=== PATIENT | male | born 1940 | race African-American/Black ===

== ENCOUNTER → 2018-01-05 | Day surgery (SDC) | payer OTHER ==
[~2018-01-05] VITALS: Ht 167.6 cm; Wt 63.5 kg
[~2018-01-05] MED LIST: ALLOPURINOL300 MG PO; ATENOLOL50 MG PO; CARDIZEM60 MG PO; CLONIDINE HCL0.1 MG PO; DHEA50 MG PO; DOXYCYCLINE HY100 MG PO; FENTANYL CITRATE/PF 100MCG/2 ML INJ IV PRN; FENTANYL CITRATE/PF 100MCG/2 ML INJ PRN; FERROUS SULFATE PO; FOLIC ACID1 MG PO; FUROSEMIDE40 MG PO; HEPARIN SOD (PORCINE) 1000 UNIT/ML 30ML PRN; HEPARIN SOD (PORCINE) 1000 UNIT/ML SDV IV ONE; HEPARIN SOD/SOD CHLORIDE 2,000 ML PRN; IOPAMIDOL 370 MG/ML 200 ML INFUS..BTL INJ PRN; LIDOCAINE HCL 2% LOCAL 20 ML VIAL PRN; LISINOPRIL2.5 MG PO; METHYLPRED PO; METOPROLOL TART25 MG PO; MIDAZOLAM HCL 2 MG/2 ML VIAL IV PRN; MIDAZOLAM HCL 2 MG/2 ML VIAL PRN; SODIUM CHLORIDE 0.9% 1000ML 1,000 ML PRN; SPIRIVA18 MCG INH; TAMSULOSIN HCL0.4 MG PO; TERAZOSIN HCL5 MG PO; TYLENOL WITH C1 EACH PO; ULTRAM50 MG PO; VITAMIN B-1 PO; VITAMIN D3 PO; calcitrol PO
--- OUTSIDE RECORDS SUMMARY | 2018-01-05 06:54 | XMS REPORT | Clinical Summary ---
Author Author [facility] Address Unknown Phone Unavailable Care Team Providers Care Datacap Developer Name Role Phone Dennis García MD PCP Allergies No Known Allergies Current Medications Prescription Sig. Disp. Refills Start End Date Status Date acetaminophen-codeine Take 1 tablet by mouth Active (TYLENOL WITH CODEINE #3) every 6 (six) hours as 300-30 mg per tablet needed for moderate pain. allopurinol (ZYLOPRIM) Take 100 mg by mouth Active 100 MG tablet daily. diltiazem (CardIZEM) 90 Take 90 mg by mouth every Active MG tablet 8 (eight) hours. cholecalciferol, vitamin Take 1,000 Units by mouth Active D3, (VITAMIN D3) 1,000 daily. unit capsule tamsulosin (FLOMAX) 0.4 Take 0.4 mg by mouth Active mg capsule,extended daily. release 24hr fluticasone-salmeterol Inhale 1 puff 2 (two) Active (ADVAIR) 250-50 mcg/dose times a day. DISKUS clonIDINE (CATAPRES) 0.1 Take 0.1 mg by mouth Active MG tablet daily as needed. For blood pressure over 170 ipratropium-albuterol Take 3 mL by nebulization Active (DUO-NEB) 0.5-2.5 mg/mL as needed for wheezing. nebulizer sevelamer (RENVELA) 800 Take 800 mg by mouth 3 Active mg tablet (three) times a day with meals. calcitriol (ROCALTROL) Take 0.25 mcg by mouth Active 0.25 MCG capsule daily. clopidogrel (PLAVIX) 75 Take 75 mg by mouth Active mg tablet daily. simvastatin (ZOCOR) 20 MG Take 20 mg by mouth Active tablet nightly. metoprolol tartrate Take 25 mg by mouth Active (LOPRESSOR) 25 mg tablet daily. furosemide (LASIX) 40 mg Take 1 tablet (40 mg 60 tablet 0 12/22/19 01/22/20 Active tablet total) by mouth 2 (two) 18 18 times a day for 30 days. lisinopril Take 5 mg by mouth daily. 12/17/19 Active (PRINIVIL,ZESTRIL) 5 mg 18 tablet aspirin (ECOTRIN) 81 MG Take 81 mg by mouth Active enteric coated tablet daily. prasterone, dhea, (DHEA) Take 1 capsule by mouth Active 50 mg capsule daily. doxycycline (VIBRAMYCIN) Take 2 capsules (100 mg 40 capsule 0 01/08/20 Active 50 MG capsule total) by mouth 2 (two) 18 18 times a day for 10 days. calcitriol (ROCALTROL) Take 0.25 mcg by mouth 10/20/20 Discontin 0.25 MCG capsule daily. 17 ued lisinopril Take 2.5 mg by mouth 11/11/20 Discontin (PRINIVIL,ZESTRIL) 20 mg daily. 17 ued tablet prasterone, dhea, (DHEA) Take 25 tablets by mouth 10/20/20 Discontin 25 mg capsule daily. 17 ued pravastatin (PRAVACHOL) Take 10 mg by mouth 08/14/20 Discontin 10 MG tablet daily. 17 ued atenolol (TENORMIN) 100 Take 100 mg by mouth 08/14/20 Discontin MG tablet daily. 17 ued folic acid (FOLVITE) 1 MG Take 1 mg by mouth daily. 08/14/20 Discontin tablet 17 ued UBIDECARENONE (COQ-10 Take 1 tablet by mouth 08/14/20 Discontin ORAL) daily. 17 ued B complex with C#20-folic Take 1 capsule by mouth 08/14/20 Discontin acid 1 mg capsule every other day. 17 ued sevelamer (RENAGEL) 800 Take 1,600 mg by mouth 3 11/04/20 Discontin MG tablet (three) times a day with 17 ued meals. 1 tablet with snacks simvastatin (ZOCOR) 10 MG Take 1 tablet (10 mg 30 tablet 0 08/15/20 09/14/20 tablet total) by mouth nightly 17 17 for 30 days. simvastatin (ZOCOR) 10 MG Take 10 mg by mouth 11/04/20 Discontin tablet nightly. 17 ued aspirin (ECOTRIN) 81 MG Take 1 tablet (81 mg 30 tablet 0 10/20/20 enteric coated tablet total) by mouth daily for 17 18 30 days. prasterone, dhea, (DHEA) Take 1 capsule by mouth 11/11/20 Discontin 25 mg capsule daily. 17 ued umeclidinium (INCRUSE Inhale daily. 11/11/20 Discontin ELLIPTA) 62.5 17 ued mcg/actuation blister with device lidocaine-prilocaine Apply topically as needed 11/11/20 Discontin (EMLA) 2.5-2.5 % cream for mild pain. Apply 17 ued topically as directed b complex vitamins Take 1 capsule by mouth 11/11/20 Discontin capsule daily. 17 ued atorvastatin (LIPITOR) 10 Take 1 tablet (10 mg 30 tablet 0 11/06/20 11/11/20 Discontin MG tablet total) by mouth daily for 17 17 ued 30 days. lisinopril Take 1 tablet (5 mg 30 tablet 0 11/15/20 12/15/19 (PRINIVIL,ZESTRIL) 5 mg total) by mouth daily for 17 18 tablet 30 days. predniSONE (DELTASONE) 20 Take 1 tablet (20 mg 7 tablet 0 11/14/20 11/21/19 mg tablet total) by mouth daily for 17 18 7 days. methylPREDNISolone follow package directions 21 tablet 0 12/12/19 (MEDROL, ROSHNI,) 4 mg 18 18 tablet methylPREDNISolone follow package directions 21 tablet 0 12/29/19 (MEDROL, ROSHNI,) 4 mg 18 18 tablet Active Problems Problem Noted Date Acute respiratory failure 12/21/2017 COPD exacerbation 12/10/2017 SOB (shortness of breath) 11/11/2017 Malfunction of arteriovenous graft 11/11/2017 Overview: Added automatically from request for surgery [id number] CHF exacerbation 11/04/2017 Acute on chronic systolic congestive heart failure 11/04/2017 NSTEMI (non-ST elevated myocardial infarction) 11/04/2017 Hypoglycemia 10/19/2017 Anemia 08/14/2017 Essential hypertension 04/23/2017 Kidney disease, chronic, end stage on dialysis 04/08/2017 Encounters Date Type Specialty Care Team Description 12/28/2017 Emergency General Internal Medicine Chris Shearer DO COPD exacerbation - Chong Arteaga (Primary Dx); 12/30/2017 MD Jaxson Acute pulmonary edema 12/21/2017 [facility] General Surgery Carlos Linares MD Acute respiratory - Encounter Chong Arteaga failure, unspecified 12/22/2017 MD Jaxson whether with hypoxia or hypercapnia (Primary Dx) 12/15/2017 Abstract Transplant Brian Vela, QUINN 12/10/2017 [facility]ation - Encounter MD Waldo (Primary Dx) 12/12/2017 Amando Turner MD 11/13/2017 Procedure Pass Procedural Cardiology 11/13/2017 Surgery Procedural Cardiology Adrian Monterroso MD Cv intro cath dialysis circuit angioplasty [72118 (CPT )] 11/11/2017 [facility] General Internal Medicine Carlos Oneal-Andrea Lombardi SOB (shortness of breath) - Encounter MD (Primary Dx); 11/16/2017 Amando Turner MD COPD exacerbation; Hypertension, unspecified type; Malfunction of arteriovenous graft, initial encounter 11/05/2017 Procedure Pass Procedural Cardiology 11/05/2017 Surgery Procedural Cardiology Savage Bosch MD Cv left heart cath [65076 (CPT )] 11/04/2017 Hospital General Internal Medicine Haleigh Laceyton Paul, Acute on chronic systolic - Encounter congestive heart failure 11/06/2017 Dipti Bains MD (Primary Dx); Amando Turner MD Hypertensive emergency; Chong Arteaga Malaise; MD Jaxson Shortness of breath; Acute pulmonary edema; NSTEMI (non-ST elevated myocardial infarction) 10/19/2017 Emergency General Internal Medicine Nata Singh, Altagracia (Primary - DO Dx); 10/20/2017 Dipti Bains MD ESRD (end stage renal Amando Turner MD disease) 08/13/2017 Emergency General Surgery Mariano Jin Anemia, unspecified type - MD Jimi (Primary Dx); 08/15/2017 Amando Turner MD Acute pulmonary edema; ESRD (end stage renal disease) on dialysis; Essential hypertension 04/30/2017 Documentation Transplant Zelda Jeffries Consent Forms (Scanned Consent For Kidney Transplant Evaluation, Pre Txp Education & ANDREZ forms in Media. 04-23-2017) 04/23/2017 Hospital Transplant Tiburcio Turner MD Encounter 04/23/2017 Hospital Transplant Cheikh Cronin MD Essential hypertension Encounter (Primary Dx); Kidney disease, chronic, end stage on dialysis 04/23/2017 Hospital Transplant Cristian Darling MD Encounter 04/23/2017 Hospital Transplant Cheikh Cronin MD Encounter 04/23/2017 Orders Only Transplant Chino Piña RN ESRD (end stage renal disease) (Primary Dx) 04/21/2017 Telephone Transplant aJnette Ledbetter MA Medical information 04/07/2017 Telephone Transplant Micki Martines MA Referral - Kidney Txp (New MD Consult) after 01/04/2017 Social History Tobacco Use Types Packs/Day Years Used Date Former Smoker 0.5 Quit: 11/16/2014 Smokeless Tobacco: Never Used Alcohol Use Drinks/Week oz/Week Comments No Sex Assigned at Date Recorded Not on file Last Filed Vital Signs Vital Sign Reading Time Taken Blood Pressure 158/72 12/30/2017 2:47 PM CHILDHOOD TEACHER Pulse 70 12/30/2017 2:47 PM CHILDHOOD TEACHER Temperature 35.7 C (96.3 F) 12/30/2017 2:47 PM CHILDHOOD TEACHER Respiratory Rate 18 12/30/2017 2:47 PM CHILDHOOD TEACHER Oxygen Saturation 100% 12/30/2017 2:47 PM CHILDHOOD TEACHER Inhaled Oxygen - - Concentration Weight 62.8 kg (138 lb 8 oz) 12/29/2017 6:53 AM CHILDHOOD TEACHER Height 167.6 cm (5' 6") 12/28/2017 9:17 PM CHILDHOOD TEACHER Body Mass Index 22.35 12/29/2017 6:53 AM CHILDHOOD TEACHER Plan of Treatment Health Maintenance Due Date Last Done Comments ZOSTER VACCINE 2002 PNEUMOCOCCAL 2007 POLYSACCHARIDE VACCINE AGE 65 AND OVER PNEUMOCOCCAL-13 2007 INFLUENZA VACCINE 06/16/2017 Procedures Procedure Name Priority Date/Time Associated Diagnosis Comments HEMODIALYSIS Routine 12/30/2017 7:51 AM CHILDHOOD TEACHER HEMODIALYSIS Routine 12/28/2017 12:11 PM [employer]ILDHOOD TEACHER [place] [facility] E/M Routine 12/28/2017 Results for this 30-74 MINUTES 8:16 AM CHILDHOOD TEACHER procedure are in the results section. [place] [facility], E/M Routine 12/21/2017 Results for this 30-74 MINUTES 7:38 AM CHILDHOOD TEACHER procedure are in the results section. [place] [facility], E/M Routine 12/12/2017 Results for this 30-74 MINUTES 2:46 PM CHILDHOOD TEACHER procedure are in the results section. HEMODIALYSIS Routine 12/11/2017 1:59 PM CHILDHOOD TEACHER HEMODIALYSIS Routine 11/16/2017 9:40 AM CHILDHOOD TEACHER [place] [facility], E/M Routine 11/11/2017 Results for this 30-74 MINUTES 3:39 AM CHILDHOOD TEACHER procedure are in the results section. HEMODIALYSIS Routine 11/06/2017 10:07 AM CHILDHOOD TEACHER ECHOCARDIOGRAM 2D Routine 11/05/2017 Results for this COMPLETE W MMODE SPECTRAL 7:53 PM CHILDHOOD TEACHER procedure are in the COLOR DOPPLER (76175) results section. CV LEFT HEART CATH Routine 11/05/2017 1:17 PM CHILDHOOD TEACHER [place] [facility], E/M Routine 11/04/2017 Results for this 30-74 MINUTES 3:41 AM CHILDHOOD TEACHER procedure are in the results section. [place] [facility], E/M Routine 10/20/2017 Results for this 30-74 MINUTES 7:51 PM CHILDHOOD TEACHER procedure are in the results section. HEMODIALYSIS Routine 10/19/2017 10:59 AM CHILDHOOD TEACHER HEMODIALYSIS Routine 08/15/2017 1:20 PM CDT after 01/04/2017 Results * Estimated GFR (12/30/2017 5:08 AM) Only the most recent of 15 results within the time period is included. Component Value Ref Range GFR Non Af Amer 9 (A) mL/min/1.73 m2 GFR Af Amer 11 (A) mL/min/1.73 m2 Comment: Chronic kidney disease: <60 mL/min/1.73m2 Kidney failure: <15 mL/min/1.73m2 The estimated GFR is calculated from the IDMS-traceable Modification of Diet in Renal Disease Equation. The accuracy of the calculation is poor when the creatinine is normal. Calculated values >90 mL/min/1.73m2 are not reported. This equation has not been validated in children (<18 years), women, the elderly (>70 years), or ethnic groups other than Caucasians and Americans. Specimen Performing Laboratory Plasma specimen [facility] DEPARTMENT OF PATHOLOGY AND GENOMIC MEDICINE [address] [place] [address] * CBC with platelet and differential (12/30/2017 5:08 AM) Only the most recent of 14 results within the time period is included. Component Value Ref Range WBC 11.9 (H) 4.2 - 11.0 k/uL RBC 4.29 4.04 - 5.86 m/uL HGB 10.3 (L)Comment: REPEAT HGB=10.4 13.0 - 17.3 g/dL HCT 33.2 (L) 34.0 - 45.0 % MCV 77.4 (L) 80.0 - 98.0 fL MCH 24.0 (L) 27.0 - 34.0 pg MCHC 31.0 (L) 31.5 - 36.5 g/dL RDW - SD 58.3 (H) 37.0 - 51.0 fL MPV 9.4 7.4 - 10.4 fL Platelet count 301 150 - 400 k/uL Nucleated RBC 0.00 /100 WBC Neutrophils 69.7 (H) 36.0 - 66.0 % Lymphocytes 18.0 (L) 24.0 - 44.0 % Monocytes 10.5 (H) 0.0 - 6.0 % Eosinophils 1.2 0.0 - 6.0 % Basophils 0.2 0.0 - 1.2 % Immature granulocytes 0.4 0.0 - 1.0 % Specimen Performing Laboratory Blood [facility] DEPARTMENT OF PATHOLOGY AND GENOMIC MEDICINE [address] [place] [address] * Basic metabolic panel (12/30/2017 5:08 AM) Only the most recent of 7 results within the time period is included. Component Value Ref Range Sodium 135 135 - 150 mEq/L Potassium 4.8 3.5 - 5.0 mEq/L Chloride 94 (L) 100 - 109 mEq/L CO2 30 24 - 32 mmol/L Anion gap 11 7 - 15 mEq/L Comment: Starting from February , anion gap calculation no longer incorporates potassium. Please note the change. BUN 58 (H) 7 - 18 mg/dL Creatinine 6.1 (H) 0.8 - 1.5 mg/dL Glucose 79 65 - 100 mg/dL Calcium 8.0 (L) 8.6 - 10.7 mg/dL Specimen Performing Laboratory Plasma specimen [facility] DEPARTMENT OF PATHOLOGY AND GENOMIC MEDICINE [address] [place] [address] * Transfuse RBC (12/29/2017 9:20 PM) Only the most recent of 4 results within the time period is included. * Prepare RBC, 2 Units (12/29/2017 1:07 PM) Only the most recent of 2 results within the time period is included. Component Value Ref Range Product name Apheresis -3 LR #1 Unit number [id number] Product code [id number] Dispense status Transfused Blood expiration date Blood type code 5100Comment: 16:39 Moovly Blood type O POSITIVE Product name Apheresis -3 LR #2 Unit number [id number] Product code [id number] Dispense status Transfused Blood expiration date [id number]: 21:13 Moovly Blood type code 5100 Blood type O POSITIVE Specimen Performing Laboratory [facility] DEPARTMENT OF PATHOLOGY AND GENOMIC MEDICINE [address] [place] [id number] * Type and screen (12/29/2017 1:07 PM) Only the most recent of 2 results within the time period is included. Component Value Ref Range ABO grouping O Rh type POS Antibody screen (gel) NEG Specimen Performing Laboratory Blood [facility] DEPARTMENT OF PATHOLOGY AND GENOMIC MEDICINE [address] [place] [id number] * Phosphorus level (12/29/2017 5:18 AM) Only the most recent of 3 results within the time period is included. Component Value Ref Range Phosphorus 3.4 2.5 - 4.5 mg/dL Specimen Performing Laboratory Plasma specimen [facility] DEPARTMENT OF PATHOLOGY AND GENOMIC MEDICINE [address] [place] [address] [place] [address] * Magnesium level (12/29/2017 5:18 AM) Only the most recent of 3 results within the time period is included. Component Value Ref Range Magnesium 2.00 1.60 - 2.40 mg/dL Specimen Performing Laboratory Plasma specimen [facility] DEPARTMENT OF PATHOLOGY AND GENOMIC MEDICINE [address] [place] [address] [place] [address] * Troponin (12/28/2017 12:08 PM) Only the most recent of 24 results within the time period is included. Component Value Ref Range Troponin 0.06 0.00 - 0.60 ng/mL Comment: 0.11 - 1.49 ng/ml May indicate increased risk of acute coronary syndrome. >=1.5 ng/ml Consistent with acute myocardial infarction. The diagnostic value of a single normal or non-diagnostic result is questionable. Serial samples at 2-6 hour intervals are required to rule out acute myocardial injury. Specimen Performing Laboratory Plasma specimen [facility] DEPARTMENT OF PATHOLOGY AND [facility] MEDICINE [address] [place] [address]. [place] [id number] * Hepatitis B surface antigen (12/28/2017 8:23 AM) Only the most recent of 7 results within the time period is included. Component Value Ref Range Hepatitis B surface Ag Non-reactive Non-reactive Specimen Performing Laboratory Blood [facility] DEPARTMENT OF PATHOLOGY AND [facility] MEDICINE [address] [place] [address]. [place] [address] * B natriuretic peptide (12/28/2017 8:23 AM) Only the most recent of 6 results within the time period is included. Component Value Ref Range BNP 1,870 (H) 0 - 100 pg/mL Specimen Performing Laboratory Blood [facility] OF PATHOLOGY AND [facility] MEDICINE [address] [place] [address] * Creatine kinase, total (CPK) (12/28/2017 8:23 AM) Only the most recent of 3 results within the time period is included. Component Value Ref Range Creatine kinase 52 (L) 61 - 224 U/L Specimen Performing Laboratory Plasma specimen [facility] OF PATHOLOGY AND [facility] MED[facility] [address] [place] [address] * Comprehensive metabolic panel (12/28/2017 8:23 AM) Only the most recent of 8 results within the time period is included. Component Value Ref Range Sodium 143 135 - 150 mEq/L Potassium 5.0 3.5 - 5.0 mEq/L Chloride 102 100 - 109 mEq/L CO2 30 24 - 32 mmol/L Anion gap 11 7 - 15 mEq/L Comment: Starting from February , anion gap calculation no longer incorporates potassium. Please note the change. BUN 66 (H) 7 - 18 mg/dL Creatinine 7.9 (H) 0.8 - 1.5 mg/dL Glucose 90 65 - 100 mg/dL Calcium 8.5 (L) 8.6 - 10.7 mg/dL Protein 7.0 6.3 - 8.2 g/dL Albumin 2.8 (L) 3.2 - 5.0 g/dL A/G ratio 0.7 0.7 - 3.8 Alkaline phosphatase 47 30 - 120 U/L AST 11 (L) 15 - 37 U/L ALT 13 (L) 30 - 65 U/L Total bilirubin 0.4 0.2 - 1.2 mg/dL Specimen Performing Laboratory Plasma specimen [facility] DEPARTMENT OF PATHOLOGY AND GENOMIC MEDICINE [address] [place] [address] * ECG ED Preliminary Interpretation - NOT AN ORDER (12/28/2017 8:16 AM) Only the most recent of 7 results within the time period is included. Narrative Chris Shearer, 12/28/20172:13 PM ECG ED Preliminary Interpretation - Not an Order Performed by: CHRIS SHEARER Authorized by: CHRIS SHEARER ECG reviewed by ED Physician in the absence of a masseur/masseuse: yes Interpretation: Interpretation: abnormal Rate: ECG rate:102 ECG rate assessment: tachycardic Rhythm: Rhythm: sinus tachycardia Ectopy: Ectopy: none QRS: QRS axis:Normal Conduction: Conduction: normal ST segments: ST segments:Normal T waves: T waves: normal Comments: Time 0749 * CRITICAL CARE (12/28/2017 8:16 AM) Narrative Chris Shearer, DO 12/28/20172:13 PM Critical Care Performed by: CHRIS SHEARER Authorized by: CHRIS SHEARER Critical care provider statement: Critical care time (minutes):60 Critical care end time:12/28/2017 2:12 PM Critical care time was exclusive of:Separately billable procedures and treating other patients Critical care was necessary to treat or prevent imminent or life-threatening deterioration of the following conditions:Respiratory failure and renal failure Critical care was time spent personally by me on the following activities:Ordering and performing treatments and interventions, ordering and review of laboratory studies, ordering and review of radiographic studies, pulse oximetry, re-evaluation of patient's condition, review of old charts, discussions with consultants, development of treatment plan with patient or surrogate, examination of patient, evaluation of patient's response to treatment and ventilator management * XR Chest 1 Vw Portable (12/28/2017 8:09 AM) Only the most recent of 7 results within the time period is included. Specimen Performing Laboratory [facility] [address] [place] [address] Narrative EXAMINATION:XR CHEST 1 VW PORTABLE CLINICAL HISTORY:SHORTNESS OF BREATH COMPARISON:12/21/2017 IMPRESSION: An AP radiograph of the chest is reviewed. The cardiomediastinal silhouette is unchanged. Bilateral interstitial infiltrates from either interstitial edema or pneumonia appear to have slightly worsened over the interval. Small bilateral pleural effusions are present. There is no pneumothorax. [facility]-[id number] Procedure Note Hm Interface, Radiology Results Incoming - 12/28/2017 8:14 AM CHILDHOOD TEACHER EXAMINATION: XR CHEST 1 VW PORTABLE CLINICAL HISTORY: SHORTNESS OF BREATH COMPARISON: 12/21/2017 IMPRESSION: An AP radiograph of the chest is reviewed. The cardiomediastinal silhouette is unchanged. Bilateral interstitial infiltrates from either interstitial edema or pneumonia appear to have slightly worsened over the interval. Small bilateral pleural effusions are present. There is no pneumothorax. [facility]-[id number] * ECG 12 lead (12/28/2017 7:49 AM) Only the most recent of 14 results within the time period is included. Component Value Ref Range Ventricular rate 102 Atrial rate 102 [place] interval 180 QRSD interval 96 QT interval 338 QTC interval 440 P axis 1 63 QRS axis 1 47 T wave axis 64 EKG impression Sinus tachycardia-Minimal voltage criteria for LVH, may be normal variant-Borderline ECG-No previous ECGs available- Specimen Performing Laboratory [facility] [address] [place] [address] * Respiratory pathogen panel (12/21/2017 8:28 AM) Only the most recent of 2 results within the time period is included. Component Value Ref Range Respiratory pathogen Negative for all pathogens tested: panel Negative for Adenovirus Negative for Coronavirus HKU1 Negative for Coronavirus NL63 Negative for Coronavirus 229E Negative for Coronavirus OC43 Negative for Human Metapneumovirus Negative for Rhinovirus/Enterovirus Negative for Influenza A Negative for Influenza A/H1 Negative for Influenza A/H3 Negative for Influenza A/H1-2009 Negative for Influenza B Negative for Parainfluenza Virus 1 Negative for Parainfluenza Virus 2 Negative for Parainfluenza Virus 3 Negative for Parainfluenza Virus 4 Negative for Respiratory Syncytial Virus Negative for Bordetella pertussis Negative for Chlamydophila pneumoniae Negative for Mycoplasma pneumoniae This real-time PCR assay detects the presence of nucleic acids (RNA or DNA) for the respiratory pathogens listed. A result of "Not-detected" does not exclude the possibility of the presence of one or more pathogens at concentrations less than the detectable limits of the assay. Comment: Specimen Information Specimen Source: Nasopharyngeal Specimen Site: Not otherwise specified Specimen Performing Laboratory Nasopharyngeal - Not [facility] DEPARTMENT OF PATHOLOGY AND GENOMIC MEDICINE otherwise specified [address] [place] [address] * Influenza antigen (12/21/2017 8:28 AM) Only the most recent of 2 results within the time period is included. Component Value Ref Range Influenza antigen Negative for Influenza A/B antigen. Comment: Specimen Information Specimen Source: Nares Specimen Site: Not otherwise specified Specimen Performing Laboratory Nares - Not otherwise [facility] DEPARTMENT OF PATHOLOGY AND GENOMIC MEDICINE specified [address] [place] [address] * Prothrombin time with INR (12/21/2017 8:02 AM) Only the most recent of 4 results within the time period is included. Component Value Ref Range Prothrombin time 13.2 12.0 - 15.0 sec INR 0.99 0.92 - 1.12 Comment: For patients on anticoagulant therapy, reference ranges below: Indication: INR Value Treatment of Venous Thrombosis, 2.0-3.0 pulmonary emboli, or prophylaxis of a venous thrombosis, or systemic emboli. High dose, high risk patients 3.0-4.5 with mechanical valves. NOTE: INR values over 3.0 are sometimes associated with gastrointestinal hemorrhage, especially values over 4.0. Specimen Performing Laboratory Blood [facility] DEPARTMENT OF PATHOLOGY AND GENOMIC MEDICINE [address] [place] [address] * CRITICAL CARE (12/21/2017 7:38 AM) Narrative Carlos Linares MD 12/21/20177:38 AM Critical Care Performed by: CARLOS LINARES Authorized by: CARLOS LINARES Critical care provider statement: Critical care time (minutes):32 Critical care was necessary to treat or prevent imminent or life-threatening deterioration of the following conditions:Cardiac failure and circulatory failure Critical care was time spent personally by me on the following activities:Blood draw for specimens and discussions with primary provider Comments: Pt w severe sob and placed onto bipap * POC glucose (12/21/2017 7:36 AM) Only the most recent of 15 results within the time period is included. Component Value Ref Range POC glucose 101 (H) 65 - 100 mg/dL Comment: Meter ID: [id number] Personal Financial Advisor: Johnnasandy Brooks Specimen Performing Laboratory [facility] DEPARTMENT OF PATHOLOGY AND GENOMIC MEDICINE [address] [place] [address] * Arterial blood gas (12/21/2017 7:31 AM) Only the most recent of 3 results within the time period is included. Component Value Ref Library Helper [employer] Collection site RRA O2 therapy BIPAP pH, arterial 7.246 (LL)Comment: CALLED TO RT NIDHI HERNÁNDEZ @ 07:42 7.350 - 7.450 units 12/21/2017 RB [place] -NKS pCO2, arterial 68.2 (HH) 35.0 - 45.0 mmHg pO2, arterial 484.0 (H) 80.0 - 90.0 mmHg O2 saturation, arterial >100.0 95.0 - 100.0 % Base excess, arterial 2.3 mEq/L Bicarbonate 29.6 (H) 21.0 - 28.0 mEq/L O2 content 13.4 VOL% FiO2, inspired O2% 21.0 % Carboxyhemoglobin 0.8 0.0 - 1.4 % Comment: Reference Ranges: Carboxyhemoglobin Non smoker: 0.0 - 2.0% Smoker: 2.1 - 5.0% Heavy smoker: 5.1 - 9% Methemoglobin 0.6 0.0 - 1.0 % Hemoglobin, blood gas 8.7 (L) 14.0 - 18.0 g/dL Specimen Performing Laboratory Blood [facility] DEPARTMENT OF PATHOLOGY AND GENOMIC MEDICINE [address] [place] [address] * CRITICAL CARE (12/12/2017 2:46 PM) Tyler Sparks MD 12/12/20172:46 PM Critical Care Performed by: NINFA SPARKS Authorized by: NINFA SPARKS Critical care provider statement: Critical care time (minutes):40 Critical care time was exclusive of:Separately billable procedures and treating other patients Critical care was necessary to treat or prevent imminent or life-threatening deterioration of the following conditions:Respiratory failure Critical care was time spent personally by me on the following activities:Development of treatment plan with patient or surrogate, discussions with primary provider, evaluation of patient's response to treatment, ordering and performing treatments and interventions, ordering and review of laboratory studies, ordering and review of radiographic studies, pulse oximetry, obtaining history from patient or surrogate and examination of patient Comments: Patient severe respiratory distress, needing Bipap to prevent respiratory failure. * Hepatitis B surface Ab, quantitative (12/11/2017 10:19 AM) Only the most recent of 2 results within the time period is included. Component Value Ref Range Hepatitis B surface Ab >1000.00 IU/L Comment: The anti-HBs is greater than or equal to 10 IU/L. This patient has either had an antibody response to HBV vaccination, received a transfusion, or has recovered from HBV infection. This patient should be considered immune to hepatitis B. An anti-HBs result greater than or equal to 10 IU/L implies immunity. For post-vaccination antibody testing guidelines for the general public refer to MMWR November 07, 2005/Vol. 54(No. 16);12-08, and for healthcare workers refer to MMWR November 04, 2013/Vol. 62(No. 10);12-04. Reference Interval: anti-HBs 9.99 IU/L or less ....... Negative 10.00 IU/L or greater .... Positive Results greater than 1,000.00 IU/L are reported as greater than 1,000.00 IU/L. This assay should not be used for blood donor screening, associated re-entry protocols, or for screening Human Cell, Tissues and Cellular and Tissue-Based Products (HCT/P). Performed by [facility], [address] [place] [id number] [email or web address], Jonah Whatley MD - Lab. Director Specimen Performing Laboratory [facility] [address] [place] [address] * Cv invasive peripheral vascular procedure (11/13/2017 1:56 PM) Specimen Performing Laboratory [facility] [address] [place] [address] Narrative See op note * Partial thromboplastin time, activated (11/12/2017 1:02 PM) Only the most recent of 2 results within the time period is included. Component Value Ref Range PTT 32.7 23.0 - 36.0 sec Comment: PTT therapeutic range for unfractionated heparin is 61.0-112.0 seconds which corresponds to Anti-Xa 0.3-0.7 U/ml. Note: Change in Panic Value The PTT Panic Value is changing from 110 sec. to 100 sec. due to new instrumentation and reagents. Correlation studies have been performed to validate this result. Specimen Performing Laboratory Blood [facility] DEPARTMENT OF PATHOLOGY AND GENOMIC MEDICINE [address] [place] [address] * CRITICAL CARE (11/11/2017 3:39 AM) Tyler Oneal MD 11/11/20173:39 AM Critical Care Performed by: CARLOS ONEAL Authorized by: CARLOS ONEAL Critical care provider statement: Critical care time (minutes):35 Critical care start time:11/11/2017 1:05 AM Critical care end time:11/11/2017 1:40 AM Critical care was necessary to treat or prevent imminent or life-threatening deterioration of the following conditions:Respiratory failure Critical care was time spent personally by me on the following activities:Development of treatment plan with patient or surrogate, evaluation of patient's response to treatment, ordering and performing treatments and interventions, ordering and review of laboratory studies, ordering and review of radiographic studies, pulse oximetry, re-evaluation of patient's condition and review of old charts * Echocardiogram complete w contrast and 3D if needed (11/05/2017 7:53 PM) Component Value Ref Range Velocity Ratio (V1/V2) 0.66 m/s IVS,d 1.28 (A) 0.6 - 1.2 cm EF 47.49 % LVPWD,d 1.39 cm AoV Mean PG 5.96 mmHg AV LVOT peak gradient 4.65 mmHg MV mean gradient 2.23 mmHg MV valve area p 1/2 3.85 cm2 method E/A ratio 1.55 E wave decelartion time 176.03 msec LVOT Diam,S 2.08 cm LVOT area 3.40 cm2 LVOT Vmax 1.08 m/s LVOT VTI 0.20 m RVOT Vmax 0.67 m/s AoV Peak PG 10.60 mmHg MV Peak E Anmol 1.16 m/s MV stenosis pressure 1/2 57.13 ms time MV Peak A Anmol 0.75 m/s AoV Area, Vmax 2.25 cm2 AoV Area, VTI 2.10 cm2 AoV Vmax 1.63 m/s Left Atrium Dimension 3.87 cm Anterior LV,d 4.66 cm LV,s 3.55 cm RVSP (TR) 52.85 mmHg TR Vpeak 3.27 mm/s MV E A ratio 1.55 mmHg TR pk grad 42.85 mmHg MR peak grad 4.53 mmHg RVSP 52.85 mmHg Ao Root Diameter 3.68 cm AR Press Half Time 419.62 ms LV SYS VOL 52.80 ml LV NORTH VOL 100.56 ml LV SV Teich 2D 47.76 ml LVOT CO 4.65 l/min LVOT HR for LVOT CO 68.47 bpm MV Vmax 1.06 m MV VTI Tips 0.31 m RVOT pk grad 1.80 mmHg AoV Vmn 1.17 AR slope 2.41 Ar Vmax 3.48 IVS s 2D 1.37 Ao Root Diameter 3.68 cm AoV VTI 0.32 m MR Vmax 5.11 m/s LVOT Vmn 0.74 LVOT mean grad 2.48 mmHg AR DT 1,446.98 msec AR pk grad 48.48 mmHg LVPW s PLAX 1.34 cm MV Decel slope 6.61 m/s2 Specimen Performing Laboratory [facility] [address] [place] [address] Narrative The left ventricle chamber size is mildly enlarged. Left ventricular systolic function mildly impaired. Left Ventricular ejection fraction is 40 - 45%. Left atrium size is mildly dilated. The aortic valve appears moderately calcified. Mild aortic regurgitation. Mild aortic valve stenosis. 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 Component Value Ref Range Manual differential PERFORMED Neutrophils 67.0 (H) 36.0 - 66.0 % Lymphocytes 28.0 24.0 - 44.0 % Monocytes 1.0 0.0 - 6.0 % Eosinophils 3.0 0.0 - 6.0 % Basophils 1.0 0.0 - 1.2 % Metamyelocytes 0 0 - 1 % Promyelocytes 0 0 - 1 % Platelet slide review Darlin adequate Anisocytosis Moderate Polychromasia slight Tear drop cells Occasional Schistocytes Occasional Target cells few Acanthocytes Occasional Specimen Performing Laboratory [facility] DEPARTMENT OF PATHOLOGY AND GENOMIC MEDICINE [address] [facility] [address] [place] [address] * CRITICAL CARE (11/04/2017 3:41 AM) Narrative Celestine Lacey MD 11/04/20173:41 AM Critical Care Performed by: CELESTINE LACEY Authorized by: CELESTINE LACEY Critical care provider statement: Critical care time (minutes):60 Critical care start time:11/04/2017 1:40 AM Critical care end time:11/04/2017 3:40 AM Critical care was necessary to treat or prevent imminent or life-threatening deterioration of the following conditions:Cardiac failure, endocrine crisis and metabolic crisis Critical care was time spent personally by me on the following activities:Ordering and performing treatments and interventions, development of treatment plan with patient or surrogate, ordering and review of laboratory studies, ordering and review of radiographic studies, discussions with primary provider, discussions with consultants, pulse oximetry, evaluation of patient's response to treatment, examination of patient and re-evaluation of patient's condition * CRITICAL CARE (10/20/2017 7:51 PM) Narrative Nata Singh DO 10/20/20177:51 PM Critical Care Performed by: NATA SINGH Authorized by: NATA SINGH Critical care provider statement: Critical care time (minutes):55 Critical care was necessary to treat or prevent imminent or life-threatening deterioration of the following conditions:Endocrine crisis and MANAGER MOBILITY failure or compromise Critical care was time spent personally by me on the following activities:Development of treatment plan with patient or surrogate, discussions with primary provider, evaluation of patient's response to treatment, examination of patient, interpretation of cardiac output measurements, obtaining history from patient or surrogate, ordering and performing treatments and interventions, ordering and review of laboratory studies, ordering and review of radiographic studies, pulse oximetry, re-evaluation of patient's condition and review of old charts * Lipid panel (10/20/2017 6:48 AM) Component Value Ref Range Cholesterol 214 (H) 120 - 200 mg/dL Triglycerides 43 (L) 50 - 150 mg/dL HDL cholesterol 174 (H) 40 - 60 mg/dL LDL cholesterol 54Comment: Result obtained by direct LDL mg/dL measurement Lipid panel See below interpretation Comment: Total Cholesterol (mg/dL) LDL Cholesterol (mg/dL) <200 Desirable <100 Optimal 200-239 Borderline-high 100-129 Near or above optimal >=240 High 130-159 Borderline-high 160-189 High >=190 Very high HDL Cholesterol (mg/dL) Triglycerides (mg/dL) <40 Low <150 Normal >=60 High 150-199 Borderline-high 200-499 High >=500 Very high Risk Catergories that modify LDL goals. Risk Catergories LDL goal (mg/dL) CHD and CHD risk equivalent <100 (10-year risk >20%) Multiple (2+) risk factors <130 (10-year risk=<20%) 0-1 risk factors <160 (<10-year risk) Defining levels of lipids in metabolic syndrome Triglycerides >=150 mg/dL HDL Cholesterol Men <40 mg/dL Women <50 mg/dL Non-HDL cholesterol is a second target for therapy in persons with high triglycerides (>=200 mg/dL) Specimen Performing Laboratory Plasma specimen [facility] DEPARTMENT OF PATHOLOGY AND GENOMIC MEDICINE [facility] [place] [address] * Hemoglobin & hematocrit (10/19/2017 10:50 AM) Only the most recent of 3 results within the time period is included. Component Value Ref Range HGB 11.0 (L) 13.0 - 17.3 g/dL HCT 34.2 34.0 - 45.0 % Specimen Performing Laboratory Blood [facility] DEPARTMENT OF PATHOLOGY AND GENOMIC MEDICINE [facility] [address] * CT Stroke Brain Wo Contrast (10/19/2017 1:01 AM) Specimen Performing Laboratory [facility] [address] [place] [address] Narrative EXAMINATION: CT STROKE BRAIN WO CONTRAST CLINICAL HISTORY: cvaright side weakness COMPARISON:None. TECHNIQUE: Noncontrast enhanced images of the brain were obtained from the skull base to the vertex. Both soft tissue and bone reconstruction algorithms were performed. CT scans are performed using radiation dose reduction techniques (iterative reconstruction and/or automated exposure control). Technical factors are evaluated and adjusted to ensure appropriate moderation of exposure. Automated dose management technology is applied to adjust radiation exposure while achieving a diagnostic quality image. FINDINGS: Generalized age-related brain parenchymal volume loss. Patchy hypoattenuation of the supratentorial white matter, likely chronic microangiopathic changes. Mild cerebrovascular calcifications. The brain parenchyma is otherwise unremarkable. The loya-white matter differentiation is preserved. No evidence of acute intra or extra-axial hemorrhage, mass, mass effect or acute territorial infarction. There is no acute hydrocephalus. Basal cisterns are patent. No acute soft tissue hematoma or laceration. No skull fractures or aggressive bony lesions. Paranasal sinuses and mastoid air cells are clear. Orbits are normal. IMPRESSION: Involutional changes as detailed above with no acute intracranial abnormality. Findings discussed with NATA SINGH at 10/19/2017 1:04 AM, with acknowledgement of understanding. 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 TECHNIQUE: Noncontrast enhanced images of the brain were obtained from the skull base to the vertex. Both soft tissue and bone reconstruction algorithms were performed. CT scans are performed using radiation dose reduction techniques (iterative reconstruction and/or automated exposure control). Technical factors are evaluated and adjusted to ensure appropriate moderation of exposure. Automated dose management technology is applied to adjust radiation exposure while achieving a diagnostic quality image. FINDINGS: Generalized age-related brain parenchymal volume loss. Patchy hypoattenuation of the supratentorial white matter, likely chronic microangiopathic changes. Mild cerebrovascular calcifications. The brain parenchyma is otherwise unremarkable. The loya-white matter differentiation is preserved. No evidence of acute intra or extra-axial hemorrhage, mass, mass effect or acute territorial infarction. There is no acute hydrocephalus. Basal cisterns are patent. No acute soft tissue hematoma or laceration. No skull fractures or aggressive bony lesions. Paranasal sinuses and mastoid air cells are clear. Orbits are normal. IMPRESSION: Involutional changes as detailed above with no acute intracranial abnormality. Findings discussed with NATA SINGH at 10/19/2017 1:04 AM, with acknowledgement of understanding. [facility]-[id number] * Smear review (08/15/2017 6:29 AM) Only the most recent of 5 results within the time period is included. Component Value Ref Range Platelet slide review Darlin adequate Specimen Performing Laboratory [facility] DEPARTMENT OF PATHOLOGY AND GENOMIC MEDICINE [address] [place] [address] * Legionella urinary antigen (08/14/2017 1:39 PM) Component Value Ref Range Legionella urinary Negative for Legionella serogroup 1 antigen. antigen Comment: Specimen Information Specimen Source: Urine Specimen Site: Random void Specimen Performing Laboratory Urine - Random void [facility] DEPARTMENT OF PATHOLOGY AND GENOMIC MEDICINE [address] [place] [address] * Mycoplasma pneumoniae Ab, IgM (08/14/2017 12:31 PM) Component Value Ref Range Mycoplasma pneumo IgM 0.47 <=0.76 U/L Comment: INTERPRETIVE INFORMATION: Mycoplasma pneumoniae Ab, IgM 0.76 U/L or less .......... Negative: No clinically significant amount of M. pneumoniae IgM antibody detected. 0.77 - 0.95 U/L ........... Low Positive: M. pneumoniae- specific IgM presumptively detected. Collection of a follow-up sample in 1-2 weeks is recommended to assure reactivity. 0.96 U/L or greater ....... Positive: Highly significant amount of M. pneumoniae- specific IgM antibody detected. However, low levels of IgM antibodies may occasionally persist for more than 12 months post-infection. Performed by [facility], [address] [place], [place] [id number] [email or web address], Jonah Whatley MD - Lab. Director Specimen Performing Laboratory [facility] [address] [place] [address] * Total iron binding capacity (08/14/2017 8:00 AM) Component Value Ref Range Iron level 45 (L) 76 - 198 ug/dL Iron binding capacity 218 (L) 271 - 474 ug/dL % Saturation 20.6 20.0 - 40.0 % Specimen Performing Laboratory Plasma specimen [facility] DEPARTMENT OF PATHOLOGY AND GENOMIC MEDICINE [address] [place] [address] * Reticulocyte count (08/14/2017 8:00 AM) Component Value Ref Range Retic %, auto 0.9 % Retic absolute, auto 0.0263 0.0220 - 0.1260 m/uL Specimen Performing Laboratory Blood [facility] DEPARTMENT OF PATHOLOGY AND GENOMIC MEDICINE [address] [place] [address] [place] [address] * LDH (08/14/2017 8:00 AM) Component Value Ref Range LDH 192 81 - 234 U/L Specimen Performing Laboratory Plasma specimen [facility] DEPARTMENT OF PATHOLOGY AND GENOMIC MEDICINE [address] [place] [address] [place] [address] * Haptoglobin (08/14/2017 8:00 AM) Component Value Ref Range Haptoglobin 85 30 - 200 mg/dL Specimen Performing Laboratory Plasma specimen [facility] DEPARTMENT OF PATHOLOGY AND GENOMIC MEDICINE [address] [place] [address] * Folate level (08/14/2017 8:00 AM) Component Value Ref Range Folate 8.0 3.4 - 20.0 ng/mL Specimen Performing Laboratory [facility] OF PATHOLOGY AND GENOMIC MEDICINE [address] [place] [address] [place] [address] * Ferritin level (08/14/2017 8:00 AM) Component Value Ref Range Ferritin level 1,006 (H) 18 - 158 ng/mL Specimen Performing Laboratory [facility] OF PATHOLOGY AND GENOMIC MEDICINE [address] [place] [address] [place] [address] * Vitamin B12 level (08/14/2017 8:00 AM) Component Value Ref Range Vitamin B12 531 231 - 931 pg/mL Comment: Significant overlap exists between normal and deficiency states. However, most patients with deficiencies will have Serum B12 <200 pg/mL. Specimen Performing Laboratory [facility] OF PATHOLOGY AND GENOMIC MEDICINE [address] [place] [address] [place] [address] * CT Angiogram Pe Chest (08/14/2017 3:34 AM) Specimen Performing Laboratory [address] ANGIOGRAM PE CHEST CLINICAL INDICATION: SOBtachycp. COMPARISON:Chest radiograph 08/13/2017. TECHNIQUE:CT angiographic images of the chest were obtained during intravenous administration of iodinated contrast.Computerized, reformatted images and 3-D MIP images were obtained and archived (per CT pulmonary embolism protocol). CT scans are performed using radiation dose reduction techniques (iterative reconstruction and/or automated exposure control). Technical factors are evaluated and adjusted to ensure appropriate moderation of exposure. Automated dose management technology is applied to adjust radiation exposure while achieving a diagnostic quality image. FINDINGS: Pulmonary arteries: Diagnostic quality of study is adequate for the evaluation of pulmonary embolism. There is no evidence of acute or chronic pulmonary embolism. No evidence of right heart strain. The main pulmonary artery measures 41 mm in luminal diameter. Aorta:No dissection. Ectasia of the thoracic aorta. Descending aorta measures up to 4.0 cm. Proximal descending thoracic aorta measures 3.1 cm. Distal descending thoracic aorta measures 3.0 cm. Extensive calcific atherosclerosis of the thoracic aorta. Lungs and large airways: Dependent and basilar subsegmental atelectasis/ scarring. Mild traction bronchiolectasis in the bilateral lower lobes. No focal or confluent airspace consolidation. Pleura: Trace bilateral pleural effusions. Heart and pericardium:Heart size is enlarged. Coronary atherosclerosis. No pericardial effusion. Mediastinum and estela:No mass or hematoma. Lymph nodes: Right lower paratracheal lymph nodes measuring 1.2 cm short axis, nonspecific. Other subcentimeter mediastinal lymph nodes are noted. Chest wall: Diffuse subcutaneous soft tissue edema. Bones:Diffuse osteopenia. Mild degenerative changes. Anterior wedging of the L1 vertebral body. Upper abdomen:No focal abnormality detected with limited evaluation. IMPRESSION: 1. Negative CTA examination for pulmonary embolism. 2. Bibasilar scarring with ild traction bronchiolectasis in the bilateral lower lobes. Otherwise no focal or confluent airspace consolidation. 3. Trace bilateral pleural effusions. 4. Cardiomegaly. Prominent pulmonary arteries, suggesting pulmonary arterial hypertension. 5. Thoracic aorta ectasia. [facility]-[id number] Procedure Note [facility], Radiology Results Incoming - 08/14/2017 3:[address] ANGIOGRAM PE CHEST CLINICAL INDICATION: SOB tachy cp. COMPARISON: Chest radiograph 08/13/2017. TECHNIQUE: CT angiographic images of the chest were obtained during intravenous administration of iodinated contrast. Computerized, reformatted images and 3-D MIP images were obtained and archived (per CT pulmonary embolism protocol). CT scans are performed using radiation dose reduction techniques (iterative reconstruction and/or automated exposure control). Technical factors are evaluated and adjusted to ensure appropriate moderation of exposure. Automated dose management technology is applied to adjust radiation exposure while achieving a diagnostic quality image. FINDINGS: Pulmonary arteries: Diagnostic quality of study is adequate for the evaluation of pulmonary embolism. There is no evidence of acute or chronic pulmonary embolism. No evidence of right heart strain. The main pulmonary artery measures 41 mm in luminal diameter. Aorta: No dissection. Ectasia of the thoracic aorta. Descending aorta measures up to 4.0 cm. Proximal descending thoracic aorta measures 3.1 cm. Distal descending thoracic aorta measures 3.0 cm. Extensive calcific atherosclerosis of the thoracic aorta. Lungs and large airways: Dependent and basilar subsegmental atelectasis/ scarring. Mild traction bronchiolectasis in the bilateral lower lobes. No focal or confluent airspace consolidation. Pleura: Trace bilateral pleural effusions. Heart and pericardium: Heart size is enlarged. Coronary atherosclerosis. No pericardial effusion. Mediastinum and estela: No mass or hematoma. Lymph nodes: Right lower paratracheal lymph nodes measuring 1.2 cm short axis, nonspecific. Other subcentimeter mediastinal lymph nodes are noted. Chest wall: Diffuse subcutaneous soft tissue edema. Bones: Diffuse osteopenia. Mild degenerative changes. Anterior wedging of the L1 vertebral body. Upper abdomen: No focal abnormality detected with limited evaluation. IMPRESSION: 1. Negative CTA examination for pulmonary embolism. 2. Bibasilar scarring with ild traction bronchiolectasis in the bilateral lower lobes. Otherwise no focal or confluent airspace consolidation. 3. Trace bilateral pleural effusions. 4. Cardiomegaly. Prominent pulmonary arteries, suggesting pulmonary arterial hypertension. 5. Thoracic aorta ectasia. [facility]-[id number] after 01/04/2017 Insurance Payer Benefit Subscriber ID Type Phone Address Plan / Group [employer] xxxxxxxxx [facility]
[2018-01-05 07:50] LABS: BASOPHILS % 0.5 % (0.0-1.0); EOSINOPHILS # (AUTO) 0.2 (0.0-0.4); EOSINOPHILS % 3.3 % (0.0-6.0); LYMPHOCYTES # (AUTO) 0.9 (1.0-3.2); LYMPHOCYTES % 14.4 % (18.0-39.1); MEAN CORPUSCULAR HEMOGLOBIN 24.2 pg (28-32); MEAN CORPUSCULAR HGB CONC 31.3 g/dL (31-35); MEAN CORPUSCULAR VOLUME 77.3 fL (81-99); MONOCYTES # (AUTO) 0.6 (0.2-0.8); MONOCYTES % 10.1 % (4.4-11.3); NEUTROPHILS # (AUTO) 4.5 (2.1-6.9); NEUTROPHILS % 71.2 % (38.7-80.0); PLATELET COUNT 225 x10e3/uL (140-360); RED BLOOD COUNT 4.14 x10e6/uL (4.3-5.7); RED CELL DISTRIBUTION WIDTH 22.4 % (11.7-14.4)
[2018-01-05 08:02] VITALS: BP 147/69
[2018-01-05 08:08] LABS: INR 1.04; PROTHROMBIN TIME 12.8 seconds (11.9-14.5)
[2018-01-05 08:13] LABS: ALBUMIN 3.1 g/dL (3.5-5.0); ALBUMIN/GLOBULIN RATIO 0.8 (0.8-2.0); ANION GAP 15.4 mmol/L (8-16); CALCIUM 8.4 mg/dL (8.4-10.2); CHOL/HDL RATIO 2.3 (3.9-4.7); CREATININE, SERUM 4.36 mg/dL (0.72-1.25); POTASSIUM 4.4 mmol/L (3.5-5.1)
--- NOTE | 2018-01-05 09:33 | Operative Report ---
DATE OF PROCEDURE: January 05, 2018 INDICATIONS 1. Coronary artery disease, unstable angina. 2. Carotid artery disease with transient ischemic attack. PROCEDURES PERFORMED 1. Left heart catheterization. 2. Selective coronary angiography. 3. Left ventriculography. 4. Bilateral extracranial selective carotid angiograms. COMPLICATIONS: None. RECOMMENDATIONS: Aggressive medical therapy. Access obtained in the right femoral artery with using fluoroscopic guidance. Extensive calcification and tortuosity of the iliac artery was noted. The sheath was exchanged to a 23-cm sheath. The patient received 2000 units of intravenous heparin. Coronary angiography demonstrated heavily calcified coronary systems. Left main 20%. Left anterior descending artery diffuse 30% to 50%. Midleft anterior descending artery 50%. Ostial diagonal artery also heavily calcified with 90% stenosis. Circumflex and ramus intermedius was small. Right coronary artery was dominant. Diffuse 30% to 50%. No critical stenosis or occlusions noted. LV end-diastolic pressure of 24. LV ejection fraction 65%. No gradient across the aortic valve on pullback. 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 However, selective cannulation of common carotid arteries bilaterally revealed less than 50% stenosis in both internal carotid arteries and carotid bulbs. No intervention was deemed necessary. Right groin sheath removed under manual pressure. Patient discharged home same day. Job#: [id number] STEPHANIE
[2018-01-05 10:39] LABS: ANISOCYTOSIS SLIG; HYPOCHROMASIA SLIGHT; PLATELET ESTIMATE ADEQUATE; POIKILOCYTOSIS SLIGHT; TARGET CELLS FEW
[2018-01-05 10:40] LABS: PLATELET MORPHOLOGY COMMENT NORMAL; RBC MORPHOLOGY COMMENT ABNORMAL
== END | disposition home or self-care (01) ==
LOC: CATH LAB 06:51
PROVIDERS: ATTEND Internal Medicine Interventional Cardiology
DX: I25.110 Atherosclerotic heart disease of native coronary artery with unstable angina pectoris (principal); G45.9 Transient cerebral ischemic attack, unspecified; I65.23 Occlusion and stenosis of bilateral carotid arteries; I70.208 Unspecified atherosclerosis of native arteries of extremities, other extremity; I77.1 Stricture of artery; J44.9 Chronic obstructive pulmonary disease, unspecified; Z79.82 Long term (current) use of aspirin; Z79.02 Long term (current) use of antithrombotics/antiplatelets; Z82.49 Family history of ischemic heart disease and other diseases of the circulatory system
CPT/HCPCS: 36222; 36415; 77002; 80053; 80061; 85025; 85610; 93458; C1766; C1769; J1644; J2001; J2250; J7030; Q9967; 36140; 93452

== ENCOUNTER 2018-11-11 16:33 | Inpatient (IN) | payer OTHER ==
[~2018-11-11] VITALS: Ht 167.6 cm; Wt 64.5 kg
[~2018-11-11 16:33] MED LIST changes: -FENTANYL CITRATE/PF 100MCG/2 ML INJ IV PRN; -FENTANYL CITRATE/PF 100MCG/2 ML INJ PRN; -HEPARIN SOD (PORCINE) 1000 UNIT/ML 30ML PRN; -HEPARIN SOD (PORCINE) 1000 UNIT/ML SDV IV ONE; -HEPARIN SOD/SOD CHLORIDE 2,000 ML PRN; -IOPAMIDOL 370 MG/ML 200 ML INFUS..BTL INJ PRN; -LIDOCAINE HCL 2% LOCAL 20 ML VIAL PRN; -MIDAZOLAM HCL 2 MG/2 ML VIAL IV PRN; -MIDAZOLAM HCL 2 MG/2 ML VIAL PRN; -SODIUM CHLORIDE 0.9% 1000ML 1,000 ML PRN
--- OUTSIDE RECORDS SUMMARY | 2018-11-11 16:36 | XMS REPORT | Clinical Summary ---
Author Author [employer] [facility] [employer] Address Unknown Phone Unavailable Care Team Providers Care Moving Picture Producer Name Role Phone Parveen García MD PCP Allergies No Known Allergies Medications End Date Status Medication Sig Dispensed Refills Start Date Active acetaminophen-codeine Take 1 tablet 0 (TYLENOL WITH CODEINE #3) by mouth 3 300-30 mg per tablet (three) times a day as needed for moderate pain. Active allopurinol (ZYLOPRIM) Take 100 mg 0 100 MG tablet by mouth daily. Active tamsulosin (FLOMAX) 0.4 Take 0.4 mg 0 mg capsule,extended by mouth release 24hr daily. Active fluticasone-salmeterol Inhale 1 puff 0 (ADVAIR) 250-50 mcg/dose 2 (two) times DISKUS a day. Active clonIDINE (CATAPRES) 0.1 Take 0.1 mg 0 MG tablet by mouth daily as needed. For blood pressure over 170 Active calcitriol (ROCALTROL) Take 0.25 mcg 0 0.25 MCG capsule by mouth daily. Active clopidogrel (PLAVIX) 75 Take 75 mg by 0 mg tablet mouth daily. Active metoprolol tartrate Take 12.5 mg 0 (LOPRESSOR) 25 mg tablet by mouth 2 (two) times a day. Active aspirin (ECOTRIN) 81 MG Take 81 mg by 0 enteric coated tablet mouth daily. Active furosemide (LASIX) 40 mg Take 40 mg by 0 03/22/201 tablet mouth 2 (two) 8 times a day. Active rosuvastatin (CRESTOR) 20 Take 20 mg by 0 0322/201 MG tablet mouth daily. 8 Active albuterol (ACCUNEB) 2.5 Take 2.5 mg 0 mg /3 mL (0.083 %) by nebulizer solution nebulization every 6 (six) hours as needed for wheezing. Active calcium acetate (PHOSLO) Take 1,334 mg 0 667 mg capsule by mouth 3 (three) times a day with meals. Active vit B complex-vitamin Take 1 tablet 0 C-folic acid (NEPHRO-HILTON by mouth OTC) 0.8 mg tablet daily. Active sacubitril-valsartan Entresto 24 0 (ENTRESTO) 24-26 mg mg-26 mg tablet per tablet tablet Take 1 tablet twice a day by oral route for 90 days. Active diltiazem (CardIZEM) 90 diltiazem 90 0 MG tablet mg tablet take 1 tablet 3 times a day Active clonAZEPAM (KlonoPIN) 0.5 clonazepam 0 MG tablet 0.5 mg tablet Take 1 tablet every day by oral route at bedtime for 30 days. Active prasterone, dhea, 25 mg DHEA 25 mg 0 capsule capsule Take 1 capsule every day by oral route as directed. Active ipratropium-albuterol INHALE 1 VIAL 0 (SogouO-NEB) 0.5-2.5 mg/mL VIA NEBULIZER 8 nebulizer EVERY 4 HOURS NEEDED 09/24/2018 Discontinued diltiazem (CardIZEM) 90 Take 90 mg by 0 MG tablet mouth every 8 (eight) hours. 11/11/2017 Discontinued lisinopril Take 2.5 mg 0 (PRINIVIL,ZESTRIL) 20 mg by mouth tablet daily. 03/31/2018 Discontinued cholecalciferol, vitamin Take 1,000 0 D3, (VITAMIN D3) 1,000 Units by unit capsule mouth daily. 03/31/2018 Discontinued ipratropium-albuterol Take 3 mL by 0 (DUO-NEB) 0.5-2.5 mg/mL nebulization nebulizer as needed for wheezing. 03/31/2018 Discontinued sevelamer (RENVELA) 800 Take 800 mg 0 mg tablet by mouth 3 (three) times a day with meals. 11/19/2017 aspirin (ECOTRIN) 81 MG Take 1 tablet 30 tablet 0 enteric coated tablet (81 mg total) 7 by mouth daily for 30 days. 11/11/2017 Discontinued prasterone, dhea, (DHEA) Take 1 0 25 mg capsule capsule by mouth daily. 11/11/2017 Discontinued umeclidinium (INCRUSE Inhale daily. 0 ELLIPTA) 62.5 mcg/actuation blister with device 11/11/2017 Discontinued lidocaine-prilocaine Apply 0 (EMLA) 2.5-2.5 % cream topically as needed for mild pain. Apply topically as directed 11/11/2017 Discontinued b complex vitamins Take 1 0 capsule capsule by mouth daily. 11/11/2017 Discontinued atorvastatin (LIPITOR) 10 Take 1 tablet 30 tablet 0 MG tablet (10 mg total) 7 by mouth daily for 30 days. 03/31/2018 Discontinued simvastatin (ZOCOR) 20 MG Take 20 mg by 0 tablet mouth nightly. 12/15/2017 lisinopril Take 1 tablet 30 tablet 0 (PRINIVIL,ZESTRIL) 5 mg (5 mg total) 7 tablet by mouth daily for 30 days. 11/21/2017 predniSONE (DELTASONE) 20 Take 1 tablet 7 tablet 0 mg tablet (20 mg total) 7 by mouth daily for 7 days. 12/17/2017 methylPREDNISolone follow 21 tablet 0 (MEDROL, ROSHNI,) 4 mg package 8 tablet directions 01/21/2018 furosemide (LASIX) 40 mg Take 1 tablet 60 tablet 0 tablet (40 mg total) 8 by mouth 2 (two) times a day for 30 days. 09/23/2018 Discontinued lisinopril Take 20 mg by 0 (PRINIVIL,ZESTRIL) 5 mg mouth daily. 8 tablet 09/23/2018 Discontinued prasterone, dhea, (DHEA) Take 1 0 50 mg capsule capsule by mouth daily. 01/08/2018 doxycycline (VIBRAMYCIN) Take 2 40 capsule 0 50 MG capsule capsules (100 8 mg total) by mouth 2 (two) times a day for 10 days. 01/03/2018 methylPREDNISolone follow 21 tablet 0 (MEDROL, ROSHNI,) 4 mg package 8 tablet directions 03/31/2018 Discontinued atorvastatin (LIPITOR) 40 0 MG tablet 8 03/31/2018 Discontinued lidocaine-prilocaine 0 (EMLA) 2.5-2.5 % cream 8 04/06/2018 methylPREDNISolone follow 21 tablet 0 (MEDROL, ROSHNI,) 4 mg package 8 tablet directions 04/11/2018 cefuroxime (CEFTIN) 500 Take 1 tablet 20 tablet 0 04/01/201 MG tablet (500 mg 8 total) by mouth 2 (two) times a day for 10 days. 06/06/2018 tiotropium (SPIRIVA) 18 Place 1 puff 30 capsule 0 mcg per inhalation (1 capsule 8 capsule total) into inhaler and inhale once daily for 30 days. 05/13/2018 cefuroxime (CEFTIN) 500 Take 1 tablet 14 tablet 0 MG tablet (500 mg 8 total) by mouth 2 (two) times a day for 7 days. 09/23/2018 Discontinued tiotropium (SPIRIVA) 18 Place 1 0 mcg per inhalation capsule into capsule inhaler and inhale once daily. 09/23/2018 Discontinued losartan (COZAAR) 50 MG Take 50 mg by 0 tablet mouth daily. Active Problems Patient Care Coordination Note Patient with serious illnesses & recurrent hospitalizations. Please consider Supportive/PC consult for future readmissions. Problem Noted Date Hypervolemia 10/18/2018 Dietary noncompliance regarding sodium restriction 09/24/2018 Encounter for education about heart failure 09/24/2018 Dietary counseling 09/24/2018 Frequent hospital admissions 09/24/2018 Volume overload 06/28/2018 Hypertensive emergency 06/28/2018 Flash pulmonary edema 06/03/2018 COPD with acute exacerbation 06/02/2018 Hyperkalemia 05/04/2018 Multifocal pneumonia 04/30/2018 Acute respiratory failure with hypoxia and hypercapnia 12/21/2017 COPD exacerbation 12/10/2017 SOB (shortness of breath) 11/11/2017 Malfunction of arteriovenous graft 11/11/2017 Overview: Added automatically from request for surgery [id number] CHF exacerbation 11/04/2017 NSTEMI (non-ST elevated myocardial infarction) 11/04/2017 Hypoglycemia 10/19/2017 Anemia 08/14/2017 Essential hypertension 04/23/2017 ESRD (end stage renal disease) on dialysis 04/08/2017 Acute on chronic diastolic heart failure secondary to hypertrophic cardiomyopathy Resolved Problems Problem Noted Date Resolved Date Acute on chronic congestive heart failure 08/30/2018 09/24/2018 Encounters Care Team Description Date Type Specialty Rachelle Bentley MD Berberian, Esteban N., MD Other hypervolemia (Primary Dx); Hypervolemia, unspecified hypervolemia type; ESRD (end stage renal disease) on dialysis (HCC) 10/18/2018 Hospital General Internal Medicine - Encounter 10/19/2018 10/18/2018 Travel Aixa Oneal MD Allencherril, Paul Joseph, MD Hypoglycemia (Primary Dx); Hypothermia, initial encounter; Other fatigue; ESRD (end stage renal disease) on dialysis (HCC); Essential hypertension 09/23/2018 Emergency General Internal Medicine - 09/24/2018 Rachelle Bentley MD Berberian, Esteban N., MD Acute on chronic congestive heart failure, unspecified heart failure type (HCC) (Primary Dx); ESRD (end stage renal disease) on dialysis ([facility]) 08/30/2018 [facility] General Internal Medicine - Encounter 08/31/2018 Carlos Linares MD Allencherril, Paul Joseph, MD Respiratory arrest (Primary Dx); ESRD (end stage renal disease) on dialysis; Acute on chronic systolic congestive heart failure; Acute respiratory failure with hypoxia and hypercapnia; Flash pulmonary edema 06/28/2018 [facility] General Internal Medicine - Encounter 07/03/2018 Shelbie Law MD Allencherril, Paul Joseph, MD COPD with acute exacerbation (Primary Dx); Dyspnea, unspecified type; Flash pulmonary edema 06/02/2018 Emergency General Internal Medicine - 06/04/2018 Narendra Draper MD 05/05/2018 Anesthesia General Surgery Adrian Reeves MD Left arm fistulogram w/ balloon angioplasty of the left subclavian artery & brachial vein 05/05/2018 Surgery General Surgery Aixa Oneal MD Allencherril, Paul Joseph, MD SOB (shortness of breath) (Primary Dx); Hyperkalemia; ESRD on dialysis; Acute on chronic respiratory failure with hypercapnia; Malfunction of arteriovenous graft, initial encounter 05/02/2018 [facility] General Internal Medicine - Encounter 05/06/2018 Minesh Ponce Jr., Kai Cazares DO Allencherril, Paul Joseph, MD Multifocal pneumonia (Primary Dx); Kidney disease, chronic, end stage on dialysis; Acute on chronic systolic congestive heart failure 04/30/2018 [facility] General Internal Medicine - Encounter 05/01/2018 Juni Kenny DO Allencherril, Paul Joseph, MD COPD exacerbation (Primary Dx); Hypervolemia, unspecified hypervolemia type; Anemia, unspecified type; ESRD needing dialysis; Kidney disease, chronic, end stage on dialysis; Essential hypertension 03/31/2018 Emergency General Internal Medicine - 04/01/2018 Chris Shearer DO Allencherril, Paul Joseph, MD COPD exacerbation (Primary Dx); Acute pulmonary edema 12/28/2017 Emergency General Internal Medicine - 12/30/2017 Carlos Linares MD Allencherril, Paul Joseph, MD Acute respiratory failure, unspecified whether with hypoxia or hypercapnia (Primary Dx) 12/21/2017 [facility] General Surgery - Encounter 12/22/2017 Brian Vela RN 12/15/2017 Abstract Transplant Ninfa Sparks MD Berberian, Esteban N., MD COPD exacerbation (Primary Dx) 12/10/2017 Hospital Critical Care Medicine - Encounter 12/12/2017 Adrian Monterroso MD Cv intro cath dialysis circuit angioplasty [93656 (CPT)] 11/13/2017 Surgery Procedural Cardiology Aixa Oneal MD Berberian, Esteban N., MD SOB (shortness of breath) (Primary Dx); COPD exacerbation; Hypertension, unspecified type; Malfunction of arteriovenous graft, initial encounter 11/11/2017 [facility] General Internal Medicine - Encounter 11/16/2017 after 11/10/2017 Social History Date Tobacco Use Types Packs/Day Years Used Quit: 11/16/2014 Former Smoker Cigarettes 0.5 Smokeless Tobacco: Never Used Alcohol Use Drinks/Week oz/Week Comments No Sex Assigned at Date Recorded Not on file Industry Job Start Date Occupation Not on file Not on file Not on file Travel End Travel History Travel Start No recent travel history available. Last Filed Vital Signs Time Taken Vital Sign Reading 10/19/2018 7:24 AM [employer] Blood Pressure 126/58 10/19/2018 8:13 AM [employer] Pulse 75 10/19/2018 7:24 AM [employer] Temperature 36.5 C (97.7 F) 10/19/2018 8:13 AM [employer] Respiratory Rate 18 10/19/2018 8:01 AM [employer] Oxygen Saturation 99% - Inhaled Oxygen - Concentration 10/18/2018 3:41 AM [employer] Weight 74.8 kg (165 lb) 10/18/2018 3:41 AM [employer] Height 165.1 cm (5' 5") 10/18/2018 3:41 AM [employer] Body Mass Index 27.46 Plan of Treatment Health Maintenance Due Date Last Done Comments SHINGLES VACCINES (1 of 1992 2) INFLUENZA VACCINE 06/16/2018 07/17/2017, 07/16/2017, 07/23/2016 PNEUMOCOCCAL Completed 10/23/2016 POLYSACCHARIDE VACCINE AGE 65 AND OVER PNEUMOCOCCAL-13 Completed 10/23/2017 Implants Device Identifier Shelf Expiration Date Model / Serial / Lot Explanted Type Area Manufactur er 06/15/2020 [id number] / / [id number] Catheter Shingle Shearing Machine Operator 4x75cm 10mm Conquest - Surgical Left: Arm, BARD [id number] Implants; Upper PERIPHERAL Implanted: Expanders; VASCULAR Explanted: 05/05/2018 (Quantity not Extenders; on file) Surgical Wires [id number] / / Catheter Shingle Shearing Machine Operator 4x75cm 7mm [employer]quest - Surgical Left: Arm BARD [id number] Implants; PERIPHERAL Implanted: Expanders; VASCULAR Explanted: 05/05/2018 (Quantity not Extenders; on file) Surgical Wires Procedures Comments Procedure Name Priority Date/Time Associated Diagnosis LACTIC ACID LEVEL, SEPSIS Timed 10/18/2018 - NOW AND REPEAT 2X EVERY 6:40 PM STEREO COMPILER 3 HOURS HEMODIALYSIS Routine 10/18/2018 2:12 PM [employer]EREO COMPILER LACTIC ACID LEVEL, SEPSIS Timed 10/18/2018 - NOW AND REPEAT 2X EVERY 12:39 PM [employer]EREO COMPILER 3 HOURS TROPONIN Timed 10/18/2018 12:39 PM [employer]EREO COMPILER URINALYSIS SCREEN AND Routine 10/18/2018 MICROSCOPY, WITH REFLEX 10:21 AM STEREO COMPILER TO CULTURE URINE CULTURE Routine 10/18/2018 10:21 AM [employer]EREO COMPILER BLOOD CULTURE, AEROBIC & Routine 10/18/2018 ANAEROBIC 9:47 AM STEREO COMPILER HC COMPLETE BLD COUNT STAT 10/18/2018 W/AUTO DIFF 9:40 AM STEREO COMPILER LACTIC ACID LEVEL, SEPSIS STAT 10/18/2018 - NOW AND REPEAT 2X EVERY 9:40 AM STEREO COMPILER 3 HOURS TROPONIN Timed 10/18/2018 9:40 AM [employer]EREO COMPILER BLOOD CULTURE, AEROBIC & Routine 10/18/2018 ANAEROBIC 9:40 AM STEREO COMPILER XR CHEST 1 VW PORTABLE STAT 10/18/2018 4:11 AM [employer]EREO COMPILER HEPATITIS B SURFACE STAT 10/18/2018 ANTIGEN 3:59 AM STEREO COMPILER ESTIMATED GFR STAT 10/18/2018 3:59 AM STEREO COMPILER B NATRIURETIC PEPTIDE STAT 10/18/2018 3:59 AM STEREO COMPILER TROPONIN STAT 10/18/2018 3:59 AM [employer]ERE[employer] COMPILER COMPREHENSIVE METABOLIC STAT 10/18/2018 PANEL 3:59 AM STEREO COMPILER HC COMPLETE BLD COUNT STAT 10/18/2018 W/AUTO DIFF 3:59 AM STEREO COMPILER ECG ED PRELIMINARY Routine 10/18/2018 INTERPRETATION 3:56 AM STEREO COMPILER IN CRITICAL CARE, E/M Routine 10/18/2018 30-74 MINUTES 3:56 AM STEREO COMPILER ECG 12-LEAD STAT 10/18/2018 3:50 AM STEREO COMPILER BLOOD CULTURE, AEROBIC & Routine 09/24/2018 ANAEROBIC 11:35 AM [employer]ERE[employer] COMPILER HEPATITIS B SURFACE STAT 09/24/2018 ANTIGEN 9:05 AM STEREO COMPILER TROPONIN Timed 09/24/2018 1:31 AM [employer]ERE[employer] COMPILER MANUAL DIFFERENTIAL STAT 09/23/2018 10:30 PM [employer]ERE[employer] COMPILER CBC WITH PLATELET AND STAT 09/23/2018 DIFFERENTIAL 10:30 PM STEREO COMPILER ESTIMATED GFR STAT 09/23/2018 9:25 PM [employer]EREO COMPILER TROPONIN STAT 09/23/2018 9:25 PM STEREO COMPILER CREATINE KINASE, TOTAL STAT 09/23/2018 (CPK) 9:25 PM STEREO COMPILER COMPREHENSIVE METABOLIC STAT 09/23/2018 PANEL 9:25 PM STEREO COMPILER XR CHEST 1 VW PORTABLE STAT 09/23/2018 9:14 PM STEREO COMPILER ECG ED PRELIMINARY Routine 09/23/2018 INTERPRETATION 8:46 PM [employer]EREO COMPILER POC GLUCOSE Routine 09/23/2018 8:05 PM STEREO COMPILER ECG 12-LEAD STAT 09/23/2018 7:58 PM STEREO COMPILER XR CHEST 1 VW PORTABLE Routine 08/31/2018 9:31 AM CDT HC COMPLETE BLD COUNT Routine 08/31/2018 W/AUTO DIFF 6:02 AM CDT HEPATITIS B SURFACE STAT 08/30/2018 ANTIGEN 9:10 AM CDT TROPONIN Timed 08/30/2018 9:10 AM CDT HEMODIALYSIS Routine 08/30/2018 8:40 AM CDT XR CHEST 1 VW PORTABLE STAT 08/30/2018 1:27 AM CDT ESTIMATED GFR STAT 08/30/2018 1:27 AM CDT B NATRIURETIC PEPTIDE STAT 08/30/2018 1:27 AM CDT TROPONIN STAT 08/30/2018 1:27 AM CDT COMPREHENSIVE METABOLIC STAT 08/30/2018 PANEL 1:27 AM CDT HC COMPLETE BLD COUNT STAT 08/30/2018 W/AUTO DIFF 1:27 AM CDT ECG 12-LEAD STAT 08/30/2018 1:09 AM CDT ECG ED PRELIMINARY Routine 08/30/2018 INTERPRETATION 1:04 AM CDT TRANSFUSE RED BLOOD CELLS Routine 07/21/2018 5:49 PM CDT XR CHEST 1 VW PORTABLE Routine 07/01/2018 9:54 AM CDT ZZESTIMATED GFR Routine 07/01/2018 5:07 AM CDT BASIC METABOLIC PANEL Routine 07/01/2018 5:07 AM CDT HC COMPLETE BLD COUNT Routine 07/01/2018 W/AUTO DIFF 5:07 AM CDT MAGNESIUM LEVEL STAT 06/30/2018 10:23 PM CDT ZZESTIMATED GFR STAT 06/30/2018 10:23 PM CDT BASIC METABOLIC PANEL STAT 06/30/2018 10:23 PM CDT HEMODIALYSIS Routine 06/30/2018 8:18 AM CDT XR CHEST 1 VW PORTABLE Routine 06/30/2018 5:48 AM CDT ZZESTIMATED GFR Routine 06/30/2018 4:30 AM CDT BASIC METABOLIC PANEL Routine 06/30/2018 4:30 AM CDT HC COMPLETE BLD COUNT Routine 06/30/2018 W/AUTO DIFF 4:30 AM CDT ZZESTIMATED GFR STAT 06/29/2018 5:43 PM CDT MAGNESIUM LEVEL STAT 06/29/2018 5:43 PM CDT BASIC METABOLIC PANEL STAT 06/29/2018 5:43 PM CDT ECHOCARDIOGRAM 2D Routine 06/29/2018 COMPLETE W MMODE SPECTRAL 8:34 AM CDT COLOR DOPPLER (56631) TROPONIN Routine 06/29/2018 6:54 AM CDT ZZESTIMATED GFR Routine 06/29/2018 6:54 AM CDT PHOSPHORUS LEVEL Routine 06/29/2018 6:54 AM CDT B NATRIURETIC PEPTIDE Routine 06/29/2018 6:54 AM CDT MAGNESIUM LEVEL Routine 06/29/2018 6:54 AM CDT BASIC METABOLIC PANEL Routine 06/29/2018 6:54 AM CDT CBC WITH PLATELET AND Routine 06/29/2018 DIFFERENTIAL 6:54 AM CDT XR CHEST 1 VW PORTABLE Routine 06/29/2018 6:17 AM CDT ARTERIAL BLOOD GAS Routine 06/29/2018 4:35 AM CDT TROPONIN Timed 06/28/2018 9:00 PM CDT TOTAL IRON BINDING Routine 06/28/2018 CAPACITY 4:04 PM CDT HEPATITIS B SURFACE STAT 06/28/2018 ANTIGEN 4:04 PM CDT T4, FREE Routine 06/28/2018 12:04 PM CDT THYROID STIMULATING Routine 06/28/2018 HORMONE 12:04 PM CDT TROPONIN Timed 06/28/2018 12:04 PM CDT ARTERIAL BLOOD GAS Routine 06/28/2018 11:[address] HEAD WO CONTRAST STAT 06/28/2018 11:00 AM CDT ARTERIAL BLOOD GAS STAT 06/28/2018 9:46 AM CDT IN CRITICAL CARE, E/M Routine 06/28/2018 30-74 MINUTES 9:31 AM CDT URINALYSIS SCREEN AND Routine 06/28/2018 MICROSCOPY, WITH REFLEX 9:30 AM CDT TO CULTURE GRAM STAIN Routine 06/28/2018 9:20 AM CDT URINE CULTURE Routine 06/28/2018 9:20 AM CDT XR CHEST 1 VW PORTABLE STAT 06/28/2018 9:03 AM CDT INTUBATION Routine 06/28/2018 8:33 AM CDT SMEAR REVIEW Routine 06/28/2018 8:30 AM CDT ZZESTIMATED GFR Routine 06/28/2018 8:30 AM CDT B NATRIURETIC PEPTIDE Routine 06/28/2018 8:30 AM CDT TROPONIN Routine 06/28/2018 8:30 AM CDT COMPREHENSIVE METABOLIC Routine 06/28/2018 PANEL 8:30 AM CDT PROTHROMBIN TIME WITH INR Routine 06/28/2018 8:30 AM CDT HC COMPLETE BLD COUNT Routine 06/28/2018 W/AUTO DIFF 8:30 AM CDT ECG ED PRELIMINARY Routine 06/28/2018 INTERPRETATION 8:22 AM CDT ECG 12-LEAD STAT 06/28/2018 8:19 AM CDT POC GLUCOSE Routine 06/03/2018 6:27 AM CDT PHOSPHORUS LEVEL Timed 06/03/2018 4:16 AM CDT TROPONIN Timed 06/03/2018 4:16 AM CDT TROPONIN Timed 06/03/2018 12:08 AM CDT TROPONIN Timed 06/02/2018 8:30 PM CDT HEMODIALYSIS Routine 06/02/2018 1:14 PM CDT HEPATITIS B SURFACE STAT 06/02/2018 ANTIGEN 11:30 AM CDT TROPONIN Timed 06/02/2018 11:29 AM CDT URINE DRUGS OF ABUSE STAT 06/02/2018 SCREEN 8:58 AM CDT URINALYSIS SCREEN AND STAT 06/02/2018 MICROSCOPY, WITH REFLEX 8:58 AM CDT TO CULTURE URINE CULTURE STAT 06/02/2018 8:58 AM CDT XR CHEST 1 VW PORTABLE STAT 06/02/2018 8:28 AM CDT BLOOD CULTURE, AEROBIC & Routine 06/02/2018 ANAEROBIC 7:45 AM CDT SMEAR REVIEW STAT 06/02/2018 7:30 AM CDT ZZESTIMATED GFR STAT 06/02/2018 7:30 AM CDT PARTIAL THROMBOPLASTIN STAT 06/02/2018 TIME (PTT) 7:30 AM CDT PROTHROMBIN TIME WITH INR STAT 06/02/2018 7:30 AM CDT CREATINE KINASE, TOTAL STAT 06/02/2018 (CPK) 7:30 AM CDT B NATRIURETIC PEPTIDE STAT 06/02/2018 7:30 AM CDT TROPONIN STAT 06/02/2018 7:30 AM CDT COMPREHENSIVE METABOLIC STAT 06/02/2018 PANEL 7:30 AM CDT HC COMPLETE BLD COUNT STAT 06/02/2018 W/AUTO DIFF 7:30 AM CDT BLOOD CULTURE, AEROBIC & Routine 06/02/2018 ANAEROBIC 7:30 AM CDT ECG 12-LEAD STAT 06/02/2018 7:24 AM CDT ECG ED PRELIMINARY Routine 06/02/2018 INTERPRETATION 7:15 AM CDT IN CRITICAL CARE, E/M Routine 06/02/2018 30-74 MINUTES 7:15 AM CDT ZZESTIMATED GFR Routine 05/06/2018 5:02 AM CDT HC COMPLETE BLD COUNT Routine 05/06/2018 W/AUTO DIFF 5:02 AM CDT BASIC METABOLIC PANEL Routine 05/06/2018 5:02 AM CDT XR SHOULDERS BILATERAL Routine 05/05/2018 4:26 PM CDT CV HYBRID OR FLUOROSCOPY Routine 05/05/2018 1:07 PM CDT POTASSIUM LEVEL Routine 05/05/2018 12:47 PM CDT HEMODIALYSIS Routine 05/05/2018 9:54 AM CDT ZZESTIMATED GFR Routine 05/05/2018 5:20 AM CDT MAGNESIUM LEVEL Routine 05/05/2018 5:20 AM CDT PHOSPHORUS LEVEL Routine 05/05/2018 5:20 AM CDT HC COMPLETE BLD COUNT Routine 05/05/2018 W/AUTO DIFF 5:20 AM CDT BASIC METABOLIC PANEL Routine 05/05/2018 5:20 AM CDT HEMODIALYSIS Routine 05/04/2018 10:48 AM CDT POTASSIUM LEVEL STAT 05/04/2018 9:17 AM CDT B NATRIURETIC PEPTIDE Routine 05/04/2018 6:07 AM CDT ZZESTIMATED GFR Routine 05/04/2018 6:07 AM CDT PARTIAL THROMBOPLASTIN Routine 05/04/2018 TIME (PTT) 6:07 AM CDT PROTHROMBIN TIME WITH INR Routine 05/04/2018 6:07 AM CDT HC COMPLETE BLD COUNT Routine 05/04/2018 W/AUTO DIFF 6:07 AM CDT BASIC METABOLIC PANEL Routine 05/04/2018 6:07 AM CDT HEMODIALYSIS Routine 05/03/2018 10:37 AM CDT HEPATITIS B SURFACE STAT 05/03/2018 ANTIGEN 6:34 AM CDT TROPONIN Timed 05/03/2018 6:34 AM CDT POC GLUCOSE Routine 05/03/2018 2:27 AM CDT ARTERIAL BLOOD GAS STAT 05/03/2018 12:25 AM CDT XR CHEST 1 VW PORTABLE STAT 05/03/2018 12:18 AM CDT ZZESTIMATED GFR STAT 05/03/2018 12:12 AM CDT B NATRIURETIC PEPTIDE STAT 05/03/2018 12:12 AM CDT TROPONIN STAT 05/03/2018 12:12 AM CDT CREATINE KINASE, TOTAL STAT 05/03/2018 (CPK) 12:12 AM CDT COMPREHENSIVE METABOLIC STAT 05/03/2018 PANEL 12:12 AM CDT HC COMPLETE BLD COUNT STAT 05/03/2018 W/AUTO DIFF 12:12 AM CDT ECG 12-LEAD STAT 05/03/2018 12:08 AM CDT ECG ED PRELIMINARY Routine 05/02/2018 INTERPRETATION 11:50 PM CDT IN CRITICAL CARE, E/M Routine 05/02/2018 30-74 MINUTES 11:50 PM CDT MAGNESIUM LEVEL Routine 05/01/2018 4:47 AM CDT PHOSPHORUS LEVEL Routine 05/01/2018 4:47 AM CDT ZZESTIMATED GFR Routine 05/01/2018 4:47 AM CDT BASIC METABOLIC PANEL Routine 05/01/2018 4:47 AM CDT HC COMPLETE BLD COUNT Routine 05/01/2018 W/AUTO DIFF 4:47 AM CDT HEMODIALYSIS Routine 04/30/2018 3:21 PM CDT POC GLUCOSE Routine 04/30/2018 11:27 AM CDT TROPONIN Timed 04/30/2018 8:55 AM CDT BLOOD CULTURE, AEROBIC & Routine 04/30/2018 ANAEROBIC 4:57 AM CDT ECG ED PRELIMINARY Routine 04/30/2018 INTERPRETATION 4:41 AM CDT XR CHEST 1 VW PORTABLE STAT 04/30/2018 4:08 AM CDT ECG 12-LEAD STAT 04/30/2018 3:59 AM CDT VENOUS BLOOD GAS STAT 04/30/2018 3:57 AM CDT HEPATITIS B SURFACE STAT 04/30/2018 ANTIGEN 3:42 AM CDT MANUAL DIFFERENTIAL STAT 04/30/2018 3:42 AM CDT ZZESTIMATED GFR STAT 04/30/2018 3:42 AM CDT B NATRIURETIC PEPTIDE STAT 04/30/2018 3:42 AM CDT TROPONIN STAT 04/30/2018 3:42 AM CDT COMPREHENSIVE METABOLIC STAT 04/30/2018 PANEL 3:42 AM CDT CBC WITH PLATELET AND STAT 04/30/2018 DIFFERENTIAL 3:42 AM CDT BLOOD CULTURE, AEROBIC & Routine 04/30/2018 ANAEROBIC 3:42 AM CDT XR CHEST 1 VW PORTABLE STAT 04/01/2018 12:21 PM CDT ZZESTIMATED GFR Routine 04/01/2018 4:33 AM CDT PHOSPHORUS LEVEL Routine 04/01/2018 4:33 AM CDT MAGNESIUM LEVEL Routine 04/01/2018 4:33 AM CDT HC COMPLETE BLD COUNT Routine 04/01/2018 W/AUTO DIFF 4:33 AM CDT BASIC METABOLIC PANEL Routine 04/01/2018 4:33 AM CDT LACTIC ACID LEVEL, SEPSIS Timed 03/31/2018 - NOW AND REPEAT 2X EVERY 4:15 PM CDT 3 HOURS TRANSFUSE RED BLOOD CELLS STAT 03/31/2018 3:40 PM CDT TRANSFUSE RED BLOOD CELLS STAT 03/31/2018 2:56 PM CDT HEMODIALYSIS Routine 03/31/2018 2:01 PM CDT TROPONIN Timed 03/31/2018 11:56 AM CDT PREPARE RBC Timed 03/31/2018 10:14 AM CDT TYPE AND SCREEN Timed 03/31/2018 10:14 AM CDT XR CHEST 1 VW PORTABLE STAT 03/31/2018 9:19 AM CDT HEPATITIS B SURFACE Routine 03/31/2018 ANTIGEN 8:59 AM CDT LACTIC ACID LEVEL, SEPSIS STAT 03/31/2018 - NOW AND REPEAT 2X EVERY 8:59 AM CDT 3 HOURS ZZESTIMATED GFR STAT 03/31/2018 8:59 AM CDT B NATRIURETIC PEPTIDE STAT 03/31/2018 8:59 AM CDT CREATINE KINASE, TOTAL STAT 03/31/2018 (CPK) 8:59 AM CDT TROPONIN STAT 03/31/2018 8:59 AM CDT COMPREHENSIVE METABOLIC STAT 03/31/2018 PANEL 8:59 AM CDT HC COMPLETE BLD COUNT STAT 03/31/2018 W/AUTO DIFF 8:59 AM CDT ECG 12-LEAD STAT 03/31/2018 8:25 AM CDT ECG ED PRELIMINARY Routine 03/31/2018 INTERPRETATION 7:42 AM CDT IN CRITICAL CARE, E/M Routine 03/31/2018 30-74 MINUTES 7:42 AM CDT HEMODIALYSIS Routine 12/30/2017 7:51 AM 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 Routine 12/30/2017 5:08 AM [employer] HC COMPLETE BLD COUNT Routine 12/30/2017 W/AUTO DIFF 5:08 AM [employer] BASIC METABOLIC PANEL Routine 12/30/2017 5:08 AM [employer] TRANSFUSE RED BLOOD CELLS Routine 12/29/2017 9:20 PM [employer] PREPARE RBC Timed 12/29/2017 1:07 PM [employer] TYPE AND SCREEN Routine 12/29/2017 1:07 PM 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 Routine 12/29/2017 5:18 AM [employer] PHOSPHORUS LEVEL Routine 12/29/2017 5:18 AM [employer] MAGNESIUM LEVEL Routine 12/29/2017 5:18 AM [employer] HC COMPLETE BLD COUNT Routine 12/29/2017 W/AUTO DIFF 5:18 AM [employer]ERE[employer] BASIC METABOLIC PANEL Routine 12/29/2017 5:18 AM [employer]ERE[employer] COMP[employer]ER HEMODIALYSIS Routine 12/28/2017 12:11 PM STEREO COMPILER TROPONIN Timed 12/28/2017 12:08 PM STEREO COMPILER HEPATITIS B SURFACE Routine 12/28/2017 ANTIGEN 8:23 AM 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 STAT 12/28/2017 8:23 AM STEREO COMPILER B NATRIURETIC PEPTIDE STAT 12/28/2017 8:23 AM STEREO COMPILER TROPONIN STAT 12/28/2017 8:23 AM STEREO COMPILER CREATINE KINASE, TOTAL STAT 12/28/2017 (CPK) 8:23 AM STEREO COMPILER COMPREHENSIVE METABOLIC STAT 12/28/2017 PANEL 8:23 AM STEREO COMPILER HC COMPLETE BLD COUNT STAT 12/28/2017 W/AUTO DIFF 8:23 AM STEREO COMPILER ECG ED PRELIMINARY Routine 12/28/2017 INTERPRETATION 8:16 AM STEREO COMPILER IN CRITICAL CARE, E/M Routine 12/28/2017 30-74 MINUTES 8:16 AM STEREO COMPILER XR CHEST 1 VW PORTABLE STAT 12/28/2017 8:09 AM STEREO COMPILER ECG 12-LEAD STAT 12/28/2017 7:49 AM STEREO COMPILER TROPONIN Timed 12/21/2017 7:56 PM STEREO COMPILER TROPONIN Timed 12/21/2017 3:34 PM STEREO COMPILER TROPONIN Timed 12/21/2017 12:19 PM STEREO COMPILER ECG 12-LEAD Routine 12/21/2017 9:09 AM STEREO COMPILER RESPIRATORY PATHOGEN Routine 12/21/2017 PANEL 8:28 AM STEREO COMPILER INFLUENZA ANTIGEN Routine 12/21/2017 8:28 AM STEREO COMPILER XR CHEST 1 VW PORTABLE STAT 12/21/2017 8:02 AM STEREO COMPILER HEPATITIS B SURFACE Routine 12/21/2017 ANTIGEN 8:02 AM 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 Routine 12/21/2017 8:02 AM STEREO COMPILER B NATRIURETIC PEPTIDE Routine 12/21/2017 8:02 AM STEREO COMPILER TROPONIN Routine 12/21/2017 8:02 AM STEREO COMPILER COMPREHENSIVE METABOLIC Routine 12/21/2017 PANEL 8:02 AM STEREO COMPILER PROTHROMBIN TIME WITH INR Routine 12/21/2017 8:02 AM STEREO COMPILER HC COMPLETE BLD COUNT Routine 12/21/2017 W/AUTO DIFF 8:02 AM STEREO COMPILER IN CRITICAL CARE, E/M Routine 12/21/2017 30-74 MINUTES 7:38 AM STEREO COMPILER POC GLUCOSE Routine 12/21/2017 7:36 AM STEREO COMPILER ECG ED PRELIMINARY Routine 12/21/2017 INTERPRETATION 7:35 AM STEREO COMPILER ECG 12-LEAD STAT 12/21/2017 7:32 AM STEREO COMPILER ARTERIAL BLOOD GAS STAT 12/21/2017 7:31 AM STEREO COMPILER ECG ED PRELIMINARY Routine 12/12/2017 INTERPRETATION 2:46 PM STEREO COMPILER IN CRITICAL CARE, E/M Routine 12/12/2017 30-74 MINUTES 2:46 PM STEREO COMPILER HEMODIALYSIS Routine 12/11/2017 1:59 PM STEREO COMPILER HEPATITIS B SURFACE Routine 12/11/2017 ANTIGEN 10:19 AM STEREO COMPILER HEPATITIS B SURFACE AB, Routine 12/11/2017 QUANTITATIVE 10:19 AM STEREO COMPILER TROPONIN Timed 12/10/2017 8:51 PM STEREO COMPILER TROPONIN Timed 12/10/2017 3:59 PM STEREO COMPILER TROPONIN Timed 12/10/2017 1:22 PM STEREO COMPILER TROPONIN Timed 12/10/2017 10:55 AM STEREO COMPILER XR CHEST 1 VW PORTABLE STAT 12/10/2017 7:23 AM 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 STAT 12/10/2017 6:52 AM STEREO COMPILER COMPREHENSIVE METABOLIC STAT 12/10/2017 PANEL 6:52 AM STEREO COMPILER HC COMPLETE BLD COUNT STAT 12/10/2017 W/AUTO DIFF 6:52 AM STEREO COMPILER TROPONIN STAT 12/10/2017 6:52 AM STEREO COMPILER ECG 12-LEAD STAT 12/10/2017 6:31 AM STEREO COMPILER HEMODIALYSIS Routine 11/16/2017 9:40 AM STEREO COMPILER CV INTRO CATH DIALYSIS Routine 11/13/2017 Malfunction of CIRCUIT ANGIOPLASTY 1:56 PM STEREO COMPILER arteriovenous graft, initial encounter PROTHROMBIN TIME WITH INR STAT 11/12/2017 1:02 PM STEREO COMPILER PARTIAL THROMBOPLASTIN STAT 11/12/2017 TIME (PTT) 1:02 PM 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 STAT 11/12/2017 9:35 AM STEREO COMPILER BASIC METABOLIC PANEL STAT 11/12/2017 9:35 AM STEREO COMPILER TROPONIN Timed 11/11/2017 11:50 AM STEREO COMPILER HEPATITIS B SURFACE Routine 11/11/2017 ANTIGEN 8:21 AM STEREO COMPILER TROPONIN Timed 11/11/2017 8:21 AM STEREO COMPILER TROPONIN Timed 11/11/2017 4:12 AM STEREO COMPILER ECG ED PRELIMINARY Routine 11/11/2017 INTERPRETATION 3:39 AM STEREO COMPILER IN CRITICAL CARE, E/M Routine 11/11/2017 30-74 MINUTES 3:39 AM STEREO COMPILER ECG 12-LEAD Routine 11/11/2017 3:14 AM STEREO COMPILER XR CHEST 1 VW PORTABLE STAT 11/11/2017 1:50 AM STEREO COMPILER ARTERIAL BLOOD GAS STAT 11/11/2017 1:41 AM 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 STAT 11/11/2017 1:25 AM STEREO COMPILER B NATRIURETIC PEPTIDE STAT 11/11/2017 1:25 AM STEREO COMPILER TROPONIN STAT 11/11/2017 1:25 AM STEREO COMPILER CREATINE KINASE, TOTAL STAT 11/11/2017 (CPK) 1:25 AM STEREO COMPILER COMPREHENSIVE METABOLIC STAT 11/11/2017 PANEL 1:25 AM STEREO COMPILER HC COMPLETE BLD COUNT STAT 11/11/2017 W/AUTO DIFF 1:25 AM STEREO COMPILER ECG 12-LEAD STAT 11/11/2017 1:06 AM STEREO COMPILER after 11/10/2017 Results * Lactic acid level, SEPSIS - Now and repeat 2x every 3 hours (10/18/2018 6:40 PM STEREO COMPILER) Only the most recent of 5 results within the time period is included. Lactic acid 1.3 0.5 - 2.2 mmol/L [facility] Specimen Blood Performing Organization Address City/[facility] [place] [address] PATHOLOGY AND GENOMIC MEDICINE [address] * Troponin (10/18/2018 12:39 PM STEREO COMPILER) Only the most recent of 37 results within the time period is included. Troponin <0.30 0.00 - 0.30 ng/mL [facility] Comment: [facility] 0.11 - 1.49 ng/mlMay indicate increased risk of acute coronary syndrome. >=1.5 ng/ml Consistent with acute myocardial infarction. The diagnostic value of a single normal or non-diagnostic result is questionable.Serial samples at 2-6 hour intervals are required to rule out acute myocardial injury. Specimen Plasma specimen Performing Organization Address [facility] [place] [address] PATHOLOGY AND [facility] [address] MEDICINE [address] * Urinalysis screen and microscopy, with reflex to culture (10/18/2018 10:21 AM STEREO COMPILER) Only the most recent of 3 results within the time period is included. Specimen site Clean catch [facility] Color, UA Yellow [facility] Appearance, UA Clear [facility] Specific gravity, UA 1.011 1.001 - 1.035 [facility] pH, UA 7.0 5.0 - 8.5 [facility] Protein, UA 2+ (A) Negative [facility] Glucose, UA Negative Negative [facility] Ketones, UA Negative Negative [facility] Bilirubin, UA Negative Negative [facility] Blood, UA Negative Negative [facility] Nitrite, UA Negative Negative [facility] Urobilinogen, UA Negative <2.0 [facility] Leukocyte esterase, UA Negative Negative [facility] Epithelial cells, UA Few /HPF [facility] WBC, UA 1 0 - 1 /HPF [facility] RBC, UA 3 0 - 5 /HPF [facility] Bacteria, UA None seen None seen [facility] Yeast, UA None seen [facility] Yeast with pseudohyphae, None seen [facility] Specimen Urine Performing Organization Address City/[facility]/Zipcode Phone Number [facility] [address] [place] [address] PATHOLOGY AND GENOMIC MEDICINE [address] * Urine culture (10/18/2018 10:21 AM STEREO COMPILER) Only the most recent of 3 results within the time period is included. Urine culture SEE COMMENTComment: [facility] Bacteriuria screen negative. [facility] Specimen Urine Performing Organization Address City/[facility] [place] [address] PATHOLOGY AND GENOMIC MEDICINE [address] * Blood culture, aerobic & anaerobic (10/18/2018 9:47 AM STEREO COMPILER) Only the most recent of 7 results within the time period is included. Blood culture isolate No growth after 5 days of [facility] incubation. HOSPITAL Comment: Specimen Information Specimen Source: Blood Specimen Site: right wrist Specimen Blood Performing Organization Address City/State/Zipcode Phone Number [facility] DEPARTMENT [address] [place] [address] PATHOLOGY AND GENOMIC MEDICINE [address] * CBC with platelet and differential (10/18/2018 9:40 AM STEREO COMPILER) Only the most recent of 24 results within the time period is included. WBC 9.0 4.2 - 11.0 k/uL [facility] RBC 4.21 4.04 - 5.86 m/uL [facility] HGB 9.3 (L) 13.0 - 17.3 g/dL [facility] HCT 31.3 (L) 34.0 - 45.0 % [facility] MCV 74.3 (L) 80.0 - 98.0 fL [facility] MCH 22.1 (L) 27.0 - 34.0 pg [facility] MCHC 29.7 (L) 31.5 - 36.5 g/dL [facility] RDW - SD 62.4 (H) 37.0 - 51.0 fL [facility] MPV SEE COMMENTComment: No report 7.4 - 10.4 fL [facility] Platelet count 340 150 - 400 k/uL [facility] Nucleated RBC 0.00 /100 WBC [facility] Neutrophils 74.0 (H) 36.0 - 66.0 % [facility] Lymphocytes 15.2 (L) 24.0 - 44.0 % [facility] Monocytes 7.9 (H) 0.0 - 6.0 % [facility] Eosinophils 2.3 0.0 - 6.0 % [facility] Basophils 0.4 0.0 - 1.2 % [facility] Immature granulocytes 0.2 0.0 - 1.0 % [facility] Specimen Blood Performing Organization Address City/State/Zipcode Phone Number [facility] DEPARTMENT OF [address] [place] [address] PATHOLOGY AND GENOMIC MEDICINE [place] [id number] [place], [place] [phone] [place] [address] * XR Chest 1 Vw Portable (10/18/2018 4:11 AM STEREO COMPILER) Only the most recent of 17 results within the time period is included. Narrative Performed At XR CHEST 1 VW PORTABLE [facility] CLINICAL INDICATION:SOB COMPARISON:09/23/2018. IMPRESSION: There are increased interstitial markings throughout the lungs, suggestive of pulmonary vascular congestion and interstitial edema. Mild perihilar airspace opacities are present and likely represent mild pulmonary edema. The cardiac silhouette is mildly large, similar compared to prior exams. There is no pleural effusion or gross pneumothorax. There are no acute osseous abnormalities. [facility]-[id number] Procedure Note Hm Interface, Radiology Results Incoming - 10/18/2018 4:26 AM STEREO COMPILER XR CHEST 1 VW PORTABLE CLINICAL INDICATION: SOB COMPARISON: 09/23/2018. IMPRESSION: There are increased interstitial markings throughout the lungs, suggestive of pulmonary vascular congestion and interstitial edema. Mild perihilar airspace opacities are present and likely represent mild pulmonary edema. The cardiac silhouette is mildly large, similar compared to prior exams. There is no pleural effusion or gross pneumothorax. There are no acute osseous abnormalities. [facility]-[id number] Performing Organization Address City/[facility] Centercode Phone Number [facility] [address] [place] [address] * Estimated GFR (10/18/2018 3:59 AM STEREO COMPILER) Only the most recent of 3 results within the time period is included. Estimated GFR 6 (A) mL/min/1.73 m2 [facility] Comment: [facility] CatergoryUnitsInte rpretation G1 >=90 Normal or high G2 60-89Mildly decreased [id number] Mildly to moderately decreased [id number] Moderately to severely decreased G4 15-29Severely decreased G5 <15Kidney failure The eGFR was calculated using the Chronic Kidney Disease Epidemiology Collaboration (CKD-EPI) equation. Interpretation is based on recommendations of the National Kidney Foundation-Kidney Disease Outcomes Quality Initiative (NKF-KDOQI) published in 2014. Specimen Plasma specimen Performing Organization Address City/[facility] Centercode Phone Number [facility] DEPARTMENT OF [address] [place] [address] PATHOLOGY AND GENOMIC MEDICINE [place] [address] [address] [place] [place], [place] [phone] [place] [address] * Hepatitis B surface antigen (10/18/2018 3:59 AM STEREO COMPILER) Only the most recent of 12 results within the time period is included. Hepatitis B surface Ag Non-reactive Non-reactive [facility] Specimen Blood Performing Organization Address City/[facility]/Zipcode Phone Number [facility] DEPARTMENT OF [address] [facility] [place] [address] PATHOLOGY AND GENOMIC MEDICINE [address] * B natriuretic peptide (10/18/2018 3:59 AM STEREO COMPILER) Only the most recent of 12 results within the time period is included. BNP >5000 (H) 0 - 100 pg/mL [facility] Specimen Blood Performing Organization Address City/State/Zipcode Phone Number [address] [place] [phone] PATHOLOGY AND GENOMIC MEDICINE [address] * Comprehensive metabolic panel (10/18/2018 3:59 AM STEREO COMPILER) Only the most recent of 12 results within the time period is included. Sodium 145 135 - 150 mEq/L [facility] Potassium 4.6 3.5 - 5.0 mEq/L [facility] Chloride 102 98 - 112 mEq/L [facility] CO2 24 24 - 31 mmol/L [facility] Anion gap 19@ANIO (H) 7 - 15 mEq/L [facility] BUN 52 (H) 7 - 18 mg/dL [facility] Creatinine 9.00 (H) 0.70 - 1.20 mg/dL [facility] Glucose 96 65 - 100 mg/dL [facility] Calcium 9.7 8.8 - 10.2 mg/dL [facility] Protein 7.7 6.3 - 8.3 g/dL [facility] Albumin 3.3 (L) 3.5 - 5.0 g/dL [facility] A/G ratio 0.8 0.7 - 3.8 [facility] Alkaline phosphatase 50 0 - 129 U/L [facility] AST 19 10 - 50 U/L [facility] ALT 9 5 - 50 U/L [facility] Total bilirubin 0.3 0.2 - 1.2 mg/dL [facility] Specimen Plasma specimen Performing Organization Address City/State/Zipcode Phone Number [facility] DE[facility] OF [address] [place] [address] PATHOLOGY AND GENOMIC MEDICINE [facility] [address] [place], [place] [phone] [place] [address] * ECG ED Preliminary Interpretation - Not an Order (10/18/2018 3:56 AM STEREO COMPILER) Only the most recent of 12 results within the time period is included. Narrative Performed At Rachelle Bentley MD 10/20/20184:39 AM ECG ED Preliminary Interpretation - Not an Order Performed by: Rachelle Bentley MD Authorized by: Rachelle Bentley MD ECG reviewed by ED Physician in the absence of a securities attorney: yes Interpretation: Interpretation: normal Rate: ECG rate:110 ECG rate assessment: tachycardic Rhythm: Rhythm: sinus tachycardia Ectopy: Ectopy: none QRS: QRS axis:Normal QRS intervals:Normal Conduction: Conduction: normal ST segments: ST segments:Normal T waves: T waves: normal Other findings: Other findings: LVH * CRITICAL CARE (10/18/2018 3:56 AM STEREO COMPILER) Narrative Performed At Rachelle Bentley MD 10/20/20184:39 AM Critical Care Performed by: Rachelle Bentley MD Authorized by: Rachelle Bentley MD Critical care provider statement: Critical care time (minutes):60 Critical care was necessary to treat or prevent imminent or life-threatening deterioration of the following conditions:Respiratory failure Critical care was time spent personally by me on the following activities:Blood draw for specimens, development of treatment plan with patient or surrogate, discussions with consultants, discussions with primary provider, ordering and performing treatments and interventions, ordering and review of laboratory studies, ordering and review of radiographic studies, pulse oximetry, re-evaluation of patient's condition, evaluation of patient's response to treatment, interpretation of cardiac output measurements and review of old charts Greg 'yes' if you are taking over critical care for this patient from another provider.: no * ECG 12 lead (10/18/2018 3:50 AM STEREO COMPILER) Only the most recent of 14 results within the time period is included. Ventricular rate 110 [facility] Atrial rate 110 [facility] QRSD interval 90 [facility] QT interval 310 [facility] QTC interval 419 [facility] QRS axis 1 52 [facility] T wave axis 72 [facility] EKG impression Sinus tachycardia with 1st [facility] degree AV block-Minimal voltage criteria for LVH, may be normal variant-Borderline ECG-No previous ECGs available- Narrative Performed At Performing Organization Address City/[facility] Centercode Phone Number [facility] [address] [place] [address] * Manual differential (09/23/2018 10:30 PM STEREO COMPILER) Only the most recent of 2 results within the time period is included. Manual differential PERFORMED [facility] DEPARTMENT OF PATHOLOGY AND GENOMIC MEDICINE Neutrophils 69.0 (H) 36.0 - 66.0 % [facility] DEPARTMENT OF PATHOLOGY AND GENOMIC MEDICINE Lymphocytes 24.0 24.0 - 44.0 % [facility] DEPARTMENT OF PATHOLOGY AND GENOMIC MEDICINE Monocytes 7.0 (H) 0.0 - 6.0 % [facility] DEPARTMENT OF PATHOLOGY AND GENOMIC MEDICINE Eosinophils 0.0 0.0 - 6.0 % [facility] DEPARTMENT OF PATHOLOGY AND GENOMIC MEDICINE Basophils 0.0 0.0 - 1.2 % [facility] DEPARTMENT OF PATHOLOGY AND GENOMIC MEDICINE Metamyelocytes 0 0 - 1 % [facility] DEPARTMENT OF PATHOLOGY AND GENOMIC MEDICINE Promyelocytes 0 0 - 1 % [facility] DEPARTMENT OF PATHOLOGY AND GENOMIC MEDICINE Platelet slide review Darlin adequate [facility] DEPARTMENT OF PATHOLOGY AND GENOMIC MEDICINE Anisocytosis Few [facility] DEPARTMENT OF PATHOLOGY AND GENOMIC MEDICINE Polychromasia Slight [facility] DEPARTMENT OF PATHOLOGY AND GENOMIC MEDICINE Schistocytes Few [facility] DEPARTMENT OF PATHOLOGY AND GENOMIC MEDICINE Performing Organization Address City/[facility] Centercode Phone Number [facility] [address] [place] [id number] PATHOLOGY AND GENOMIC MEDICINE * Creatine kinase, total (CPK) (09/23/2018 9:25 PM STEREO COMPILER) Only the most recent of 6 results within the time period is included. Creatine kinase 64 39 - 308 U/L [facility] DEPARTMENT OF PATHOLOGY AND GENOMIC MEDICINE Specimen Plasma specimen Performing Organization Address City/[facility]/Zipcode Phone Number [address] [address] PATHOLOGY AND GENOMIC MEDICINE * POC glucose (09/23/2018 8:05 PM STEREO COMPILER) Only the most recent of 5 results within the time period is included. POC glucose 83 65 - 100 mg/dL [facility] DEPARTMENT OF Comment: PATHOLOGY AND Meter ID: [id number] GENOMIC MEDICINE Change Control Coordinator: Shelbie Clark Performing Organization Address City/[facility] Centercode Phone Number [facility] [address] [place] [address] PATHOLOGY AND GENOMIC MEDICINE * Transfuse RBC (07/21/2018 5:49 PM CDT) Only the most recent of 5 results within the time period is included. * Estimated GFR (07/01/2018 5:07 AM CDT) Only the most recent of 22 results within the time period is included. GFR Non Af Amer 13 (A) mL/min/1.73 m2 [facility] DEPARTMENT OF PATHOLOGY AND GENOMIC MEDICINE GFR Af Amer 16 (A) mL/min/1.73 m2 [facility] DEPARTMENT OF Comment: PATHOLOGY AND Chronic kidney disease: <60 [facility] MEDICINE mL/min/1.73m2 Kidney failure: <15 mL/min/1.73m2 The estimated GFR is calculated from the IDMS-traceable Modification of Diet in Renal Disease Equation. The accuracy of the calculation is poor when the creatinine is normal. Calculated values >90 mL/min/1.73m2 are not reported. This equation has not been validated in children (<18 years), women, the elderly (>70 years), or ethnic groups other than Caucasians and Americans. Specimen Plasma specimen Performing Organization Address City/[facility] Centercode Phone Number [address] [place] [address] PATHOLOGY AND [facility] MEDICINE * Basic metabolic panel (07/01/2018 5:07 AM CDT) Only the most recent of 13 results within the time period is included. Sodium 141 135 - 150 mEq/L [facility] DEPARTMENT OF PATHOLOGY AND GENOMIC MEDICINE Potassium 4.0 3.5 - 5.0 mEq/L [facility] DEPARTMENT OF PATHOLOGY AND GENOMIC MEDICINE Chloride 97 (L) 98 - 112 mEq/L [facility] DEPARTMENT OF PATHOLOGY AND GENOMIC MEDICINE CO2 28 24 - 31 mmol/L [facility] DEPARTMENT OF PATHOLOGY AND GENOMIC MEDICINE Anion gap 16@ANIO (H) 7 - 15 mEq/L [facility] DEPARTMENT OF PATHOLOGY AND GENOMIC MEDICINE BUN 32 (H) 7 - 18 mg/dL [facility] DEPARTMENT OF PATHOLOGY AND GENOMIC MEDICINE Creatinine 4.40 (H) 0.70 - 1.20 mg/dL [facility] DEPARTMENT OF PATHOLOGY AND GENOMIC MEDICINE Glucose 75 65 - 100 mg/dL [facility] DEPARTMENT OF PATHOLOGY AND GENOMIC MEDICINE Calcium 9.1 8.8 - 10.2 mg/dL [facility] DEPARTMENT OF PATHOLOGY AND GENOMIC MEDICINE Specimen Plasma specimen Performing Organization Address City/[facility] Centercode Phone Number [place] [address] [place] [address] PATHOLOGY AND GENOMIC MEDICINE * Magnesium level (06/30/2018 10:23 PM CDT) Only the most recent of 7 results within the time period is included. Magnesium 2.10 1.60 - 2.40 mg/dL [facility] DEPARTMENT OF PATHOLOGY AND GENOMIC MEDICINE Specimen Plasma specimen Performing Organization Address City/[facility] Centercode Phone Number [place] [address] [place] [address] PATHOLOGY AND GENOMIC MEDICINE * Echocardiogram complete w contrast and 3D if needed (06/29/2018 8:34 AM CDT) Ao Root Diameter 4.57 cm [facility] AoV Area, Vmax 2.64 cm2 [facility] AoV Area, VTI 2.80 cm2 [facility] AoV Mean PG 5.42 mmHg [facility] AoV Peak PG 10.19 mmHg [facility] AoV Vmax 1.60 m/s [facility] AoV VTI 0.31 m [facility] IVS,d 1.21 cm [facility] Left Atrium Dimension 4.38 cm [facility] Anterior LV,d 4.97 cm [facility] LV,s 3.56 cm [facility] LVOT Diam,S 2.24 cm [facility] LVOT Vmax 1.06 m/s [facility] LVOT VTI 0.22 m [facility] LVPWD,d 1.26 cm [facility] PV Pk Grad 5.06 mmHg [facility] PV VMAX 1.12 m/s [facility] AR Press Half Time 359.22 ms [facility] MV E A ratio 237.84 mmHg [facility] E wave decelartion time 61.94 msec [facility] IVRT 114.18 msec [facility] MV Peak A Anmol 0.01 m/s [facility] MV Peak E Anmol 1.44 m/s [facility] AV LVOT peak gradient 4.53 mmHg [facility] Ao Root Diameter 4.57 cm [facility] MV mean gradient 3.49 mmHg [facility] LV SYS VOL 53.12 ml [facility] LV NORTH VOL 116.51 ml [facility] LA area s A4C 27.59 cm2 [facility] LV SV Teich 2D 63.39 ml [facility] LVOT CO 7.82 l/min [facility] LVOT HR for LVOT CO 90.60 bpm [facility] MR peak grad 8.99 mmHg [facility] MV Vmax 1.50 m [facility] MV VTI Tips 0.15 m [facility] AoV Vmn 1.10 [facility] IVS s 2D 1.50 [facility] AR slope 3.44 [facility] Ar Vmax 4.34 [facility] LVOT Vmn 0.80 [facility] LVOT mean grad 2.80 mmHg [facility] AR DT 1,199.11 msec [facility] AR pk grad 75.26 mmHg [facility] LVPW s PLAX 1.70 cm [facility] MV Decel slope 23.24 m/s2 [facility] LA Vol MOD A4C 80.54 ml [facility] Velocity Ratio (V1/V2) 0.66 m/s [facility] EF 54.41 % [facility] E/A ratio 144.00 [facility] LVOT area 3.94 cm2 [facility] Narrative Performed At [facility] The left ventricle chamber size is normal. There is mild left ventricular concentric hypertrophy. Left Ventricular ejection fraction is 55 - 60%. Left atrium size is mildly dilated. Mild mitral annular calcification. The aortic valve appears mildly calcified Performing Organization Address City/[facility] Centercode Phone Number CUPID [address] [place] [address] * Phosphorus level (06/29/2018 6:54 AM CDT) Only the most recent of 6 results within the time period is included. Phosphorus 5.2 (H) 2.4 - 4.5 mg/dL [facility] DEPARTMENT OF PATHOLOGY AND GENOMIC MEDICINE Specimen Plasma specimen Performing Organization Address City/[facility]/Zipcode Phone Number [facility] DEPARTMENT OF [address] [place] [address]. [place] [address] PATHOLOGY AND GENOMIC MEDICINE * Arterial blood gas (06/29/2018 4:35 AM CDT) Only the most recent of 6 results within the time period is included. Change Control Coordinator TC [facility] DEPARTMENT OF PATHOLOGY AND GENOMIC MEDICINE Collection site RBA [facility] DEPARTMENT OF PATHOLOGY AND GENOMIC MEDICINE O2 therapy VENT [facility] DEPARTMENT OF PATHOLOGY AND GENOMIC MEDICINE Respiratory rate 24 bpm [facility] DEPARTMENT OF PATHOLOGY AND GENOMIC MEDICINE Tidal volume 450.0 mL [facility] DEPARTMENT OF PATHOLOGY AND GENOMIC MEDICINE .PEEP 5 cmH2O [facility] DEPARTMENT OF PATHOLOGY AND GENOMIC MEDICINE pH, arterial 7.560 (HH) 7.350 - 7.450 units [facility] DEPARTMENT OF Comment: PATHOLOGY AND Results called to and read [facility] back by NORM BELLO,RT at04:50 06/29/2018by __VR. pCO2, arterial 32.6 (L) 35.0 - 45.0 mmHg [facility] DEPARTMENT OF PATHOLOGY AND GENOMIC MEDICINE pO2, arterial 132.0 (H) 80.0 - 90.0 mmHg [facility] DEPARTMENT OF PATHOLOGY AND GENOMIC MEDICINE O2 saturation, arterial 99.8 95.0 - 100.0 % [facility] DEPARTMENT OF PATHOLOGY AND GENOMIC MEDICINE Base excess, arterial 6.9 mEq/L [facility] DEPARTMENT OF PATHOLOGY AND GENOMIC MEDICINE Bicarbonate 29.2 (H) 21.0 - 28.0 mEq/L [facility] DEPARTMENT OF PATHOLOGY AND GENOMIC MEDICINE O2 content 12.4 VOL% [facility] DEPARTMENT OF PATHOLOGY AND GENOMIC MEDICINE FiO2, inspired O2% 40.0 % [facility] DEPARTMENT OF PATHOLOGY AND GENOMIC MEDICINE Carboxyhemoglobin 1.2 0.0 - 1.4 % [facility] DEPARTMENT OF Comment: PATHOLOGY AND Reference Ranges: GENOMIC MEDICINE Carboxyhemoglobin Non smoker: 0.0 - 2.0% Smoker: 2.1 - 5.0% Heavy smoker: 5.1 - 9% Methemoglobin 0.6 0.0 - 1.0 % [facility] DEPARTMENT OF PATHOLOGY AND GENOMIC MEDICINE Hemoglobin, blood gas 8.8 (L) 14.0 - 18.0 g/dL [facility] DEPARTMENT OF PATHOLOGY AND GENOMIC MEDICINE pO2, A-a 117.2 mmHg [facility] DEPARTMENT OF PATHOLOGY AND GENOMIC MEDICINE Specimen Blood Performing Organization Address City/State/Zipcode Phone Number [facility] [address] [place] [address] PATHOLOGY AND GENOMIC MEDICINE * Total iron binding capacity (06/28/2018 4:04 PM CDT) Iron level 11 (L) 59 - 158 ug/dL [facility] DEPARTMENT OF PATHOLOGY AND GENOMIC MEDICINE Iron binding capacity 207 (L) 271 - 474 ug/dL [facility] DEPARTMENT OF PATHOLOGY AND GENOMIC MEDICINE % Saturation 5.3 (L) 20.0 - 40.0 % [facility] OF PATHOLOGY AND GENOMIC MEDICINE Specimen Plasma specimen Performing Organization Address City/[facility] Centercode Phone Number [facility] OF [address] [place] [address] PATHOLOGY AND GENOMIC MEDICINE * Thyroid stimulating hormone (06/28/2018 12:04 PM CDT) TSH 1.65 0.27 - 4.20 uIU/mL [facility] DEPARTMENT PATHOLOGY AND [facility] MEDICINE Specimen Plasma specimen Performing Organization Address [facility] Centercode Phone Number [facility] [address] [place] [address] PATHOLOGY AND [facility] * T4, free (06/28/2018 12:04 PM CDT) T4, free 1.28 0.90 - 1.70 ng/dL [facility] PATHOLOGY AND [facility] Specimen Plasma specimen Performing Organization Address City/[facility] Centercotx Phone Number [facility] OF [address] [place] [address] PATHOLOGY AND [facility] * CT Head Wo Contrast (06/28/2018 11:00 AM CDT) Narrative Performed At EXAMINATION:CT HEAD WO CONTRAST RADIANT CT IMAGING WAS PERFORMED WITH ITERATIVE RECONSTRUCTION TECHNIQUE AND/OR AUTOMATED EXPOSURE CONTROL TO REDUCE RADIATION DOSE. CLINICAL HISTORY:HEADACHEACUTESEVERETHUNDERCLAPWORST HANSEN OF LIFE COMPARISON:CT brain October 19, 2017. FINDINGS: 1. There is no acute intracranial abnormality. Specifically there is no intracranial hemorrhage, mass effect or acute infarction. 2.There is tiny chronic lacunar infarction in the anterior caudate nucleus on the left and several tiny chronic lacunar infarcts in the basal ganglia bilaterally and right flores radiata. There are mild nonspecific cerebral white matter microvascular changes. 3.There is moderate cerebral cortical volume loss and cerebellar volume loss. 4.Atherosclerotic calcifications noted in the distal internal carotid, vertebral and basilar arteries. There is also atherosclerotic calcification in the orbital apices bilaterally. 5.There is very minimal mucosal thickening in the ethmoid and maxillary sinuses which is most likely subclinical. IMPRESSION: No acute abnormality and no significant change from the prior study. [facility]-[id number] Procedure Note Interface, Radiology Results Incoming - 06/28/2018 11:12 AM CDT EXAMINATION: CT HEAD WO CONTRAST CT IMAGING WAS PERFORMED WITH ITERATIVE RECONSTRUCTION TECHNIQUE AND/OR AUTOMATED EXPOSURE CONTROL TO REDUCE RADIATION DOSE. CLINICAL HISTORY: HEADACHE ACUTE SEVERE THUNDERCLAP WORST HANSEN OF LIFE COMPARISON: CT brain October 19, 2017. FINDINGS: 1. There is no acute intracranial abnormality. Specifically there is no intracranial hemorrhage, mass effect or acute infarction. 2. There is tiny chronic lacunar infarction in the anterior caudate nucleus on the left and several tiny chronic lacunar infarcts in the basal ganglia bilaterally and right flores radiata. There are mild nonspecific cerebral white matter microvascular changes. 3. There is moderate cerebral cortical volume loss and cerebellar volume loss. 4. Atherosclerotic calcifications noted in the distal internal carotid, vertebral and basilar arteries. There is also atherosclerotic calcification in the orbital apices bilaterally. 5. There is very minimal mucosal thickening in the ethmoid and maxillary sinuses which is most likely subclinical. IMPRESSION: No acute abnormality and no significant change from the prior study. [facility]-[id number] Performing Organization Address City/[facility] [place] [address] * CRITICAL CARE (06/28/2018 9:31 AM CDT) Narrative Performed At Carlos Linares MD 06/28/20189:32 AM Critical Care Performed by: CARLOS LINARES Authorized by: CARLOS LINARES Critical care provider statement: Critical care time (minutes):35 Critical care was necessary to treat or prevent imminent or life-threatening deterioration of the following conditions:Cardiac failure, circulatory failure and STOPER failure or compromise Critical care was time spent personally by me on the following activities:Blood draw for specimens, development of treatment plan with patient or surrogate and discussions with consultants * Gram stain (06/28/2018 9:20 AM CDT) Gram stain result No WBC's or organisms seen. [facility] DEPARTMENT OF Comment: PATHOLOGY AND Specimen Information GENOMIC MEDICINE Specimen Source: Urine Specimen Site: Catheterized Specimen Urine - Catheterized Performing Organization Address City/State/[facility] Centercode Phone Number [address] [address] PATHOLOGY AND GENOMIC MEDICINE * INTUBATION (06/28/2018 8:33 AM CDT) Narrative Performed At Carlos Linares MD 06/28/20184:38 PM Intubation Performed by: CARLOS LINARES Authorized by: CRALOS LINARES Consent: Consent obtained:Emergent situation [place] protocol: Patient identity confirmed:Arm band Pre-procedure details: Patient status:Unresponsive Induction:Propofol and etomidate Paralytics:Succinylcholine Procedure details: Preoxygenation:Nonrebreather mask CPR in progress: no Intubation method:Oral Technique:Video laryngoscopy Tube size (mm):7.5 Tube type:Cuffed Number of attempts:1 Cricoid pressure: yes Tube visualized through cords: yes Placement assessment: ETT to lip:21 ETT to teeth:21 Tube secured with:Adhesive tape Breath sounds:Equal Placement verification: chest rise Post-procedure details: Patient tolerance of procedure:Tolerated well, no immediate complications * Smear review (06/28/2018 8:30 AM CDT) Only the most recent of 2 results within the time period is included. Platelet slide review Darlin adequate [facility] DEPARTMENT OF PATHOLOGY AND GENOMIC MEDICINE Tear drop cells Occasional [facility] DEPARTMENT OF PATHOLOGY AND GENOMIC MEDICINE Ovalocytes Few [facility] DEPARTMENT OF PATHOLOGY AND GENOMIC MEDICINE Round Pond cells Few [facility] DEPARTMENT OF PATHOLOGY AND GENOMIC MEDICINE Enlarged platelets Few [facility] DEPARTMENT OF PATHOLOGY AND GENOMIC MEDICINE Performing Organization Address City/[facility] Centercode Phone Number [address] [address] PATHOLOGY AND [facility] MEDICINE * Prothrombin time with INR (06/28/2018 8:30 AM CDT) Only the most recent of 5 results within the time period is included. Prothrombin time 13.3 12.0 - 15.0 sec [facility] DEPARTMENT OF PATHOLOGY AND GENOMIC MEDICINE INR 1.00 0.92 - 1.12 [facility] DEPARTMENT OF Comment: PATHOLOGY AND For patients on anticoagulant GENOMIC MEDICINE therapy, reference ranges below: Indication: INR Value Treatment of Venous Thrombosis, 2.0-3.0 pulmonary emboli, or prophylaxis of a venous thrombosis, or systemic emboli. High dose, high risk patients 3.0-4.5 with mechanical valves. NOTE:INR values over 3.0 are sometimes associated with gastrointestinal hemorrhage, especially values over 4.0. Specimen Blood Performing Organization Address City/[facility] Centercode Phone Number [address] [place] [address] PATHOLOGY AND GENOMIC MEDICINE * Urine drugs of abuse screen (06/02/2018 8:58 AM CDT) Amphetamine screen, urine Negative [facility] DEPARTMENT OF PATHOLOGY AND GENOMIC MEDICINE Barbiturate screen, urine Negative [facility] DEPARTMENT OF PATHOLOGY AND GENOMIC MEDICINE Benzodiazepine screen, Negative [facility] DEPARTMENT OF urine PATHOLOGY AND GENOMIC MEDICINE Cocaine screen, urine Negative [facility] DEPARTMENT OF PATHOLOGY AND GENOMIC MEDICINE Methadone screen, urine Negative [facility] DEPARTMENT OF PATHOLOGY AND GENOMIC MEDICINE Opiates screen, urine Negative [facility] DEPARTMENT OF PATHOLOGY AND GENOMIC MEDICINE Phencyclidine screen, Negative [facility] DEPARTMENT OF urine PATHOLOGY AND GENOMIC MEDICINE Cannabinoid screen, urine Negative [facility] DEPARTMENT OF Comment: PATHOLOGY AND Drug screen minimum [facility] concentration of detectability Amphetamines 1000 ng/mL Methamphetamines 1000 ng/mL Barbiturates 300 ng/mL Benzodiazepines 300 ng/mL Cocaine 300 ng/mL Methadone 300 ng/mL Opiates 300 ng/mL Phencyclidine 25 ng/mL Cannabinoids 50 ng/mL Tricyclics 1000 ng/mL Negative test results indicates presumptive evidence of lack of clinically significant drug concentration in this urine specimen. Positive test results are presumptive evidence of clinically significant drug concentration in this urine specimen. Testing performed for medical purposes only. Specimen Urine Performing Organization Address City/[facility]/[place] [address] PATHOLOGY AND [facility] MEDICINE * Partial thromboplastin time, activated (06/02/2018 7:30 AM CDT) Only the most recent of 3 results within the time period is included. PTT 28.3 23.0 - 36.0 sec [facility] DEPARTMENT OF Comment: PATHOLOGY AND PTT therapeutic range for [facility] unfractionated heparin is 61.0-112.0 seconds which corresponds to Anti-Xa 0.3-0.7 U/ml. Note:Change in Panic Value The PTT Panic Value is changing from 110 sec. to 100 sec. due to new instrumentation and reagents. Correlation studies have been performed to validate this result. Specimen Blood Performing Organization Address City/[facility]/Zipcode Phone Number [facility] [address] [place] [address]. [place] [address] PATHOLOGY AND [facility] MEDICINE * CRITICAL CARE (06/02/2018 7:15 AM CDT) Narrative Performed At Shelbie Law MD 06/03/20188:36 AM Critical Care Performed by: SHELBIE LAW by: SHELBIE LAW Critical care provider statement: Critical care time (minutes):42 Critical care was necessary to treat or prevent imminent or life-threatening deterioration of the following conditions:Respiratory failure Critical care was time spent personally by me on the following activities:Ordering and performing treatments and interventions, ordering and review of laboratory studies, re-evaluation of patient's condition, evaluation of patient's response to treatment, development of treatment plan with patient or surrogate, review of old charts and examination of patient Comments: On arrival, patient in moderate respiratory distress. Patient was placed immediately on BiPAP and given breathing treatments bronchodilators with improvement symptoms. On reexam, patient sitting up in bed speaking in full sentences states he feels subjectively better, still on BiPAP however improving clinically. Will admit for further evaluation. Shortness of breath likely multifactorial including volume mild volume overload and COPD exacerbation bronchospasm * XR Shoulders Bilateral (05/05/2018 4:26 PM CDT) Narrative Performed At EXAMINATION:XR SHOULDERS BILATERAL HM [facility]IANT CLINICAL HISTORY:pain COMPARISON:none. IMPRESSION: 1.Left shoulder: Diffuse osteopenia. Distal clavicular deformity along the coracoclavicular region with prominent bony protuberance pseudoarticulating with the upper part of the scapula. This is a chronic finding dating back to chest x-ray from 08/13/2017.No displaced fractures or dislocations. 2.Right shoulder: proximal humerus deformity compatible with chronic fracture along the surgical neck. Osteophytes are noted. No acute fractures or dislocations. Humeral head is high riding. [facility]-[id number] Procedure Note Hm Interface, Radiology Results Incoming - 05/05/2018 5:25 PM CDT EXAMINATION: XR SHOULDERS BILATERAL CLINICAL HISTORY: pain COMPARISON: none. IMPRESSION: 1. Left shoulder: Diffuse osteopenia. Distal clavicular deformity along the coracoclavicular region with prominent bony protuberance pseudoarticulating with the upper part of the scapula. This is a chronic finding dating back to chest x-ray from 08/13/2017. No displaced fractures or dislocations. 2. Right shoulder: proximal humerus deformity compatible with chronic fracture along the surgical neck. Osteophytes are noted. No acute fractures or dislocations. Humeral head is high riding. [facility]-[id number] Performing Organization Address City/State/Zipcode Phone Number [facility] [address] [place] [address] * Hybrid or fluoroscopy (05/05/2018 1:07 PM CDT) Narrative Performed At See operative report for the same day * Potassium level (05/05/2018 12:47 PM CDT) Only the most recent of 2 results within the time period is included. Potassium 3.9 3.5 - 5.0 mEq/L [facility] DEPARTMENT OF PATHOLOGY AND GENOMIC MEDICINE Specimen Plasma specimen Performing Organization Address City/[facility]/Zipcode Phone Number [facility] [address] [place] [address] PATHOLOGY AND GENOMIC MEDICINE * CRITICAL CARE (05/02/2018 11:50 PM CDT) Narrative Performed At Aixa Oneal MD 05/03/20183:37 AM Critical Care Performed by: AIXA ONEAL Authorized by: AIXA ONEAL Critical care provider statement: Critical care time (minutes):35 Critical care start time:05/03/2018 11:50 PM Critical care was necessary to treat or prevent imminent or life-threatening deterioration of the following conditions:Respiratory failure and renal failure (hyperkalemia) Critical care was time spent personally by me on the following activities:Development of treatment plan with patient or surrogate, discussions with consultants, discussions with primary provider, evaluation of patient's response to treatment, examination of patient, interpretation of cardiac output measurements, obtaining history from patient or surrogate, review of old charts, ordering and review of radiographic studies, ordering and review of laboratory studies and ordering and performing treatments and interventions Greg 'yes' if you are taking over critical care for this patient from another provider.: no * Venous blood gas (04/30/2018 3:57 AM CDT) Change Control Coordinator ELMER [facility] DEPARTMENT OF PATHOLOGY AND GENOMIC MEDICINE Collection site R ARM [facility] DEPARTMENT OF PATHOLOGY AND GENOMIC MEDICINE O2 therapy ROOM AIR [facility] DEPARTMENT OF PATHOLOGY AND GENOMIC MEDICINE pH, venous 7.306 (L) 7.320 - 7.420 units [facility] DEPARTMENT OF PATHOLOGY AND GENOMIC MEDICINE pCO2, venous 62.8 (H) 45.0 - 51.0 mmHg [facility] DEPARTMENT OF PATHOLOGY AND GENOMIC MEDICINE pO2, venous 31.9 25.0 - 40.0 mmHg [facility] DEPARTMENT OF PATHOLOGY AND GENOMIC MEDICINE O2 saturation, venous 48.7 40.0 - 70.0 % [facility] DEPARTMENT OF PATHOLOGY AND GENOMIC MEDICINE Base excess, venous 5.0 (H) -2.0 - 2.0 mEq/L [facility] DEPARTMENT OF PATHOLOGY AND GENOMIC MEDICINE Bicarbonate 31.3 (H) 21.0 - 28.0 mEq/L [facility] DEPARTMENT OF PATHOLOGY AND GENOMIC MEDICINE O2 content 6.9 VOL% [facility] DEPARTMENT OF PATHOLOGY AND GENOMIC MEDICINE FiO2, inspired O2% 21.0 % [facility] DEPARTMENT OF PATHOLOGY AND GENOMIC MEDICINE Carboxyhemoglobin 1.6 (H) 0.0 - 1.4 % [facility] DEPARTMENT OF Comment: PATHOLOGY AND Reference Ranges: GENOMIC MEDICINE Carboxyhemoglobin Non smoker: 0.0 - 2.0% Smoker: 2.1 - 5.0% Heavy smoker: 5.1 - 9% Methemoglobin 0.3 0.0 - 1.0 % [facility] DEPARTMENT OF PATHOLOGY AND GENOMIC MEDICINE Hemoglobin, blood gas 10.3 (L) 14.0 - 18.0 g/dL [facility] DEPARTMENT OF PATHOLOGY AND GENOMIC MEDICINE Specimen Blood Performing Organization Address City/State/Zipcode Phone Number [address] [address] PATHOLOGY AND GENOMIC MEDICINE * Prepare RBC, 2 Units (03/31/2018 10:14 AM CDT) Only the most recent of 2 results within the time period is included. Product name Apheresis RC ACDA>-3 LR [facility] DEPARTMENT OF PATHOLOGY AND GENOMIC MEDICINE Unit number [id number] [facility] DEPARTMENT OF PATHOLOGY AND GENOMIC MEDICINE Product code [id number] [facility] DEPARTMENT OF PATHOLOGY AND GENOMIC MEDICINE Dispense status Transfused [facility] DEPARTMENT OF PATHOLOGY AND GENOMIC MEDICINE Blood expiration date [facility] DEPARTMENT OF PATHOLOGY AND GENOMIC MEDICINE Blood type code 5100 [facility] DEPARTMENT OF PATHOLOGY AND GENOMIC MEDICINE Blood type O POSITIVE [facility] DEPARTMENT OF PATHOLOGY AND GENOMIC MEDICINE Product name Apheresis RC ACDA>-3 LR [facility] DEPARTMENT OF PATHOLOGY AND GENOMIC MEDICINE Unit number [id number] [facility] DEPARTMENT OF PATHOLOGY AND GENOMIC MEDICINE Product code [id number] [facility] DEPARTMENT OF PATHOLOGY AND GENOMIC MEDICINE Dispense status Transfused [facility] DEPARTMENT OF PATHOLOGY AND GENOMIC MEDICINE Blood expiration date [facility] DEPARTMENT OF PATHOLOGY AND GENOMIC MEDICINE Blood type code 5100 [facility] DEPARTMENT OF PATHOLOGY AND GENOMIC MEDICINE Blood type O POSITIVE [facility] OF PATHOLOGY AND GENOMIC MEDICINE Performing Organization Address City/[facility]/Zipcode Phone Number [facility] [address] [place] [address] PATHOLOGY AND GENOMIC MEDICINE * Type and screen (03/31/2018 10:14 AM CDT) Only the most recent of 2 results within the time period is included. ABO grouping O [facility] DEPARTMENT OF PATHOLOGY AND GENOMIC MEDICINE Rh type POS [facility] OF PATHOLOGY AND GENOMIC MEDICINE Antibody screen (gel) NEG [facility] PATHOLOGY AND [facility] Specimen Blood Performing Organization Address [facility] Centercode Phone Number [facility] [address] [place] [address] PATHOLOGY AND [facility] MEDICINE * CRITICAL CARE (03/31/2018 7:42 AM CDT) Narrative Performed At Juni Kenny DO 03/31/20181:56 PM Critical Care Performed by: JUNI KENNY Authorized by: JUNI KENNY Critical care provider statement: Critical care time (minutes):45 Critical care time was exclusive of:Separately billable procedures and treating other patients Critical care was necessary to treat or prevent imminent or life-threatening deterioration of the following conditions:Renal failure, respiratory failure and circulatory failure Critical care was time spent personally by me on the following activities:Blood draw for specimens, development of treatment plan with patient or surrogate, discussions with consultants, discussions with primary provider, evaluation of patient's response to treatment, examination of patient, interpretation of cardiac output measurements, obtaining history from patient or surrogate, vascular access procedures, review of old charts, re-evaluation of patient's condition, pulse oximetry, ordering and review of radiographic studies, ordering and review of laboratory studies and ordering and performing treatments and interventions Greg 'yes' if you are taking over critical care for this patient from another provider.: no * CRITICAL CARE (12/28/2017 8:16 AM STEREO COMPILER) Narrative Performed At Chris Shearer DO 12/28/20172:13 PM Critical Care Performed by: [...] response to treatment and ventilator management * Respiratory pathogen panel (12/21/2017 8:28 AM STEREO COMPILER) Respiratory pathogen Negative for all pathogens [facility] DEPARTMENT OF panel tested: PATHOLOGY AND Negative for Adenovirus GENOMIC MEDICINE Negative for Coronavirus HKU1 Negative for Coronavirus [...] Nasopharyngeal Specimen Site: Not otherwise specified Specimen Nasopharyngeal - Not otherwise specified Performing Organization Address City/State/Zipcode Phone Number [facility] DEPARTMENT OF [address] [place] [address] PATHOLOGY AND GENOMIC MEDICINE * Influenza antigen (12/21/2017 8:28 AM STEREO COMPILER) Influenza antigen Negative for Influenza A/B [facility] DEPARTMENT OF antigen. PATHOLOGY AND Comment: GENOMIC MEDICINE Specimen Information Specimen Source: Nares Specimen Site: Not otherwise specified Specimen Nares - Not otherwise specified Performing Organization Address City/State/Zipcode Phone Number [facility] DEPARTMENT OF [address] [place] [address] PATHOLOGY AND GENOMIC MEDICINE * CRITICAL CARE (12/21/2017 7:38 AM STEREO COMPILER) Narrative Performed At Carlos Linares MD 12/21/20177:38 AM Critical Care [...] severe sob and placed onto bipap * CRITICAL CARE (12/12/2017 2:46 PM STEREO COMPILER) Narrative Performed At Ninfa Sparks MD 12/12/20172:46 PM Critical Care Performed [...] Hepatitis B surface Ab, quantitative (12/11/2017 10:19 AM STEREO COMPILER) Hepatitis B surface Ab >1000.00 IU/L [facility] Comment: The anti-HBs is greater than or [...] refer to MMWR November 07, 2005/Vol. 54(No. 16);23, and for healthcare workers refer to MMWR November 04, 2013/Vol. 62(No. 10);-. Reference Interval: anti-HBs 9.99 IU/L or less ....... Negative 10.00 IU/L or greater .... Positive Results greater than 1,000.00 IU/L are reported as greater than 1,000.00 IU/L. This assay should not be used for blood donor screening, associated re-entry protocols, or for screening Human Cell, Tissues and Cellular and Tissue-Based Products (HCT/P). Performed by [facility], [address], [place] [id number] [email or web address], Jonah Whatley MD - Lab. Director Specimen Serum Performing Organization Address [facility]/Zipcode Phone Number [facility] [address] [place] [address] * Cv invasive peripheral vascular procedure (11/13/2017 1:56 PM STEREO COMPILER) Narrative Performed At [facility] See op note Performing Organization Address [facility] Phone Number [facility] [address] [place] [address] * CRITICAL CARE (11/11/2017 3:39 AM STEREO COMPILER) Narrative Performed At Carlos Oneal MD 11/11/20173:39 AM Critical Care Performed [...] patient's condition and review of old charts after 11/10/2017 Insurance Payer Benefit Subscriber ID Type Phone Address Plan / Group [employer] xxxxxxxxx [facility] Advance Directives Patient has advance care planning documents, and code status on file. For more i nformation, please contact: Edson Villanueva [address] [place] [address] Date Inactivated Comments Code Status Date Activated 11/06/2017 11:19 PM Full Code 11/04/2017 3:28 AM Code Status decision reached by: Patient 08/16/2017 12:55 AM Full Code 08/14/2017 7:03 AM Code Status decision reached by: Patient Code Status decision reached by: Patient
--- OUTSIDE RECORDS SUMMARY | 2018-11-11 16:37 | XMS REPORT ---
Author Organization Unknown Address [address] [place] [id number] Phone [phone] Care Team Providers Care Unemployment Benefits Claims Taker Name Role Phone JAYA LIN 63 Unavailable SHAYLA "VAMSHI" GABY GRANT 3 [phone] NORM SMILEY MD 111 [phone] TABATHA REID MD 118 [phone] NIDHI RENO 118 [phone] NIEVES BENAVIDEZ MD 82 [phone] Allergies Code Code System Name Reaction Severity Status Onset NKDA Medications Name Status Start Date Stop Date acetaminophen 300 mg-codeine 30 mg tablet take 1 tablet three times a day Active Not available Advair Diskus 250 mcg-50 mcg/dose powder for inhalation INHALE 1 PUFF BY MOUTH TWO TIMES DAILY Active Not available albuterol sulfate 2.5 mg/3 mL (0.083 %) solution for nebulization Completed 06/22/2017 allopurinol 100 mg tablet TAKE 1 BY MOUTH DAILY Active Not available amoxicillin 500 mg capsule Completed 10/23/2016 Aspirin Low Dose 81 mg tablet,delayed release Take 1 tablet every day by oral route as directed for 90 days. Active Not available atenolol 100 mg tablet Completed 10/23/2016 atorvastatin 40 mg tablet Take 1 tablet every day by oral route at bedtime for 30 days. Completed 02/04/2018 azithromycin 250 mg tablet Completed 10/23/2016 calcitriol 0.25 mcg capsule take 1 tablet once a day Active Not available calcitriol 0.5 mcg capsule Completed 10/23/2016 calcium acetate 667 mg capsule Completed 01/01/2018 chlorhexidine gluconate 0.12 % mouthwash Completed 10/23/2016 cholecalciferol (vitamin D3) 2,000 unit capsule Take 1 capsule every day by oral route for 90 days. Completed 11/03/2017 clonidine HCl 0.1 mg tablet Active Not available clopidogrel 75 mg tablet Active Not available DHEA 25 mg capsule Take 1 capsule every day by oral route as directed. Active Not available diltiazem 90 mg tablet take 1 tablet 3 times a day Active Not available doxycycline hyclate 50 mg capsule Completed 02/04/2018 folic acid 1 mg tablet Take 1 tablet every day by oral route as directed. Completed 06/22/2017 furosemide 40 mg tablet take 1 tablet early every morning and at noon Active Not available hydrocodone 5 mg-acetaminophen 325 mg tablet Completed 10/23/2016 Incruse Ellipta 62.5 mcg/actuation powder for inhalation Completed 11/23/2017 ipratropium-albuterol 0.5 mg-3 mg(2.5 mg base)/3 mL nebulization soln Inhale 3 mL as needed by inhalation route for 90 days. Active Not available lidocaine-prilocaine 2.5 %-2.5 % topical cream apply to fistula 30 min prior to hemodialysis Active Not available lisinopril 2.5 mg tablet Completed 11/23/2017 lisinopril 20 mg tablet TAKE 1 BY MOUTH DAILY Completed 12/17/2017 lisinopril 5 mg tablet Active Not available megestrol 400 mg/10 mL (40 mg/mL) oral suspension Take 10 mL every day by oral route. Completed 01/01/2018 methylprednisolone 4 mg tablets in a dose pack Completed 02/04/2018 metoprolol tartrate 25 mg tablet take 1/2 tablet twice a day Active Not available metronidazole 500 mg tablet Completed 01/06/2017 pravastatin 10 mg tablet Completed 10/23/2016 prednisone 20 mg tablet Completed 11/23/2017 Renvela 800 mg tablet Take 2 tablets 3 times a day by oral route for 90 days. Active Not available rosuvastatin 20 mg tablet Take 1 tablet every day by oral route for 90 days. Active Not available simvastatin 10 mg tablet Take 1 tablet every day by oral route for 90 days. Completed 01/14/2018 simvastatin 20 mg tablet Take 1 tablet every day by oral route. Completed 02/04/2018 Symbicort 160 mcg-4.5 mcg/actuation HFA aerosol inhaler Completed 10/23/2016 tamsulosin 0.4 mg capsule po daily Active Not available tramadol 50 mg tablet Completed 10/23/2016 Ventolin HFA 90 mcg/actuation aerosol inhaler Completed 12/25/2016 vitamin B complex capsule Take 1 capsule every day by oral route for 90 days. Completed 01/01/2018 Vitamin B1 100 mg tablet Take 1 tablet every day by oral route. Completed 10/23/2016 Vitamin D3 1,000 unit capsule Take 1 capsule every day by oral route. Completed 01/14/2018 Vitamin D3 1,000 unit tablet Take 1 tablet every day by oral route. Completed 06/22/2017 Problems Name Status Onset Date Source Vitamin D Deficiency Unknown 09/04/2015 History Mixed Hyperlipidemia Active 09/04/2015 History Anemia of Chronic Renal Failure Active 09/04/2015 History Alcohol Dependence Unknown 09/04/2015 History Nicotine Dependence Unknown 09/04/2015 History Hypertensive Renal Disease with Renal Failure Unknown 09/04/2015 History Hypertensive Heart and Renal Disease with (Congestive) Heart Failure Active 09/04/2015 History Chronic Combined Systolic and Diastolic Heart Failure Active 09/04/2015 History Chronic Obstructive Lung Disease Active 09/04/2015 History End Stage Renal Disease Active 09/04/2015 History Hyperparathyroidism Due to Renal Insufficiency Active 09/04/2015 History Hyperuricemia without Signs of Inflammatory Arthritis and Tophaceous Disease Active 09/04/2015 History Dependence on Renal Dialysis Active 09/04/2015 History Tobacco Dependence in Remission Active 06/30/2017 Episodic Chronic Alcoholism Active 11/03/2017 Tobacco Dependence Syndrome Active 11/03/2017 Atherosclerosis of Aorta Active 11/03/2017 Generalized Aches and Pains Active 11/03/2017 Lower Urinary Tract Symptoms Due to Benign Prostatic Hypertrophy Active 11/03/2017 Coronary Arteriosclerosis in [place] Artery Active 01/14/2018 Carotid Artery Stenosis Active 01/14/2018 Large Prostate Active 02/04/2018 Procedures Date Name Performed by 06/22/2017 XR, Chest, 2 View [facility]) [address] [place] [address] (Work Place) Notes: 04/24/2016: A-V Fistula L arm.; Surgery Date: 2014 Cataract Phacotomy Bilateral with IOL; Surgery Date: 2009 Lab Results Date Name Specimen Result Interpretation Description Value Range Status Address 01/02/2017 Fecal Occult Blood, Stool Fecal Globin by [employer] (Medicare) Final [facility] Lab: [address] 12/25/2016 Lipid Panel, Serum High Cholesterol, Total 204 mg/dL 125- 200 mg/dL Final [facility] Lab: [address], [place] Normal HDL Cholesterol 101 mg/dL > or=40 mg/dL Final [facility] Lab: [address] [place] [address], [place] Normal Triglycerides 66 mg/dL <150 mg/dL Final [facility] Lab: [address] [place] [address], [place] Normal LDL-cholesterol 90 mg/dL (calc) <130 mg/dL (calc) Final [facility] Lab: [address] [place] [address], [place] Normal Chol/hdlc Ratio 2.0 (calc) < or=5.0 (calc) Final [facility] Lab: [address] [place] [address], [place] Normal Non HDL Cholesterol 103 mg/dL (calc) Final [facility] Lab: [address] [place] [address], [place] 12/25/2016 Magnesium, Serum or Plasma Normal Magnesium 1.9 mg/dL 1.5- 2.5 mg/dL Final [facility] Lab: [address] [place] [address], [place] 12/25/2016 Phosphorus, Serum or Plasma High Phosphate (as Phosphorus) 5.7 mg/dL 2.1-4.3 mg/dL Final [facility] Lab: [address] [place] [address], [place] 12/25/2016 Sodium, Urine Normal Sodium, Random Urine 117 mmol/L 28- 272 mmol/L Final [facility] Lab: [address] [place] [address], [place] 12/25/2016 CMP, Serum or Plasma Normal Glucose 85 mg/dL 65-99 mg/dL Final [facility] Lab: [address] [place] [address], [place] High Urea Nitrogen (BUN) 32 mg/dL 7-25 mg/dL Final [facility] Lab: [address] [place] [address], [place] High Creatinine 4.88 mg/dL 0.70-1.18 mg/dL Final [facility] Lab: [address] [place] [address], [place] Low eGFR Non-afr. Slovak 11 mL/min/1.73m2 > or=60 mL/min/1.73m2 Final [facility] Lab: [address] [place] [address], [place] Low eGFR 13 mL/min/1.73m2 > or=60 mL/min/1.73m2 Final [facility] Lab: [address] [facility], [place] Normal BUN/creatinine Ratio 7 (calc) 6-22 (calc) Final [facility] Lab: [address] [place] [address], [place] Normal Sodium 142 mmol/L 135-146 mmol/L Final [facility] Lab: [address] [facility], [place] Normal Potassium 4.6 mmol/L 3.5-5.3 mmol/L Final [facility] Lab: [address] [facility], [place] Normal Chloride 99 mmol/L 98-110 mmol/L Final [facility] Lab: [address] [facility], [place] Normal Carbon Dioxide 31 mmol/L 20-31 mmol/L Final [facility] Lab: [address] [facility], [place] Normal Calcium 9.5 mg/dL 8.6-10.3 mg/dL Final [facility] Lab: [address] [place] [address], [place] Normal Protein, Total 7.1 g/dL 6.1-8.1 g/dL Final [facility] Lab: [address] [facility], [place] Normal Albumin 3.8 g/dL 3.6-5.1 g/dL [facility] Lab: [address] [place] [address], [place] Normal Globulin 3.3 g/dL (calc) 1.9-3.7 g/dL (calc) Final [facility] Lab: [address] [place] [address], [place] Normal Albumin/globulin Ratio 1.2 (calc) 1.0-2.5 (calc) [facility] Lab: [address] [facility], [place] Normal Bilirubin, Total 0.4 mg/dL 0.2-1.2 mg/dL [facility] Lab: [address] [place] [address], [place] Normal Alkaline Phosphatase 51 U/L 40-115 U/L [facility] Lab: [address] [place] [address], [place] Normal Ast 12 U/L 10-35 U/L [facility] Lab: [address] [place] [address], [place] Low Alt 5 U/L 9-46 U/L [facility] Lab: [address] [facility], [place] 12/25/2016 CBC W/ Auto Diff Normal White Blood Cell Count 7.4 thousand/uL 3.8-10.8 thousand/uL [facility] Lab: [address] [facility], [place] Normal Red Blood Cell Count 4.36 million/uL 4.20-5.80 million/uL Final [facility] Lab: [address], [place] Low Hemoglobin 10.3 g/dL 13.2-17.1 g/dL Final [facility] Lab: [address], [place] Low Hematocrit 32.9 % 38.5-50.0 % Final [facility] Lab: [address], [place] Low Mcv 75.5 fL 80.0-100.0 fL Final [facility] Lab: [address], [place] Low Mch 23.6 pg 27.0-33.0 pg Final [facility] Lab: [address], [place] Low Mchc 31.3 g/dL 32.0-36.0 g/dL Final [facility] Lab: [address], [place] High Rdw 20.6 % 11.0-15.0 % Final [facility] Lab: [address], [place] Normal Platelet Count 287 thousand/uL 140-400 thousand/uL Final [facility] Lab: [address], [place] Normal Mpv 9.5 fL 7.5-12.5 fL Final [facility] Lab: [address], [place] Normal Absolute Neutrophils 2916 cells/uL 5747-6008 cells/uL Final [facility] Lab: [address], [place] Normal Absolute Lymphocytes 2516 cells/uL 850-3900 cells/uL Final [facility] Lab: [address], [place] Normal Absolute Monocytes 792 cells/uL 200-950 cells/uL Final [facility] Lab: [address], [place] High Absolute Eosinophils 1110 cells/uL 15-500 cells/uL Final [facility] Lab: [address], [place] Normal Absolute Basophils 67 cells/uL 0-200 cells/uL Final [facility] Lab: [address], [place] Normal Neutrophils 39.4 % Final [facility] Lab: [address], [place] Normal Lymphocytes 34.0 % Final [facility] Lab: [address], [place] Normal Monocytes 10.7 % Final [facility] Lab: [address], [place] Normal Eosinophils 15.0 % Final [facility] Lab: [address], [place] Normal Basophils 0.9 % Final [facility] Lab: [facility], [place] 12/25/2016 PTH (Parathyroid Hormone), Intact, Serum or Plasma High Parathyroid Hormone, Intact 260 pg/mL 14-64 pg/mL Final [facility] Lab: [address] [facility], [place] 12/25/2016 PSA, Serum or Plasma High PSA, Total 6.0 NG/mL < or=4.0 NG/mL Final [facility] Lab: [address] [facility], [place] 12/25/2016 Protein:creatinine Ratio, Urine Normal Creatinine, Random Urine 97 mg/dL 20-370 mg/dL Final [facility] Lab: [address] [facility], [place] High Protein/creatinine Ratio 2474 mg/g creat 22-128 mg/g creat Final [facility] Lab: [address] [facility], [place] High Protein, Total, Random Ur 240 mg/dL 5-25 mg/dL Final [facility] Lab: [address] [place] [address], [place] 12/01/2016 CBC W/ Auto Diff White Blood Cell 6.1 K/mm3 4.5-12.5 K/mm3 Final [facility] (Lab): [address], [place] Low Red Blood Cell 3.99 mill/mm3 4.0-5.8 mill/mm3 Final [facility] (Lab): [address], [place] Low Hemoglobin 9.5 gram/dL 13.0-17.5 gram/dL Final [facility] (Lab): [address], [place] Low Hematocrit 30.0 % 42.0-52.0 % Final [facility] (Lab): [address], [place] Low Mean Cell Volume 75.1 fL 80.4-98 fL Final [facility] (Lab): [address], [place] Low Mean Cell HGB 23.8 pg 27.0-33.0 pg Final [facility] (Lab): [address], [place] Low Mean Cell HGB Concetration 31.7 g/dL 33.0-36.0 g/dL Final [facility] (Lab): [address], [place] High Red Cell Distribution Width 18.5 % 11.6-16.2 % Final [facility] (Lab): [address], [place] Platelet Count 171 K/mm3 150-450 K/mm3 Final [facility] (Lab): [address], [place] Mean Platelet Volume 8.8 fL 6.7-10.0 fL Final [facility] (Lab): [address], [place] Neutrophil % 58.3 % 39.0-69.0 % Final [facility] (Lab): [address], [place] Low Lymphocyte % 21.3 % 23.0-38.0 % Final [facility] (Lab): [address], [place] High Monocyte % 14.4 % 3.0-8.0 % Final [facility] (Lab): [address], [place] High Eosinophil % 5.1 % 0.0-5.0 % Final [facility] (Lab): [address], [place] Basophil % 0.9 % 0.0-1.0 % Final [facility] (Lab): [address], [place] Neutrophil # 3.60 K/mm3 1.8-7.7 K/mm3 Final [facility] (Lab): [address], [place] Lymphocyte # 1.3 K/mm3 1.0-5.0 K/mm3 Final [facility] (Lab): [address], [place] High Monocyte # 0.90 K/mm3 0-0.8 K/mm3 Final [facility] (Lab): [address], [place] Eosinophil # 0.3 K/mm3 0.0-0.5 K/mm3 Final [facility] (Lab): [address], [place] Basophil # 0.1 K/mm3 0.0-0.2 K/mm3 Final [facility] (Lab): [address], [place] Performing Lab: Final [facility] (Lab): [address], [place] 12/01/2016 CMP, Serum or Plasma Sodium 135 mmol/L 135-148 mmol/L Final [facility] (Lab): [address], [place] High Potassium 5.5 mmol/L 3.5-5.1 mmol/L Final [facility] (Lab): [address], [place] Low Chloride 99 mmol/L 101-109 mmol/L Final [facility] (Lab): [address], [place] Carbon Dioxide 23.9 mmol/L 21-32 mmol/L Final [facility] (Lab): [address], [place] Anion Gap 12 mmol/L 10-20 mmol/L Final [facility] (Lab): [address], [place] Glucose 92 mg/dL 74-106 mg/dL Final [facility] (Lab): [address], [place] High Blood Urea Nitrogen 78 mg/dL 3-21 mg/dL Final [facility] (Lab): [address], [place] Glomerular Filtration Rate 7 mL/min >=60 mL/min Final [facility] (Lab): [address], [place] High Creatinine 8.58 mg/dL 0.55-1.3 mg/dL Final [facility] (Lab): [address], [place] Total Protein 6.5 g/dL 6.5-8.4 g/dL Final [facility] (Lab): [address], [place] Low Albumin 2.4 g/dL 3.4-4.8 g/dL Final [facility] (Lab): [address], [place] Globulin 4.1 g/dL 1-10 g/dL Final [facility] (Lab): [address], [place] Low Albumin/globulin Ratio 0.6 0.75-1.50 Final [facility] (Lab): [address], [place] Low Calcium 8.2 mg/dL 8.4-10.2 mg/dL Final [facility] (Lab): [address], [place] Bilirubin Total 0.30 mg/dL 0.0-1.0 mg/dL Final [facility] (Lab): [address], [place] SGOT/AST 16 U/L 6-32 U/L Final [facility] (Lab): [address], [place] SGPT/ALT 14 U/L 12-78 U/L Final [facility] (Lab): [address], [place] Alkaline Phosphatase Total 50 U/L 38-126 U/L Final [facility] (Lab): [address], [place] Performing Lab: Final [facility] (Lab): [address], [place] 12/01/2016 Phosphate, QN, Blood High Phosphorus 7.1 mg/dL 2.6-4.7 mg/dL Final [facility] (Lab): [address], [place] Performing Lab: Final [facility] (Lab): [address], [place] 12/01/2016 Magnesium, QN, Serum or Plasma Normal Magnesium 2.0 mg/dL 1.6-2.3 mg/dL Final [facility] (Lab): [address], [place] Performing Lab: Final [facility] (Lab): [address] [place] 11/28/2016 CBC W/ Auto Diff White Blood Cell 5.9 K/mm3 4.5-12.5 K/mm3 Final [facility] (Lab): [address], [place] Red Blood Cell 4.50 mill/mm3 4.0-5.8 mill/mm3 Final [facility] (Lab): [address], [place] Low Hemoglobin 10.8 gram/dL 13.0-17.5 gram/dL Final [facility] (Lab): [address], [place] Low Hematocrit 33.5 % 42.0-52.0 % Final [facility] (Lab): [address], [place] Low Mean Cell Volume 74.5 fL 80.4-98 fL Final [facility] (Lab): [address], [place] Low Mean Cell HGB 23.9 pg 27.0-33.0 pg Final [facility] (Lab): [address], [place] Low Mean Cell HGB Concetration 32.1 g/dL 33.0-36.0 g/dL Final [facility] (Lab): [address], [place] High Red Cell Distribution Width 18.6 % 11.6-16.2 % Final [facility] (Lab): [address], [place] Low Platelet Count 147 K/mm3 150-450 K/mm3 Final [facility] (Lab): [address], [place] Mean Platelet Volume 8.6 fL 6.7-10.0 fL Final [facility] (Lab): [address], [place] Neutrophil % 52.1 % 39.0-69.0 % Final [facility] (Lab): [address], [place] Lymphocyte % 30.4 % 23.0-38.0 % Final [facility] (Lab): [address], [place] High Monocyte % 14.2 % 3.0-8.0 % Final [facility] (Lab): [address], [place] Eosinophil % 2.6 % 0.0-5.0 % Final [facility] (Lab): [address], [place] Basophil % 0.7 % 0.0-1.0 % Final [facility] (Lab): [address], [place] Neutrophil # 3.10 K/mm3 1.8-7.7 K/mm3 Final [facility] (Lab): [address], [place] Lymphocyte # 1.8 K/mm3 1.0-5.0 K/mm3 Final [facility] (Lab): [address], [place] Monocyte # 0.80 K/mm3 0-0.8 K/mm3 Final [facility] (Lab): [address], [place] Eosinophil # 0.2 K/mm3 0.0-0.5 K/mm3 Final [facility] (Lab): [address], [place] Basophil # 0.0 K/mm3 0.0-0.2 K/mm3 Final [facility] (Lab): [address], [place] Manual Diff Required no, only scan needed Final [facility] (Lab): [address] [place] Performing Lab: Final [facility] (Lab): [address] 11/28/2016 BMP, Blood Sodium 141 mmol/L 135-148 mmol/L Final [facility] (Lab): [address], [place] Potassium 4.3 mmol/L 3.5-5.1 mmol/L Final [facility] (Lab): [address], [place] Chloride 102 mmol/L 101-109 mmol/L Final [facility] (Lab): [address], [place] Carbon Dioxide 26.3 mmol/L 21-32 mmol/L Final [facility] (Lab): [address], [place] Anion Gap 13 mmol/L 10-20 mmol/L Final [facility] (Lab): [address], [place] Glucose 92 mg/dL 74-106 mg/dL Final [facility] (Lab): [address], [place] High Blood Urea Nitrogen 59 mg/dL 3-21 mg/dL Final [facility] (Lab): [address], [place] Glomerular Filtration Rate 11 mL/min >=60 mL/min Final [facility] (Lab): [address], [place] High Creatinine 5.96 mg/dL 0.55-1.3 mg/dL Final [facility] (Lab): [address], [place] Low Calcium 7.8 mg/dL 8.4-10.2 mg/dL Final [facility] (Lab): [address] [place] Performing Lab: Final [facility] (Lab): [address] 11/28/2016 Phosphate, QN, Blood High Phosphorus 5.8 mg/dL 2.6-4.7 mg/dL Final [facility] (Lab): [address] [place] Performing Lab: Final [facility] (Lab): [address] [place] 11/28/2016 Magnesium, QN, Serum or Plasma Low Magnesium 1.5 mg/dL 1.6- 2.3 mg/dL Final [facility] (Lab): [address] [place] Performing Lab: Final [facility] (Lab): [address], [place] 11/28/2016 Peripheral Blood Smear Normal Stain Acceptability stain acceptable Final [facility] (Lab): [address], [place] Normal Hypochromia 1+ Final [facility] (Lab): [address], [place] Normal Microcytosis 1+ Final [facility] (Lab): [address] [place] Normal Target Cells few Final [facility] (Lab): [address], [place] Normal Platelet Estimate adequate Final [facility] (Lab): [address] [place] Normal Platelet Morphology normal Final [facility] (Lab): [address] [place] Performing Lab: Final [facility] (Lab): [address] [place] 11/27/2016 Prothrombin Time Prothrombin Time Patient 10.4 seconds 9.0-13.0 seconds Final [facility] (Lab): [address] [place] International Normal Ratio 1.0 0.8-1.2 Final [facility] (Lab): [address] [place] Performing Lab: Final [facility] (Lab): [address] [place] 11/27/2016 Partial Thromboplastin Time Normal Thromboplastin Time Partial 26.9 seconds 25.0-36.5 seconds Final [facility] (Lab): [address] [place] Performing Lab: Final [facility] (Lab): [address] [place] 11/26/2016 Methicillin Resistant Staphylococcus Aureus, Culture, Unspecified Specimen NASAL MRSA Surveillance Screen see below Final [facility] (Lab): [address] [place] NASAL Performing Lab: Final [facility] (Lab): [address], [place] Pulse Oximetry Pulse Ox 86% [facility]: [id number] [address], [place] Past Encounters 02/04/2018 Adult Health Examination; Body Mass Index 25-29 - Overweight; Hypertensive Heart and Renal Disease with (Congestive) Heart Failure; Chronic Combined Systolic and Diastolic Heart Failure; Atherosclerosis of Aorta; Coronary Arteriosclerosis in [place] Artery; Carotid Artery Stenosis; Episodic Chronic Alcoholism; Mixed Hyperlipidemia; Large Prostate; Hyperuricemia without Signs of Inflammatory Arthritis and Tophaceous Disease; End Stage Renal Disease; Dependence on Renal Dialysis; Hyperparathyroidism Due to Renal Insufficiency; Anemia of Chronic Renal Failure; Arteriovenous Fistula; Tobacco Dependence in Remission; Chronic Obstructive Lung Disease; Lower Urinary Tract Symptoms Due to Benign Prostatic Hypertrophy; Generalized Aches and Pains; Depression Screening; Advance Directive Discussed with Patient; Screening for Malignant Neoplasm of Colon; Screening for Malignant Neoplasm of Prostate; Viral Immunization Shayla García MD: [id number] [address], Ph. 02/01/2018 Park Gordon: [address] [address], Ph. 01/29/2018 Sariah Rand: 9055 [facility], [address] [address], Ph. 01/15/2018 Jililan Reina: 9055 [facility], [address] [address], Ph. 01/14/2018 Hyperparathyroidism Due to Renal Insufficiency; Coronary Arteriosclerosis in [place] Artery; Carotid Artery Stenosis; Hypertensive Heart and Renal Disease with (Congestive) Heart Failure; Chronic Combined Systolic and Diastolic Heart Failure; Chronic Obstructive Lung Disease; Atherosclerosis of Aorta; Lower Urinary Tract Symptoms Due to Benign Prostatic Hypertrophy; Dependence on Renal Dialysis; Anemia of Chronic Renal Failure; End Stage Renal Disease; Mixed Hyperlipidemia; Large Prostate; Hyperuricemia without Signs of Inflammatory Arthritis and Tophaceous Disease; Episodic Chronic Alcoholism Shayla García MD: [id number] [facility], [address] [address], Ph. 01/01/2018 Sariah Rand: [address] [address], Ph. 01/01/2018 Chronic Obstructive Lung Disease; Chronic Combined Systolic and Diastolic Heart Failure; Renewal of Prescription Tom Richard MD: [id number] [facility], [facility] [address], [place] [address], Ph. 12/23/2017 Sariah Rand: 9055 [facility], [facility] [address], [place] [address], Ph. 12/21/2017 [facility] Lin: [facility] [address], [place] [address], Ph. 12/17/2017 Follow-up Visit; Body Mass Index 20-24 - Normal; Chronic Obstructive Lung Disease; Tobacco Dependence Syndrome; Hypertensive Heart and Renal Disease with (Congestive) Heart Failure; Chronic Combined Systolic and Diastolic Heart Failure; Atherosclerosis of Aorta; End Stage Renal Disease; Dependence on Renal Dialysis; Anemia of Chronic Renal Failure; Hyperparathyroidism Due to Renal Insufficiency; Hyperuricemia without Signs of Inflammatory Arthritis and Tophaceous Disease; Mixed Hyperlipidemia; Episodic Chronic Alcoholism; Large Prostate Shayla García MD: [id number] [facility], [address] [address], Ph. 12/14/2017 Sariah Rand: 9055 [facility], [address] [address], Ph. 11/23/2017 Follow-up Visit; Body Mass Index 20-24 - Normal; Episodic Chronic Alcoholism; Hypertensive Heart and Renal Disease with (Congestive) Heart Failure; Chronic Combined Systolic and Diastolic Heart Failure; Chronic Obstructive Lung Disease; Tobacco Dependence in Remission; Atherosclerosis of Aorta; End Stage Renal Disease; Dependence on Renal Dialysis; Anemia of Chronic Renal Failure; Hyperparathyroidism Due to Renal Insufficiency; Hyperuricemia without Signs of Inflammatory Arthritis and Tophaceous Disease; Large Prostate; Mixed Hyperlipidemia Shayla García MD: [id number] [facility], [facility] [address], [place] [address], Ph. 11/23/2017 Jaya Lin: 9055 [facility], [facility] [address], [place] [address], Ph. 11/19/2017 Sariah Rand: 9055 [facility], [facility] [address], [place] [address], Ph. 11/11/2017 Lucio Marcos: 9055 [facility], [facility] [address], [place] [address], Ph. 11/03/2017 Follow-up Visit; Anorexia Symptom; Hypertensive Heart and Renal Disease with (Congestive) Heart Failure; Generalized Aches and Pains; Chronic Obstructive Lung Disease; Hyperuricemia without Signs of Inflammatory Arthritis and Tophaceous Disease; Hyperparathyroidism Due to Renal Insufficiency; Atherosclerosis of Aorta; End Stage Renal Disease; Chronic Combined Systolic and Diastolic Heart Failure; Dependence on Renal Dialysis; Anemia of Chronic Renal Failure; Mixed Hyperlipidemia; Tobacco Dependence Syndrome; Lower Urinary Tract Symptoms Due to Benign Prostatic Hypertrophy; Episodic Chronic Alcoholism Shayla García MD: [id number] [facility], [address] [address], Ph. 10/30/2017 Jaya Lin: [facility]055 [facility] [address] [address], [place] [address], Ph. 10/22/2017 Jillian Reina: 9055 [facility], [address] [address], [place] [address], Ph. 09/15/2017 Sariah Rand: [facility]055 [facility] [address] [address], [place] [address], Ph. 08/25/2017 Jaya Lin: 9055 [facility], [address] [address], [place] [address], Ph. 08/18/2017 Sariah Rand: 9055 [facility], [address] [address], [place] [address], Ph. 08/05/2017 Chronic Obstructive Lung Disease; Hypertensive Heart and Renal Disease with (Congestive) Heart Failure; Chronic Combined Systolic and Diastolic Heart Failure; End Stage Renal Disease; Dependence on Renal Dialysis Shayla García MD: [id number] [facility], [facility] [address] [address], Ph. 07/28/2017 Chronic Obstructive Lung Disease; Hypertensive Heart and Renal Disease with (Congestive) Heart Failure Jaya Lin: 9055 [facility], [address] [address], Ph. 06/30/2017 Follow-up Visit; Chronic Obstructive Lung Disease; Hypertensive Heart and Renal Disease with (Congestive) Heart Failure; Chronic Combined Systolic and Diastolic Heart Failure; End Stage Renal Disease; Dependence on Renal Dialysis; Anemia of Chronic Renal Failure; Hyperparathyroidism Due to Renal Insufficiency; Hyperuricemia without Signs of Inflammatory Arthritis and Tophaceous Disease; Mixed Hyperlipidemia; Chronic Alcoholism in Remission; Tobacco Dependence in Remission Shayla García MD: [id number] [facility], [address] [address], Ph. 06/29/2017 Shayla García MD: [id number] [facility], [address] [address], Ph. 06/26/2017 Sariah Rand: 9055 [facility], [address] [address], Ph. 06/23/2017 Jaya Lin: 9055 [facility], [address] [address], Ph. 06/22/2017 Chronic Obstructive Lung Disease; End Stage Renal Disease; Generalized Aches and Pains; Chronic Combined Systolic and Diastolic Heart Failure; Hypertensive Heart and Renal Disease with (Congestive) Heart Failure; Large Prostate; Hyperparathyroidism Due to Renal Insufficiency; Hyperuricemia without Signs of Inflammatory Arthritis and Tophaceous Disease; Dyspnea MIKE Howard: [id number] [facility], [address] [address], Ph. 04/28/2017 Generalized Aches and Pains MIKE Howard: [id number] [facility], [address] [address], Ph. 04/21/2017 Chronic Obstructive Lung Disease; Hypertensive Heart and Renal Disease with (Congestive) Heart Failure Jaya Lin: 9055 [facility], [address] [place] [address], Ph. 03/17/2017 Chronic Obstructive Lung Disease; Hypertensive Heart and Renal Disease with (Congestive) Heart Failure Jaya Lin: 9055 [facility], [facility] [address], [place] [address], Ph. 02/17/2017 Chronic Obstructive Lung Disease; Chronic Combined Systolic and Diastolic Heart Failure Jaya Martinezt: 9055 [facility], [facility] [address], [place] [address], Ph. 02/04/2017 Senile Hyperkeratosis; Hypertensive Heart and Renal Disease with (Congestive) Heart Failure; End Stage Renal Disease; Chronic Combined Systolic and Diastolic Heart Failure; Dependence on Renal Dialysis; Chronic Obstructive Lung Disease Shayla García MD: [id number] [facility], [address] [address], Ph. 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 01/06/2017 Chronic Obstructive Lung Disease; Hypertensive Heart and Renal Disease with (Congestive) Heart Failure Jaya Lin: 9055 [facility], [address] [address], Ph. 12/30/2016 Carielbret Lamar: 9055 [facility], [address] [address], Ph. 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; Chronic Combined Systolic and Diastolic Heart Failure; End Stage Renal Disease; Dependence on Renal Dialysis; Hyperparathyroidism Due to Renal Insufficiency; Anemia of Chronic Renal Failure; Hyperuricemia without Signs of Inflammatory Arthritis and Tophaceous Disease; Chronic Alcoholism in Remission; Large Prostate; Chronic Obstructive Lung Disease; Mixed Hyperlipidemia; Tobacco Dependence in Remission; Advance Directive Discussed with Patient; Body Mass Index 20-24 - Normal; Screening for Malignant Neoplasm of Colon; Screening for Malignant Neoplasm of Prostate; Nicotine Dependence Shayla García MD: [id number] [facility], [facility] [address], [place] [address], Ph. 12/16/2016 Cari Lamar: 9055 [facility], [address], [place] [address], Ph. 12/02/2016 Cari Lamar: 9055 [facility], [address], [place] [address], Ph. 11/20/2016 Chronic Obstructive Lung Disease; Chronic Combined Systolic and Diastolic Heart Failure Jaya Lin: 9055 [facility], [address], [place] [address], Ph. 11/11/2016 Andrew Swain: 9055 [facility], [facility] [address], [place] [address], Ph. 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 10/17/2016 Haydee García: 9055 [facility], [facility] [address], [place] [address], Ph. 10/15/2016 Hyperparathyroidism Due to Renal Insufficiency; Mixed Hyperlipidemia Andrew Swain: 9055 [facility], [facility] [address], [place] [address], Ph. 08/28/2016 Chronic Obstructive Lung Disease; Dependence on Renal Dialysis; End Stage Renal Disease; Hypertensive Heart and Renal Disease with (Congestive) Heart Failure; Hypertensive Renal Disease with Renal Failure; Nicotine Dependence Jacqueline Lee MD: [id number] [facility], [facility] [address], [place] [address], Ph. Social History Smoking Status Former Smoker Notes: Quit early 2016 Vaccine List Vaccine Type influenza, high dose seasonal 07/23/2016 influenza, unspecified formulation 07/17/2017 pneumococcal conjugate PCV 13 10/23/2017 pneumococcal polysaccharide PPV23 10/23/20160.5 mL Plan of Care Patient Instructions Please follow up with your doctor in two weeks. Follow up with any specialists that we discussed during your visit today. If you need help getting your medications filled, our [facility] can sync medication refills, deliver within a 10 mile radius, or [employer] overnight at no additional cost. Please watch for warning symptoms that may occur: *fever *redness/oozing at surgical site *shortness of breath *uncontrolled pain *unexpected weight gain/loss *high or low blood pressure *chest pain *confusion *any other health concerns Call us at if you experience these symptoms. Evening and Thursday clinic hours are available if you have problems. If you have problems after hours, you can reach the [facility] physician health and safety consultant at . Problem:The patient has a dx of COPD Goal:The patients condition will be managed in the outpatient setting and will experience decreased exacerbation of disease process. Interventions: - Educate patient to avoid lung irritants such as sprays, chemicals, pesticides, dust and second hand smoke that can lead to coughing, increased wheezing and exacerbation of COPD - Educate patient on importance of annual flu and pneumonia vaccinations. - Notify the provider of increasing cough or wheezing, shortness of breath, change in daily activity tolerance or other symptoms that are concerning to patient. -Educate the patient the importance of using his/her nebulizer 2-3 times a day or as prescribed, CPAP and 2L of oxygen at night as or as prescribed. -Educate patient on the importance of avoiding smoking or second hand smoke. Smoking and second hand smoke can lead to coughing, increased wheezing and exacerbation of COPD. Educate patient smoking cessation resources are available if willing to participate. -Educate to use the quick-acting inhaler first. Wait a few minutes and then use the preventive/anti-inflammatory inhaler so the medication can get into the lungs better. -Educate patient to shake the inhaler, on inhalation hold their breath for 10 seconds. -Educate patient for steroid inhalers; rinse your mouth out after use to reduce the risk of a yeast infection or sore throat. Problem:The patient has a diagnosis of Hypertension Goal:The patients condition will be managed in the outpatient setting and blood pressure will be within normal limits. Interventions: -Encourage patient to take medication as prescribed. -Encourage patient to decrease sodium intake and limit processed foods and caffeinated drinks. -Encourage patient to monitor blood pressure and keep a log with readings. Bring readings to next scheduled appointment. -Encourage pt to exercise regularly 3-5 times a week for 30 min, unless the patients activity is restricted by the provider. Educate to stay at a healthy weight. Losing weight can lower your blood pressure -Educate patient that hypertension usually has no symptoms but some people may experience the following symptoms: blurred vision, fatigue, nose bleeds, chest pain, and swooshing sound in ears. -Educate patient to take BP prior to medications, and to ensure medications is working can take blood pressure 30min to 1 hour after taking BP medication. Problem:The patient has a diagnosis of Heart Failure. Goal: The patients condition will be managed in the outpatient setting and will experience decreased exacerbation of disease process. Interventions: - Educate the patient that they will need to maintain BP of <140/90. - Limit sodium intake to 2000mg/day. - Encourage physical activity as recommended by direct support staff or provider - Inform patient to weight himself every morning before breakfast and after urinating. Informed pt he/she should have on the same amount of clothing, weigh self approximately at the same time and use the same scale. - Notify the provider of weight increase of 2 pounds or more in one day, increasing cough or wheezing, SOB, change in daily activity tolerance, swelling of extremities, heart palpitation or other symptoms that are concerning to patient. - Educate the patient of the importance of annual flu vaccinations Problem:The patient has a dx of COPD Goal:The patients condition will be managed in the outpatient setting and will experience decreased exacerbation of disease process. Interventions: - Educate patient to avoid lung irritants such as sprays, chemicals, pesticides, dust and second hand smoke that can lead to coughing, increased wheezing and exacerbation of COPD - Educate patient on importance of annual flu and pneumonia vaccinations. - Notify the provider of increasing cough or wheezing, shortness of breath, change in daily activity tolerance or other symptoms that are concerning to patient. -Educate the patient the importance of using his/her nebulizer 2-3 times a day or as prescribed, CPAP and 2L of oxygen at night as or as prescribed. -Educate patient on the importance of avoiding smoking or second hand smoke. Smoking and second hand smoke can lead to coughing, increased wheezing and exacerbation of COPD. Educate patient smoking cessation resources are available if willing to participate. -Educate to use the quick-acting inhaler first. Wait a few minutes and then use the preventive/anti-inflammatory inhaler so the medication can get into the lungs better. -Educate patient to shake the inhaler, on inhalation hold their breath for 10 seconds. -Educate patient for steroid inhalers; rinse your mouth out after use to reduce the risk of a yeast infection or sore throat. Problem:The patient has a diagnosis of Hypertension Goal:The patients condition will be managed in the outpatient setting and blood pressure will be within normal limits. Interventions: -Encourage patient to take medication as prescribed. -Encourage patient to decrease sodium intake and limit processed foods and caffeinated drinks. -Encourage patient to monitor blood pressure and keep a log with readings. Bring readings to next scheduled appointment. -Encourage pt to exercise regularly 3-5 times a week for 30 min, unless the patients activity is restricted by the provider. Educate to stay at a healthy weight. Losing weight can lower your blood pressure -Educate patient that hypertension usually has no symptoms but some people may experience the following symptoms: blurred vision, fatigue, nose bleeds, chest pain, and swooshing sound in ears. -Educate patient to take BP prior to medications, and to ensure medications is working can take blood pressure 30min to 1 hour after taking BP medication. Problem:The patient has a diagnosis of Heart Failure. Goal: The patients condition will be managed in the outpatient setting and will experience decreased exacerbation of disease process. Interventions: - Educate the patient that they will need to maintain BP of <140/90. - Limit sodium intake to 2000mg/day. - Encourage physical activity as recommended by direct support staff or provider - Inform patient to weight himself every morning before breakfast and after urinating. Informed pt he/she should have on the same amount of clothing, weigh self approximately at the same time and use the same scale. - Notify the provider of weight increase of 2 pounds or more in one day, increasing cough or wheezing, SOB, change in daily activity tolerance, swelling of extremities, heart palpitation or other symptoms that are concerning to patient. - Educate the patient of the importance of annual flu vaccinations Problem:The patient has a dx of COPD Goal:The patients condition will be managed in the outpatient setting and will experience decreased exacerbation of disease process. Interventions: - Educate patient to avoid lung irritants such as sprays, chemicals, pesticides, dust and second hand smoke that can lead to coughing, increased wheezing and exacerbation of COPD - Educate patient on importance of annual flu and pneumonia vaccinations. - Notify the provider of increasing cough or wheezing, shortness of breath, change in daily activity tolerance or other symptoms that are concerning to patient. -Educate the patient the importance of using his/her nebulizer 2-3 times a day or as prescribed, CPAP and 2L of oxygen at night as or as prescribed. -Educate patient on the importance of avoiding smoking or second hand smoke. Smoking and second hand smoke can lead to coughing, increased wheezing and exacerbation of COPD. Educate patient smoking cessation resources are available if willing to participate. -Educate to use the quick-acting inhaler first. Wait a few minutes and then use the preventive/anti-inflammatory inhaler so the medication can get into the lungs better. -Educate patient to shake the inhaler, on inhalation hold their breath for 10 seconds. -Educate patient for steroid inhalers; rinse your mouth out after use to reduce the risk of a yeast infection or sore throat. Problem:The patient has a diagnosis of Hypertension Goal:The patients condition will be managed in the outpatient setting and blood pressure will be within normal limits. Interventions: -Encourage patient to take medication as prescribed. -Encourage patient to decrease sodium intake and limit processed foods and caffeinated drinks. -Encourage patient to monitor blood pressure and keep a log with readings. Bring readings to next scheduled appointment. -Encourage pt to exercise regularly 3-5 times a week for 30 min, unless the patients activity is restricted by the provider. Educate to stay at a healthy weight. Losing weight can lower your blood pressure -Educate patient that hypertension usually has no symptoms but some people may experience the following symptoms: blurred vision, fatigue, nose bleeds, chest pain, and swooshing sound in ears. -Educate patient to take BP prior to medications, and to ensure medications is working can take blood pressure 30min to 1 hour after taking BP medication. Problem:The patient has a diagnosis of Heart Failure. Goal: The patients condition will be managed in the outpatient setting and will experience decreased exacerbation of disease process. Interventions: - Educate the patient that they will need to maintain BP of <140/90. - Limit sodium intake to 2000mg/day. - Encourage physical activity as recommended by direct support staff or provider - Inform patient to weight himself every morning before breakfast and after urinating. Informed pt he/she should have on the same amount of clothing, weigh self approximately at the same time and use the same scale. - Notify the provider of weight increase of 2 pounds or more in one day, increasing cough or wheezing, SOB, change in daily activity tolerance, swelling of extremities, heart palpitation or other symptoms that are concerning to patient. - Educate the patient of the importance of annual flu vaccinations Problem:The patient has a diagnosis of Heart Failure. Goal: The patients condition will be managed in the outpatient setting and will experience decreased exacerbation of disease process. Interventions: - Educate the patient that they will need to maintain BP of <140/90. - Limit sodium intake to 2000mg/day. - Encourage physical activity as recommended by direct support staff or provider - Inform patient to weight himself every morning before breakfast and after urinating. Informed pt he/she should have on the same amount of clothing, weigh self approximately at the same time and use the same scale. - Notify the provider of weight increase of 2 pounds or more in one day, increasing cough or wheezing, SOB, change in daily activity tolerance, swelling of extremities, heart palpitation or other symptoms that are concerning to patient. - Educate the patient of the importance of annual flu vaccinations Problem:The patient has a dx of COPD Goal:The patients condition will be managed in the outpatient setting and will experience decreased exacerbation of disease process. Interventions: - Educate patient to avoid lung irritants such as sprays, chemicals, pesticides, dust and second hand smoke that can lead to coughing, increased wheezing and exacerbation of COPD - Educate patient on importance of annual flu and pneumonia vaccinations. - Notify the provider of increasing cough or wheezing, shortness of breath, change in daily activity tolerance or other symptoms that are concerning to patient. -Educate the patient the importance of using his/her nebulizer 2-3 times a day or as prescribed, CPAP and 2L of oxygen at night as or as prescribed. -Educate patient on the importance of avoiding smoking or second hand smoke. Smoking and second hand smoke can lead to coughing, increased wheezing and exacerbation of COPD. Educate patient smoking cessation resources are available if willing to participate. -Educate to use the quick-acting inhaler first. Wait a few minutes and then use the preventive/anti-inflammatory inhaler so the medication can get into the lungs better. -Educate patient to shake the inhaler, on inhalation hold their breath for 10 seconds. -Educate patient for steroid inhalers; rinse your mouth out after use to reduce the risk of a yeast infection or sore throat. Problem:The patient has a diagnosis of Hypertension Goal:The patients condition will be managed in the outpatient setting and blood pressure will be within normal limits. Interventions: -Encourage patient to take medication as prescribed. -Encourage patient to decrease sodium intake and limit processed foods and caffeinated drinks. -Encourage patient to monitor blood pressure and keep a log with readings. Bring readings to next scheduled appointment. -Encourage pt to exercise regularly 3-5 times a week for 30 min, unless the patients activity is restricted by the provider. Educate to stay at a healthy weight. Losing weight can lower your blood pressure -Educate patient that hypertension usually has no symptoms but some people may experience the following symptoms: blurred vision, fatigue, nose bleeds, chest pain, and swooshing sound in ears. -Educate patient to take BP prior to medications, and to ensure medications is working can take blood pressure 30min to 1 hour after taking BP medication. Problem:The patient has a dx of COPD Goal:The patients condition will be managed in the outpatient setting and will experience decreased exacerbation of disease process. Interventions: - Educate patient to avoid lung irritants such as sprays, chemicals, pesticides, dust and second hand smoke that can lead to coughing, increased wheezing and exacerbation of COPD - Educate patient on importance of annual flu and pneumonia vaccinations. - Notify the provider of increasing cough or wheezing, shortness of breath, change in daily activity tolerance or other symptoms that are concerning to patient. -Educate the patient the importance of using his/her nebulizer 2-3 times a day or as prescribed, CPAP and 2L of oxygen at night as or as prescribed. -Educate patient on the importance of avoiding smoking or second hand smoke. Smoking and second hand smoke can lead to coughing, increased wheezing and exacerbation of COPD. Educate patient smoking cessation resources are available if willing to participate. -Educate to use the quick-acting inhaler first. Wait a few minutes and then use the preventive/anti-inflammatory inhaler so the medication can get into the lungs better. -Educate patient to shake the inhaler, on inhalation hold their breath for 10 seconds. -Educate patient for steroid inhalers; rinse your mouth out after use to reduce the risk of a yeast infection or sore throat. Problem:The patient has a diagnosis of Hypertension Goal:The patients condition will be managed in the outpatient setting and blood pressure will be within normal limits. Interventions: -Encourage patient to take medication as prescribed. -Encourage patient to decrease sodium intake and limit processed foods and caffeinated drinks. -Encourage patient to monitor blood pressure and keep a log with readings. Bring readings to next scheduled appointment. -Encourage pt to exercise regularly 3-5 times a week for 30 min, unless the patients activity is restricted by the provider. Educate to stay at a healthy weight. Losing weight can lower your blood pressure -Educate patient that hypertension usually has no symptoms but some people may experience the following symptoms: blurred vision, fatigue, nose bleeds, chest pain, and swooshing sound in ears. -Educate patient to take BP prior to medications, and to ensure medications is working can take blood pressure 30min to 1 hour after taking BP medication. called and spoke with patient he is doing well at time of call, stated he went to dialysis and is not currently having any concerns, advised for him to contact the office if he needs any assistance. It was good to see you in the office today for your Medicare Annual Wellness Visit. You have been provided some information on healthy nutrition, including a diet rich in fruits and vegetables, minimizing simple carbohydrates, salt, and saturated fats. I want to encourage regular cardiovascular exercise such as walking at least 30 minutes daily, 5 times per week. Please remember to schedule any preventive health measures that we talked about today. You have also been provided education on fall prevention and community- based lifestyle interventions to help reduce health risks and promote healthy living in your [employer] folder. spoke with patient he is doing well at time of call, we discussed the importance of pt making to dialysis and to notify office if he has questions or concerns or needs assistance, pt is to cont to dane s/s of CHF which includes weight gain, sob, diff breathing, increased swelling around abdomen, pt has f/u appt for 12/25/2016 advised for him to contact office if he needs assistance prior to appt., pt in agreement with plan of care. spoke with patient he is doing well at time of call, denies fever, sob, diff breathing, wheezing, advised for pt to cont to dane symptoms of weight gain which could indicate exacerbation of chf, pt stated he had diarrhea and wasn't able to get to dialysis, at hosp pt received dialysis on , thu, thu and again x 1 day ago he is back on schedule for tomorrow to go to his regular [facility] location, ex plained the importance to pt of making sure he goes to dialysis to avoid fluid overload, pt verbalized understanding and in agreement with plan of care, I offered pt appt with [facility]cp and [facility], pt declined both and stated he already has nurse that comes to his home, advised for pt to contact the office if he has any questions or concerns or needs assistance. Problem:The patient has a dx of COPD Goal:The patients condition will be managed in the outpatient setting and will experience decreased exacerbation of disease process. Interventions: - Educate patient to avoid lung irritants such as sprays, chemicals, pesticides, dust and second hand smoke that can lead to coughing, increased wheezing and exacerbation of COPD - Educate patient on importance of annual flu and pneumonia vaccinations. - Notify the provider of increasing cough or wheezing, shortness of breath, change in daily activity tolerance or other symptoms that are concerning to patient. -Educate the patient the importance of using his/her nebulizer 2-3 times a day or as prescribed, CPAP and 2L of oxygen at night as or as prescribed. -Educate patient on the importance of avoiding smoking or second hand smoke. Smoking and second hand smoke can lead to coughing, increased wheezing and exacerbation of COPD. Educate patient smoking cessation resources are available if willing to participate. -Educate to use the quick-acting inhaler first. Wait a few minutes and then use the preventive/anti-inflammatory inhaler so the medication can get into the lungs better. -Educate patient to shake the inhaler, on inhalation hold their breath for 10 seconds. -Educate patient for steroid inhalers; rinse your mouth out after use to reduce the risk of a yeast infection or sore throat. 10/17/2016-Called patient on and LVM to have patient return call to office. 10/20/2016- Called patient on and LVM to have patient return call to office. 10/21/2016- Called patient on [facility] to have patient return call to office. Pt instructed to follow-up with Dr. García after he sees his surgeon later this month. Reminders Provider Appointments None recorded. Lab None recorded. Referral None recorded. Procedures None recorded. Surgeries None recorded. Imaging None recorded. Vitals 02/04/2018 11:00AM AWV Height Weight BMI Blood Pressure 5 ft 4 in 148 lbs 25.4 kg/m2 133/84 mm[Hg] 01/14/2018 11:00AM Est Patient Height Weight BMI Blood Pressure 5 ft 5 in 148.6 lbs 24.7 kg/m2 (1) 161/85 mm[Hg] (2) 159/83 mm[Hg] 01/01/2018 11:45AM TCM Height Weight BMI Blood Pressure 5 ft 5 in 149.4 lbs 24.9 kg/m2 (1) 174/88 mm[Hg] (2) 156/74 mm[Hg] 12/17/2017 08:00AM TCM Height Weight BMI Blood Pressure 5 ft 5 in 147.6 lbs 24.6 kg/m2 165/76 mm[Hg] 11/23/2017 02:30PM TCM - High Risk Height Weight BMI Blood Pressure 5 ft 5 in 149.6 lbs 24.9 kg/m2 157/78 mm[Hg] 11/03/2017 11:45AM TCM - High Risk Height Weight BMI Blood Pressure 5 ft 5 in 145 lbs 24.1 kg/m2 165/81 mm[Hg] 08/05/2017 11:30AM Work In Same Day Height Weight BMI Blood Pressure 5 ft 5 in 149 lbs 24.8 kg/m2 148/78 mm[Hg] 06/30/2017 11:30AM TCM - High Risk Height Weight BMI Blood Pressure 5 ft 8 in 149 lbs 22.7 kg/m2 169/97 mm[Hg] 06/22/2017 03:30PM Est Patient Height Weight BMI Blood Pressure 5 ft 8 in 151 lbs 23 kg/m2 176/90 mm[Hg] 04/28/2017 11:45AM Est Patient Height Weight BMI Blood Pressure 5 ft 8 in 151 lbs 23 kg/m2 140/77 mm[Hg] 02/04/2017 03:00PM Est Patient Height Weight BMI Blood Pressure 5 ft 8 in 151.6 lbs 23.1 kg/m2 164/82 mm[Hg] 12/25/2016 02:00PM 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 Height Weight BMI Blood Pressure 5 ft 8 in 146.4 lbs 22.3 kg/m2 135/74 mm[Hg] 10/23/2016 01:30PM TCM - Moderate Risk Height Weight BMI Blood Pressure 5 ft 8 in 141.4 lbs 21.5 kg/m2 114/61 mm[Hg] 08/28/2016 03:00PM Est Patient Height Weight BMI Blood Pressure 5 ft 8 in 142.6 lbs 21.7 kg/m2 142/74 mm[Hg] 04/24/2016 Height Weight BMI Blood Pressure 5 ft 8 in 132.4 lbs 20.13 kg/m2 140/68 mm[Hg] 09/25/2015 Height Weight BMI Blood Pressure 5 ft 8 in 132.2 lbs 20.10 kg/m2 118/86 mm[Hg] 09/19/2015 Height Weight BMI Blood Pressure 5 ft 8 in 134 lbs 20.37 kg/m2 140/70 mm[Hg] 09/13/2015 Height Weight BMI Blood Pressure 5 ft 8 in 134.2 lbs 20.40 kg/m2 142/70 mm[Hg] 09/04/2015 Height Weight BMI Blood Pressure 5 ft 8 in 132.4 lbs 20.13 kg/m2 132/71 mm[Hg] 07/03/2015 Height Weight BMI Blood Pressure 5 ft 8 in 133.1 lbs 20.24 kg/m2 135/70 mm[Hg] 05/28/2015 Height Weight BMI Blood Pressure 5 ft 8 in 133 lbs 20.22 kg/m2 138/72 mm[Hg] 05/09/2015 Height Weight BMI 5 ft 8 in 140.6 lbs 21.38 kg/m2 05/09/2015 Blood Pressure 130/70 mm[Hg] 04/25/2015 Height Weight BMI Blood Pressure 5 ft 8 in 140.6 lbs 21.38 kg/m2 130/70 mm[Hg] 04/20/2015 Height Weight BMI Blood Pressure 5 ft 8 in 146 lbs 22.20 kg/m2 170/80 mm[Hg] 04/17/2015 Height Weight BMI Blood Pressure 5 ft 8 in 150.2 lbs 22.84 kg/m2 118/70 mm[Hg] 10/18/2014 BMI 21.25 kg/m2 10/18/2014 Height Weight Blood Pressure 5 ft 8 in 139.8 lbs 114/60 mm[Hg] 09/28/2014 Height Weight BMI Blood Pressure 5 ft 8 in 140.2 lbs 21.32 kg/m2 104/60 mm[Hg] 02/20/2014 Height Weight 5 ft 8 in 132.2 lbs 11/04/2013 Height Weight 5 ft 8 in 137.8 lbs 09/19/2013 Height Weight 5 ft 8 in 134 lbs 04/19/2013 Height Weight 5 ft 8 in 150 lbs
--- OUTSIDE RECORDS SUMMARY | 2018-11-11 17:10 | XMS REPORT | Clinical Summary ---
Author Author [facility] Organization [employer] Address Unknown Phone Unavailable Care Team Providers Care Punch Card Operator Name Role Phone Parveen García MD PCP [...] directed. Active ipratropium-albuterol INHALE 1 VIAL 0 ([employer]NE[employer]) 0.5-2.5 mg/mL VIA NEBULIZER 8 nebulizer EVERY [...] Overview: Added automatically from request for surgery [id number] CHF exacerbation 11/04/2017 NSTEMI (non-ST elevated myocardial [...] ESRD (end stage renal disease) on dialysis ([facility]) 08/30/2018 [facility] General Internal Medicine - Encounter 08/31/2018 Carlos Linares MD Allencherril, Paul Joseph, MD Respiratory arrest (Primary Dx); ESRD (end stage renal disease) on dialysis; Acute on chronic systolic congestive heart failure; Acute respiratory failure with hypoxia and hypercapnia; Flash pulmonary edema 06/28/2018 [facility] General Internal Medicine - Encounter 07/03/2018 Shelbie [...] Malfunction of arteriovenous graft, initial encounter 05/02/2018 [facility] General Internal Medicine - Encounter 05/06/2018 Minesh Ponce Jr., Kai Cazares DO Allencherril, Paul Joseph, MD Multifocal pneumonia (Primary Dx); Kidney disease, chronic, end stage on dialysis; Acute on chronic systolic congestive heart failure 04/30/2018 [facility] General Internal Medicine - Encounter 05/01/2018 Juni [...] with hypoxia or hypercapnia (Primary Dx) 12/21/2017 [facility] General Surgery - Encounter 12/22/2017 Brian Vela RN 12/15/2017 Abstract Transplant Ninfa Sparks MD Berberian, Esteban N., MD COPD exacerbation (Primary Dx) 12/10/2017 Hospital Critical Care Medicine - Encounter 12/12/2017 Adrian Monterroso MD Cv intro cath dialysis circuit angioplasty [79269 (CPT)] 11/13/2017 Surgery Procedural Cardiology Aixa Oneal MD Berberian, Esteban N., MD SOB (shortness of breath) (Primary Dx); COPD exacerbation; Hypertension, unspecified type; Malfunction of arteriovenous graft, initial encounter 11/11/2017 [facility] General Internal Medicine - Encounter 11/16/2017 after [...] Taken Vital Sign Reading 10/19/2018 7:24 AM GRINDING MACHINE OPERATOR Blood Pressure 126/58 10/19/2018 8:13 AM GRINDING MACHINE OPERATOR Pulse 75 10/19/2018 7:24 AM GRINDING MACHINE OPERATOR Temperature 36.5 C (97.7 F) 10/19/2018 8:13 AM GRINDING MACHINE OPERATOR Respiratory Rate 18 10/19/2018 8:01 AM GRINDING MACHINE OPERATOR Oxygen Saturation 99% - Inhaled Oxygen - Concentration 10/18/2018 3:41 AM GRINDING MACHINE OPERATOR Weight 74.8 kg (165 lb) 10/18/2018 3:41 AM GRINDING MACHINE OPERATOR Height 165.1 cm (5' 5") 10/18/2018 3:41 AM GRINDING MACHINE OPERATOR Body Mass Index 27.46 Plan of Treatment Health Maintenance Due Date Last Done Comments SHINGLES VACCINES (1 of 1992 2) INFLUENZA VACCINE 06/16/2018 07/17/2017, 07/16/2017, 07/23/2016 PNEUMOCOCCAL Completed 10/23/2016 POLYSACCHARIDE VACCINE AGE 65 AND OVER PNEUMOCOCCAL-13 Completed 10/23/2017 Implants Device Identifier Shelf Expiration Date Model / Serial / Lot Explanted Type Area Manufactur er 06/15/2020 [id number] / / [id number] Catheter Hooking Machine Operator 4x75cm 10mm [employer] - Surgical Left: Arm, BARD [id number] Implants; Upper PERIPHERAL Implanted: Expanders; VASCULAR Explanted: 05/05/2018 (Quantity not Extenders; on file) Surgical Wires [id number] / / Catheter Hooking Machine Operator 4x75cm 7mm [employer] - Surgical Left: Arm BARD [id number] Implants; PERIPHERAL Implanted: Expanders; VASCULAR Explanted: 05/05/2018 (Quantity not Extenders; on file) Surgical Wires Procedures Comments Procedure Name Priority Date/Time Associated Diagnosis LACTIC ACID LEVEL, SEPSIS Timed 10/18/2018 - NOW AND REPEAT 2X EVERY 6:40 PM GRINDING MACHINE OPERATOR 3 HOURS HEMODIALYSIS Routine 10/18/2018 2:12 PM GRINDING MACHINE OPERATOR LACTIC ACID LEVEL, SEPSIS Timed 10/18/2018 - NOW AND REPEAT 2X EVERY 12:39 PM GRINDING MACHINE OPERATOR 3 HOURS TROPONIN Timed 10/18/2018 12:39 PM GRINDING MACHINE OPERATOR URINALYSIS SCREEN AND Routine 10/18/2018 MICROSCOPY, WITH REFLEX 10:21 AM GRINDING MACHINE OPERATOR TO CULTURE URINE CULTURE Routine 10/18/2018 10:21 AM GRINDING MACHINE OPERATOR BLOOD CULTURE, AEROBIC & Routine 10/18/2018 ANAEROBIC 9:47 AM GRINDING MACHINE OPERATOR HC COMPLETE BLD COUNT STAT 10/18/2018 W/AUTO DIFF 9:40 AM GRINDING MACHINE OPERATOR LACTIC ACID LEVEL, SEPSIS STAT 10/18/2018 - NOW AND REPEAT 2X EVERY 9:40 AM GRINDING MACHINE OPERATOR 3 HOURS TROPONIN Timed 10/18/2018 9:40 AM GRINDING MACHINE OPERATOR BLOOD CULTURE, AEROBIC & Routine 10/18/2018 ANAEROBIC 9:40 AM GRINDING MACHINE OPERATOR XR CHEST 1 VW PORTABLE STAT 10/18/2018 4:11 AM GRINDING MACHINE OPERATOR HEPATITIS B SURFACE STAT 10/18/2018 ANTIGEN 3:59 AM GRINDING MACHINE OPERATOR ESTIMATED GFR STAT 10/18/2018 3:59 AM GRINDING MACHINE OPERATOR B NATRIURETIC PEPTIDE STAT 10/18/2018 3:59 AM GRINDING MACHINE OPERATOR TROPONIN STAT 10/18/2018 3:59 AM GRINDING MACHINE OPERATOR COMPREHENSIVE METABOLIC STAT 10/18/2018 PANEL 3:59 AM GRINDING MACHINE OPERATOR HC COMPLETE BLD COUNT STAT 10/18/2018 W/AUTO DIFF 3:59 AM GRINDING MACHINE OPERATOR ECG ED PRELIMINARY Routine 10/18/2018 INTERPRETATION 3:56 AM GRINDING MACHINE OPERATOR CO CRITICAL CARE, E/M Routine 10/18/2018 30-74 MINUTES 3:56 AM GRINDING MACHINE OPERATOR ECG 12-LEAD STAT 10/18/2018 3:50 AM GRINDING MACHINE OPERATOR BLOOD CULTURE, AEROBIC & Routine 09/24/2018 ANAEROBIC 11:35 AM GRINDING MACHINE OPERATOR HEPATITIS B SURFACE STAT 09/24/2018 ANTIGEN 9:05 AM GRINDING MACHINE OPERATOR TROPONIN Timed 09/24/2018 1:31 AM GRINDING MACHINE OPERATOR MANUAL DIFFERENTIAL STAT 09/23/2018 10:30 PM GRINDING MACHINE OPERATOR CBC WITH PLATELET AND STAT 09/23/2018 DIFFERENTIAL 10:30 PM GRINDING MACHINE OPERATOR ESTIMATED GFR STAT 09/23/2018 9:25 PM GRINDING MACHINE OPERATOR TROPONIN STAT 09/23/2018 9:25 PM GRINDING MACHINE OPERATOR CREATINE KINASE, TOTAL STAT 09/23/2018 (CPK) 9:25 PM GRINDING MACHINE OPERATOR COMPREHENSIVE METABOLIC STAT 09/23/2018 PANEL 9:25 PM GRINDING MACHINE OPERATOR XR CHEST 1 VW PORTABLE STAT 09/23/2018 9:14 PM GRINDING MACHINE OPERATOR ECG ED PRELIMINARY Routine 09/23/2018 INTERPRETATION 8:46 PM GRINDING MACHINE OPERATOR POC GLUCOSE Routine 09/23/2018 8:05 PM GRINDING MACHINE OPERATOR ECG 12-LEAD STAT 09/23/2018 7:58 PM GRINDING MACHINE OPERATOR XR CHEST 1 VW PORTABLE Routine 08/31/2018 [...] MMODE SPECTRAL 8:34 AM CDT COLOR DOPPLER (24041) TROPONIN Routine 06/29/2018 6:54 AM CDT ZZESTIMATED [...] BLOOD GAS STAT 06/28/2018 9:46 AM CDT CO CRITICAL CARE, E/M Routine 06/28/2018 30-74 MINUTES [...] PRELIMINARY Routine 06/02/2018 INTERPRETATION 7:15 AM CDT CO CRITICAL CARE, E/M Routine 06/02/2018 30-74 MINUTES [...] PRELIMINARY Routine 05/02/2018 INTERPRETATION 11:50 PM CDT CO CRITICAL CARE, E/M Routine 05/02/2018 30-74 MINUTES [...] PRELIMINARY Routine 03/31/2018 INTERPRETATION 7:42 AM CDT CO CRITICAL CARE, E/M Routine 03/31/2018 30-74 MINUTES 7:42 AM CDT HEMODIALYSIS Routine 12/30/2017 7:51 AM GRINDING MACHINE OPERATOR ZZESTIMATED GFR Routine 12/30/2017 5:08 AM GRINDING MACHINE OPERATOR HC COMPLETE BLD COUNT Routine 12/30/2017 W/AUTO DIFF 5:08 AM GRINDING MACHINE OPERATOR BASIC METABOLIC PANEL Routine 12/30/2017 5:08 AM GRINDING MACHINE OPERATOR TRANSFUSE RED BLOOD CELLS Routine 12/29/2017 9:20 PM GRINDING MACHINE OPERATOR PREPARE RBC Timed 12/29/2017 1:07 PM GRINDING MACHINE OPERATOR TYPE AND SCREEN Routine 12/29/2017 1:07 PM GRINDING MACHINE OPERATOR ZZESTIMATED GFR Routine 12/29/2017 5:18 AM GRINDING MACHINE OPERATOR PHOSPHORUS LEVEL Routine 12/29/2017 5:18 AM GRINDING MACHINE OPERATOR MAGNESIUM LEVEL Routine 12/29/2017 5:18 AM GRINDING MACHINE OPERATOR HC COMPLETE BLD COUNT Routine 12/29/2017 W/AUTO DIFF 5:18 AM GRINDING MACHINE OPERATOR BASIC METABOLIC PANEL Routine 12/29/2017 5:18 AM GRINDING MACHINE OPERATOR HEMODIALYSIS Routine 12/28/2017 12:11 PM GRINDING MACHINE OPERATOR TROPONIN Timed 12/28/2017 12:08 PM GRINDING MACHINE OPERATOR HEPATITIS B SURFACE Routine 12/28/2017 ANTIGEN 8:23 AM GRINDING MACHINE OPERATOR ZZESTIMATED GFR STAT 12/28/2017 8:23 AM GRINDING MACHINE OPERATOR B NATRIURETIC PEPTIDE STAT 12/28/2017 8:23 AM GRINDING MACHINE OPERATOR TROPONIN STAT 12/28/2017 8:23 AM GRINDING MACHINE OPERATOR CREATINE KINASE, TOTAL STAT 12/28/2017 (CPK) 8:23 AM GRINDING MACHINE OPERATOR COMPREHENSIVE METABOLIC STAT 12/28/2017 PANEL 8:23 AM GRINDING MACHINE OPERATOR HC COMPLETE BLD COUNT STAT 12/28/2017 W/AUTO DIFF 8:23 AM GRINDING MACHINE OPERATOR ECG ED PRELIMINARY Routine 12/28/2017 INTERPRETATION 8:16 AM GRINDING MACHINE OPERATOR CO CRITICAL CARE, E/M Routine 12/28/2017 30-74 MINUTES 8:16 AM GRINDING MACHINE OPERATOR XR CHEST 1 VW PORTABLE STAT 12/28/2017 8:09 AM GRINDING MACHINE OPERATOR ECG 12-LEAD STAT 12/28/2017 7:49 AM GRINDING MACHINE OPERATOR TROPONIN Timed 12/21/2017 7:56 PM GRINDING MACHINE OPERATOR TROPONIN Timed 12/21/2017 3:34 PM GRINDING MACHINE OPERATOR TROPONIN Timed 12/21/2017 12:19 PM GRINDING MACHINE OPERATOR ECG 12-LEAD Routine 12/21/2017 9:09 AM GRINDING MACHINE OPERATOR RESPIRATORY PATHOGEN Routine 12/21/2017 PANEL 8:28 AM GRINDING MACHINE OPERATOR INFLUENZA ANTIGEN Routine 12/21/2017 8:28 AM GRINDING MACHINE OPERATOR XR CHEST 1 VW PORTABLE STAT 12/21/2017 8:02 AM GRINDING MACHINE OPERATOR HEPATITIS B SURFACE Routine 12/21/2017 ANTIGEN 8:02 AM GRINDING MACHINE OPERATOR ZZESTIMATED GFR Routine 12/21/2017 8:02 AM GRINDING MACHINE OPERATOR B NATRIURETIC PEPTIDE Routine 12/21/2017 8:02 AM GRINDING MACHINE OPERATOR TROPONIN Routine 12/21/2017 8:02 AM GRINDING MACHINE OPERATOR COMPREHENSIVE METABOLIC Routine 12/21/2017 PANEL 8:02 AM GRINDING MACHINE OPERATOR PROTHROMBIN TIME WITH INR Routine 12/21/2017 8:02 AM GRINDING MACHINE OPERATOR HC COMPLETE BLD COUNT Routine 12/21/2017 W/AUTO DIFF 8:02 AM GRINDING MACHINE OPERATOR CO CRITICAL CARE, E/M Routine 12/21/2017 30-74 MINUTES 7:38 AM GRINDING MACHINE OPERATOR POC GLUCOSE Routine 12/21/2017 7:36 AM GRINDING MACHINE OPERATOR ECG ED PRELIMINARY Routine 12/21/2017 INTERPRETATION 7:35 AM GRINDING MACHINE OPERATOR ECG 12-LEAD STAT 12/21/2017 7:32 AM GRINDING MACHINE OPERATOR ARTERIAL BLOOD GAS STAT 12/21/2017 7:31 AM GRINDING MACHINE OPERATOR ECG ED PRELIMINARY Routine 12/12/2017 INTERPRETATION 2:46 PM GRINDING MACHINE OPERATOR CO CRITICAL CARE, E/M Routine 12/12/2017 30-74 MINUTES 2:46 PM GRINDING MACHINE OPERATOR HEMODIALYSIS Routine 12/11/2017 1:59 PM GRINDING MACHINE OPERATOR HEPATITIS B SURFACE Routine 12/11/2017 ANTIGEN 10:19 AM GRINDING MACHINE OPERATOR HEPATITIS B SURFACE AB, Routine 12/11/2017 QUANTITATIVE 10:19 AM GRINDING MACHINE OPERATOR TROPONIN Timed 12/10/2017 8:51 PM GRINDING MACHINE OPERATOR TROPONIN Timed 12/10/2017 3:59 PM GRINDING MACHINE OPERATOR TROPONIN Timed 12/10/2017 1:22 PM GRINDING MACHINE OPERATOR TROPONIN Timed 12/10/2017 10:55 AM GRINDING MACHINE OPERATOR XR CHEST 1 VW PORTABLE STAT 12/10/2017 7:23 AM GRINDING MACHINE OPERATOR ZZESTIMATED GFR STAT 12/10/2017 6:52 AM GRINDING MACHINE OPERATOR COMPREHENSIVE METABOLIC STAT 12/10/2017 PANEL 6:52 AM GRINDING MACHINE OPERATOR HC COMPLETE BLD COUNT STAT 12/10/2017 W/AUTO DIFF 6:52 AM GRINDING MACHINE OPERATOR TROPONIN STAT 12/10/2017 6:52 AM GRINDING MACHINE OPERATOR ECG 12-LEAD STAT 12/10/2017 6:31 AM GRINDING MACHINE OPERATOR HEMODIALYSIS Routine 11/16/2017 9:40 AM GRINDING MACHINE OPERATOR CV INTRO CATH DIALYSIS Routine 11/13/2017 Malfunction of CIRCUIT ANGIOPLASTY 1:56 PM GRINDING MACHINE OPERATOR arteriovenous graft, initial encounter PROTHROMBIN TIME WITH INR STAT 11/12/2017 1:02 PM GRINDING MACHINE OPERATOR PARTIAL THROMBOPLASTIN STAT 11/12/2017 TIME (PTT) 1:02 PM GRINDING MACHINE OPERATOR ZZESTIMATED GFR STAT 11/12/2017 9:35 AM GRINDING MACHINE OPERATOR BASIC METABOLIC PANEL STAT 11/12/2017 9:35 AM GRINDING MACHINE OPERATOR TROPONIN Timed 11/11/2017 11:50 AM GRINDING MACHINE OPERATOR HEPATITIS B SURFACE Routine 11/11/2017 ANTIGEN 8:21 AM GRINDING MACHINE OPERATOR TROPONIN Timed 11/11/2017 8:21 AM GRINDING MACHINE OPERATOR TROPONIN Timed 11/11/2017 4:12 AM GRINDING MACHINE OPERATOR ECG ED PRELIMINARY Routine 11/11/2017 INTERPRETATION 3:39 AM GRINDING MACHINE OPERATOR CO CRITICAL CARE, E/M Routine 11/11/2017 30-74 MINUTES 3:39 AM GRINDING MACHINE OPERATOR ECG 12-LEAD Routine 11/11/2017 3:14 AM GRINDING MACHINE OPERATOR XR CHEST 1 VW PORTABLE STAT 11/11/2017 1:50 AM GRINDING MACHINE OPERATOR ARTERIAL BLOOD GAS STAT 11/11/2017 1:41 AM GRINDING MACHINE OPERATOR ZZESTIMATED GFR STAT 11/11/2017 1:25 AM GRINDING MACHINE OPERATOR B NATRIURETIC PEPTIDE STAT 11/11/2017 1:25 AM GRINDING MACHINE OPERATOR TROPONIN STAT 11/11/2017 1:25 AM GRINDING MACHINE OPERATOR CREATINE KINASE, TOTAL STAT 11/11/2017 (CPK) 1:25 AM GRINDING MACHINE OPERATOR COMPREHENSIVE METABOLIC STAT 11/11/2017 PANEL 1:25 AM GRINDING MACHINE OPERATOR HC COMPLETE BLD COUNT STAT 11/11/2017 W/AUTO DIFF 1:25 AM GRINDING MACHINE OPERATOR ECG 12-LEAD STAT 11/11/2017 1:06 AM GRINDING MACHINE OPERATOR after 11/10/2017 Results * Lactic acid level, SEPSIS - Now and repeat 2x every 3 hours (10/18/2018 6:40 PM GRINDING MACHINE OPERATOR) Only the most recent of 5 results within the time period is included. Lactic acid 1.3 0.5 - 2.2 mmol/L [facility] Specimen Blood Performing Organization Address City/[facility] [place] [address] PATHOLOGY AND GENOMIC MEDICINE [address] * Troponin (10/18/2018 12:39 PM GRINDING MACHINE OPERATOR) Only the most recent of 37 results within the time period is included. Troponin <0.30 0.00 - 0.30 ng/mL [facility] Comment: [facility] 0.11 - 1.49 ng/mlMay indicate increased risk of acute coronary syndrome. >=1.5 ng/ml Consistent with acute myocardial infarction. The diagnostic value of a single normal or non-diagnostic result is questionable.Serial samples at 2-6 hour intervals are required to rule out acute myocardial injury. Specimen Plasma specimen Performing Organization Address [facility] [place] [address] PATHOLOGY AND [facility] MEDICINE [address] * Urinalysis screen and microscopy, with reflex to culture (10/18/2018 10:21 AM GRINDING MACHINE OPERATOR) Only the most recent of 3 results within the time period is included. Specimen site Clean catch [facility] Color, UA Yellow [facility] Appearance, UA Clear [facility] Specific gravity, UA 1.011 1.001 - 1.035 [facility] pH, UA 7.0 5.0 - 8.5 [facility] Protein, UA 2+ (A) Negative [facility] Glucose, UA Negative Negative [facility] Ketones, UA Negative Negative [facility] Bilirubin, UA Negative Negative [facility] Blood, UA Negative Negative [facility] Nitrite, UA Negative Negative [facility] Urobilinogen, UA Negative <2.0 [facility] Leukocyte esterase, UA Negative Negative [facility] Epithelial cells, UA Few /HPF [facility] WBC, UA 1 0 - 1 /HPF [facility] RBC, UA 3 0 - 5 /HPF [facility] Bacteria, UA None seen None seen [facility] Yeast, UA None seen [facility] Yeast with pseudohyphae, None seen [facility] Specimen Urine Performing Organization Address City/[facility]/Zipcode Phone Number [facility] [address] [place] [address] PATHOLOGY AND GENOMIC MEDICINE [address] * Urine culture (10/18/2018 10:21 AM GRINDING MACHINE OPERATOR) Only the most recent of 3 results within the time period is included. Urine culture SEE COMMENTComment: [facility] Bacteriuria screen negative. [facility] Specimen Urine Performing Organization Address City/[facility] [place] [address] PATHOLOGY AND GENOMIC MEDICINE [address] * Blood culture, aerobic & anaerobic (10/18/2018 9:47 AM GRINDING MACHINE OPERATOR) Only the most recent of 7 results within the time period is included. Blood culture isolate No growth after 5 days of [facility] incubation. HOSPITAL Comment: Specimen Information Specimen Source: Blood Specimen Site: right wrist Specimen Blood Performing Organization Address City/State/Zipcode Phone Number [facility] [address] [place] [address] PATHOLOGY AND GENOMIC MEDICINE [address] * CBC with platelet and differential (10/18/2018 9:40 AM GRINDING MACHINE OPERATOR) Only the most recent of 24 results within the time period is included. WBC 9.0 4.2 - 11.0 k/uL [facility] RBC 4.21 4.04 - 5.86 m/uL [facility] HGB 9.3 (L) 13.0 - 17.3 g/dL [facility] HCT 31.3 (L) 34.0 - 45.0 % [facility] MCV 74.3 (L) 80.0 - 98.0 fL [facility] MCH 22.1 (L) 27.0 - 34.0 pg [facility] MCHC 29.7 (L) 31.5 - 36.5 g/dL [facility] RDW - SD 62.4 (H) 37.0 - 51.0 fL [facility] MPV SEE COMMENTComment: No report 7.4 - 10.4 fL [facility] Platelet count 340 150 - 400 k/uL [facility] Nucleated RBC 0.00 /100 WBC [facility] Neutrophils 74.0 (H) 36.0 - 66.0 % [facility] Lymphocytes 15.2 (L) 24.0 - 44.0 % [facility] Monocytes 7.9 (H) 0.0 - 6.0 % [facility] Eosinophils 2.3 0.0 - 6.0 % [facility] Basophils 0.4 0.0 - 1.2 % [facility] Immature granulocytes 0.2 0.0 - 1.0 % [facility] Specimen Blood Performing Organization Address City/State/Zipcode Phone Number [facility] DEPARTMENT OF [address] [place] [address] PATHOLOGY AND GENOMIC MEDICINE [place] [id number] [place], [place] [id number] [place] [address] * XR Chest 1 Vw Portable (10/18/2018 4:11 AM GRINDING MACHINE OPERATOR) Only the most recent of 17 results [...] pneumothorax. There are no acute osseous abnormalities. [facility]-[id number] Procedure Note Hm Interface, Radiology Results Incoming - 10/18/2018 4:26 AM GRINDING MACHINE OPERATOR XR CHEST 1 VW PORTABLE CLINICAL INDICATION: [...] pneumothorax. There are no acute osseous abnormalities. [facility]-[id number] Performing Organization Address City/[facility] Centercode Phone Number [facility] [address] [place] [address] * Estimated GFR (10/18/2018 3:59 AM GRINDING MACHINE OPERATOR) Only the most recent of 3 results within the time period is included. Estimated GFR 6 (A) mL/min/1.73 m2 [facility] Comment: [facility] CatergoryUnitsInte rpretation G1 >=90 Normal or high G2 60-89Mildly decreased [id number] Mildly to moderately decreased [id number] Moderately to severely decreased G4 15-29Severely decreased G5 <15Kidney failure The eGFR was calculated using the Chronic Kidney Disease Epidemiology Collaboration (CKD-EPI) equation. Interpretation is based on recommendations of the National Kidney Foundation-Kidney Disease Outcomes Quality Initiative (NKF-KDOQI) published in 2014. Specimen Plasma specimen Performing Organization Address City/[facility] Cent[facility]ode Phone Number [facility] DEPARTMENT OF [address] [place] [address] PATHOLOGY AND GENOMIC MEDICINE [place] [address] [place], [place] [id number] [place] [address] * Hepatitis B surface antigen (10/18/2018 3:59 AM GRINDING MACHINE OPERATOR) Only the most recent of 12 results within the time period is included. Hepatitis B surface Ag Non-reactive Non-reactive [facility] Specimen Blood Performing Organization Address City/[facility]/Zipcode Phone Number [facility] DEPARTMENT OF [address] [facility] [place] [address] PATHOLOGY AND GENOMIC MEDICINE [address] * B natriuretic peptide (10/18/2018 3:59 AM GRINDING MACHINE OPERATOR) Only the most recent of 12 results within the time period is included. BNP >5000 (H) 0 - 100 pg/mL [facility] Specimen Blood Performing Organization Address City/State/Zipcode Phone Number [address] [place] [phone] PATHOLOGY AND GENOMIC MEDICINE [address] * Comprehensive metabolic panel (10/18/2018 3:59 AM GRINDING MACHINE OPERATOR) Only the most recent of 12 results within the time period is included. Sodium 145 135 - 150 mEq/L [facility] Potassium 4.6 3.5 - 5.0 mEq/L [facility] Chloride 102 98 - 112 mEq/L [facility] CO2 24 24 - 31 mmol/L [facility] Anion gap 19@ANIO (H) 7 - 15 mEq/L [facility] BUN 52 (H) 7 - 18 mg/dL [facility] Creatinine 9.00 (H) 0.70 - 1.20 mg/dL [facility] Glucose 96 65 - 100 mg/dL [facility] Calcium 9.7 8.8 - 10.2 mg/dL [facility] Protein 7.7 6.3 - 8.3 g/dL [facility] Albumin 3.3 (L) 3.5 - 5.0 g/dL [facility] A/G ratio 0.8 0.7 - 3.8 [facility] Alkaline phosphatase 50 0 - 129 U/L [facility] AST 19 10 - 50 U/L [facility] ALT 9 5 - 50 U/L [facility] Total bilirubin 0.3 0.2 - 1.2 mg/dL [facility] Specimen Plasma specimen Performing Organization Address City/State/Zipcode Phone Number [facility] [place] [address] [place] [address] PATHOLOGY AND GENOMIC MEDICINE [facility] [address] [place], [place] [id number] [place] [address] * ECG ED Preliminary Interpretation - Not an Order (10/18/2018 3:56 AM GRINDING MACHINE OPERATOR) Only the most recent of 12 results within the time period is included. Narrative Performed At Rachelle Bentley MD 10/20/20184:39 AM ECG ED Preliminary Interpretation - Not an Order Performed by: Rachelle Bentley MD Authorized by: Rachelle Bentley MD ECG reviewed by ED Physician in the absence of a poultry feed supervisor: yes Interpretation: Interpretation: normal Rate: ECG rate:110 ECG rate assessment: tachycardic Rhythm: Rhythm: sinus tachycardia Ectopy: Ectopy: none QRS: QRS axis:Normal QRS intervals:Normal Conduction: Conduction: normal ST segments: ST segments:Normal T waves: T waves: normal Other findings: Other findings: LVH * CRITICAL CARE (10/18/2018 3:56 AM GRINDING MACHINE OPERATOR) Narrative Performed At Rachelle Bentley MD 10/20/20184:39 [...] * ECG 12 lead (10/18/2018 3:50 AM GRINDING MACHINE OPERATOR) Only the most recent of 14 results [...] available- Narrative Performed At Performing Organization Address City/[facility] Centercode Phone Number [facility] [address] [place] [address] * Manual differential (09/23/2018 10:30 PM GRINDING MACHINE OPERATOR) Only the most recent of 2 results within the time period is included. Manual differential PERFORMED [facility] DEPARTMENT OF PATHOLOGY AND GENOMIC MEDICINE Neutrophils 69.0 (H) 36.0 - 66.0 % [facility] DEPARTMENT OF PATHOLOGY AND GENOMIC MEDICINE Lymphocytes 24.0 24.0 - 44.0 % [facility] DEPARTMENT OF PATHOLOGY AND GENOMIC MEDICINE Monocytes 7.0 (H) 0.0 - 6.0 % [facility] DEPARTMENT OF PATHOLOGY AND GENOMIC MEDICINE Eosinophils 0.0 0.0 - 6.0 % [facility] DEPARTMENT OF PATHOLOGY AND GENOMIC MEDICINE Basophils 0.0 0.0 - 1.2 % [facility] DEPARTMENT OF PATHOLOGY AND GENOMIC MEDICINE Metamyelocytes 0 0 - 1 % [facility] DEPARTMENT OF PATHOLOGY AND GENOMIC MEDICINE Promyelocytes 0 0 - 1 % [facility] DEPARTMENT OF PATHOLOGY AND GENOMIC MEDICINE Platelet slide review Darlin adequate [facility] DEPARTMENT OF PATHOLOGY AND GENOMIC MEDICINE Anisocytosis Few [facility] DEPARTMENT OF PATHOLOGY AND GENOMIC MEDICINE Polychromasia Slight [facility] DEPARTMENT OF PATHOLOGY AND GENOMIC MEDICINE Schistocytes Few [facility] DEPARTMENT OF PATHOLOGY AND GENOMIC MEDICINE Performing Organization Address City/[facility] Centercode Phone Number [facility] [address] [place] [address] PATHOLOGY AND GENOMIC MEDICINE * Creatine kinase, total (CPK) (09/23/2018 9:25 PM GRINDING MACHINE OPERATOR) Only the most recent of 6 results within the time period is included. Creatine kinase 64 39 - 308 U/L [facility] DEPARTMENT OF PATHOLOGY AND GENOMIC MEDICINE Specimen Plasma specimen Performing Organization Address City/[facility]/Zipcode Phone Number [address] [address] PATHOLOGY AND GENOMIC MEDICINE * POC glucose (09/23/2018 8:05 PM GRINDING MACHINE OPERATOR) Only the most recent of 5 results within the time period is included. POC glucose 83 65 - 100 mg/dL [facility] DEPARTMENT OF Comment: PATHOLOGY AND Meter ID: [id number] GENOMIC MEDICINE Edi Coordinator: Shelbie Clark Performing Organization Address City/[facility] Centercode Phone Number [facility] [address] [place] [address] PATHOLOGY AND GENOMIC MEDICINE * Transfuse RBC (07/21/2018 5:49 PM CDT) Only the most recent of 5 results within the time period is included. * Estimated GFR (07/01/2018 5:07 AM CDT) Only the most recent of 22 results within the time period is included. GFR Non Af Amer 13 (A) mL/min/1.[address] [facility] DEPARTMENT OF PATHOLOGY AND GENOMIC MEDICINE GFR Af Amer 16 (A) mL/min/1.[address] [facility] DEPARTMENT OF Comment: PATHOLOGY AND Chronic kidney disease: <60 [facility] mL/min/1.73m2 Kidney failure: <15 mL/min/1.73m2 The [...] Americans. Specimen Plasma specimen Performing Organization Address City/[facility] Centercode Phone Number [address] [place] [address] PATHOLOGY AND [facility] MEDICINE * Basic metabolic panel (07/01/2018 5:07 AM CDT) Only the most recent of 13 results within the time period is included. Sodium 141 135 - 150 mEq/L [facility] DEPARTMENT OF PATHOLOGY AND GENOMIC MEDICINE Potassium 4.0 3.5 - 5.0 mEq/L [facility] DEPARTMENT OF PATHOLOGY AND GENOMIC MEDICINE Chloride 97 (L) 98 - 112 mEq/L [facility] DEPARTMENT OF PATHOLOGY AND GENOMIC MEDICINE CO2 28 24 - 31 mmol/L [facility] DEPARTMENT OF PATHOLOGY AND GENOMIC MEDICINE Anion gap 16@ANIO (H) 7 - 15 mEq/L [facility] DEPARTMENT OF PATHOLOGY AND GENOMIC MEDICINE BUN 32 (H) 7 - 18 mg/dL [facility] DEPARTMENT OF PATHOLOGY AND GENOMIC MEDICINE Creatinine 4.40 (H) 0.70 - 1.20 mg/dL [facility] DEPARTMENT OF PATHOLOGY AND GENOMIC MEDICINE Glucose 75 65 - 100 mg/dL [facility] DEPARTMENT OF PATHOLOGY AND GENOMIC MEDICINE Calcium 9.1 8.8 - 10.2 mg/dL [facility] DEPARTMENT OF PATHOLOGY AND GENOMIC MEDICINE Specimen Plasma specimen Performing Organization Address City/[facility] Centercode Phone Number [place] [address] [place] [address] PATHOLOGY AND GENOMIC MEDICINE * Magnesium level (06/30/2018 10:23 PM CDT) Only the most recent of 7 results within the time period is included. Magnesium 2.10 1.60 - 2.40 mg/dL [facility] DEPARTMENT OF PATHOLOGY AND GENOMIC MEDICINE Specimen Plasma specimen Performing Organization Address City/[facility] Centercode Phone Number [place] [address] [place] [address] PATHOLOGY AND GENOMIC MEDICINE * Echocardiogram complete [...] valve appears mildly calcified Performing Organization Address City/[facility] Centercode Phone Number [facility] [address] [place] [address] * Phosphorus level (06/29/2018 6:54 AM CDT) Only the most recent of 6 results within the time period is included. Phosphorus 5.2 (H) 2.4 - 4.5 mg/dL [facility] DEPARTMENT OF PATHOLOGY AND GENOMIC MEDICINE Specimen Plasma specimen Performing Organization Address City/[facility]/Zipcode Phone Number [facility] DEPARTMENT OF [address] [place] [address]. [place] [address] PATHOLOGY AND GENOMIC MEDICINE * Arterial blood gas (06/29/2018 4:35 AM CDT) Only the most recent of 6 results within the time period is included. Edi Coordinator TC [facility] DEPARTMENT OF PATHOLOGY AND GENOMIC MEDICINE Collection site RBA [facility] DEPARTMENT OF PATHOLOGY AND GENOMIC MEDICINE O[address] [facility] DEPARTMENT OF PATHOLOGY AND GENOMIC MEDICINE Respiratory rate [address] [facility] DEPARTMENT OF PATHOLOGY AND GENOMIC MEDICINE Tidal volume 450.[address] [facility] DEPARTMENT OF PATHOLOGY AND GENOMIC MEDICINE .PEEP [address] [facility] DEPARTMENT OF PATHOLOGY AND GENOMIC MEDICINE pH, arterial 7.560 (HH) 7.350 - 7.[address] [facility] DEPARTMENT OF Comment: PATHOLOGY AND Results called to and read [facility] back by NORM BELLO,RT at04:50 06/29/2018by __VR. pCO2, arterial 32.6 (L) 35.0 - 45.[address] [facility] DEPARTMENT OF PATHOLOGY AND GENOMIC MEDICINE pO2, arterial 132.0 (H) 80.0 - 90.[address] [facility] DEPARTMENT OF PATHOLOGY AND GENOMIC MEDICINE O2 saturation, arterial 99.8 95.0 - 100.0 % [facility] DEPARTMENT OF PATHOLOGY AND GENOMIC MEDICINE Base excess, arterial 6.9 mEq/L [facility] DEPARTMENT OF PATHOLOGY AND GENOMIC MEDICINE Bicarbonate 29.2 (H) 21.0 - 28.0 mEq/L [facility] DEPARTMENT OF PATHOLOGY AND GENOMIC MEDICINE O2 content 12.4 VOL% [facility] DEPARTMENT OF PATHOLOGY AND GENOMIC MEDICINE FiO2, inspired O2% 40.0 % [facility] DEPARTMENT OF PATHOLOGY AND GENOMIC MEDICINE Carboxyhemoglobin 1.2 0.0 - 1.4 % [facility] DEPARTMENT OF Comment: PATHOLOGY AND Reference Ranges: GENOMIC MEDICINE Carboxyhemoglobin Non smoker: 0.0 - 2.0% Smoker: 2.1 - 5.0% Heavy smoker: 5.1 - 9% Methemoglobin 0.6 0.0 - 1.0 % [facility] DEPARTMENT OF PATHOLOGY AND GENOMIC MEDICINE Hemoglobin, blood gas 8.8 (L) 14.0 - 18.0 g/dL [facility] DEPARTMENT OF PATHOLOGY AND GENOMIC MEDICINE pO2, A-a 117.[address] [facility] DEPARTMENT OF PATHOLOGY AND GENOMIC MEDICINE Specimen Blood Performing Organization Address City/State/Zipcode Phone Number [facility] [address] [place] [address] PATHOLOGY AND GENOMIC MEDICINE * Total iron binding capacity (06/28/2018 4:04 PM CDT) Iron level 11 (L) 59 - 158 ug/dL [facility] DEPARTMENT OF PATHOLOGY AND GENOMIC MEDICINE Iron binding capacity 207 (L) 271 - 474 ug/dL [facility] DEPARTMENT OF PATHOLOGY AND GENOMIC MEDICINE % Saturation 5.3 (L) 20.0 - 40.0 % [facility] OF PATHOLOGY AND GENOMIC MEDICINE Specimen Plasma specimen Performing Organization Address City/[facility] Centercode Phone Number [facility] OF [address] [place] [address] PATHOLOGY AND GENOMIC MEDICINE * Thyroid stimulating hormone (06/28/2018 12:04 PM CDT) TSH 1.65 0.27 - 4.20 uIU/mL [facility] DEPARTMENT PATHOLOGY AND [facility] MEDICINE Specimen Plasma specimen Performing Organization Address [facility] Centercode Phone Number [facility] [address] [place] [address] PATHOLOGY AND [facility] * T4, free (06/28/2018 12:04 PM CDT) T4, free 1.28 0.90 - 1.70 ng/dL [facility] PATHOLOGY AND [facility] Specimen Plasma specimen Performing Organization Address City/[facility] Centercofl Phone Number [facility] OF [address] [place] [address] PATHOLOGY AND [facility] * CT Head Wo Contrast (06/28/2018 11:00 [...] no significant change from the prior study. [facility]-[id number] Procedure Note Interface, Radiology Results Incoming - [...] no significant change from the prior study. [facility]-[id number] Performing Organization Address City/[facility] [place] [address] * CRITICAL CARE (06/28/2018 9:31 AM CDT) Narrative Performed At Carlos Linares MD 06/28/20189:32 AM Critical Care Performed by: CARLOS LINARES Authorized by: CARLOS LINARES Critical care provider statement: Critical care time (minutes):35 Critical care was necessary to treat or prevent imminent or life-threatening deterioration of the following conditions:Cardiac failure, circulatory failure and GRINDER CHIPPER failure or compromise Critical care was time spent personally by me on the following activities:Blood draw for specimens, development of treatment plan with patient or surrogate and discussions with consultants * Gram stain (06/28/2018 9:20 AM CDT) Gram stain result No WBC's or organisms seen. [facility] DEPARTMENT OF Comment: PATHOLOGY AND Specimen Information GENOMIC MEDICINE Specimen Source: Urine Specimen Site: Catheterized Specimen Urine - Catheterized Performing Organization Address City/State/[facility] Centercode Phone Number [address] [address] PATHOLOGY AND GENOMIC MEDICINE * INTUBATION (06/28/2018 8:33 AM CDT) Narrative Performed At Carlos Linares MD 06/28/20184:38 PM Intubation Performed by: CARLOS LINARES Authorized by: CARLOS ILNARES Consent: Consent obtained:Emergent situation [place] protocol: Patient identity confirmed:Arm band Pre-procedure details: [...] is included. Platelet slide review Darlin adequate [facility] DEPARTMENT OF PATHOLOGY AND GENOMIC MEDICINE Tear drop cells Occasional [facility] DEPARTMENT OF PATHOLOGY AND GENOMIC MEDICINE Ovalocytes Few [facility] DEPARTMENT OF PATHOLOGY AND GENOMIC MEDICINE [place] cells Few [facility] DEPARTMENT OF PATHOLOGY AND GENOMIC MEDICINE Enlarged platelets Few [facility] DEPARTMENT OF PATHOLOGY AND GENOMIC MEDICINE Performing Organization Address City/[facility] Centercode Phone Number [address] [address] PATHOLOGY AND [facility] MEDICINE * Prothrombin time with INR (06/28/2018 8:30 AM CDT) Only the most recent of 5 results within the time period is included. Prothrombin time 13.3 12.0 - 15.[address] [facility] DEPARTMENT OF PATHOLOGY AND GENOMIC MEDICINE INR 1.00 0.92 - 1.12 [facility] DEPARTMENT OF Comment: PATHOLOGY AND For patients on anticoagulant GENOMIC MEDICINE therapy, reference ranges below: Indication: INR Value Treatment of Venous Thrombosis, 2.0-3.0 pulmonary emboli, or prophylaxis of a venous thrombosis, or systemic emboli. High dose, high risk patients 3.0-4.5 with mechanical valves. NOTE:INR values over 3.0 are sometimes associated with gastrointestinal hemorrhage, especially values over 4.0. Specimen Blood Performing Organization Address City/[facility] Centercode Phone Number [address] [place] [address] PATHOLOGY AND GENOMIC MEDICINE * Urine drugs of abuse screen (06/02/2018 8:58 AM CDT) Amphetamine screen, urine Negative [facility] DEPARTMENT OF PATHOLOGY AND GENOMIC MEDICINE Barbiturate screen, urine Negative [facility] DEPARTMENT OF PATHOLOGY AND GENOMIC MEDICINE Benzodiazepine screen, Negative [facility] DEPARTMENT OF urine PATHOLOGY AND GENOMIC MEDICINE Cocaine screen, urine Negative [facility] DEPARTMENT OF PATHOLOGY AND GENOMIC MEDICINE Methadone screen, urine Negative [facility] DEPARTMENT OF PATHOLOGY AND GENOMIC MEDICINE Opiates screen, urine Negative [facility] DEPARTMENT OF PATHOLOGY AND GENOMIC MEDICINE Phencyclidine screen, Negative [facility] DEPARTMENT OF urine PATHOLOGY AND GENOMIC MEDICINE Cannabinoid screen, urine Negative [facility] DEPARTMENT OF Comment: PATHOLOGY AND Drug screen minimum [facility] concentration of detectability Amphetamines 1000 ng/mL Methamphetamines [...] purposes only. Specimen Urine Performing Organization Address City/[facility]/[place] [address] PATHOLOGY AND [facility] MEDICINE * Partial thromboplastin time, activated (06/02/2018 7:30 AM CDT) Only the most recent of 3 results within the time period is included. PTT 28.3 23.0 - 36.[address] [facility] DEPARTMENT OF Comment: PATHOLOGY AND PTT therapeutic range for [facility] unfractionated heparin is 61.0-112.0 seconds which corresponds to Anti-Xa 0.3-0.7 U/ml. Note:Change in Panic Value The PTT Panic Value is changing from 110 sec. to 100 sec. due to new instrumentation and reagents. Correlation studies have been performed to validate this result. Specimen Blood Performing Organization Address City/[facility]/Zipcode Phone Number [facility] [address] [place] [address]. [place] [address] PATHOLOGY AND [facility] MEDICINE * CRITICAL CARE (06/02/2018 7:15 AM [...] or dislocations. Humeral head is high riding. [facility]-[id number] Procedure Note Hm Interface, Radiology Results Incoming [...] or dislocations. Humeral head is high riding. [facility]-[id number] Performing Organization Address City/State/Zipcode Phone Number [facility] [address] [place] [address] * Hybrid or fluoroscopy (05/05/2018 1:07 PM CDT) Narrative Performed At See operative report for the same day * Potassium level (05/05/2018 12:47 PM CDT) Only the most recent of 2 results within the time period is included. Potassium 3.9 3.5 - 5.0 mEq/L [facility] DEPARTMENT OF PATHOLOGY AND GENOMIC MEDICINE Specimen Plasma specimen Performing Organization Address City/[facility]/Zipcode Phone Number [facility] [address] [place] [address] PATHOLOGY AND GENOMIC MEDICINE * CRITICAL CARE [...] Venous blood gas (04/30/2018 3:57 AM CDT) Edi Coordinator [facility] DEPARTMENT OF PATHOLOGY AND GENOMIC MEDICINE Collection site R ARM [facility] DEPARTMENT OF PATHOLOGY AND GENOMIC MEDICINE O2 therapy ROOM AIR [facility] DEPARTMENT OF PATHOLOGY AND GENOMIC MEDICINE pH, venous 7.306 (L) 7.320 - 7.[address] [facility] DEPARTMENT OF PATHOLOGY AND GENOMIC MEDICINE pCO2, venous 62.8 (H) 45.0 - 51.[address] [facility] DEPARTMENT OF PATHOLOGY AND GENOMIC MEDICINE pO2, venous 31.9 25.0 - 40.[address] [facility] DEPARTMENT OF PATHOLOGY AND GENOMIC MEDICINE O2 saturation, venous 48.7 40.0 - 70.0 % [facility] DEPARTMENT OF PATHOLOGY AND GENOMIC MEDICINE Base excess, venous 5.0 (H) -2.0 - 2.0 mEq/L [facility] DEPARTMENT OF PATHOLOGY AND GENOMIC MEDICINE Bicarbonate 31.3 (H) 21.0 - 28.0 mEq/L [facility] DEPARTMENT OF PATHOLOGY AND GENOMIC MEDICINE O2 content 6.9 VOL% [facility] DEPARTMENT OF PATHOLOGY AND GENOMIC MEDICINE FiO2, inspired O2% 21.0 % [facility] DEPARTMENT OF PATHOLOGY AND GENOMIC MEDICINE Carboxyhemoglobin 1.6 (H) 0.0 - 1.4 % [facility] DEPARTMENT OF Comment: PATHOLOGY AND Reference Ranges: GENOMIC MEDICINE Carboxyhemoglobin Non smoker: 0.0 - 2.0% Smoker: 2.1 - 5.0% Heavy smoker: 5.1 - 9% Methemoglobin 0.3 0.0 - 1.0 % [facility] DEPARTMENT OF PATHOLOGY AND GENOMIC MEDICINE Hemoglobin, blood gas 10.3 (L) 14.0 - 18.0 g/dL [facility] DEPARTMENT OF PATHOLOGY AND GENOMIC MEDICINE Specimen Blood Performing Organization Address City/State/Zipcode Phone Number [address] [address] PATHOLOGY AND GENOMIC MEDICINE * Prepare RBC, 2 Units (03/31/2018 10:14 AM CDT) Only the most recent of 2 results within the time period is included. Product name Apheresis RC ACDA>-[address] [facility] DEPARTMENT OF PATHOLOGY AND GENOMIC MEDICINE Unit number [id number] [facility] DEPARTMENT OF PATHOLOGY AND GENOMIC MEDICINE Product code [id number] [facility] DEPARTMENT OF PATHOLOGY AND GENOMIC MEDICINE Dispense status Transfused [facility] DEPARTMENT OF PATHOLOGY AND GENOMIC MEDICINE Blood expiration date [facility] DEPARTMENT OF PATHOLOGY AND GENOMIC MEDICINE Blood type code [address] [facility] DEPARTMENT OF PATHOLOGY AND GENOMIC MEDICINE Blood type O POSITIVE [facility] DEPARTMENT OF PATHOLOGY AND GENOMIC MEDICINE Product name Apheresis RC ACDA>-[address] [facility] DEPARTMENT OF PATHOLOGY AND GENOMIC MEDICINE Unit number [id number] [facility] DEPARTMENT OF PATHOLOGY AND GENOMIC MEDICINE Product code [id number] [facility] DEPARTMENT OF PATHOLOGY AND GENOMIC MEDICINE Dispense status Transfused [facility] DEPARTMENT OF PATHOLOGY AND GENOMIC MEDICINE Blood expiration date [facility] DEPARTMENT OF PATHOLOGY AND GENOMIC MEDICINE Blood type code 5100 [facility] DEPARTMENT OF PATHOLOGY AND GENOMIC MEDICINE Blood type O POSITIVE [facility] OF PATHOLOGY AND GENOMIC MEDICINE Performing Organization Address City/[facility]/Zipcode Phone Number [facility] [address] [place] [address] PATHOLOGY AND GENOMIC MEDICINE * Type and screen (03/31/2018 10:14 AM CDT) Only the most recent of 2 results within the time period is included. ABO grouping O [facility] [facility] DEPARTMENT OF PATHOLOGY AND GENOMIC MEDICINE Rh type POS [facility] OF PATHOLOGY AND GENOMIC MEDICINE Antibody screen (gel) NEG [facility] Specimen Blood Performing Organization Address [facility]ode Phone Number [facility] [address] [place] [address] PATHOLOGY AND [facility] MEDICINE * CRITICAL CARE (03/31/2018 7:42 AM [...] no * CRITICAL CARE (12/28/2017 8:16 AM GRINDING MACHINE OPERATOR) Narrative Performed At Chris Shearer DO 12/28/20172:13 [...] * Respiratory pathogen panel (12/21/2017 8:28 AM GRINDING MACHINE OPERATOR) Respiratory pathogen Negative for all pathogens [facility] DEPARTMENT OF panel tested: PATHOLOGY AND Negative [...] specified Performing Organization Address City/State/Zipcode Phone Number [facility] DEPARTMENT OF [address] [place] [address] PATHOLOGY AND GENOMIC MEDICINE * Influenza antigen (12/21/2017 8:28 AM GRINDING MACHINE OPERATOR) Influenza antigen Negative for Influenza A/B [facility] DEPARTMENT OF antigen. PATHOLOGY AND Comment: GENOMIC MEDICINE Specimen Information Specimen Source: Nares Specimen Site: Not otherwise specified Specimen Nares - Not otherwise specified Performing Organization Address City/State/Zipcode Phone Number [facility] DEPARTMENT OF [address] [place] [address] PATHOLOGY AND GENOMIC MEDICINE * CRITICAL CARE (12/21/2017 7:38 AM GRINDING MACHINE OPERATOR) Narrative Performed At Carlos Linares MD 12/21/20177:38 [...] bipap * CRITICAL CARE (12/12/2017 2:46 PM GRINDING MACHINE OPERATOR) Narrative Performed At Ninfa Sparks MD 12/12/20172:46 [...] B surface Ab, quantitative (12/11/2017 10:19 AM GRINDING MACHINE OPERATOR) Hepatitis B surface Ab >1000.00 IU/L [facility] [...] Cellular and Tissue-Based Products (HCT/P). Performed by [facility], [address] [place], [place] [id number] [email or web address], Jonah Whatley MD - Lab. Director Specimen Serum Performing Organization Address [facility]/Zipcode Phone Number [facility] [address] [place] [address] * Cv invasive peripheral vascular procedure (11/13/2017 1:56 PM GRINDING MACHINE OPERATOR) Narrative Performed At [facility] See op note Performing Organization Address [facility]ode Phone Number [facility] [address] [place] [address] * CRITICAL CARE (11/11/2017 3:39 AM GRINDING MACHINE OPERATOR) Narrative Performed At Carlos Oneal MD 11/11/20173:39 [...] Address Plan / Group [employer] [facility] xxxxxxxxx [facility] Advance Directives Patient has advance care planning documents, and code status on file. For more i nformation, please contact: Edson Villanueva [address] [place] [address] Date Inactivated Comments Code Status Date Activated 11/06/2017 11:19 PM Full Code 11/04/2017 3:28 AM Code Status decision reached by: Patient 08/16/2017 12:55 AM Full Code 08/14/2017 7:03 AM Code Status decision reached by: Patient Code Status decision reached by: Patient
--- NOTE | 2018-11-11 18:32 | NUR ---
Received patient as a direct admit, a/ox3, ambulates with a cane, left foot pain, PAD and to have leg angiogram in the morning and NPO from midnight. consults in to Dr. Hyman and to Dr. Clement and are being called by community coordinator for high school at this time, orders for labs in place, patient settled in room, call light within reach, and will monitor. Patient is on dialysis on and has a ISAAK fistula
[2018-11-11 18:36] VITALS: BP 160/87
--- NOTE | 2018-11-11 19:05 | NUR ---
Call to Dr. Davis and notified of patient and new admission and orders for consultation to Dr. Gann as patient on dialysis on . church secretary calling at this time
[2018-11-11 19:17] LABS: BASOPHILS # (AUTO) 0.1 (0.0-0.1); BASOPHILS % 0.7 % (0.0-1.0); EOSINOPHILS # (AUTO) 0.3 (0.0-0.4); EOSINOPHILS % 4.2 % (0.0-6.0); HEMATOCRIT 33.5 % (38.2-49.6); HEMOGLOBIN 10.3 g/dL (14.0-18.0); LYMPHOCYTES # (AUTO) 1.7 (1.0-3.2); LYMPHOCYTES % 22.2 % (18.0-39.1); MEAN CORPUSCULAR HEMOGLOBIN 21.7 pg (28-32); MEAN CORPUSCULAR HGB CONC 30.7 g/dL (31-35); MEAN CORPUSCULAR VOLUME 70.5 fL (81-99); MONOCYTES # (AUTO) 0.8 (0.2-0.8); MONOCYTES % 10.7 % (4.4-11.3); NEUTROPHILS # (AUTO) 4.7 (2.1-6.9); NEUTROPHILS % 61.4 % (38.7-80.0); PLATELET COUNT 440 x10e3/uL (140-360); RED BLOOD COUNT 4.75 x10e6/uL (4.3-5.7); RED CELL DISTRIBUTION WIDTH 23.9 % (11.7-14.4)
--- NOTE | 2018-11-11 19:20 | NUR ---
REPORT RECEIVED FROM OFF GOING NURSE, PT RESTING IN BED ALERT AND ORIENTED, NO DISTRESS NOTED, DENIES NEEDS, CALL LIGHT IN REACH, INSTRUCTED TO CALL WITH NEEDS, CALL LIGHT IN REACH
[2018-11-11 19:21] LABS: INR 0.87; PROTHROMBIN TIME 12.7 seconds (11.9-14.5)
[2018-11-11 19:22] LABS: PARTIAL THROMBOPLASTIN TIME 36.9 seconds (23.8-35.5)
--- NOTE | 2018-11-11 19:22 | NUR ---
Report given to on coming nurse and med list will be put in by her and spoke with Dr. Davis and to resume all home meds besides blood thinners and anticoagulants.
[2018-11-11 19:28] LABS: ALBUMIN 3.2 g/dL (3.5-5.0); ALBUMIN/GLOBULIN RATIO 0.6 (0.8-2.0); ANION GAP 19.9 mmol/L (8-16); CALCIUM 10.4 mg/dL (8.4-10.2); CREATININE, SERUM 7.18 mg/dL (0.72-1.25); POTASSIUM 3.9 mmol/L (3.5-5.1)
[2018-11-11 20:00] VITALS: BP 184/85
[2018-11-11] MEDS ORDERED: DILTIAZEM HCL 60 MG TAB PO SCH (21:00)
[2018-11-11] MEDS ORDERED: ALBUTEROL SULF 0.083% NEB SOLN 3 ML NEB NEB PRN (21:00)
[2018-11-11] MEDS ORDERED: ACETAMINOPHEN/CODEINE 300MG - 30MG TAB PO PRN (21:00)
[2018-11-11] MEDS ORDERED: CLONIDINE HCL 0.1 MG TAB PO PRN (21:00)
[2018-11-11] MEDS: CRESTOR 10MG PO SCH (21:45)
[2018-11-11] MEDS: DILTIAZEM HCL 60 MG TAB PO SCH ×2 (21:45→21:58)
[2018-11-11] MEDS: CALCIUM ACETATE 667 MG GELCAP PO SCH (21:45)
[2018-11-11] MEDS: CLONAZEPAM 1 MG TAB PO SCH (21:45)
[2018-11-12] VITALS (7 sets, daily range): BP systolic 118–165; BP diastolic 59–77
[2018-11-12] MEDS: ASPIRIN 325 MG TAB PO SCH (03:45)
[2018-11-12] MEDS: DILTIAZEM HCL 60 MG TAB PO SCH ×4 (05:12→20:35)
--- NOTE | 2018-11-12 05:13 | NUR ---
PT RESTING IN BED ALERT AND ORIENTED, NO DISTRESS NOTED, DENIES NEEDS, PT HAS BEEN NPO SINCE MIDNIGHT, CALL LIGHT IN REACH, INSTRUCTED TO CALL WITH NEEDS
--- NOTE | 2018-11-12 06:29 | NUR ---
SOFT BOARDER INFORMED THAT PT HAS BEEN UNSUCCESSFUL IN RECEIVING AN IV, NURSES TO BE INFORMED
[2018-11-12] MEDS ORDERED: MIDAZOLAM HCL 2 MG/2 ML VIAL ONE (06:51)
[2018-11-12] MEDS ORDERED: FENTANYL CITRATE/PF 100MCG/2 ML INJ ONE (06:51)
[2018-11-12] MEDS ORDERED: IOPAMIDOL 300MG/ML 100 ML INFUS..BTL IV ONE ×2 (06:52→08:44)
[2018-11-12] MEDS ORDERED: SODIUM CHLORIDE 0.9% 1000ML 0 ML ONE (06:52)
[2018-11-12] MEDS ORDERED: HEPARIN SOD/SOD CHLORIDE 2,000 ML ONE (06:52)
[2018-11-12] MEDS ORDERED: LIDOCAINE HCL 2% LOCAL 20 ML VIAL ONE (06:59)
[2018-11-12] MEDS: SALMETEROL/FLUTICASONE 250/50 INH SCH (07:00)
--- NOTE | 2018-11-12 07:00 | NUR ---
SHIFT REPORT RECEIVED FROM NIGHT RN. PT DENIES NEEDS AT THIS TIME.
--- NOTE | 2018-11-12 07:56 | NUR ---
PT OFF THE UNIT TO OR AT THIS TIME.
[2018-11-12] MEDS ORDERED: SODIUM CHLORIDE 0.9% 1000ML 1,000 ML ONE (08:16)
[2018-11-12] MEDS: CALCIUM ACETATE 667 MG GELCAP PO SCH ×2 (08:22→14:23)
[2018-11-12] MEDS: TAMSULOSIN HCL 0.4 MG CAP PO SCH (08:22)
[2018-11-12] MEDS: DHEA 50 MG PO SCH (08:22)
[2018-11-12] MEDS: FUROSEMIDE 40 MG TAB PO SCH ×2 (08:22→17:53)
[2018-11-12] MEDS: METOPROLOL TARTRATE 25 MG TAB PO SCH ×2 (08:22→17:54)
[2018-11-12] MEDS: CLOPIDOGREL BISULFATE 75 MG TAB PO SCH (08:23)
[2018-11-12] MEDS: ALLOPURINOL 300 MG TAB PO SCH (08:23)
[2018-11-12] MEDS ORDERED: CALCITRIOL 0.25 MCG CAP PO SCH ×2 (09:00)
[2018-11-12] MEDS ORDERED: HYDRALAZINE HCL 20 MG/ML VIAL ONE (09:54)
[2018-11-12] MEDS ORDERED: HEPARIN SOD (PORCINE) 1000 UNIT/ML 30ML ONE (09:59)
[2018-11-12] MEDS ORDERED: NITROGLYCERIN 0.4 MG SUBL ONE (10:09)
--- NOTE | 2018-11-12 10:30 | NUR ---
PT BACK TO THE FLOOR FROM LATHE SET UP OPERATOR. PT'S VITALS WNL. PT DENIES PAIN OR DISCOMFORT.
[2018-11-12] MEDS: PIPERACILLIN/TAZO 2.25 GM 50 ML IV SCH ×2 (10:53→17:53)
--- NOTE | 2018-11-12 11:45 | NUR ---
DIALYSIS NURSE HERE TO DIALIZE PT.
[2018-11-12] MEDS ORDERED: SODIUM CHLORIDE 0.9% 1000ML 2,000 ML ONE (11:49)
--- NOTE | 2018-11-12 13:00 | NUR ---
PT'S RT GROIN PLUG LEAKING. DRESSING REMOVED AND PRESSURE APPLIED FOR 25 MIN. BLEEDING STOPPED AND NEW DRESSING APPLIED. PT WILL REMAIN FLAT UNTIL 1800.
--- NOTE | 2018-11-12 15:45 | NUR ---
Visit made by the Spiritual Care Department Pastoral Visitor, Radha Daiz. Pt out of room and no family at bedside. A card was left at the bedside to indicate a missed visit from a member of the Spiritual Care team and to inform the pt and family of the availability of a Machine Set Up Technician 24 hours a day/7 days a week. A supervisory lifeguard will follow up as able. AURELIA NEWTON Machine Set Up Technician Spiritual Care Department O: [phone] Pager: [phone] ([phone] number calling from)
--- NOTE | 2018-11-12 18:01 | Consultation ---
DATE OF CONSULTATION: CARDIOLOGY CONSULTATION REASON FOR CONSULTATION: Leg pain. HISTORY OF PRESENT ILLNESS: This is a 78-year-old male with a history of hypertension, hyperlipidemia, end-stage renal disease, and chronic obstructive pulmonary disease who presented as an outpatient with leg pain. His ultrasound showed severe peripheral arterial disease. 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 He has [id number] pain at the left great toe, worsened by movement and exertion, relieved with medications and rest. REVIEW OF SYSTEMS: A 12-point review of systems was conducted, is negative otherwise as above in the HPI. PAST MEDICAL HISTORY: As stated above. PAST SURGICAL HISTORY: Cardiac catheterizations. PAST FAMILY HISTORY: No premature coronary artery disease or sudden cardiac . SOCIAL HISTORY: No current illicit drug use, alcohol use, or tobacco use. ALLERGIES: NO KNOWN DRUG ALLERGIES. MEDICATIONS: See medication reconciliation form. PHYSICAL EXAMINATION VITAL SIGNS: Temperature is 96.5, heart rate is 75, respirations are 18, blood pressure is 135/65, oxygen saturation 99% on room air. GENERAL: A well-appearing, elderly man, lying in bed comfortably, in no apparent distress. HEENT: Head is normocephalic and atraumatic. Eyes, the extraocular muscles are intact. Conjunctivae are clear. NECK: No jugular venous distention. CARDIOVASCULAR: Regular rate and rhythm. LUNGS: Clear to auscultation. ABDOMEN: Soft, nontender. VASCULAR: Diminished pulses. SKIN: Warm and dry. LABORATORY DATA: Reviewed. CARDIOVASCULAR MEDICATIONS: Reviewed. IMPRESSION 1. Severe peripheral arterial disease. 2. Hypertension. 3. Hyperlipidemia. 4. Chronic obstructive pulmonary disease. 5. End-stage renal disease. RECOMMENDATIONS: Patient has excellent collateral network with confucianist of the peroneal vessel which feeds the plantar arch. Continue all current cardiovascular medications. Patient likely will require digital amputation, we will defer to podiatry. Thank you for the consultation. Job#: [id number]
--- NOTE | 2018-11-12 18:43 | NUR ---
PT REMAINED FLAT UNTIL 1800. ELEVATED AND WALKED TO BATHROOM AT THIS TIME. PT TOLERATED. NO BLEEDING.
--- NOTE | 2018-11-12 19:10 | NUR ---
REPORT RECEIVED FROM OFF GOING NURSE, PT RESTING BED ALERT AND ORIENTED, O2 NC WORN,HOB ELEVATED, PT EATING SUPPER, NO DISTRESS NOTED, DENIES NEEDS, DRESSING TO GROIN/S C/D/I, NO HEMATOMA NOTED, CALL LIGHT IN REACH, INSTRUCTED TO CALL WITH NEEDS
[2018-11-12] MEDS: CRESTOR 10MG PO SCH (20:35)
[2018-11-12] MEDS: CLONAZEPAM 1 MG TAB PO SCH (20:35)
--- NOTE | 2018-11-12 21:41 | Consultation ---
DATE OF CONSULTATION: November 12, 2018 HISTORY OF PRESENT ILLNESS: This is a 78-year-old gentleman with underlying history of end-stage renal disease, follows up with Dr. Leeann Bull, came in for angiogram, had an attempted angioplasty. Please see cardiology notes for detail. Renal consult for management of kidney failure. He is awake, alert, resting, comfortable. No apparent distress. He denies any fever, chills, chest pain or shortness of breath. PAST MEDICAL HISTORY: History of hypertension, secondary hyperparathyroidism, history of benign prostatic hypertrophy, history of atherosclerotic cardiovascular disease. LABS: Show white count of 7.6, hemoglobin 10.3, potassium 3.9, creatinine 7.1, calcium 10.4. ALLERGIES: No apparent drug allergies. CURRENT MEDICATIONS: Crestor 20 mg at bedtime. He is on Advair, fluticasone inhaler, Flomax 0.4 mg daily, metoclopramide 12.5 mg p.o. daily, furosemide 40 b.i.d., diltiazem 90 mg q. 8, Plavix 75 mg daily. He is on calcium acetate 667 mg p.o. t.i.d. with meals. He is on piperacillin and tazobactam empirically, calcitriol 0.25 mcg daily. SOCIAL HISTORY: He does not smoke or drink. FAMILY HISTORY: History of hypertension. PHYSICAL EXAMINATION GENERAL: Awake, alert, lying supine. No apparent distress. VITAL SIGNS: Blood pressure 131/61, pulse rate 77, afebrile. HEAD AND NECK: Cornea clear. Mucosa moist. Neck veins flat. LUNGS: Bibasilar rales. HEART: S2 audible. Soft 2 to 3/6 ejection murmur heard over the left sternal border. IMPRESSION AND PLAN: Hypercalcemia. We will discontinue vitamin D3 as well as calcium acetate. Arrange for dialysis. Blood pressure appears controlled. BPH, on Flomax. Patient does not make a whole lot of urine. No significant acid-base disturbance. Mild fluid overload. We will address that on dialysis. Please see orders. Job#: [id number]
[2018-11-13] VITALS (7 sets, daily range): BP systolic 123–138; BP diastolic 59–64
[2018-11-13] MEDS: PIPERACILLIN/TAZO 2.25 GM 50 ML IV SCH ×2 (00:37→08:17)
[2018-11-13] MEDS: DILTIAZEM HCL 60 MG TAB PO SCH ×3 (05:33→21:12)
--- NOTE | 2018-11-13 05:34 | NUR ---
PT RESTING IN BED WITH EYES CLOSED, OPENS EYES UPON APPROACH, DENIES NEEDS, NO COMPLICATIONS NOTED, CALL LIGHT IN REACH, INSTRUCTED TO CALL WITH NEEDS, O2 NC WORN
[2018-11-13 06:40] LABS: BASOPHILS % 0.3 % (0.0-1.0); EOSINOPHILS # (AUTO) 0.4 (0.0-0.4); EOSINOPHILS % 5.1 % (0.0-6.0); HEMATOCRIT 27.7 % (38.2-49.6); HEMOGLOBIN 8.5 g/dL (14.0-18.0); LYMPHOCYTES # (AUTO) 1.3 (1.0-3.2); LYMPHOCYTES % 18.8 % (18.0-39.1); MEAN CORPUSCULAR HEMOGLOBIN 21.6 pg (28-32); MEAN CORPUSCULAR HGB CONC 30.7 g/dL (31-35); MEAN CORPUSCULAR VOLUME 70.5 fL (81-99); MONOCYTES # (AUTO) 0.9 (0.2-0.8); MONOCYTES % 12.8 % (4.4-11.3); NEUTROPHILS # (AUTO) 4.3 (2.1-6.9); NEUTROPHILS % 62.9 % (38.7-80.0); PLATELET COUNT 324 x10e3/uL (140-360); RED BLOOD COUNT 3.93 x10e6/uL (4.3-5.7); RED CELL DISTRIBUTION WIDTH 23.4 % (11.7-14.4)
--- NOTE | 2018-11-13 07:00 | NUR ---
SHIFT REPORT RECEIVED FROM NIGHT RN. PT DENIES NEEDS AT THIS TIME.
[2018-11-13 07:04] LABS: CALCIUM 9.2 mg/dL (8.4-10.2); CREATININE, SERUM 5.49 mg/dL (0.72-1.25)
[2018-11-13 07:51] LABS: FOLATE 19.6 ng/mL (7.0-15.4)
[2018-11-13] MEDS: TAMSULOSIN HCL 0.4 MG CAP PO SCH (08:16)
[2018-11-13] MEDS: ASPIRIN 325 MG TAB PO SCH (08:16)
[2018-11-13] MEDS: SALMETEROL/FLUTICASONE 250/50 INH SCH ×2 (08:16→08:19)
[2018-11-13] MEDS: DHEA 50 MG PO SCH (08:16)
[2018-11-13] MEDS: ALLOPURINOL 300 MG TAB PO SCH (08:17)
[2018-11-13] MEDS: CLOPIDOGREL BISULFATE 75 MG TAB PO SCH (08:17)
[2018-11-13] MEDS: SENNOSIDES 8.6 MG TAB PO SCH ×3 (08:17→17:06)
[2018-11-13] MEDS: METOPROLOL TARTRATE 25 MG TAB PO SCH ×2 (08:17→17:06)
[2018-11-13] MEDS: FUROSEMIDE 40 MG TAB PO SCH ×2 (08:17→17:06)
[2018-11-13] MEDS ORDERED: CEFAZOLIN SOD 1 GM VIAL IV SCH (09:15)
[2018-11-13] MEDS: METHADONE HCL 5 MG TAB PO SCH (10:28)
[2018-11-13] MEDS: CEFAZOLIN SOD 1 GM/D5W 50ML 50 ML IV SCH ×2 (10:28→21:12)
--- NOTE | 2018-11-13 19:05 | NUR ---
REPORT RECEIVED FROM OFF GOING NURSE, PT RESTING IN BED WITH EYES CLOSED, NO DISTRESS NOTED, CALL LIGHT IN REACH, O2 NC WORN
[2018-11-13] MEDS: CLONAZEPAM 1 MG TAB PO SCH (21:00)
[2018-11-13] MEDS: CRESTOR 10MG PO SCH (21:00)
[2018-11-14] VITALS (8 sets, daily range): BP systolic 145–164; BP diastolic 66–95
[2018-11-14] MEDS: DILTIAZEM HCL 60 MG TAB PO SCH ×3 (05:38→21:59)
--- NOTE | 2018-11-14 05:39 | NUR ---
PT RESTING IN BED ALERT AND ORIENTED, NO DISTRESS NOTED, DENIES NEEDS, O2 NC WORN, CALL LIGHT IN REACH, INSTRUCTED TO CALL WITH NEEDS
[2018-11-14 06:48] LABS: BASOPHILS % 0.4 % (0.0-1.0); EOSINOPHILS # (AUTO) 0.6 (0.0-0.4); HEMATOCRIT 27.1 % (38.2-49.6); HEMOGLOBIN 8.4 g/dL (14.0-18.0); LYMPHOCYTES # (AUTO) 1.4 (1.0-3.2); LYMPHOCYTES % 20.2 % (18.0-39.1); MEAN CORPUSCULAR HEMOGLOBIN 21.9 pg (28-32); MEAN CORPUSCULAR VOLUME 70.6 fL (81-99); MONOCYTES # (AUTO) 0.9 (0.2-0.8); MONOCYTES % 13.4 % (4.4-11.3); NEUTROPHILS % 57.7 % (38.7-80.0); PLATELET COUNT 339 x10e3/uL (140-360); RED BLOOD COUNT 3.84 x10e6/uL (4.3-5.7); RED CELL DISTRIBUTION WIDTH 23.9 % (11.7-14.4)
--- NOTE | 2018-11-14 07:00 | NUR ---
SHIFT REPORT RECEIVED FROM NIGHT RN. PT DENIES NEEDS AT THIS TIME.
[2018-11-14 07:13] LABS: CHOL/HDL RATIO 1.7 (3.9-4.7)
[2018-11-14] MEDS: SALMETEROL/FLUTICASONE 250/50 INH SCH ×2 (07:19→18:03)
[2018-11-14] MEDS: ASPIRIN 325 MG TAB PO SCH (08:38)
[2018-11-14] MEDS: DHEA 50 MG PO SCH (08:38)
[2018-11-14] MEDS: FUROSEMIDE 40 MG TAB PO SCH ×2 (08:38→17:31)
[2018-11-14] MEDS: TAMSULOSIN HCL 0.4 MG CAP PO SCH (08:38)
[2018-11-14] MEDS: SENNOSIDES 8.6 MG TAB PO SCH ×2 (08:38→17:31)
[2018-11-14] MEDS: CLOPIDOGREL BISULFATE 75 MG TAB PO SCH (08:38)
[2018-11-14] MEDS: CEFAZOLIN SOD 1 GM/D5W 50ML 50 ML IV SCH ×2 (08:38→20:40)
[2018-11-14] MEDS: METHADONE HCL 5 MG TAB PO SCH (08:38)
[2018-11-14] MEDS: PENTOXIFYLLINE 400 MG TAB CR PO SCH (08:38)
[2018-11-14] MEDS: ALLOPURINOL 300 MG TAB PO SCH (08:38)
[2018-11-14] MEDS: METOPROLOL TARTRATE 25 MG TAB PO SCH ×2 (08:39→17:31)
[2018-11-14 08:42] LABS: RBC MORPHOLOGY COMMENT ABNORMAL
[2018-11-14 08:43] LABS: HYPOCHROMASIA MODERATE
[2018-11-14 08:44] LABS: ANISOCYTOSIS SLIG; BURR CELLS SLIGHT; POIKILOCYTOSIS MODERATE; TARGET CELLS FEW
[2018-11-14 08:45] LABS: MICROCYTOSIS SLIGHT
--- NOTE | 2018-11-14 14:36 | Progress Note ---
DATE: November 12, 2018 ADMITTED BY: Randy Davis MD The patient was taken to the laborer orchard earlier on this date. When visiting with him back in his room, he relates no change in the pain in his left foot. In discussions with Dr. Hyman, he indicated they were not successful with angioplasty [id number] on this patient. I discussed with the patient the chances of salvaging the foot are very slim; however, the patient wants to try to continue the present wound care and see if we can get some changes that way. If the foot worsens, we will address it at that time. Patient is to be discharged either this evening or in the morning of November 13, 2018. Job#: [id number] CYNTHIA
--- NOTE | 2018-11-14 17:54 | Consultation ---
DATE OF CONSULTATION: November 11, 2018 PODIATRIC CONSULTATION ADMITTING PHYSICIAN: Dr. Randy Davis. HPI: This is a 78-year-old male with a history of peripheral vascular disease, end-stage renal disease, and hypertension. He is admitted through the ER on this date with severe PVD of the left lower extremity with early gangrene in the toes. PHYSICAL EXAMINATION: On clinical exam, the patient's left foot is cool. It is extremely painful. There are no palpable pulses and the toes showed the thin waxy feeling of early gangrene. DIAGNOSIS: Peripheral vascular disease of the left lower extremity with early gangrene. RECOMMENDATION: Recommend a vascular consult Job#: [id number] KEVIN
--- NOTE | 2018-11-14 19:10 | NUR ---
REPORT RECEIVED FROM OFF GOING NURSE, PT RESTING IN BED ALERT AND ORIENTED, NO DISTRESS NOTED, DENIES NEEDS, CALL LIGHT IN REACH, INSTRUCTED TO CALL WITH NEEDS
[2018-11-14] MEDS: CLONAZEPAM 1 MG TAB PO SCH (20:39)
[2018-11-14] MEDS: CRESTOR 10MG PO SCH (20:39)
[2018-11-15] VITALS (7 sets, daily range): BP systolic 146–172; BP diastolic 66–76
[2018-11-15] MEDS: DILTIAZEM HCL 60 MG TAB PO SCH ×3 (05:55→21:51)
--- NOTE | 2018-11-15 06:00 | NUR ---
PT ASSISTED TO RESTROOM FOR BM ATTEMPT, NO BM, PT ASSISTED BACK TO BED, NO DISTRESS NOTED, INSTRUCTED TO CALL WITH NEEDS, CALL LIGHT IN REACH
--- NOTE | 2018-11-15 07:00 | NUR ---
REPORT GIVEN TO THE ONCOMING RN.WALKING ROUNDS DONE.STABLE CONDITION.
--- NOTE | 2018-11-15 07:00 | NUR ---
SHIFT REPORT RECEIVED FROM NIGHT RN. PT DENIES NEEDS AT THIS TIME.
[2018-11-15] MEDS: ASPIRIN 81 MG ENTERIC COATED PO SCH (07:59)
[2018-11-15] MEDS: DHEA 50 MG PO SCH (07:59)
[2018-11-15] MEDS: CLOPIDOGREL BISULFATE 75 MG TAB PO SCH (07:59)
[2018-11-15] MEDS: SALMETEROL/FLUTICASONE 250/50 INH SCH ×2 (07:59→18:21)
[2018-11-15] MEDS: SENNOSIDES 8.6 MG TAB PO SCH ×2 (07:59→17:03)
[2018-11-15] MEDS: FUROSEMIDE 40 MG TAB PO SCH ×2 (07:59→17:02)
[2018-11-15] MEDS: TAMSULOSIN HCL 0.4 MG CAP PO SCH (07:59)
[2018-11-15] MEDS: PENTOXIFYLLINE 400 MG TAB CR PO SCH (07:59)
[2018-11-15] MEDS: METHADONE HCL 5 MG TAB PO SCH ×2 (07:59→17:02)
[2018-11-15] MEDS: ALLOPURINOL 300 MG TAB PO SCH (08:00)
[2018-11-15] MEDS: METOPROLOL TARTRATE 25 MG TAB PO SCH ×2 (08:00→17:02)
[2018-11-15] MEDS: CEFAZOLIN SOD 1 GM/D5W 50ML 50 ML IV SCH ×2 (08:48→21:51)
[2018-11-15 09:22] LABS: BASOPHILS % 0.4 % (0.0-1.0); EOSINOPHILS # (AUTO) 0.6 (0.0-0.4); EOSINOPHILS % 7.8 % (0.0-6.0); HEMATOCRIT 26.3 % (38.2-49.6); HEMOGLOBIN 8.2 g/dL (14.0-18.0); LYMPHOCYTES # (AUTO) 1.1 (1.0-3.2); MEAN CORPUSCULAR HEMOGLOBIN 21.8 pg (28-32); MEAN CORPUSCULAR HGB CONC 31.2 g/dL (31-35); MEAN CORPUSCULAR VOLUME 69.9 fL (81-99); MONOCYTES # (AUTO) 0.8 (0.2-0.8); NEUTROPHILS # (AUTO) 4.9 (2.1-6.9); NEUTROPHILS % 65.5 % (38.7-80.0); PLATELET COUNT 282 x10e3/uL (140-360); RED BLOOD COUNT 3.76 x10e6/uL (4.3-5.7); RED CELL DISTRIBUTION WIDTH 23.5 % (11.7-14.4)
[2018-11-15 09:39] LABS: ANION GAP 19.6 mmol/L (8-16); CALCIUM 9.3 mg/dL (8.4-10.2); CREATININE, SERUM 9.25 mg/dL (0.72-1.25); POTASSIUM 4.6 mmol/L (3.5-5.1)
[2018-11-15] MEDS ORDERED: SODIUM CHLORIDE 0.9% 1000ML 2,000 ML ONE (12:11)
[2018-11-15] MEDS ORDERED: LACTULOSE SYRUP 20 GM/30 ML UDC PO ONE (12:30)
[2018-11-15] MEDS ORDERED: BISACODYL 10 MG SUPP PR PRN (12:30)
[2018-11-15] MEDS ORDERED: LACTULOSE SYRUP 20 GM/30 ML UDC PO PRN (12:30)
[2018-11-15] MEDS ORDERED: BISACODYL 10 MG SUPP PR ONE (12:30)
--- NOTE | 2018-11-15 14:08 | Progress Note ---
DATE: November 15, 2018 CARDIOLOGY PROGRESS NOTE SUBJECTIVE: No major events overnight. Getting dialysis today. OBJECTIVE VITAL SIGNS: Temperature 97.7, pulse 86, respiratory rate 18, blood pressure 158/71, satting 97% on nasal cannula. GENERAL: man in no acute distress. CARDIOVASCULAR: Regular rate and rhythm. No murmurs, rubs or gallops. LUNGS: Clear to auscultation bilaterally. ABDOMEN: Soft, nontender. NEURO AND PSYCH: Alert and oriented to person and place. Normal affect. CARDIOVASCULAR MEDICATIONS: Reviewed. LABORATORY DATA: Reviewed. ASSESSMENT 1. Critical limb ischemia. 2. Severe bilateral peripheral arterial disease. 3. Hypertension. 4. Hyperlipidemia. 5. Chronic obstructive pulmonary disease. 6. End-stage renal disease. RECOMMENDATIONS: Patient underwent peripheral angiography and intervention on admission. Has severe disease below the knee of his left leg with collateralization and quaker of the plantar arch through the peroneal artery distally despite severely diseased ostium of the anterior tibial and TP trunk. Unable to recanalize [id number]-qkb-[id number] vessels due to severe calcification and diffuse disease. Given that the blood supply is well collateralized, no plans for further vascular intervention at this time. Surgical management per podiatry. Continue cardiovascular medications and risk reduction. Thank you for this consult. We will continue to follow. Job#: [id number]
--- NOTE | 2018-11-15 16:30 | NUR ---
IMM SIGNED AND ON CHART COPY LEFT WITH PATIENT GAVE CARD FOR QUESTIONS AND OR CONCERNS.
--- NOTE | 2018-11-15 19:09 | NUR ---
WALKING ROUNDS PERFORMED, RECEIVED PT LAYING SEMI FOWLERS IN BED, AAOX3, RR EVEN AND NON-LABORED, O2 BY NC AT 2L. NO S/SX OF DISTRESS NOTED. LEFT PT LAYING SEMI FOWLERS IN BED, BED IN LOW LOCKED POSITION, SIDE RAILS UPX2, CALL LIGHT AND PHONE WITHIN REACH. Addendum: 11/16/18 at 0146 by Cathryn Aviles RN DISREGARD NOTE, DUPLICATE
--- NOTE | 2018-11-15 21:30 | NUR ---
IV TO (R) WRIST, LEAKING WHEN FLUSHED. IV DISCONTINUED, CATHETER TIP INTACT, PRESSURE AND DRESSING APPLIED. NEW IV STARTED TO (R) HAND 22G. FLUSHES WITHOUT DIFFICULTY, BLOOD RETURN NOTED.
[2018-11-15] MEDS: CRESTOR 10MG PO SCH (21:51)
[2018-11-15] MEDS: CLONAZEPAM 1 MG TAB PO SCH (21:51)
[2018-11-16] VITALS: BP 151/69
[2018-11-16 04:00] VITALS: BP 158/70
[2018-11-16] MEDS: DILTIAZEM HCL 60 MG TAB PO SCH ×2 (06:32→14:00)
[2018-11-16] MEDS: PENTOXIFYLLINE 400 MG TAB CR PO SCH (07:30)
--- NOTE | 2018-11-16 07:41 | NUR ---
Received patient this morning and a/ox3, in bed, call light within reach, left foot with pains and elevated on pillow, no pulse noted and has had angiogram work up, will continue to monitor and follow plan
[2018-11-16] MEDS: SALMETEROL/FLUTICASONE 250/50 INH SCH (08:06)
[2018-11-16] MEDS: DHEA 50 MG PO SCH (09:00)
[2018-11-16 09:02] VITALS: BP 171/79
[2018-11-16] MEDS: CLOPIDOGREL BISULFATE 75 MG TAB PO SCH (09:02)
[2018-11-16] MEDS: ASPIRIN 81 MG ENTERIC COATED PO SCH (09:02)
[2018-11-16] MEDS: TAMSULOSIN HCL 0.4 MG CAP PO SCH (09:02)
[2018-11-16] MEDS: METHADONE HCL 5 MG TAB PO SCH ×2 (09:02→16:58)
[2018-11-16] MEDS: CEFAZOLIN SOD 1 GM/D5W 50ML 50 ML IV SCH (09:02)
[2018-11-16] MEDS: FUROSEMIDE 40 MG TAB PO SCH ×2 (09:02→16:57)
[2018-11-16] MEDS: ALLOPURINOL 300 MG TAB PO SCH (09:02)
[2018-11-16] MEDS: SENNOSIDES 8.6 MG TAB PO SCH ×2 (09:02→16:58)
[2018-11-16] MEDS: METOPROLOL TARTRATE 25 MG TAB PO SCH ×2 (09:03→16:58)
[2018-11-16 12:00] VITALS: BP 119/59
--- NOTE | 2018-11-16 12:17 | Discharge Summary ---
PRIMARY CARE PHYSICIAN: Dr. Parveen García. CONSULTANTS 1. Dr. Ismael Hyman. 2. Dr. Kelsi Gann. 3. Dr. Clement. FINAL DIAGNOSES 1. Left ischemic foot. 2. Status post angiogram. Patient had severe disease below the knee of the left leg with collateralization and respiration of the plantar arch through the peroneal artery distally with severe disease ostium of the anterior tibial and the TP trunk. Unable to recanalize below the knee vessel due to severe calcification and diffuse disease. Pain management and surgical intervention at the later date if the pain control is not adequate. 3. Baseline end-stage renal disease on dialysis. 4. Peripheral vascular disease. 5. Hypertension. 6. Dyslipidemia. SUMMARY: Patient is a 78-year-old male with left foot peripheral vascular disease. The patient has left foot claudication with peripheral vascular disease admitted to the hospital after he was seen by Dr. Clement, podiatry. Patient underwent vascular workup finding as the above. Recommendations for the patient to continue with medical management and pain control. The patient may need below the knee amputation pending on his pain control. This decision for that will be based on his referral to vascular surgeon at a later date and a possible Dr. Clement will recommend as well on followup visit as an outpatient. Otherwise, the patient is stable at this time. Prescription for his pain and stool softener is given. He is also getting medication for his foot on Dr. Clement prescription calling for him at the pharmacy. Otherwise, the patient will continue with his home medication. He will follow up with Dr. Clement and family physician for further management of his peripheral vascular disease and possible surgical consultation for amputation if his pain is not improved. I spend a lot of time with this patient explained all the options for him and he expressed understanding. The patient was discharged home today. Job#: [id number] JULIA
--- NOTE | 2018-11-16 13:39 | NUR ---
SPOKE WITH PATIENT ABOUT DISCHARGE, LET KNOW MD WANTS HIM TO FOLLOW UP WITH PCP GABY, GAVE INFORMATION FOR DR HINKLE IN [place] ADDRESS AND PHONE NUMBER TO CALL AND MAKE APPOINTMENT. HE STATES HE UNDERSTANDS AND WILL FOLLOW UP WITH BOTH MDS.
[2018-11-16] MEDS ORDERED: SENNA8.6 MG PO (14:52)
[2018-11-16] MEDS ORDERED: MIRALAX17 GM PO (14:54)
[2018-11-16] MEDS ORDERED: LACTULOSE20 GM/30 M PO (14:55)
[2018-11-16] MEDS ORDERED: ASPIR 8181 MG PO (14:56)
[2018-11-16] MEDS ORDERED: PLAVIX75 MG PO (14:56)
[2018-11-16] MEDS ORDERED: METHADONE HCL5 MG PO (14:58)
[2018-11-16 15:37] VITALS: BP 119/59
--- NOTE | 2018-11-16 16:00 | NUR ---
Spoke with Dr. Leigh and cleared patient for discharge and to f/u at the office in 1-2 weeks. Provided patient with discharge summary, information, contacts for f/u appointment and to schedule appt at the pain management clinic and contacts provided. Patient given prescriptions, education on new medications, patient waiting for his ride.
[2018-11-16 16:51] VITALS: BP 147/67
[2018-11-17] MEDS ORDERED: ALLOPURINOL 100 MG TAB PO SCH (09:00)
== END 2018-11-16 18:06 | disposition home or self-care (01) | DRG 299 ==
LOC: ER 16:33 → MED/SURG 17:07
PROVIDERS: ADMIT Internal Medicine; ATTEND Internal Medicine
PROC: B41G1ZZ Fluoroscopy of Left Lower Extremity Arteries using Low Osmolar Contrast (ICD-10-PCS; principal; 2018-11-11)
PROC: B41F1ZZ Fluoroscopy of Right Lower Extremity Arteries using Low Osmolar Contrast (ICD-10-PCS; 2018-11-11)
PROC: 5A1D70Z Performance of Urinary Filtration, Intermittent, Less than 6 Hours Per Day (ICD-10-PCS; 2018-11-12)
DX: I70.212 Atherosclerosis of native arteries of extremities with intermittent claudication, left leg (principal); N18.6 End stage renal disease; I70.92 Chronic total occlusion of artery of the extremities; I13.2 Hypertensive heart and chronic kidney disease with heart failure and with stage 5 chronic kidney disease, or end stage renal disease; I25.10 Atherosclerotic heart disease of native coronary artery without angina pectoris; I50.9 Heart failure, unspecified; Z99.2 Dependence on renal dialysis; E78.5 Hyperlipidemia, unspecified; J44.9 Chronic obstructive pulmonary disease, unspecified; Z99.81 Dependence on supplemental oxygen; N40.0 Benign prostatic hyperplasia without lower urinary tract symptoms; E83.52 Hypercalcemia; F11.90 Opioid use, unspecified, uncomplicated; Z79.02 Long term (current) use of antithrombotics/antiplatelets; Z79.82 Long term (current) use of aspirin
CPT/HCPCS: 36415; 37228; 75716; 80048; 80053; 80061; 82607; 82746; 84443; 85025; 85610; 85730; 86704; 86706; 87340; 90962; 94640; C1769; J0360; J0690; J1644; J2001; J2250; J2543; J7030; Q9967

== ENCOUNTER 2018-11-29 21:05 | Inpatient (IN) | payer MEDICARE, OTHER ==
[~2018-11-29] VITALS: Ht 167.6 cm; Wt 59.9 kg
[~2018-11-29 21:05] MED LIST changes: +ASPIR 8181 MG PO; +LACTULOSE20 GM/30 M PO; +METHADONE HCL5 MG PO; +MIRALAX17 GM PO; +PLAVIX75 MG PO; +SENNA8.6 MG PO
--- OUTSIDE RECORDS SUMMARY | 2018-11-29 21:09 | XMS REPORT | Clinical Summary ---
Author Author [facility] Organization [facility] Address Unknown Phone Unavailable Care Team Providers Care [place] Name Role Phone Parveen García MD PCP [...] directed. Active ipratropium-albuterol INHALE 1 VIAL 0 (DUO-NEB) 0.5-2.5 mg/mL VIA NEBULIZER 8 nebulizer EVERY 4 HOURS NEEDED 09/24/2018 Discontinued diltiazem (CardIZEM) 90 Take 90 mg by 0 MG tablet mouth every 8 (eight) hours. 03/31/2018 Discontinued cholecalciferol, vitamin Take 1,000 0 D3, (VITAMIN D3) 1,000 Units by unit capsule mouth daily. 03/31/2018 Discontinued ipratropium-albuterol Take 3 mL by 0 (DUO-NEB) 0.5-2.5 mg/mL nebulization nebulizer as needed for wheezing. 03/31/2018 Discontinued sevelamer (RENVELA) 800 Take 800 mg 0 mg tablet by mouth 3 (three) times a day with meals. 03/31/2018 Discontinued simvastatin (ZOCOR) 20 MG Take 20 mg by 0 tablet mouth nightly. 12/15/2017 lisinopril Take 1 tablet 30 tablet 0 (PRINIVIL,ZESTRIL) 5 mg (5 mg total) 7 tablet by mouth daily for 30 days. 12/17/2017 methylPREDNISolone follow 21 tablet 0 [...] 500 Take 1 tablet 20 tablet 0 MG tablet (500 mg 8 [...] Overview: Added automatically from request for surgery [id number] CHF exacerbation 11/04/2017 NSTEMI (non-ST elevated myocardial [...] ESRD (end stage renal disease) on dialysis ([facility]) 10/18/2018 [facility] General Internal Medicine - Encounter 10/19/2018 10/18/2018 Aixa Rowland MD Allencherril, Chong Puri MD Hypoglycemia (Primary Dx); Hypothermia, initial encounter; Other fatigue; ESRD (end stage renal disease) on dialysis (HCC); Essential hypertension 09/23/2018 Emergency General Internal Medicine - 09/24/2018 Rachelle Bentley MD Berberian, Esteban N., MD Acute on chronic congestive heart failure, unspecified heart failure type (HCC) (Primary Dx); ESRD (end stage renal disease) on dialysis ([facility]) 08/30/2018 [facility] General Internal Medicine - Encounter 08/31/2018 Carlos Linares MD Allencherril, Paul Joseph, MD Respiratory arrest (Primary Dx); ESRD (end stage renal disease) on dialysis; Acute on chronic systolic congestive heart failure; Acute respiratory failure with hypoxia and hypercapnia; Flash pulmonary edema 06/28/2018 Hospital General Internal Medicine - Encounter 07/03/2018 [...] Malfunction of arteriovenous graft, initial encounter 05/02/2018 [facility] General Internal Medicine - Encounter 05/06/2018 Minesh Ponce Jr., MD Roberts, Matthew Thomas, Chong Galo MD Multifocal pneumonia (Primary Dx); Kidney disease, chronic, end stage on dialysis; Acute on chronic systolic congestive heart failure 04/30/2018 [facility] General Internal Medicine - Encounter 05/01/2018 [...] with hypoxia or hypercapnia (Primary Dx) 12/21/2017 Hospital General Surgery - Encounter 12/22/2017 Brian Vlea, RN 12/15/2017 Abstract Transplant Ninfa Sparks MD Berberian, Esteban N., MD COPD exacerbation (Primary Dx) 12/10/2017 Hospital Critical Care Medicine - Encounter 12/12/2017 after 11/28/2017 Social History Date Tobacco Use Types Packs/Day [...] Taken Vital Sign Reading 10/19/2018 7:24 AM [facility]NA[facility] Blood Pressure 126/58 10/19/2018 8:13 AM [facility]NA[facility] Pulse 75 10/19/2018 7:24 AM [facility] Temperature 36.5 C (97.7 F) 10/19/2018 8:13 AM [facility] Respiratory Rate 18 10/19/2018 8:01 AM [facility]NA[facility] Oxygen Saturation 99% - Inhaled Oxygen - Concentration 10/18/2018 3:41 AM [facility]NA[facility] Weight 74.8 kg (165 lb) 10/18/2018 3:41 AM [facility] Height 165.1 cm (5' 5") 10/18/2018 3:41 AM [facility]NA[facility] Body Mass Index 27.46 Plan of Treatment Health Maintenance Due Date Last Done Comments SHINGLES VACCINES (1 of 1992 2) INFLUENZA VACCINE 06/16/2018 07/17/2017, 07/16/2017, 07/23/2016 PNEUMOCOCCAL Completed 10/23/2016 POLYSACCHARIDE VACCINE AGE 65 AND OVER PNEUMOCOCCAL-13 Completed 10/23/2017 Implants Device Identifier Shelf Expiration Date Model / Serial / Lot Explanted Type Area Manufactur er 06/15/2020 [id number] / / [id number] 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 Roller Cleaner 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 10mm [employer] - Surgical Left: Arm, BARD [id number] Implants; Upper PERIPHERAL Implanted: Expanders; VASCULAR Explanted: 05/05/2018 (Quantity not Extenders; on file) Surgical Wires [id number] / / Catheter Roller Cleaner 4x75cm 7mm [employer] - Surgical Left: Arm BARD [id number] Implants; PERIPHERAL Implanted: Expanders; VASCULAR Explanted: 05/05/2018 (Quantity not Extenders; on file) Surgical Wires Procedures Comments Procedure Name Priority Date/Time Associated Diagnosis LACTIC ACID LEVEL, SEPSIS Timed 10/18/2018 - NOW AND REPEAT 2X EVERY 6:40 PM [facility] 3 HOURS HEMODIALYSIS Routine 10/18/2018 2:12 PM [facility] LACTIC ACID LEVEL, SEPSIS Timed 10/18/2018 - NOW AND REPEAT 2X EVERY 12:39 PM [facility] 3 HOURS TROPONIN Timed 10/18/2018 12:39 PM [facility] URINALYSIS SCREEN AND Routine 10/18/2018 MICROSCOPY, WITH REFLEX 10:21 AM [facility]NA[facility] TO CULTURE URINE CULTURE Routine 10/18/2018 10:21 AM [facility] BLOOD CULTURE, AEROBIC & Routine 10/18/2018 ANAEROBIC 9:47 AM [facility] HC COMPLETE BLD COUNT STAT 10/18/2018 W/AUTO DIFF 9:40 AM [facility] LACTIC ACID LEVEL, SEPSIS STAT 10/18/2018 - NOW AND REPEAT 2X EVERY 9:40 AM [facility] 3 HOURS TROPONIN Timed 10/18/2018 9:40 AM [facility] BLOOD CULTURE, AEROBIC & Routine 10/18/2018 ANAEROBIC 9:40 AM [facility] XR CHEST 1 VW PORTABLE STAT 10/18/2018 4:11 AM [facility] HEPATITIS B SURFACE STAT 10/18/2018 ANTIGEN 3:59 AM [facility] ESTIMATED GFR STAT 10/18/2018 3:59 AM [facility] B NATRIURETIC PEPTIDE STAT 10/18/2018 3:59 AM [facility] TROPONIN STAT 10/18/2018 3:59 AM [facility] COMPREHENSIVE METABOLIC STAT 10/18/2018 PANEL 3:59 AM [facility] HC COMPLETE BLD COUNT STAT 10/18/2018 W/AUTO DIFF 3:59 AM [facility] ECG ED PRELIMINARY Routine 10/18/2018 INTERPRETATION 3:56 AM [facility] [place] [facility], E/M Routine 10/18/2018 30-74 MINUTES 3:56 AM [facility] ECG 12-LEAD STAT 10/18/2018 3:50 AM [facility] BLOOD CULTURE, AEROBIC & Routine 09/24/2018 ANAEROBIC 11:35 AM [facility] HEPATITIS B SURFACE STAT 09/24/2018 ANTIGEN 9:05 AM [facility] TROPONIN Timed 09/24/2018 1:31 AM [facility] MANUAL DIFFERENTIAL STAT 09/23/2018 10:30 PM [facility] CBC WITH PLATELET AND STAT 09/23/2018 DIFFERENTIAL 10:30 PM [facility] ESTIMATED GFR STAT 09/23/2018 9:25 PM [facility] TROPONIN STAT 09/23/2018 9:25 PM [facility] CREATINE KINASE, TOTAL STAT 09/23/2018 (CPK) 9:25 PM [facility] COMPREHENSIVE METABOLIC STAT 09/23/2018 PANEL 9:25 PM [facility] XR CHEST 1 VW PORTABLE STAT 09/23/2018 9:14 PM [facility] ECG ED PRELIMINARY Routine 09/23/2018 INTERPRETATION 8:46 PM [facility] POC GLUCOSE Routine 09/23/2018 8:05 PM [facility] ECG 12-LEAD STAT 09/23/2018 7:58 PM [facility] XR CHEST 1 VW PORTABLE Routine 08/31/2018 [...] MMODE SPECTRAL 8:34 AM CDT COLOR DOPPLER ([id number]) TROPONIN Routine 06/29/2018 6:54 AM CDT ZZESTIMATED [...] BLOOD GAS STAT 06/28/2018 9:46 AM CDT [place] CR[facility], E/M Routine 06/28/2018 30-74 MINUTES [...] PRELIMINARY Routine 06/02/2018 INTERPRETATION 7:15 AM CDT [place] [facility], E/M Routine 06/02/2018 30-74 MINUTES [...] PRELIMINARY Routine 05/02/2018 INTERPRETATION 11:50 PM CDT [place] [facility], E/M Routine 05/02/2018 30-74 MINUTES [...] PRELIMINARY Routine 03/31/2018 INTERPRETATION 7:42 AM CDT [place] [facility], E/M Routine 03/31/2018 30-74 MINUTES 7:42 AM CDT HEMODIALYSIS Routine 12/30/2017 7:51 AM [facility]NA[facility] ZZESTIMATED GFR Routine 12/30/2017 5:08 AM [facility] HC COMPLETE BLD COUNT Routine 12/30/2017 W/AUTO DIFF 5:08 AM [facility] BASIC METABOLIC PANEL Routine 12/30/2017 5:08 AM [facility] TRANSFUSE RED BLOOD CELLS Routine 12/29/2017 9:20 PM [facility] PREPARE RBC Timed 12/29/2017 1:07 PM [facility] TYPE AND SCREEN Routine 12/29/2017 1:07 PM [facility] ZZESTIMATED GFR Routine 12/29/2017 5:18 AM [facility] PHOSPHORUS LEVEL Routine 12/29/2017 5:18 AM [facility] MAGNESIUM LEVEL Routine 12/29/2017 5:18 AM [facility] HC COMPLETE BLD COUNT Routine 12/29/2017 W/AUTO DIFF 5:18 AM [facility] BASIC METABOLIC PANEL Routine 12/29/2017 5:18 AM [facility] HEMODIALYSIS Routine 12/28/2017 12:11 PM [facility] TROPONIN Timed 12/28/2017 12:08 PM [facility] HEPATITIS B SURFACE Routine 12/28/2017 ANTIGEN 8:23 AM [facility] ZZESTIMATED GFR STAT 12/28/2017 8:23 AM [facility] B NATRIURETIC PEPTIDE STAT 12/28/2017 8:23 AM [facility] TROPONIN STAT 12/28/2017 8:23 AM [facility] CREATINE KINASE, TOTAL STAT 12/28/2017 (CPK) 8:23 AM [facility] COMPREHENSIVE METABOLIC STAT 12/28/2017 PANEL 8:23 AM [facility] HC COMPLETE BLD COUNT STAT 12/28/2017 W/AUTO DIFF 8:23 AM MANA[facility] ECG ED PRELIMINARY Routine 12/28/2017 INTERPRETATION 8:16 AM [facility] [place] CRITICAL CARE, E/M Routine 12/28/2017 30-74 MINUTES 8:16 AM [facility] XR CHEST 1 VW PORTABLE STAT 12/28/2017 8:09 AM [facility] ECG 12-LEAD STAT 12/28/2017 7:49 AM [facility] TROPONIN Timed 12/21/2017 7:56 PM [facility] TROPONIN Timed 12/21/2017 3:34 PM [facility] TROPONIN Timed 12/21/2017 12:19 PM [facility] ECG 12-LEAD Routine 12/21/2017 9:09 AM [facility] RESPIRATORY PATHOGEN Routine 12/21/2017 PANEL 8:28 AM [facility] INFLUENZA ANTIGEN Routine 12/21/2017 8:28 AM [facility] XR CHEST 1 VW PORTABLE STAT 12/21/2017 8:02 AM [facility] HEPATITIS B SURFACE Routine 12/21/2017 ANTIGEN 8:02 AM [facility]NA[facility] ZZESTIMATED GFR Routine 12/21/2017 8:02 AM [facility] B NATRIURETIC PEPTIDE Routine 12/21/2017 8:02 AM [facility] TROPONIN Routine 12/21/2017 8:02 AM [facility] COMPREHENSIVE METABOLIC Routine 12/21/2017 PANEL 8:02 AM [facility] PROTHROMBIN TIME WITH INR Routine 12/21/2017 8:02 AM [facility] HC COMPLETE BLD COUNT Routine 12/21/2017 W/AUTO DIFF 8:02 AM [facility] [place] CRITICAL CARE, E/M Routine 12/21/2017 30-74 MINUTES 7:38 AM [facility] POC GLUCOSE Routine 12/21/2017 7:36 AM [facility]NA[facility] ECG ED PRELIMINARY Routine 12/21/2017 INTERPRETATION 7:35 AM [facility] ECG 12-LEAD STAT 12/21/2017 7:32 AM [facility] ARTERIAL BLOOD GAS STAT 12/21/2017 7:31 AM MANA[facility] ECG ED PRELIMINARY Routine 12/12/2017 INTERPRETATION 2:46 PM [facility] [place] [facility], E/M Routine 12/12/2017 30-74 MINUTES 2:46 PM [facility] HEMODIALYSIS Routine 12/11/2017 1:59 PM [facility] HEPATITIS B SURFACE Routine 12/11/2017 ANTIGEN 10:19 AM [facility] HEPATITIS B SURFACE AB, Routine 12/11/2017 QUANTITATIVE 10:19 AM [facility] TROPONIN Timed 12/10/2017 8:51 PM [facility] TROPONIN Timed 12/10/2017 3:59 PM [facility] TROPONIN Timed 12/10/2017 1:22 PM [facility] TROPONIN Timed 12/10/2017 10:55 AM [facility] XR CHEST 1 VW PORTABLE STAT 12/10/2017 7:23 AM MANA[facility] ZZESTIMATED GFR STAT 12/10/2017 6:52 AM [facility] COMPREHENSIVE METABOLIC STAT 12/10/2017 PANEL 6:52 AM [facility] HC COMPLETE BLD COUNT STAT 12/10/2017 W/AUTO DIFF 6:52 AM [facility] TROPONIN STAT 12/10/2017 6:52 AM [facility] ECG 12-LEAD STAT 12/10/2017 6:31 AM [facility] after 11/28/2017 Results * Lactic acid level, SEPSIS - Now and repeat 2x every 3 hours (10/18/2018 6:40 PM [facility]NA[facility]) Only the most recent of 5 results within the time period is included. Lactic acid 1.3 0.5 - 2.2 mmol/L [facility] Specimen Blood Performing Organization Address City/[facility] [place] [address] PATHOLOGY AND [facility] [address] * Troponin (10/18/2018 12:39 PM MANAGER [facility]) Only the most recent of 33 results within the time period is included. Troponin <0.30 0.00 - 0.30 ng/mL [facility] Comment: [facility] 0.11 - 1.49 ng/mlMay indicate increased risk of acute coronary syndrome. >=1.5 ng/ml Consistent with acute myocardial infarction. The diagnostic value of a single normal or non-diagnostic result is questionable.Serial samples at 2-6 hour intervals are required to rule out acute myocardial injury. Specimen Plasma specimen Performing Organization Address City/[facility] [place] [address] PATHOLOGY AND GENOMIC MEDICINE [address] * Urinalysis screen and microscopy, with reflex to culture (10/18/2018 10:21 AM MANAGER [facility]) Only the most recent of 3 results within the time period is included. Specimen site Clean catch [facility] Color, UA Yellow [facility] Appearance, UA Clear [facility] Specific gravity, UA 1.011 1.001 - 1.035 [facility] pH, UA 7.0 5.0 - 8.5 [facility] Protein, UA 2+ (A) Negative [facility] Glucose, UA Negative Negative [facility] Ketones, UA Negative Negative [facility] Bilirubin, UA Negative Negative [facility] Blood, UA Negative Negative [facility] Nitrite, UA Negative Negative [facility] Urobilinogen, UA Negative <2.0 [facility] Leukocyte esterase, UA Negative Negative [facility] Epithelial cells, UA Few /HPF [facility] WBC, UA 1 0 - 1 /HPF [facility] RBC, UA 3 0 - 5 /HPF [facility] Bacteria, UA None seen None seen [facility] Yeast, UA None seen [facility] Yeast with pseudohyphae, None seen [facility] Specimen Urine Performing Organization Address City/[facility] Phone Number [place] [id number] [place] [address] PATHOLOGY AND GENOMIC MEDICINE [address] * Urine culture (10/18/2018 10:21 AM MANAGER [facility]) Only the most recent of 3 results within the time period is included. Urine culture SEE COMMENTComment: [facility] Bacteriuria screen negative. [facility] Specimen Urine Performing Organization Address [facility] Phone Number [facility] [place] [address] PATHOLOGY AND GENOMIC MEDICINE [address] * Blood culture, aerobic & anaerobic (10/18/2018 9:47 AM MANAGER [facility]) Only the most recent of 7 results within the time period is included. Blood culture isolate No growth after 5 days of [facility] incubation. HOSPITAL Comment: Specimen Information Specimen Source: Blood Specimen Site: right wrist Specimen Blood Performing Organization Address City/[facility] Phone Number [facility] DEPARTMENT OF [address] [place] [address] PATHOLOGY AND GENOMIC MEDICINE [facility] [address] [place] [address] HOSPITAL * CBC with platelet and differential (10/18/2018 9:40 AM MANAGER [facility]) Only the most recent of 23 results within the time period is included. WBC 9.0 4.2 - 11.0 k/uL [facility] RBC 4.21 4.04 - 5.86 m/uL [facility] HGB 9.3 (L) 13.0 - 17.3 g/dL [facility] HCT 31.3 (L) 34.0 - 45.0 % [facility] MCV 74.3 (L) 80.0 - 98.0 fL [facility] MCH 22.1 (L) 27.0 - 34.0 pg [facility] MCHC 29.7 (L) 31.5 - 36.5 g/dL [facility] RDW - SD 62.4 (H) 37.0 - 51.0 fL [facility] MPV SEE COMMENTComment: No report 7.4 - 10.4 fL [facility] Platelet count 340 150 - 400 k/uL [facility] Nucleated RBC 0.00 /100 WBC [facility] Neutrophils 74.0 (H) 36.0 - 66.0 % [facility] Lymphocytes 15.2 (L) 24.0 - 44.0 % [facility] Monocytes 7.9 (H) 0.0 - 6.0 % [facility] Eosinophils 2.3 0.0 - 6.0 % [facility] Basophils 0.4 0.0 - 1.2 % [facility] Immature granulocytes 0.2 0.0 - 1.0 % [facility] Specimen Blood Performing Organization Address City/State/Zipcode Phone Number [facility] [address] [place] [address] PATHOLOGY AND GENOMIC MEDICINE [facility] [address] [place] [address] [facility] * XR Chest 1 Vw Portable (10/18/2018 4:11 AM MANA[facility]) Only the most recent of 16 results within the time period is included. [...] pneumothorax. There are no acute osseous abnormalities. [facility]-[id number] Procedure Note Hm Interface, Radiology Results Incoming - 10/18/2018 4:26 AM MANA[facility] XR CHEST 1 VW PORTABLE CLINICAL INDICATION: [...] pneumothorax. There are no acute osseous abnormalities. [facility]-[id number] Performing Organization Address City/State/Zipcode Phone Number [facility] [address] [place] [address] * Estimated GFR (10/18/2018 3:59 AM MANA[facility]) Only the most recent of 3 results within the time period is included. Estimated GFR 6 (A) mL/min/1.73 m2 [facility] Comment: [facility] CatergoryUnitsInte rpretation G1 >=90 Normal or high G2 60-89Mildly decreased [id number] Mildly to moderately decreased [id number] Moderately to severely decreased G4 15-29Severely decreased G5 <15Kidney failure The eGFR was calculated using the Chronic Kidney Disease Epidemiology Collaboration (CKD-EPI) equation. Interpretation is based on recommendations of the National Kidney Foundation-Kidney Disease Outcomes Quality Initiative (NKF-KDOQI) published in 2014. Specimen Plasma specimen Performing Organization Address City/State/Zipcode Phone Number [facility] [address] [place] [address] PATHOLOGY AND GENOMIC MEDICINE [place] [address] * Hepatitis B surface antigen (10/18/2018 3:59 AM MANAGER [facility]) Only the most recent of 11 results within the time period is included. Hepatitis B surface Ag Non-reactive Non-reactive [facility] Specimen Blood Performing Organization Address City/[facility] Phone Number [facility] [address] [place] [address] PATHOLOGY AND GENOMIC MEDICINE [address] * B natriuretic peptide (10/18/2018 3:59 AM MANAGER [facility]CING) Only the most recent of 11 results within the time period is included. BNP >5000 (H) 0 - 100 pg/mL [facility] Specimen Blood Performing Organization Address City/[facility] Phone Number [address] [place] [address] PATHOLOGY AND GENOMIC MEDICINE [address] * Comprehensive metabolic panel (10/18/2018 3:59 AM MANAGER [facility]CING) Only the most recent of 11 results within the time period is included. Sodium 145 135 - 150 mEq/L [facility] Potassium 4.6 3.5 - 5.0 mEq/L [facility] Chloride 102 98 - 112 mEq/L [facility] CO2 24 24 - 31 mmol/L [facility] Anion gap 19@ANIO (H) 7 - 15 mEq/L [facility] BUN 52 (H) 7 - 18 mg/dL [facility] Creatinine 9.00 (H) 0.70 - 1.20 mg/dL [facility] Glucose 96 65 - 100 mg/dL [facility] Calcium 9.7 8.8 - 10.2 mg/dL [facility] Protein 7.7 6.3 - 8.3 g/dL [facility] Albumin 3.3 (L) 3.5 - 5.0 g/dL [facility] A/G ratio 0.8 0.7 - 3.8 [facility] Alkaline phosphatase 50 0 - 129 U/L [facility] AST 19 10 - 50 U/L [facility] ALT 9 5 - 50 U/L [facility] Total bilirubin 0.3 0.2 - 1.2 mg/dL [facility] Specimen Plasma specimen Performing Organization Address City/State/Zipcode Phone Number [facility] DEPARTMENT OF [address] [facility] [place] [phone] PATHOLOGY AND GENOMIC MEDICINE [place] [id number] * ECG ED Preliminary Interpretation - Not an Order (10/18/2018 3:56 AM MANAGER [facility]) Only the most recent of 11 results within the time period is included. Narrative Performed At Rachelle Bnetley MD 10/20/20184:39 AM ECG ED Preliminary Interpretation - Not an Order Performed by: Rachelle Bentley MD Authorized by: Rachelle Bentley MD ECG reviewed by ED Physician in the absence of a certified genetic counselor: yes Interpretation: Interpretation: normal Rate: ECG rate:110 ECG rate assessment: tachycardic Rhythm: Rhythm: sinus tachycardia Ectopy: Ectopy: none QRS: QRS axis:Normal QRS intervals:Normal Conduction: Conduction: normal ST segments: ST segments:Normal T waves: T waves: normal Other findings: Other findings: LVH * CRITICAL CARE (10/18/2018 3:56 AM MANAGER [facility]) Narrative Performed At Rachelle Bentley MD 10/20/20184:39 [...] * ECG 12 lead (10/18/2018 3:50 AM MANAGER [facility]CING) Only the most recent of 12 results [...] available- Narrative Performed At Performing Organization Address City/[facility]/Zipcode Phone Number [facility] [id number] [place] [address] * Manual differential (09/23/2018 10:30 PM MANAGER [facility]CING) Only the most recent of 2 results within the time period is included. Manual differential PERFORMED [facility]Y AND GENOMIC MEDICINE Neutrophils 69.0 (H) 36.0 - 66.0 % [facility]OLOGY AND GENOMIC MEDICINE Lymphocytes 24.0 24.0 - 44.0 % [facility] PATHOLOGY AND GENOMIC MEDICINE Monocytes 7.0 (H) 0.0 - 6.0 % [facility] PATHOLOGY AND GENOMIC MEDICINE Eosinophils 0.0 0.0 - 6.0 % [facility]OLOGY AND GENOMIC MEDICINE Basophils 0.0 0.0 - 1.2 % [facility]Y AND GENOMIC MEDICINE Metamyelocytes 0 0 - 1 % [facility]Y AND GENOMIC MEDICINE Promyelocytes 0 0 - 1 % [facility]Y AND GENOMIC MEDICINE Platelet slide review Darlin adequate [facility] AND GENOMIC MEDICINE Anisocytosis Few [facility] AND GENOMIC MEDICINE Polychromasia Slight [facility] PATHOLOGY AND GENOMIC MEDICINE Schistocytes Few [facility] PATHOLOGY AND GENOMIC MEDICINE Performing Organization Address City/State/Zipcode Phone Number [facility] [address] [place] [address] PATHOLOGY AND GENOMIC MEDICINE * Creatine kinase, total (CPK) (09/23/2018 9:25 PM MANAGER SOURCING) Only the most recent of 5 results within the time period is included. Creatine kinase 64 39 - 308 U/L [facility] PATHOLOGY AND [employer] [facility] Specimen Plasma specimen Performing Organization Address City/[facility] Phone Number [address] [place] [address] PATHOLOGY AND [facility] * POC glucose (09/23/2018 8:05 PM MANAGER SOURCING) Only the most recent of 5 results within the time period is included. POC glucose 83 65 - 100 mg/dL [facility] Comment: PATHOLOGY AND Meter ID: [id number] [facility] Head Grinder: Shelbie Clark Performing Organization Address [facility] [facility] Phone Number [address] AND [employer] [facility] * Transfuse RBC (07/21/2018 5:49 PM CDT) Only the most recent of 5 results within the time period is included. * Estimated GFR (07/01/2018 5:07 AM CDT) Only the most recent of 20 results within the time period is included. GFR Non Af Amer 13 (A) mL/min/1.73 m2 [facility] DEPART[facility] OF PATHOLOGY AND [employer] MEDICINE GFR Af Amer 16 (A) mL/min/1.73 m2 [facility] DEPARTMENT OF Comment: PATHOLOGY AND Chronic kidney disease: <60 [facility] MEDICINE mL/min/1.73m2 Kidney failure: <15 mL/min/1.73m2 The [...] Americans. Specimen Plasma specimen Performing Organization Address [facility] Phone Number [address] AND [employer] [facility] * Basic metabolic panel (07/01/2018 5:07 AM CDT) Only the most recent of 12 results within the time period is included. Sodium 141 135 - 150 mEq/L [facility] DEPARTMENT OF PATHOLOGY AND GENOMIC MEDICINE Potassium 4.0 3.5 - 5.0 mEq/L [facility] OF PATHOLOGY AND GENOMIC MEDICINE Chloride 97 (L) 98 - 112 mEq/L [facility] DEPARTMENT OF PATHOLOGY AND GENOMIC MEDICINE CO2 28 24 - 31 mmol/L [facility] DEPARTMENT OF PATHOLOGY AND GENOMIC MEDICINE Anion gap 16@ANIO (H) 7 - 15 mEq/L [facility] OF PATHOLOGY AND GENOMIC MEDICINE BUN 32 (H) 7 - 18 mg/dL [facility] OF PATHOLOGY AND GENOMIC MEDICINE Creatinine 4.40 (H) 0.70 - 1.20 mg/dL [facility]MENT OF PATHOLOGY AND GENOMIC MEDICINE Glucose 75 65 - 100 mg/dL [facility] DE[facility] OF PATHOLOGY AND GENOMIC MEDICINE Calcium 9.1 8.8 - 10.2 mg/dL [facility] DEPARTMENT OF PATHOLOGY AND GENOMIC MEDICINE Specimen Plasma specimen Performing Organization Address City/[facility] Phone Number [place] [address] [place] [address] PATHOLOGY AND GENOMIC MEDICINE * Magnesium level (06/30/2018 10:23 PM CDT) Only the most recent of 7 results within the time period is included. Magnesium 2.10 1.60 - 2.40 mg/dL [facility] OF PATHOLOGY AND GENOMIC MEDICINE Specimen Plasma specimen Performing Organization Address City/[facility] [place] [address] PATHOLOGY AND GENOMIC MEDICINE * Echocardiogram complete [...] valve appears mildly calcified Performing Organization Address City/State/Zipcode Phone Number [facility] [address] [place] [address] * Phosphorus level (06/29/2018 6:54 AM CDT) Only the most recent of 6 results within the time period is included. Phosphorus 5.2 (H) 2.4 - 4.5 mg/dL [facility] OF PATHOLOGY AND GENOMIC MEDICINE Specimen Plasma specimen Performing Organization Address City/State/Zipcode Phone Number [facility] [address] [place] [address] PATHOLOGY AND GENOMIC MEDICINE * Arterial blood gas (06/29/2018 4:35 AM CDT) Only the most recent of 5 results within the time period is included. Head Grinder TC [facility] OF PATHOLOGY AND GENOMIC MEDICINE Collection site RBA [facility] DEPART[facility] OF PATHOLOGY AND GENOMIC MEDICINE O2 therapy VENT [facility] DEPARTMENT OF PATHOLOGY AND GENOMIC MEDICINE Respiratory rate 24 bpm [facility] DEPARTMENT OF PATHOLOGY AND GENOMIC MEDICINE Tidal volume 450.0 mL [facility] DEPARTMENT OF PATHOLOGY AND GENOMIC MEDICINE .PEEP 5 cmH2O [facility] DEPARTMENT OF PATHOLOGY AND GENOMIC MEDICINE pH, arterial 7.560 (HH) 7.350 - 7.450 units [facility] DEPARTMENT OF Comment: PATHOLOGY AND Results called to and read [facility] back by NORM BELLO,RT at04:50 06/29/2018by __VR. pCO2, arterial 32.6 (L) 35.0 - 45.0 mmHg [facility] DEPARTMENT OF PATHOLOGY AND GENOMIC MEDICINE pO2, arterial 132.0 (H) 80.0 - 90.0 mmHg [facility] DEPARTMENT OF PATHOLOGY AND GENOMIC MEDICINE O2 saturation, arterial 99.8 95.0 - 100.0 % [facility] DEPARTMENT OF PATHOLOGY AND GENOMIC MEDICINE Base excess, arterial 6.9 mEq/L [facility] DEPARTMENT OF PATHOLOGY AND GENOMIC MEDICINE Bicarbonate 29.2 (H) 21.0 - 28.0 mEq/L [facility] DEPARTMENT OF PATHOLOGY AND GENOMIC MEDICINE O2 content 12.4 VOL% [facility] DEPARTMENT OF PATHOLOGY AND GENOMIC MEDICINE FiO2, inspired O2% 40.0 % [facility] DEPARTMENT OF PATHOLOGY AND GENOMIC MEDICINE Carboxyhemoglobin 1.2 0.0 - 1.4 % [facility] DEPARTMENT OF Comment: PATHOLOGY AND Reference Ranges: [facility] MEDICINE Carboxyhemoglobin Non smoker: 0.0 - 2.0% Smoker: 2.1 - 5.0% Heavy smoker: 5.1 - 9% Methemoglobin 0.6 0.0 - 1.0 % [facility]MENT OF PATHOLOGY AND GENOMIC MEDICINE Hemoglobin, blood gas 8.8 (L) 14.0 - 18.0 g/dL [facility] DEPARTMENT OF PATHOLOGY AND GENOMIC MEDICINE pO2, A-a 117.2 mmHg [facility] DEPARTMENT OF PATHOLOGY AND GENOMIC MEDICINE Specimen Blood Performing Organization Address [facility] Phone Number [facility] DEPARTMENT OF [address] [place] [address] PATHOLOGY AND GENOMIC MEDICINE * Total iron binding capacity (06/28/2018 4:04 PM CDT) Iron level 11 (L) 59 - 158 ug/dL [facility] DEPARTMENT OF PATHOLOGY AND GENOMIC MEDICINE Iron binding capacity 207 (L) 271 - 474 ug/dL [facility] DEPARTMENT OF PATHOLOGY AND GENOMIC MEDICINE % Saturation 5.3 (L) 20.0 - 40.0 % [facility] DEPARTMENT OF PATHOLOGY AND GENOMIC MEDICINE Specimen Plasma specimen Performing Organization Address City/[facility] Phone Number [facility] OF [address] [facility] [place] [address] PATHOLOGY AND GENOMIC MEDICINE * Thyroid stimulating hormone (06/28/2018 12:04 PM CDT) TSH 1.65 0.27 - 4.20 uIU/mL [facility] DE[facility]MENT OF PATHOLOGY AND GENOMIC MEDICINE Specimen Plasma specimen Performing Organization Address [facility] Phone Number [facility] [place] [address] [place] [address] PATHOLOGY AND GENOMIC MEDICINE * T4, free (06/28/2018 12:04 PM CDT) T4, free 1.28 0.90 - 1.70 ng/dL [facility] OF PATHOLOGY AND GENOMIC MEDICINE Specimen Plasma specimen Performing Organization Address City/[facility] Phone Number [facility] [place] [address] [place] [address] PATHOLOGY AND GENOMIC MEDICINE * CT Head Wo Contrast (06/28/2018 11:00 AM CDT) Narrative Performed At EXAMINATION:CT HEAD WO CONTRAST [facility] CT IMAGING WAS PERFORMED WITH ITERATIVE RECONSTRUCTION [...] no significant change from the prior study. [id number] Procedure Note Hm Interface, Radiology Results Incoming - 06/28/2018 11:12 [...] no significant change from the prior study. [facility]-[id number] Performing Organization Address City/State/Zipcode Phone Number [facility] [address] [place] [address] * CRITICAL CARE (06/28/2018 9:31 AM CDT) Narrative Performed At Carlos Linares MD 06/28/20189:32 AM Critical Care Performed by: CARLOS LINARES Authorized by: CARLOS LINARES Critical care provider statement: Critical care time (minutes):35 Critical care was necessary to treat or prevent imminent or life-threatening deterioration of the following conditions:Cardiac failure, circulatory failure and DISTRIBUTION LEAD failure or compromise Critical care was time spent personally by me on the following activities:Blood draw for specimens, development of treatment plan with patient or surrogate and discussions with consultants * Gram stain (06/28/2018 9:20 AM CDT) Gram stain result No WBC's or organisms seen. [facility] DEPARTMENT OF Comment: PATHOLOGY AND Specimen Information [employer] MEDICINE Specimen Source: Urine Specimen Site: Catheterized Specimen Urine - Catheterized Performing Organization Address City/State/Zipcode Phone Number [facility] DEPARTMENT OF [address] [place] [address] PATHOLOGY AND GENOMIC MEDICINE * INTUBATION (06/28/2018 8:33 AM CDT) Narrative Performed At Carlos Linares MD 06/28/20184:38 PM Intubation Performed by: CARLOS LINARES Authorized by: CARLOS LINARES Consent: Consent obtained:Emergent situation [place] protocol: Patient identity confirmed:Arm band Pre-procedure details: [...] is included. Platelet slide review Darlin adequate [facility] DEPARTMENT OF PATHOLOGY AND GENOMIC MEDICINE Tear drop cells Occasional [facility]PARTMENT OF PATHOLOGY AND GENOMIC MEDICINE Ovalocytes Few [facility] DEPARTMENT OF PATHOLOGY AND GENOMIC MEDICINE Chetna cells Few [facility] DEPARTMENT OF PATHOLOGY AND GENOMIC MEDICINE Enlarged platelets Few [facility] DEPARTMENT OF PATHOLOGY AND GENOMIC MEDICINE Performing Organization Address City/[facility]/Zipcode Phone Number [facility] DEPARTMENT OF [address] [place] [address] PATHOLOGY AND GENOMIC MEDICINE * Prothrombin time with INR (06/28/2018 8:30 AM CDT) Only the most recent of 4 results within the time period is included. Prothrombin time 13.3 12.0 - 15.0 sec [facility] DEPARTMENT OF PATHOLOGY AND GENOMIC MEDICINE INR 1.00 0.92 - 1.12 [facility] DEPARTMENT OF Comment: PATHOLOGY AND For patients on anticoagulant GENOMIC MEDICINE therapy, reference ranges below: Indication: INR Value Treatment of Venous Thrombosis, 2.0-3.0 pulmonary emboli, or prophylaxis of a venous thrombosis, or systemic emboli. High dose, high risk patients 3.0-4.5 with mechanical valves. NOTE:INR values over 3.0 are sometimes associated with gastrointestinal hemorrhage, especially values over 4.0. Specimen Blood Performing Organization Address City/State/Zipcode Phone Number [facility] OF [address] [place] [id number] PATHOLOGY AND [employer] MEDICINE * Urine drugs of abuse screen (06/02/2018 8:58 AM CDT) Amphetamine screen, urine Negative [facility]PARTMENT OF PATHOLOGY AND GENOMIC MEDICINE Barbiturate screen, urine Negative [facility] DEPARTMENT OF PATHOLOGY AND GENOMIC MEDICINE Benzodiazepine screen, Negative [facility] DEPARTMENT OF urine PATHOLOGY AND GENOMIC MEDICINE Cocaine screen, urine Negative [facility] DEPARTMENT OF PATHOLOGY AND GENOMIC MEDICINE Methadone screen, urine Negative [facility] DEPARTMENT OF PATHOLOGY AND GENOMIC MEDICINE Opiates screen, urine Negative [facility] DEPARTMENT OF PATHOLOGY AND GENOMIC MEDICINE Phencyclidine screen, Negative [facility] DEPARTMENT OF urine PATHOLOGY AND GENOMIC MEDICINE Cannabinoid screen, urine Negative [facility] DEPARTMENT OF Comment: PATHOLOGY AND Drug screen minimum [facility] concentration of detectability Amphetamines 1000 ng/mL [...] purposes only. Specimen Urine Performing Organization Address [facility] Phone Number [facility] [address] [facility] [place] [phone] PATHOLOGY AND [employer] MEDICINE * Partial thromboplastin time, activated (06/02/2018 7:30 AM CDT) Only the most recent of 2 results within the time period is included. PTT 28.3 23.0 - 36.0 sec [facility] DEPARTMENT OF Comment: PATHOLOGY AND PTT therapeutic range for [facility] unfractionated heparin is 61.0-112.0 seconds which corresponds to Anti-Xa 0.3-0.7 U/ml. Note:Change in Panic Value The PTT Panic Value is changing from 110 sec. to 100 sec. due to new instrumentation and reagents. Correlation studies have been performed to validate this result. Specimen Blood Performing Organization Address City/State/Zipcode Phone Number [facility] DEPARTMENT OF [address] [place] [address] PATHOLOGY AND GENOMIC MEDICINE * CRITICAL CARE (06/02/2018 7:15 AM CDT) Narrative Performed At Shelbie Law MD 06/03/20188:36 AM Critical Care Performed by: SHELBIE LAW Authorized by: SHELBIE LAW Critical care provider statement: [...] or dislocations. Humeral head is high riding. [facility]-[id number] Procedure Note Interface, Radiology Results Incoming - 05/05/2018 5:25 [...] or dislocations. Humeral head is high riding. [facility]-[id number] Performing Organization Address City/[facility]/Zipcode Phone Number [facility] [address] [place] [address] * Hybrid or fluoroscopy (05/05/2018 1:07 PM CDT) Narrative Performed At See operative report for the same day * Potassium level (05/05/2018 12:47 PM CDT) Only the most recent of 2 results within the time period is included. Potassium 3.9 3.5 - 5.0 mEq/L [facility] DEPARTMENT OF PATHOLOGY AND GENOMIC MEDICINE Specimen Plasma specimen Performing Organization Address City/[facility] Phone Number [facility] DEPARTMENT [facility] [place] [address] PATHOLOGY AND GENOMIC MEDICINE * CRITICAL CARE [...] Venous blood gas (04/30/2018 3:57 AM CDT) Head Grinder ELMER [facility] DEPARTMENT OF PATHOLOGY AND GENOMIC MEDICINE Collection site R ARM [facility] DEPARTMENT OF PATHOLOGY AND GENOMIC MEDICINE O2 therapy ROOM AIR [facility] DEPARTMENT OF PATHOLOGY AND GENOMIC MEDICINE pH, venous 7.306 (L) 7.320 - 7.420 units [facility] DEPARTMENT OF PATHOLOGY AND GENOMIC MEDICINE pCO2, venous 62.8 (H) 45.0 - 51.0 mmHg [facility] DEPARTMENT OF PATHOLOGY AND GENOMIC MEDICINE pO2, venous 31.9 25.0 - 40.0 mmHg [facility] DEPARTMENT OF PATHOLOGY AND GENOMIC MEDICINE O2 saturation, venous 48.7 40.0 - 70.0 % [facility] DEPARTMENT OF PATHOLOGY AND GENOMIC MEDICINE Base excess, venous 5.0 (H) -2.0 - 2.0 mEq/L [facility] DEPARTMENT OF PATHOLOGY AND GENOMIC MEDICINE Bicarbonate 31.3 (H) 21.0 - 28.0 mEq/L [facility] DEPARTMENT OF PATHOLOGY AND GENOMIC MEDICINE O2 content 6.9 VOL% [facility] DEPARTMENT OF PATHOLOGY AND GENOMIC MEDICINE FiO2, inspired O2% 21.0 % [facility] DEPARTMENT OF PATHOLOGY AND GENOMIC MEDICINE Carboxyhemoglobin 1.6 (H) 0.0 - 1.4 % [facility] DEPARTMENT OF Comment: PATHOLOGY AND Reference Ranges: GENOMIC MEDICINE Carboxyhemoglobin Non smoker: 0.0 - 2.0% Smoker: 2.1 - 5.0% Heavy smoker: 5.1 - 9% Methemoglobin 0.3 0.0 - 1.0 % [facility] DEPARTMENT OF PATHOLOGY AND GENOMIC MEDICINE Hemoglobin, blood gas 10.3 (L) 14.0 - 18.0 g/dL [facility] DEPARTMENT OF PATHOLOGY AND GENOMIC MEDICINE Specimen Blood Performing Organization Address City/State/Zipcode Phone Number [address] [address] PATHOLOGY AND [employer] MEDICINE * Prepare RBC, 2 Units (03/31/2018 10:14 AM CDT) Only the most recent of 2 results within the time period is included. Product name Apheresis RC ACDA>-3 LR [facility]PARTMENT OF PATHOLOGY AND GENOMIC MEDICINE Unit number [id number] [facility] DEPARTMENT OF PATHOLOGY AND GENOMIC MEDICINE Product code [id number] [facility] DEPARTMENT OF PATHOLOGY AND GENOMIC MEDICINE Dispense status Transfused [facility] DEPARTMENT OF PATHOLOGY AND GENOMIC MEDICINE Blood expiration date [id number] [facility]PARTMENT OF PATHOLOGY AND GENOMIC MEDICINE Blood type code 5100 [facility] DEPARTMENT OF PATHOLOGY AND GENOMIC MEDICINE Blood type O POSITIVE [facility] DEPARTMENT OF PATHOLOGY AND GENOMIC MEDICINE Product name Apheresis RC ACDA>-3 LR [facility] DEPARTMENT OF PATHOLOGY AND [employer] MEDICINE Unit number [id number] [facility] DEPARTMENT OF PATHOLOGY AND [employer] Product code [id number] [facility] DE[facility]MENT OF PATHOLOGY AND [employer] Dispense status Transfused [facility] DEPARTMENT OF PATHOLOGY AND [employer] Blood expiration date [id number] [facility] DEPART[facility] PATHOLOGY AND [employer] Blood type code 5100 [facility] DEPART[facility] PATHOLOGY AND [employer] Blood type O POSITIVE [facility] OF PATHOLOGY AND [employer] Performing Organization Address City/[facility] Center[facility] [address] PATHOLOGY AND [employer] MEDICINE * Type and screen (03/31/2018 10:14 AM CDT) Only the most recent of 2 results within the time period is included. ABO grouping O [facility] OF PATHOLOGY AND [employer] MEDICINE Rh type POS [facility] PATHOLOGY AND [employer] Antibody screen (gel) NEG [facility] PATHOLOGY [facility] [employer] [facility] Specimen Blood Performing Organization Address [facility] [place] [address] PATHOLOGY AND [employer] [facility] * CRITICAL CARE (03/31/2018 7:42 AM CDT) [...] and ordering and performing treatments and interventions Grge 'yes' if you are taking over critical care for this patient from another provider.: no * CRITICAL CARE (12/28/2017 8:16 AM MANAGER SOURCING) Narrative Performed At Chris Shearer DO 12/28/20172:13 [...] * Respiratory pathogen panel (12/21/2017 8:28 AM MANAGER SOURCING) Respiratory pathogen Negative for all pathogens [facility] DEPARTMENT OF panel tested: PATHOLOGY AND Negative [...] specified Performing Organization Address City/State/Zipcode Phone Number [facility] DEPARTMENT OF [address] [place] [address] PATHOLOGY AND GENOMIC MEDICINE * Influenza antigen (12/21/2017 8:28 AM MANAGER SOURCING) Influenza antigen Negative for Influenza A/B [facility] DEPARTMENT OF antigen. PATHOLOGY AND Comment: GENOMIC MEDICINE Specimen Information Specimen Source: Nares Specimen Site: Not otherwise specified Specimen Nares - Not otherwise specified Performing Organization Address City/State/Zipcode Phone Number [facility] DEPARTMENT OF [address] [place] [address] PATHOLOGY AND GENOMIC MEDICINE * CRITICAL CARE (12/21/2017 7:38 AM MANAGER SOURCING) Narrative Performed At Carlos Linares MD 12/21/20177:38 [...] bipap * CRITICAL CARE (12/12/2017 2:46 PM MANAGER SOURCING) Narrative Performed At Ninfa Sparks MD 12/12/20172:46 [...] B surface Ab, quantitative (12/11/2017 10:19 AM MANAGER SOURCING) Hepatitis B surface Ab >1000.00 IU/L [facility] [...] Cellular and Tissue-Based Products (HCT/P). Performed by [employer], [address] [place] [address] [email or web address], Jonah Whatley MD - Lab. Director Specimen Serum Performing Organization Address City/State/Zipcode Phone Number [employer] [address] [place] [address] after 11/28/2017 Insurance Payer Benefit Subscriber ID Type Phone Address Plan / Group [employer] TEX[employer]US xxxxxxxxx HMO [facility] Advance Directives Patient has advance care planning documents, and code status on file. For more i nformation, please contact: Edson Villanueva [address] [place] [address] Date Inactivated Comments Code Status Date Activated 11/06/2017 11:19 PM Full Code 11/04/2017 3:28 AM Code Status decision reached by: Patient 08/16/2017 12:55 AM Full Code 08/14/2017 7:03 AM Code Status decision reached by: Patient Code Status decision reached by: Patient
--- NOTE | 2018-11-29 22:47 | Diagnostic Imaging Report ---
EXAM: FOOT LEFT COMPLETE, AP, lateral and oblique INDICATION: Left foot pain after removal of ingrown toenail COMPARISON: None FINDINGS: BONES: No acute fractures. Diffuse bone demineralization. JOINTS: No malalignment. SOFT TISSUES: Regional vascular calcifications. IMPRESSION: No erosive changes of the left foot. Signed by: Dr. Meredith Morfin M.D. on 11/29/2018 10:44 PM
[2018-11-29] MEDS ORDERED: VANCOMYCIN 1GM/NS 250 ML 250 ML IV ONE (23:30)
[2018-11-29] MEDS ORDERED: PIPER-TAZ 3.375 GM 50 ML IV ONE (23:30)
[2018-11-29 23:46] LABS: BASOPHILS % 0.4 % (0.0-1.0); EOSINOPHILS # (AUTO) 0.2 (0.0-0.4); EOSINOPHILS % 2.3 % (0.0-6.0); HEMATOCRIT 27.1 % (38.2-49.6); HEMOGLOBIN 8.2 g/dL (14.0-18.0); LYMPHOCYTES % 14.9 % (18.0-39.1); MEAN CORPUSCULAR HEMOGLOBIN 21.4 pg (28-32); MEAN CORPUSCULAR HGB CONC 30.3 g/dL (31-35); MEAN CORPUSCULAR VOLUME 70.8 fL (81-99); MONOCYTES % 14.4 % (4.4-11.3); NEUTROPHILS # (AUTO) 4.6 (2.1-6.9); NEUTROPHILS % 67.7 % (38.7-80.0); PLATELET COUNT 380 x10e3/uL (140-360); RED BLOOD COUNT 3.83 x10e6/uL (4.3-5.7); RED CELL DISTRIBUTION WIDTH 24.1 % (11.7-14.4)
[2018-11-30] VITALS (10 sets, daily range): BP systolic 130–170; BP diastolic 61–72
[2018-11-30 00:06] LABS: ALBUMIN 3.1 g/dL (3.5-5.0); ALBUMIN/GLOBULIN RATIO 0.6 (0.8-2.0); ANION GAP 19.5 mmol/L (8-16); CALCIUM 9.5 mg/dL (8.4-10.2); CREATININE, SERUM 6.06 mg/dL (0.72-1.25); POTASSIUM 4.5 mmol/L (3.5-5.1)
[2018-11-30] MEDS ORDERED: ZOLPIDEM TARTRATE 5 MG TAB PO PRN (00:30)
[2018-11-30] MEDS ORDERED: DIPHENHYDRAMINE HCL INJ 50 MG/ML VIAL IV PRN (00:30)
[2018-11-30] MEDS ORDERED: ONDANSETRON HCL INJ 2MG/ML 2ML 2 MG/ML VIAL IV PRN (00:30)
[2018-11-30] MEDS ORDERED: ENALAPRILAT IV INJ 1.25 MG/ML VIAL IV PRN (00:30)
[2018-11-30] MEDS ORDERED: CLONIDINE HCL 0.2 MG TAB PO PRN (00:30)
[2018-11-30 00:33] LABS: B-TYPE NATRIURETIC PEPTIDE2 1569.2 pg/mL (0-100)
[2018-11-30 00:40] LABS: CREATINE KINASE MB 1.4 ng/mL (0-5.0)
[2018-11-30] MEDS: MORPHINE SULFATE INJ 4 MG/ML INJ 1ML IV PRN ×2 (01:17→12:00)
[2018-11-30] MEDS ORDERED: VANCOMYCIN 1GM/NS 250 ML 250 ML IV ONE (03:30)
--- NOTE | 2018-11-30 04:02 | NUR ---
PT IS TRANSFERRED FROM ER .PT IS AOX3 .RESPIRATIONS ARE EVEN AND UNLABORED LEFT GREAT TOE SWOLLEN AND RED LEFT FOOT SWOLLEN .ASSESSMENT DONE AND ORIENTED THE PT TO THE ROOM.PT HAS UNSTEADY GAIT .DENIES PAIN AT THIS TIME .PT HAS HIGH B/P GIVEN PRN B/P MEDICINE .CALL LIGHT WITH IN REACH .CONTINUE TO MONITOR
--- NOTE | 2018-11-30 06:14 | NUR ---
PT RESTING .NO ACUTE DISTRESS NOTED CALL LIGHT WITH IN REACH.
[2018-11-30] MEDS ORDERED: DIALYVITE 8000.8 M1 PO (06:53)
[2018-11-30] MEDS ORDERED: CRESTOR10 MG PO (06:53)
[2018-11-30] MEDS ORDERED: DILTIAZEM 24HR120 M1 PO (06:53)
[2018-11-30] MEDS ORDERED: CLONAZEPAM0.5 MG PO (06:53)
[2018-11-30] MEDS ORDERED: ADVAIR 250-501 EACH IH (06:53)
[2018-11-30] MEDS ORDERED: ALLOPURINOL100 MG PO (06:53)
[2018-11-30] MEDS ORDERED: CALCIUM ACETAT667 M1 PO (06:53)
--- NOTE | 2018-11-30 07:12 | NUR ---
REPORT GIVEN TO THE ONCOMING NURSE
--- NOTE | 2018-11-30 08:35 | NUR ---
Pt received resting in bed. Noted with left foot 5th toe gangrene, open to air. Alert and oriented x4. Oriented to staff and surroundings. Encouraged to press call reyes if help needed. Call reyes within reach. All meds given as ordered. Will monitor
[2018-11-30] MEDS: FAMOTIDINE 20 MG/2 ML VIAL IV SCH ×2 (08:36→17:10)
[2018-11-30] MEDS: HYDROCODONE/APAP 7.5MG-325MG 1 EA TAB PO PRN (09:00)
[2018-11-30] MEDS ORDERED: CEPHALEXIN500 MG PO (09:35)
[2018-11-30] MEDS ORDERED: ENTRESTO PO (09:35)
[2018-11-30] MEDS ORDERED: TRAMADOL HCL 50 MG TAB PO SCH (09:45)
[2018-11-30] MEDS ORDERED: ACETAMINOPHEN/CODEINE 300MG - 30MG TAB PO PRN (09:45)
[2018-11-30] MEDS ORDERED: LACTULOSE SYRUP 20 GM/30 ML UDC PO PRN (09:45)
[2018-11-30] MEDS ORDERED: TRAMADOL HCL 50 MG TAB PO PRN (10:09)
--- NOTE | 2018-11-30 10:12 | Consultation ---
DATE OF CONSULTATION: November 30, 2018 REASON FOR CONSULTATION: Left foot peripheral vascular disease. HISTORY OF PRESENT ILLNESS: This is a 78-year-old male with a past medical history of hypertension, hyperparathyroidism, severe peripheral vascular disease, chronic kidney disease, who was admitted through the emergency room yesterday for worsening pain and gangrene to the left foot. Patient was admitted here recently within the past few weeks, and underwent an angiogram. The disease was noted to be so severe that they were unable to recanalize the foot. The peripheral vascular disease continued to worsen, and the patient was admitted with gangrene to the left foot. I discussed the case with the patient and the patient's family as an outpatient, as well as with Dr. Clement. The patient currently relates to moderate pain to the left foot. Denies nausea, vomiting, fever, chills, chest pain, or shortness of breath. PAST MEDICAL HISTORY: Peripheral vascular disease, hypertension, hypothyroidism, cardiovascular disease, COPD, hyperlipidemia. PAST SURGICAL HISTORY: Cardiac catheterization, left lower extremity angiogram. REVIEW OF SYSTEMS: Patient currently denies nausea, vomiting, fever, chills, chest pain, or shortness of breath. FAMILY HISTORY: Noncontributory. SOCIAL HISTORY: Denies smoking, drinking or any illicit drug usage. ALLERGIES: NO KNOWN DRUG ALLERGIES. MEDICATIONS: Per the chart. PHYSICAL EXAMINATION GENERAL: Alert and oriented times 3. In no apparent distress. VITAL SIGNS: Today, temperature is 96.9, heart rate 86, respiratory rate 17, blood pressure is 145/66, pulse ox is 97% on room air. LOWER EXTREMITY PHYSICAL EXAMINATION VASCULAR: Dorsalis pedis and posterior tibial pulses are nonpalpable to the left lower extremity. Capillary refill time is delayed to all digits. Foot is cool to the touch, cyanotic and there is a dark discoloration to the foot compared to the remainder of the leg. NEUROLOGIC: Sensation is diminished to light touch. However, pain on palpation is noted to the digits. MUSCULOSKELETAL: Diffuse pain on palpation is noted across the entirety of the left foot. DERMATOLOGICAL: Necrotic ulcer is noted to the medial distal tip of the patient's left hallux with gangrenous changes noted across all digits. IMAGING: Three views were taken of the patient's left foot, which shows no evidence of acute osteomyelitis. However, severe vascular calcifications are present. ASSESSMENT 1. Left foot gangrene. 2. Left foot peripheral vascular disease. 3. Chronic kidney disease. PLAN: The patient was seen and evaluated. Discussed condition and treatment options with the patient in detail. Discussed with the patient and the patient's family at this time. Due to severe peripheral vascular disease and unsuccessful angioplasty due to severe calcifications of the arteries, the best treatment at this point would be a below knee amputation. No foot amputation will likely be viable, which would allow the patient to continue to weight bear. I discussed this with the patient's daughter. Would recommend a general surgery consultation to be evaluated for a left below knee amputation. The podiatry service will continue to monitor as needed. Job#: [id number] STEPHANIE
[2018-11-30] MEDS ORDERED: CALCIUM ACETATE 667 MG GELCAP PO SCH (12:00)
--- NOTE | 2018-11-30 12:10 | NUR ---
Surgical Procedure (BKA) explained, and pt verbalized understanding of teaching. Pt signed consent for BKA. Will monitor
--- NOTE | 2018-11-30 13:31 | Consultation ---
DATE OF CONSULTATION: November 30, 2018 SURGICAL CONSULTATION REFERRING PHYSICIAN: Dr. Randy Davis. HISTORY OF PRESENT ILLNESS: The patient is a 78-year-old male with a history of hypertension, end-stage renal disease, peripheral vascular disease, who has gangrene in the left foot and pain in the left foot. He has had extensive vascular workup which revealed severe peripheral vascular disease, and attempts to revascularize the left foot were not successful. Patient has been ambulatory. PAST MEDICAL HISTORY: As stated above. History of peripheral vascular disease, hypertension, kidney disease, chronic obstructive pulmonary disease, hyperlipidemia. He has had previous cardiac catheterizations. ALLERGIES: HE HAS NO KNOWN DRUG ALLERGIES. MEDICATIONS: Listed in the chart. FAMILY HISTORY: Noncontributory. SOCIAL HISTORY: The patient does not smoke cigarettes or drink alcohol. REVIEW OF SYSTEMS: He has had no fever. No chest pains. No shortness of breath. PHYSICAL EXAMINATION: GENERAL: The patient is awake and alert, in no distress. VITAL SIGNS: Normal. HEENT: Reveals no scleral icterus. NECK: Has no masses. LUNGS: Equal breath sounds are clear bilaterally. CARDIAC: Regular rate and rhythm. ABDOMEN: Soft with no tenderness. EXTREMITIES: Femoral pulses are palpable bilaterally. The popliteal pulses are weakly palpable bilaterally. In the foot there are no distal pulses palpable. There is gangrene in the left big toe. There is tenderness of the 1st and 2nd toes, which are slightly cool. ASSESSMENT: A 78-year-old male with gangrene in the left foot, severe peripheral vascular disease. Review of the previous angiograms reveals only collateral flow into the foot such as likely the foot is not salvageable. I think the patient at this point would best be treated with left below knee amputation. This was discussed with Dr. Davis also. I have discussed with the patient. He does wish to proceed with the surgery. Plan is scheduled for tomorrow. Procedure was explained to the patient. Thank you for asking me to see Mr. Kong. Job#: [id number] EV
--- NOTE | 2018-11-30 15:17 | Consultation ---
DATE OF CONSULTATION: November 30, 2018 NEPHROLOGY CONSULTATION REQUESTING PHYSICIAN: Dr. Davis. REASON FOR CONSULTATION: ESRD. HISTORY OF PRESENT ILLNESS: This is a 78-year-old man with history of end-stage renal disease, dialyzes Thursday/Thursday/Thursday, usually sees Dr. Leeann Bull. He has come with worsening gangrene of the left foot. Salvage was not possible in spite of angiogram before. He has a lot of vascular calcification, uses calcium acetate for his binders. PAST HISTORY 1. ESRD. 2. Peripheral vascular disease. 3. Hypertension. 4. Secondary hyperparathyroidism. 5. Hyperphosphatemia. 6. COPD. HOME MEDICATIONS 1. Calcium acetate 2 tablets with each meal. 2. Allopurinol 100 mg a day. 3. Clonazepam 0.5 b.i.d. as needed. 4. Plavix 75 a day. 5. Diltiazem 90 mg t.i.d. 6. Advair Diskus 1 inhaler twice a day. 7. Lisinopril 2.5 mg a day. 8. Lactulose as needed. 9. Crestor 10 mg a day. 10. Metoprolol 25 b.i.d. 11. Calcitriol, not sure of the dose. 12. Entresto 24 mg a day. SOCIAL HISTORY: Prior history of smoking. FAMILY HISTORY: Hypertension. REVIEW OF SYSTEMS CONSTITUTIONAL: No fever or chills. SKIN: Dark changes around the left foot. VASCULAR: Leg pain. GI: Denied any nausea or vomiting. : Makes very little urine. REST OF REVIEW: Negative. PHYSICAL EXAMINATION GENERAL: Lying in bed. No distress. VITAL SIGNS: Temperature is 96.7. Blood pressure 150/72. Pulse 86. HEENT: Atraumatic. CHEST: Clear. Bilateral breath sounds are equal. CARDIAC: Normal heart tones. Rhythm sounds regular. S4 is present. EXTREMITIES: No definite edema. Dry gangrenous changes on the left foot. ABDOMEN: Benign. NEUROLOGIC: Alert, appropriate. Speech is normal. VASCULAR: Decreased pulses on the left. Patent left upper extremity AV fistula. PLAN: Switch to Renvela given calcification of the left blood vessels. Plan on regular hemodialysis tomorrow. We will work around surgery schedule. Will follow along. Sincerely, Job#: [id number] EV
--- NOTE | 2018-11-30 16:05 | NUR ---
Visit made by the Spiritual Care Department Pastoral Visitor, Radha Diaz. Pt sleeping soundly and no family present. Pastoral Visitor left a card describing availability of mixer helper and instructions on how to contact a mixer helper. AURELIA NEWTON Roofing Apprentice Spiritual Care Department O: [phone] Pager: [phone] ([phone] number calling from)
--- NOTE | 2018-11-30 16:25 | NUR ---
CASE MANAGEMENT INITIAL ASSESSMENT Unionmelt Operator to bedside to discuss plan of care with patient/family. CM/SW role and care transitions discussed. Anticipated discharge plan discussed along with duration of care. CM/SW discussed patients right to make decisions in care. CM/SW work hours given. Patient lives: DAUGHTER Admit/Transfer: ER POA/Emergency contact: RASHIDA SIDDIQUI DTR [phone] Current/Previous Home Health: NONE PCP/Follow-up Care: SHAYLA GRIFFIN Current/Previous DME: NONE Other Services: DIALYSIS Q M-W- AT [facility] Employment Status: RETIRED Areas of Concerns: POST AMPUTATION Referral Needs: MAY NEED SNF POST OP Education Needs: NONE IMM/MALAVE given and signed (if applicable): IMM ON ADMIT Goal for discharge:TO GET REHAB AFTER AMPUTATION THEN GO HOME CM/SW left business card at the bedside with contact information. Name and number was also written on the patients whiteboard. Patient verbalized understanding of discussion. CM will follow-up with ongoing discharge and transition of care needs.
--- NOTE | 2018-11-30 16:45 | NUR ---
Nutrition Intervention Note RD Recommendation(s) for Physician: -Advance to renal diet as medically appropriate -Rec MVi with minerals, vitamin C and zinc sulfate for wound healing after surgery -Rec Abhi BID to support healing after surgery -Rec Nepro x1 a day to promote protein-calorie intake Plan of Care: RD following, monitoring for tolerance and adequacy, ONS rec Nutrition reason for involvement: Nutrition Risk Trigger MST RD Assessment 11/30 Chart reviewed. 78yo M, who is admitted for worsening pain and gangrene on left foot. Planned L BKA for tomorrow. Visited pt in the room. 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 RN recorded 100% meal intake since admission. No GI complains noted. LBM 11/29. No chewing or swallowing difficulty noted. Weight has been stable, per pt. Will continue to monitor and follow. Principal Problems/Diagnoses: gangrene in the left foot, severe peripheral vascular disease. PMH: Peripheral vascular disease, hypertension, hypothyroidism, cardiovascular disease, COPD, hyperlipidemia, ESRD on HD. GI: LBM 11/29 Skin: gangrene on left foot Labs: No lab on 11/30 Meds: pepcid Ht: 66in Wt: 142lb BMI: 22.9kg/m2 IBW: 142lb Malnutrition Evaluation (11/30/2018) The patient does not meet criteria for a specified degree of malnutrition at this time. Will re-evaluate at follow-up as appropriate. Nutrition Prescription (Diet Order): NPO Estimated Nutritional Needs: Calories: 1950-2275kcal(30-35kcal/kg/d) Weight used : Actual BW 65kg Protein : 78 98g(1.2-1.5g/kg/d) Weight used: Actual BW 65kg Diet Adequacy: Not meeting calorie needs, Not meeting protein needs Diet Education Needs Assessment: Diet education not indicated Pt has been on HD x3 years, seeing RD at dialysis facility. Nutrition Care Level: low Nutrition Diagnosis: Increased protein needs related to altered skin integrity as evidenced by pt requiring BKA. Goal: Patient will meet 75-100% of estimated needs by follow up Progress: N/A Interventions: Mineral-modified diet, Commercial beverage, Commercial food, Multivitamin/mineral supplement therapy Monitoring/Evaluation: Total energy intake, Total protein intake, Modified diet, Liquid supplement, Weight change Signed: Shreya Pelayo MS, RD, LD
[2018-11-30] MEDS ORDERED: EPHEDRINE SULFATE INJ 50 MG/10 ML SYR ONE (16:55)
[2018-11-30] MEDS ORDERED: LIDOCAINE HCL 2% LOCAL INJ 5 ML SDV VIAL INJ ONE (16:55)
[2018-11-30] MEDS ORDERED: PROPOFOL IV EMULSION 10 MG/ML 20 ML VIAL ONE (16:55)
[2018-11-30] MEDS ORDERED: ONDANSETRON HCL INJ 2MG/ML 2ML 2 MG/ML VIAL ONE (16:55)
[2018-11-30] MEDS: ENTRESTO PO SCH (17:00)
[2018-11-30] MEDS: CLONIDINE HCL 0.1 MG TAB PO SCH ×2 (17:10→21:19)
[2018-11-30] MEDS: METHADONE HCL 5 MG TAB PO SCH ×2 (17:10→21:20)
[2018-11-30] MEDS: DILTIAZEM HCL 60 MG TAB PO SCH ×2 (17:10→21:21)
[2018-11-30] MEDS: FUROSEMIDE 40 MG TAB PO SCH (17:11)
[2018-11-30] MEDS: METOPROLOL TARTRATE 25 MG TAB PO SCH (17:11)
[2018-11-30] MEDS: CEPHALEXIN 500 MG CAP PO SCH (17:11)
[2018-11-30] MEDS: CLONAZEPAM 0.5 MG TAB PO SCH (17:11)
[2018-11-30] MEDS: DOXYCYCLINE HYCLATE TABLET 100 MG TAB PO SCH (17:11)
[2018-11-30] MEDS: SEVELAMER CARBONATE 800 MG TAB PO SCH (17:11)
--- NOTE | 2018-11-30 20:16 | NUR ---
RECEIVED PT IN BED AOX3 .RESPIRATIONS ARE EVEN AND UNLABORED DENIES PAIN .PT IS NPO FOR SURGERY .CALL LIGHT WITH IN REACH .CONTINUE TO MONITOR
[2018-11-30] MEDS ORDERED: ATORVASTATIN 20 MG TAB PO SCH (21:00)
[2018-12-01] VITALS (8 sets, daily range): BP systolic 102–169; BP diastolic 56–81
[2018-12-01] MEDS ORDERED: DEXTROSE 5% 1,000 ML IV ONE
--- NOTE | 2018-12-01 07:31 | NUR ---
PT IS NPO FOR SURGERY .PT HAD BATH .DENIES PAIN .FAMILY AT THE BEDSIDE .CALL LIGHT WITH IN REACH .REPORT GIVEN TO THE ONCOMING NURSE
--- NOTE | 2018-12-01 07:40 | NUR ---
RECEIVED PATIENT RESTING IN BED. NO ACUTE DISTRESS NOTED, RESPIRATIONS EVEN AND UNLABORED. CALL LIGHT WITHIN REACH. BED IN THE LOWEST POSITION.
[2018-12-01] MEDS: SEVELAMER CARBONATE 800 MG TAB PO SCH ×3 (08:00→17:03)
--- NOTE | 2018-12-01 08:03 | NUR ---
PATIENT OFF THE UNIT FOR PROCEDURE.
[2018-12-01] MEDS ORDERED: SODIUM CHLORIDE 0.9% 500ML 500 ML ONE (08:09)
[2018-12-01] MEDS: ENTRESTO PO SCH ×2 (09:00→17:00)
[2018-12-01] MEDS ORDERED: PRASTERONE 25 MG PO SCH (09:00)
[2018-12-01] MEDS: METOPROLOL TARTRATE 25 MG TAB PO SCH ×2 (09:00→17:00)
[2018-12-01] MEDS ORDERED: ASPIRIN 81 MG CHEW TAB PO SCH (09:00)
[2018-12-01] MEDS: DILTIAZEM HCL 60 MG TAB PO SCH ×3 (09:00→21:45)
[2018-12-01] MEDS ORDERED: LISINOPRIL 2.5 MG TAB PO SCH (09:00)
[2018-12-01] MEDS ORDERED: CLOPIDOGREL BISULFATE 75 MG TAB PO SCH (09:00)
[2018-12-01] MEDS: CLONIDINE HCL 0.1 MG TAB PO SCH ×3 (09:00→22:31)
[2018-12-01] MEDS ORDERED: HYDROCODONE/APAP 5MG-325MG TAB PO PRN (09:30)
[2018-12-01] MEDS ORDERED: ONDANSETRON HCL INJ 2MG/ML 2ML 2 MG/ML VIAL IV PRN (09:30)
[2018-12-01] MEDS ORDERED: MORPHINE SULFATE 5 MG/ML VIAL IV PRN (09:30)
--- NOTE | 2018-12-01 10:16 | NUR ---
PATIENT BACK TO UNIT AT THIS TIME.
--- NOTE | 2018-12-01 10:17 | NUR ---
NEW IV TO RIGHT FOOT 20G NOTED.
[2018-12-01] MEDS: FAMOTIDINE 20 MG/2 ML VIAL IV SCH ×2 (10:25→17:03)
[2018-12-01] MEDS: TAMSULOSIN HCL 0.4 MG CAP PO SCH (10:25)
[2018-12-01] MEDS: FOLIC ACID 1 MG TAB PO SCH (10:25)
[2018-12-01] MEDS: FUROSEMIDE 40 MG TAB PO SCH ×2 (10:27→17:03)
[2018-12-01] MEDS: CEPHALEXIN 500 MG CAP PO SCH ×2 (10:27→17:03)
[2018-12-01] MEDS: CLONAZEPAM 0.5 MG TAB PO SCH ×2 (10:27→17:03)
[2018-12-01] MEDS: METHADONE HCL 5 MG TAB PO SCH ×3 (10:28→22:32)
[2018-12-01] MEDS: ALLOPURINOL 100 MG TAB PO SCH (10:28)
[2018-12-01] MEDS: FOLIC ACID/CYANOCOB/PYRIDOXINE TAB PO SCH (10:28)
[2018-12-01] MEDS: DOXYCYCLINE HYCLATE TABLET 100 MG TAB PO SCH ×2 (10:28→17:03)
[2018-12-01] MEDS: MORPHINE SULFATE INJ 4 MG/ML INJ 1ML IV PRN ×2 (11:29→16:00)
[2018-12-01] MEDS: HYDROCODONE/APAP 7.5MG-325MG 1 EA TAB PO PRN (12:50)
--- NOTE | 2018-12-01 14:42 | Operative Report ---
DATE OF PROCEDURE: December 01, 2018 PREOPERATIVE DIAGNOSES 1. Peripheral vascular disease. 2. Gangrene of left foot. POSTOPERATIVE DIAGNOSES 1. Peripheral vascular disease. 2. Gangrene of left foot. PROCEDURE: Left below knee amputation. SUPERVISOR PRODUCTION: None. ANESTHESIA: General. INDICATIONS AND FINDINGS: Patient is a 78-year-old male with a history of multiple medical problems, who has gangrene of the left foot with pain with severe peripheral vascular disease. At surgery, the patient was found to have viable tissues at the level of the amputation. The peroneal artery was noted to be patent, but the anterior and posterior tibial arteries were noted to be occluded. There was a large number of collateral vessels. TECHNIQUE: After adequate general anesthesia with the patient in the supine position, the left leg was prepped and draped in a sterile fashion with ChloraPrep solution. Measuring 10 cm distal to the tibial tuberosity, an incision was made in the anterior aspect of the leg and then carried out posteriorly to create a posterior myocutaneous flap such that the flap was half the length of the anterior incision. The anterior compartment muscles were divided with electrocautery. Anterior tibial neurovascular was divided between clamps. Medially, the muscles were also divided by electrocautery. The tibia was stripped of its periosteum. It was divided with the Gigli saw being beveled anteriorly. More laterally, the muscles over the fibula were divided. The fibula was stripped of its periosteum and divided as proximally as possible with the Gigli saw. The peroneal and posterior tibial neurovascular bundles were divided between clamps. Posterior muscles divided leaving some muscle on the posterior flap. The leg was removed. Each neurovascular bundle was suture ligated with 2-0 silk. Some other collateral vessels also suture ligated with 2-0 silk. Hemostasis achieved. The wound was irrigated with saline. The flap was then brought anteriorly and the superficial fascia closed with interrupted sutures of 2-0 Vicryl. Skin was closed with brittny. Sterile dressing was applied. Leg was placed into a knee immobilizer. Patient tolerated the procedure well. Estimated blood loss was 250 mL. There were no complications. All counts were correct. Patient was taken to the recovery room in satisfactory condition. Job#: [id number] OK
--- NOTE | 2018-12-01 15:37 | Progress Note ---
DATE: December 01, 2018 Status post BKA. Pain appears to be well controlled. Denies any trouble breathing. PHYSICAL EXAMINATION VITAL SIGNS: Temperature is 98.2. Pulse is 71. Blood pressure 129/81. CHEST: Clear. No wheezes heard. No crackles heard. EXTREMITIES: No edema. ABDOMEN: Benign. Access is patent. LABS: Hemoglobin is 8.2, K 4.3, creatinine 6.06, BUN 28. ASSESSMENT 1. End-stage renal disease. 2. Hypertension. 3. Nephrosclerosis. 4. Volume reasonably controlled. 5. Status post left below-knee amputation for gangrene and peripheral vascular disease. PLAN: Hemodialysis today, 4-hour run, F160 filter, 2 potassium bath, 2 to 3 liters fluid removed, blood flow rate 400 mL per minute, dialysis fluid flow rate 800 mL per minute. Will follow along. Job#: [id number]
--- NOTE | 2018-12-01 17:04 | NUR ---
PER DIALYSIS NURSE, PATIENT WILL BE DIALYZED IN ABOUT 2 HOURS.
[2018-12-01] MEDS ORDERED: FENTANYL CITRATE/PF 100MCG/2 ML INJ ONE (17:17)
--- NOTE | 2018-12-01 19:12 | NUR ---
REPORT GIVEN TO ONCOMING NURSE. PATIENT IS RESTING IN BED, NO ACUTE DISTRESS NOTED. CALL LIGHT WITHIN REACH. BED IN THE LOWEST POSITION.
--- NOTE | 2018-12-01 19:30 | NUR ---
Dialysis Nurse here to start. Consent for dialysis received.
[2018-12-01] MEDS: ATORVASTATIN 40 MG TAB PO SCH (22:31)
[2018-12-02] VITALS (10 sets, daily range): BP systolic 107–160; BP diastolic 51–70
--- NOTE | 2018-12-02 | NUR ---
Patient finished dialysis. Removed 2.5 L of fluid. Denies pain at this time. Patient in stable condition. Will continue to monitor.
[2018-12-02 06:13] LABS: BASOPHILS % 0.4 % (0.0-1.0); EOSINOPHILS # (AUTO) 0.4 (0.0-0.4); EOSINOPHILS % 4.2 % (0.0-6.0); HEMATOCRIT 24.2 % (38.2-49.6); HEMOGLOBIN 7.4 g/dL (14.0-18.0); LYMPHOCYTES # (AUTO) 1.5 (1.0-3.2); MEAN CORPUSCULAR HEMOGLOBIN 21.8 pg (28-32); MEAN CORPUSCULAR HGB CONC 30.6 g/dL (31-35); MEAN CORPUSCULAR VOLUME 71.2 fL (81-99); MONOCYTES # (AUTO) 1.4 (0.2-0.8); MONOCYTES % 13.9 % (4.4-11.3); NEUTROPHILS # (AUTO) 6.6 (2.1-6.9); NEUTROPHILS % 66.2 % (38.7-80.0); PLATELET COUNT 351 x10e3/uL (140-360); RED CELL DISTRIBUTION WIDTH 23.6 % (11.7-14.4)
[2018-12-02 06:37] LABS: ANION GAP 15.2 mmol/L (8-16); CREATININE, SERUM 5.12 mg/dL (0.72-1.25); POTASSIUM 4.2 mmol/L (3.5-5.1)
--- NOTE | 2018-12-02 07:30 | NUR ---
RECEIVED PATIENT RESTING IN BED. RESPIRATIONS EVEN AND UNLABORED. NO ACUTE DISTRESS NOTED. CALL LIGHT WITHIN REACH. BED IN THE LOWEST POSITION.
[2018-12-02 07:44] LABS: EOSINOPHILS % (MANUAL) 6 % (0-7); LYMPHOCYTES % (MANUAL) 15 % (19-48); MONOCYTES % (MANUAL) 11 % (3.4-9.0); NEUTROPHILS % (MANUAL) 68 % (40-74)
[2018-12-02 07:45] LABS: ANISOCYTOSIS MODERATE; HYPOCHROMASIA MODERATE; PLATELET ESTIMATE ADEQUATE; POIKILOCYTOSIS SLIGHT; RBC MORPHOLOGY COMMENT ABNORMAL
[2018-12-02 07:46] LABS: PLATELET MORPHOLOGY COMMENT FEW GIANT; TARGET CELLS FEW
[2018-12-02] MEDS: FAMOTIDINE 20 MG/2 ML VIAL IV SCH ×2 (08:25→16:15)
[2018-12-02] MEDS: SEVELAMER CARBONATE 800 MG TAB PO SCH ×3 (08:25→16:16)
[2018-12-02] MEDS: FUROSEMIDE 40 MG TAB PO SCH ×2 (08:26→16:16)
[2018-12-02] MEDS: CEPHALEXIN 500 MG CAP PO SCH ×2 (08:26→16:15)
[2018-12-02] MEDS: TAMSULOSIN HCL 0.4 MG CAP PO SCH (08:26)
[2018-12-02] MEDS: FOLIC ACID 1 MG TAB PO SCH (08:26)
[2018-12-02] MEDS: CLONAZEPAM 0.5 MG TAB PO SCH ×2 (08:26→16:16)
[2018-12-02] MEDS: ENTRESTO PO SCH ×2 (08:26→16:15)
[2018-12-02] MEDS: CLONIDINE HCL 0.1 MG TAB PO SCH ×3 (08:26→20:07)
[2018-12-02] MEDS: DILTIAZEM HCL 60 MG TAB PO SCH ×3 (08:26→20:07)
[2018-12-02] MEDS: FOLIC ACID/CYANOCOB/PYRIDOXINE TAB PO SCH (08:27)
[2018-12-02] MEDS: ALLOPURINOL 100 MG TAB PO SCH (08:27)
[2018-12-02] MEDS: DOXYCYCLINE HYCLATE TABLET 100 MG TAB PO SCH ×2 (08:27→16:16)
[2018-12-02] MEDS: PRASTERONE 25 MG PO SCH (08:27)
[2018-12-02] MEDS: METHADONE HCL 5 MG TAB PO SCH (08:27)
[2018-12-02] MEDS: METOPROLOL TARTRATE 25 MG TAB PO SCH ×2 (08:27→16:16)
[2018-12-02] MEDS ORDERED: EPOETIN ALFA 10000 UNIT/ML VIAL SC ONE (09:15)
--- NOTE | 2018-12-02 09:16 | Progress Note ---
DATE: December 02, 2018 SUBJECTIVE: This is a 78-year-old male with past medical history of hypertension, hyperparathyroidism, severe peripheral vascular disease, and chronic kidney disease. He underwent his left atmrj-qbl-kqdk amputation yesterday per the general surgery team. He currently denies nausea, vomiting, fever, chills, chest pain, or shortness of breath. PHYSICAL EXAMINATION: GENERAL: Alert and oriented x3, in no apparent distress. VITAL SIGNS: Today, temperature is 97.1, heart rate 70, respiratory rate 18, blood pressure is 117/59, pulse ox is 96% on room air. PROBLEM-FOCUSED LOWER EXTREMITY PHYSICAL EXAMINATION: Dressing is clean, dry, and intact to the left lower extremity kosbm-qtv-sbac amputation site, otherwise physical exam is deferred. LABS: White blood cell count 9.96, hemoglobin 7.4, hematocrit 24.2, platelet count 351,000. Sodium 139, potassium 4.2, chloride 98, CO2 is 30, BUN 20, creatinine 5.12. ASSESSMENT: 1. Left foot gangrene. 2. Peripheral vascular disease. 3. Chronic kidney disease. PLAN: Patient was seen and evaluated. Discussed condition and treatment options with the patient in detail. Patient underwent successful left wxdwg-mvs-ydgn amputation yesterday per general surgery. The podiatry service will be signing off at this point. We would recommend a routine followup in the office upon discharge for preventative measures to the right lower extremity. Podiatry will be signing off. Please reconsult if necessary. Job#: [id number]
--- NOTE | 2018-12-02 10:30 | NUR ---
PATIENT REFUSING TO BE TURNED.
--- NOTE | 2018-12-02 12:05 | NUR ---
PLACED CALL TO DR. MAR FOR PT ORDER.
--- NOTE | 2018-12-02 12:45 | NUR ---
PATIENT TRYING TO GET OUT OF BED. EXPLAINED TO PATIENT THAT HE CAN'T GET OUT BED UNTIL NURSE GETS ORDER FOR PT. PATIENT GETTING AGITATED. AIR SURVEILLANCE OPERATOR IN TO TALK TO PATIENT. PER AIR SURVEILLANCE OPERATOR, PLACE PT ORDER PER PROTOCOL SO PATIENT CAT GET OUT OF BED SAFELY.
--- NOTE | 2018-12-02 13:20 | NUR ---
NOTIFIED DAUGHTER PHENCECIA OF SITUATION ABOUT PATIENT WANTING TO GO HOME.
--- NOTE | 2018-12-02 13:25 | NUR ---
NOTIFIED DR. OLSEN THAT PATIENT IS GETTING AGITATED. NEW ORDERS RECEIVED ON EMAR.
--- NOTE | 2018-12-02 13:25 | NUR ---
PER DR. OLSEN DC IV TO RIGHT FOOT.
--- NOTE | 2018-12-02 13:59 | NUR ---
IV TO RIGHT FOOT DC'D WITH THE TIP INTACT. CONCRETE PANEL INSTALLER TO CALL RADIOLOGY NURSE TO ATTEMPT TO GET A NEW IV ACCESS.
--- NOTE | 2018-12-02 16:00 | NUR ---
PATIENT STILL REFUSING TO BE TURNED.
[2018-12-02] MEDS: QUETIAPINE FUMARATE 25 MG TAB PO PRN (16:17)
[2018-12-02] MEDS: ATORVASTATIN 40 MG TAB PO SCH (20:07)
[2018-12-03] VITALS (8 sets, daily range): BP systolic 117–175; BP diastolic 55–67
[2018-12-03] MEDS: ACETAMINOPHEN 325 MG TAB PO PRN ×2 (00:57→14:40)
[2018-12-03 06:14] LABS: HEMATOCRIT 21.1 % (38.2-49.6)
[2018-12-03 06:21] LABS: HEMOGLOBIN 6.5 g/dL (14.0-18.0)
[2018-12-03 06:34] LABS: PHOSPHORUS 4.3 MG/DL (2.3-4.7)
--- NOTE | 2018-12-03 06:43 | NUR ---
Received critical value of Hgb of 6.5. Called Dr. Susan morataya to give [address] Gann.
[2018-12-03 06:53] LABS: FERRITIN 449.02 ng/mL (21.81-274.66)
--- NOTE | 2018-12-03 07:04 | NUR ---
Called Dr. Gann and aware of labs and ok to give 2units of prbc. No orders received.
[2018-12-03] MEDS ORDERED: SODIUM CHLORIDE 0.9% 250ML 250 ML IV ONE ×2 (07:15→08:45)
--- NOTE | 2018-12-03 07:34 | NUR ---
PT IN BED LETHARGIC, PER NIGHT NURSE PT HAS BEEN LETHARGIC ALL NIGHT FROM MORPHINE AND METHADONE GIVEN, DR PRETTY SRIVASTAVA AND D/C MORPHINE AND METHADONE. PT TO RECEIVE 2 UNIT S OF PRBC DURING DIALYSIS TODAY.
[2018-12-03] MEDS: SEVELAMER CARBONATE 800 MG TAB PO SCH ×3 (08:00→18:15)
[2018-12-03] MEDS: CEPHALEXIN 500 MG CAP PO SCH ×2 (09:00→18:15)
[2018-12-03] MEDS: CLONAZEPAM 0.5 MG TAB PO SCH ×2 (09:00→18:15)
[2018-12-03] MEDS: PRASTERONE 25 MG PO SCH (09:00)
[2018-12-03] MEDS: ENTRESTO PO SCH ×2 (09:00→18:15)
[2018-12-03] MEDS: FAMOTIDINE 20 MG/2 ML VIAL IV SCH ×2 (09:00→17:00)
[2018-12-03] MEDS: ALLOPURINOL 100 MG TAB PO SCH (09:00)
[2018-12-03] MEDS: FOLIC ACID 1 MG TAB PO SCH (09:00)
[2018-12-03] MEDS: METOPROLOL TARTRATE 25 MG TAB PO SCH ×2 (09:00→18:15)
[2018-12-03] MEDS: DILTIAZEM HCL 60 MG TAB PO SCH ×3 (09:00→22:57)
[2018-12-03] MEDS: CLONIDINE HCL 0.1 MG TAB PO SCH ×3 (09:00→22:58)
[2018-12-03] MEDS: TAMSULOSIN HCL 0.4 MG CAP PO SCH (09:00)
[2018-12-03] MEDS: FOLIC ACID/CYANOCOB/PYRIDOXINE TAB PO SCH (09:00)
[2018-12-03] MEDS: FUROSEMIDE 40 MG TAB PO SCH ×2 (09:00→18:15)
[2018-12-03] MEDS: DOXYCYCLINE HYCLATE TABLET 100 MG TAB PO SCH ×2 (09:00→18:15)
--- NOTE | 2018-12-03 09:01 | Consultation ---
DATE OF CONSULTATION: December 03, 2018 REFERRING PHYSICIAN: Randy Davis MD I would like to thank Dr. Davis for asking me to see Mr. Kong in consultation. REASONS FOR CONSULTATION 1. Left BKA secondary to peripheral vascular disease. 2. End-stage renal disease on hemodialysis. 3. Hypertension. HISTORY: This 78-year-old male with history of hypertension, end-stage renal disease, and PVD developed gangrene to the left foot as well as pain to the left foot. He underwent recent BKA yesterday. They had previously tried to revascularize the foot, but they could not. The patient is being evaluated for rehab needs. PAST MEDICAL HISTORY: Includes peripheral vascular disease, hypertension, renolithiasis, COPD, history of cardiac catheterization. SURGERIES: As above. ALLERGIES: NO KNOWN DRUG ALLERGIES. SOCIAL HISTORY: Habits: Nonsmoker, nondrinker. LABS: White cell count 9.96. Today, hemoglobin is 6.5, hematocrit 21.1, platelets 351. Sodium is 139, potassium 4.2, BUN 20, creatinine 5.12. PHYSICAL EXAMINATION GENERAL: The patient is pretty sleepy. He did not really wake up much. He was a little bit mumbly. NECK: No JVD. HEART: Regular. LUNGS: Diminished breath sounds, but he did not take a really deep breath. ABDOMEN: Nontender, nondistended. EXTREMITIES: His left leg is in a knee immobilizer. MANUAL MUSCLE TESTING: I got him to squeeze my hand, but he really did not resist against me that much. Most of this was because he was sleepy. In the right lower extremity, I got him to move his leg, at least 3-/5 strength. The left lower extremity I did not test due to his recent surgery. SENSORY: I was unable to adequately assess at this time due to him being tired. IMPRESSION 1. Left below-knee amputation. 2. Anemia. 3. End-stage renal disease on hemodialysis. 4. Hypertension. PLAN 1. Therapy will be initiated. Work on trying to improve functional mobility. We will also see what his prior level of function was. He was ambulatory using a cane; however, he is tired and it is early in the morning, and he cannot tell me if he lives with anybody or not. Nonetheless, will need to reassess. 2. Most likely, he will need blood transfusion. Thank you, once again, for allowing me to participate in the care of this pleasant but unfortunate patient status post below-knee amputation. ROSIE SETHI DO Job#: [id number]
--- NOTE | 2018-12-03 10:00 | NUR ---
PT ALERT AND AWAKE, CONFUSED AND SLIGHTLY AGITATED. ATE 50% OF BREAKFAST, SPIT OUT HIS MEDICATIONS STATING "I DON'T WANT IT". ASSISTED WITH FEEDING AND REPOSITIONED. WILL CONTINUE TO MONITOR. PT TO RECEIVED BLOOD LATER TODAY DURING DIALYSIS PER DIALYSIS NURSE SCHEDULE.
[2018-12-03] MEDS: HYDROCODONE/APAP 10MG-325MG TAB PO PRN ×2 (11:02→23:05)
--- NOTE | 2018-12-03 11:03 | NUR ---
PAIN MEDS ADMINISTERED PT MOANS DURING POSITION CHANGED AND AM CARE.
[2018-12-03] MEDS ORDERED: SODIUM CHLORIDE 0.9% 250ML 500 ML ONE (15:05)
--- NOTE | 2018-12-03 15:13 | NUR ---
PT BLOOD TRANSFUSION STARTED NOW, IN ROOM WITH THE DIALYSIS NURSE TO MONITOR.
--- NOTE | 2018-12-03 16:01 | NUR ---
CM SPOKE WITH DTR RASHIDA SIDDIQIU [phone] SPOKE WITH HER RE [facility] TELE[facility]ONE CONSENT DONE AND PLACED ON CHART COPY TO PT'S FOLDER FAXED CLINICAL INFORMATION TO [facility] [phone] CONFIRMATION REC'D
--- NOTE | 2018-12-03 18:25 | NUR ---
PT ALERT WITH INTERMITTENT CONFUSION, 3 UNITS OF PRBC TRANSFUSED WITH NO ADVERSE REACTIONS NOTED. PO INTAKE POOR, FED BY STAFF. NO DISTRESS NOTED.
--- NOTE | 2018-12-03 18:54 | NUR ---
PT MEDICATIONS GIVEN LATE 1814 DUE TO DIALYSIS.
--- NOTE | 2018-12-03 19:15 | NUR ---
Completed bedside rounds with morning nurse. Pt lying in bed quietly with eyes closed, HOB 75 degrees. Res even and unlabored. NO distress noted. Call reyes within reach. Family at bedside. Will continue to monitor.
--- NOTE | 2018-12-03 19:22 | NUR ---
PT HAD DIALYSIS TODAY 2100ML FLUIDS
[2018-12-03] MEDS: ATORVASTATIN 40 MG TAB PO SCH (22:58)
--- NOTE | 2018-12-03 23:08 | NUR ---
Daughter called to check on health status. Informed Pt was awake and grimacing, admin prn pain med.
[2018-12-04] VITALS: BP 128/61
[2018-12-04 04:00] VITALS: BP 118/57
[2018-12-04 06:08] LABS: BASOPHILS # (AUTO) 0.1 (0.0-0.1); BASOPHILS % 0.5 % (0.0-1.0); EOSINOPHILS # (AUTO) 0.3 (0.0-0.4); EOSINOPHILS % 2.6 % (0.0-6.0); HEMATOCRIT 35.6 % (38.2-49.6); HEMOGLOBIN 11.4 g/dL (14.0-18.0); LYMPHOCYTES # (AUTO) 1.2 (1.0-3.2); LYMPHOCYTES % 11.5 % (18.0-39.1); MEAN CORPUSCULAR HEMOGLOBIN 23.6 pg (28-32); MEAN CORPUSCULAR VOLUME 73.7 fL (81-99); MONOCYTES % 9.6 % (4.4-11.3); NEUTROPHILS # (AUTO) 7.9 (2.1-6.9); NEUTROPHILS % 75.4 % (38.7-80.0); PLATELET COUNT 369 x10e3/uL (140-360); RED BLOOD COUNT 4.83 x10e6/uL (4.3-5.7); RED CELL DISTRIBUTION WIDTH 22.3 % (11.7-14.4)
[2018-12-04 08:00] VITALS: BP 126/58
[2018-12-04 08:00] LABS: ANISOCYTOSIS MODERATE; HYPOCHROMASIA SLIGHT; PLATELET ESTIMATE ADEQUATE; PLATELET MORPHOLOGY COMMENT NORMAL; POIKILOCYTOSIS MODERATE; POLYCHROMASIA FEW; RBC MORPHOLOGY COMMENT ABNORMAL; TARGET CELLS FEW
[2018-12-04] MEDS: SEVELAMER CARBONATE 800 MG TAB PO SCH ×3 (08:33→17:55)
[2018-12-04] MEDS: ENTRESTO PO SCH ×2 (08:34→17:54)
[2018-12-04] MEDS: FUROSEMIDE 40 MG TAB PO SCH (08:35)
[2018-12-04] MEDS: CLONIDINE HCL 0.1 MG TAB PO SCH ×3 (08:35→22:16)
[2018-12-04] MEDS: FOLIC ACID 1 MG TAB PO SCH (08:35)
[2018-12-04] MEDS: CLONAZEPAM 0.5 MG TAB PO SCH (08:35)
[2018-12-04] MEDS: DILTIAZEM HCL 60 MG TAB PO SCH (08:35)
[2018-12-04] MEDS: TAMSULOSIN HCL 0.4 MG CAP PO SCH (08:35)
[2018-12-04] MEDS: CEPHALEXIN 500 MG CAP PO SCH (08:35)
[2018-12-04] MEDS: ALLOPURINOL 100 MG TAB PO SCH (08:36)
[2018-12-04] MEDS: DOXYCYCLINE HYCLATE TABLET 100 MG TAB PO SCH ×2 (08:36→17:55)
[2018-12-04] MEDS: METOPROLOL TARTRATE 25 MG TAB PO SCH ×2 (08:36→17:55)
[2018-12-04] MEDS: FOLIC ACID/CYANOCOB/PYRIDOXINE TAB PO SCH (08:36)
[2018-12-04] MEDS: HYDROCODONE/APAP 10MG-325MG TAB PO PRN ×3 (08:37→23:45)
[2018-12-04] MEDS: PRASTERONE 25 MG PO SCH (09:00)
[2018-12-04] MEDS ORDERED: CLINDAMYCIN HCL 150 MG CAP PO SCH (10:00)
[2018-12-04] MEDS ORDERED: OMEPRAZOLE 20 MG CAP PO SCH (10:00)
[2018-12-04] MEDS ORDERED: ASPIRIN 325 MG TAB EC PO SCH (10:00)
[2018-12-04] MEDS ORDERED: CLOPIDOGREL BISULFATE 75 MG TAB PO ONE (10:30)
[2018-12-04] MEDS ORDERED: PANTOPRAZOLE SOD 40 MG TABEC PO SCH (11:00)
[2018-12-04 12:27] VITALS: BP 126/58
[2018-12-04] MEDS: CLINDAMYCIN HCL 150 MG CAP PO SCH ×2 (14:00→22:17)
[2018-12-04] MEDS ORDERED: CLOPIDOGREL BISULFATE 75 MG TAB PO SCH (14:00)
[2018-12-04] MEDS: PANTOPRAZOLE SOD 40 MG TABEC PO SCH (14:40)
[2018-12-04] MEDS: CLOPIDOGREL BISULFATE 75 MG TAB PO SCH (14:41)
[2018-12-04] MEDS: ASPIRIN 325 MG TAB EC PO SCH (14:41)
--- NOTE | 2018-12-04 14:48 | NUR ---
PT SPIT OUT HIS CLINDAMYCIN CAP AND HIT THE METAL ROLLING MILL OPERATOR ON HER HAND WHEN SHE TRIES TO GIVE HIM HIS MEDICATIONS.
[2018-12-04 16:00] VITALS: BP 107/53
[2018-12-04] MEDS: QUETIAPINE FUMARATE 25 MG TAB PO PRN (18:00)
--- NOTE | 2018-12-04 19:15 | NUR ---
Patient visited in room during nursing rounds. Patient alert and oriented x1-2. Patient able to communicate but tends to forget recent memory. Pt easy to re-orient with facts. S/P Left BKA with stump covered with dressing (C/D/I). Left leg wrapped or supported with leg stabilizer. Left upper arm with AV fistula. Call reyes within reach. Bed alarm on.
[2018-12-04 20:00] VITALS: BP 125/61
[2018-12-04] MEDS: ATORVASTATIN 40 MG TAB PO SCH (22:17)
[2018-12-05] VITALS (7 sets, daily range): BP systolic 107–153; BP diastolic 55–65
--- NOTE | 2018-12-05 06:00 | NUR ---
Patient resting in bed. Easily arousable. Took Cleocin pill with chocolate pudding. Will continue to monitor.
[2018-12-05] MEDS: CLINDAMYCIN HCL 150 MG CAP PO SCH ×3 (06:23→22:00)
[2018-12-05] MEDS: HYDROCODONE/APAP 10MG-325MG TAB PO PRN ×3 (08:09→22:00)
[2018-12-05] MEDS: ENTRESTO PO SCH ×2 (09:00→17:00)
[2018-12-05] MEDS ORDERED: CLOPIDOGREL BISULFATE 75 MG TAB PO SCH ×2 (09:00)
[2018-12-05] MEDS: PRASTERONE 25 MG PO SCH (09:00)
[2018-12-05] MEDS: SEVELAMER CARBONATE 800 MG TAB PO SCH ×3 (09:26→17:00)
[2018-12-05] MEDS: PANTOPRAZOLE SOD 40 MG TABEC PO SCH (09:26)
[2018-12-05] MEDS: ASPIRIN 325 MG TAB EC PO SCH (09:27)
[2018-12-05] MEDS: CLONIDINE HCL 0.1 MG TAB PO SCH ×3 (09:27→22:00)
[2018-12-05] MEDS: TAMSULOSIN HCL 0.4 MG CAP PO SCH (09:27)
[2018-12-05] MEDS: FOLIC ACID/CYANOCOB/PYRIDOXINE TAB PO SCH (09:28)
[2018-12-05] MEDS: ALLOPURINOL 100 MG TAB PO SCH (09:28)
[2018-12-05] MEDS: DOXYCYCLINE HYCLATE TABLET 100 MG TAB PO SCH ×2 (09:28→17:00)
[2018-12-05] MEDS: METOPROLOL TARTRATE 25 MG TAB PO SCH ×2 (09:28→17:00)
[2018-12-05] MEDS: CLOPIDOGREL BISULFATE 75 MG TAB PO SCH (09:28)
--- NOTE | 2018-12-05 12:15 | NUR ---
PT ASSISTED UP TO W/C MAX ASSIST TOLERATED WELL.
--- NOTE | 2018-12-05 13:00 | NUR ---
ASSISTED PT BACK TO BED.MEDICATED FOR [PAIN
--- NOTE | 2018-12-05 18:15 | NUR ---
PT UP IN BED LT STUMP ELEVATED ON PILLOW,,STILL NOT EATING,DENIES PAIN.
--- NOTE | 2018-12-05 19:15 | NUR ---
Patient visited in room during nursing rounds. Patient alert and oriented x2-3. Patient able to communicate but tends to forget recent memory. Pt easy to re-orient with facts. S/P Left BKA with stump covered with dressing (C/D/I). Left leg wrapped or supported with leg stabilizer/immobilizer. Left upper arm with AV fistula. Call reyes within reach. Bed alarm on.
[2018-12-05] MEDS: LACTULOSE SYRUP 20 GM/30 ML UDC PO PRN (22:00)
[2018-12-05] MEDS: ATORVASTATIN 40 MG TAB PO SCH (22:00)
--- NOTE | 2018-12-05 23:45 | NUR ---
Patient very agitated and screaming. Patient checked by nurse (Earle) and was told that there was a cat and a bomb inside his room. Patient was re-assured that he was in a safe place (hospital) and that there are no cats or bombs. Patient still very insisting there was a bomb and cats in room.
[2018-12-05] MEDS: QUETIAPINE FUMARATE 25 MG TAB PO PRN (23:50)
--- NOTE | 2018-12-05 23:56 | NUR ---
Spoke with daughter (Swapna) over the phone and informed about patient being very agitated and confused with hallucinations. Daughter appreciated being informed and wanted to be notified when or if she needs to come down to the patient's room to stay with pt.
[2018-12-06] VITALS (7 sets, daily range): BP systolic 107–185; BP diastolic 63–85
--- NOTE | 2018-12-06 00:03 | NUR ---
Spoke with Dr. Davis over the phone and informed about patient's confusion and extreme agitation with hallucination. ordered Geodon 8mg IM q6hr prn.
[2018-12-06] MEDS ORDERED: ZIPRASIDONE 20 MG VIAL IM PRN ×2 (00:15→08:30)
--- NOTE | 2018-12-06 01:00 | NUR ---
Patient appear calm and more comfortable at this time. No sign of agitation. Bed alarm active.
--- NOTE | 2018-12-06 02:00 | NUR ---
Patient woke up and attempted to get up out of bed. Bed alarm rang and nurse and tech was able to assist pt back in bed. Patient easily reoriented to sleep. No Geodon given.
[2018-12-06] MEDS: CLINDAMYCIN HCL 150 MG CAP PO SCH ×3 (05:51→22:59)
[2018-12-06] MEDS: PANTOPRAZOLE SOD 40 MG TABEC PO SCH (05:51)
--- NOTE | 2018-12-06 06:28 | NUR ---
Attempted to call Dr. Davis to possibly obtain order for prn sitter for patient. Explained on voice message patient was attempting several times trying to get up and out bed with one instance pt almost fell. Awaiting on MD call back.
--- NOTE | 2018-12-06 07:30 | NUR ---
PATIENT TRYING TO GET OUT OF BED, BED ALARM ACTIVATED. PATIENT REORIENTED AND REPOSITIONED IN BED BY 2 STAFFS. DIAPER CHECKED, DRY AT THIS TIME, URINAL OFFERED, AT EASY REACH. BED IN LOWER POSITION, CALL LIGHT AT REACH, BED ALARM ON.
[2018-12-06] MEDS: SEVELAMER CARBONATE 800 MG TAB PO SCH ×3 (08:00→17:00)
[2018-12-06] MEDS: PRASTERONE 25 MG PO SCH (09:00)
[2018-12-06] MEDS: CLOPIDOGREL BISULFATE 75 MG TAB PO SCH (09:00)
[2018-12-06] MEDS: CLONIDINE HCL 0.1 MG TAB PO SCH ×3 (09:00→21:00)
[2018-12-06] MEDS: ENTRESTO PO SCH ×2 (09:00→17:00)
[2018-12-06] MEDS: ASPIRIN 325 MG TAB EC PO SCH (09:00)
[2018-12-06 09:24] LABS: BASOPHILS % 0.3 % (0.0-1.0); EOSINOPHILS # (AUTO) 0.4 (0.0-0.4); EOSINOPHILS % 3.2 % (0.0-6.0); HEMATOCRIT 30.3 % (38.2-49.6); HEMOGLOBIN 10.1 g/dL (14.0-18.0); LYMPHOCYTES # (AUTO) 1.4 (1.0-3.2); LYMPHOCYTES % 11.7 % (18.0-39.1); MEAN CORPUSCULAR HGB CONC 33.3 g/dL (31-35); MONOCYTES # (AUTO) 1.2 (0.2-0.8); MONOCYTES % 10.6 % (4.4-11.3); NEUTROPHILS # (AUTO) 8.5 (2.1-6.9); NEUTROPHILS % 73.7 % (38.7-80.0); PLATELET COUNT 396 x10e3/uL (140-360); RED BLOOD COUNT 4.21 x10e6/uL (4.3-5.7); RED CELL DISTRIBUTION WIDTH 23.4 % (11.7-14.4)
[2018-12-06 09:43] LABS: ANION GAP 18.7 mmol/L (8-16); CALCIUM 9.5 mg/dL (8.4-10.2); CREATININE, SERUM 9.66 mg/dL (0.72-1.25); POTASSIUM 3.7 mmol/L (3.5-5.1)
[2018-12-06 10:39] LABS: ANISOCYTOSIS MODERATE; HOWELL-JOLLY BODIES FEW; PLATELET ESTIMATE ADEQUATE; RBC MORPHOLOGY COMMENT ABNORMAL
[2018-12-06 10:40] LABS: HYPOCHROMASIA SLIGHT; PLATELET MORPHOLOGY COMMENT NORMAL
--- NOTE | 2018-12-06 11:00 | NUR ---
PATIENT IS REFUSING BED SIDE HEMODIALYSIS AFTER 1.5 HOUR OF TREATMENT. REEDUCATED ON THE IMPORTANCE OF HEMODIALYSIS, PATIENT STATED " IT IS MY BODY, I HAVE THE RIGHT TO REFUSE". PATIENT'S DAUGHTER SPOKE TO HIM AND HE STILL REFUSE. DAUGHTER STATED THAT HE SHOULD BE LEFT ALONE IF HE DOES NOT WANT IT. HEMODIALYSIS NURSE, ENDING TREATMENT AT THIS TIME, 600 CC REMOVED. PATIENT IN BED WITH CALL LIGHT AT REACH.
--- NOTE | 2018-12-06 11:34 | NUR ---
PATIENT TRYING TO GET OUT OF BED STATING I AM GOING HOME, REDIRECTED. DAUGHTER NOTIFIED, SHE STATED THAT ONE OF HER SISTER WILL COME TO SIT WITH HIM. PATIENT CLOSELY MONITOR, ON HIS PHONE AT THIS TIME. CALL LIGHT AT REACH, BED ALARM ACTIVATED.
--- NOTE | 2018-12-06 11:53 | NUR ---
[facility] EVAL IN PROGRESS
[2018-12-06] MEDS: DOXYCYCLINE HYCLATE TABLET 100 MG TAB PO SCH ×2 (12:00→17:40)
[2018-12-06] MEDS: METOPROLOL TARTRATE 25 MG TAB PO SCH ×2 (12:00→17:39)
[2018-12-06] MEDS: ALLOPURINOL 100 MG TAB PO SCH (13:08)
[2018-12-06] MEDS: FOLIC ACID/CYANOCOB/PYRIDOXINE TAB PO SCH (13:08)
[2018-12-06] MEDS: TAMSULOSIN HCL 0.4 MG CAP PO SCH (13:09)
--- NOTE | 2018-12-06 15:38 | NUR ---
PATIENT REQUESTED TO USE THE RESTROOM. ASSISTED TO BED SIDE COMMODE BY PT STAFF, UNABLE TO HAVE BM. ASSISTED BACK TO BED, DIAPER APPLIED. DAUGHTER AT BED SIDE, CALL LIGHT AT REACH.
[2018-12-06] MEDS: LACTULOSE SYRUP 20 GM/30 ML UDC PO PRN (16:45)
[2018-12-06] MEDS: ATORVASTATIN 40 MG TAB PO SCH (20:10)
[2018-12-06] MEDS ORDERED: WATER STERILE 10 ML VIAL INJ PRN (22:00)
[2018-12-07] VITALS (8 sets, daily range): BP systolic 91–173; BP diastolic 50–79
[2018-12-07] MEDS: HYDROCODONE/APAP 10MG-325MG TAB PO PRN ×2 (01:25→19:15)
[2018-12-07] MEDS: CLINDAMYCIN HCL 150 MG CAP PO SCH ×3 (06:35→21:22)
--- NOTE | 2018-12-07 06:55 | NUR ---
PATIENT RESTING IN BED WITH HOB SLIGHTLY ELEVATED, LEFT BKA STUMP ELEVATED. PATIENT DID NOT SLEEP WELL, HE WAS GIVEN MEDICATION TO HELP WITH PAIN AND TO HELP CALM HIM DOWN BUT EVERY TIME HE WOULD DOSE OFF HE WOULD WAKE UP WITH 30 MINUTES TO AN HOUR AND STARTED TALKING OUT LOUD OR TRYING TO GET OUT OF THE BED WANTING TO WALK DOWN THE STAIRS TO GO HOME. REORIENTED PATIENT SEVERAL TIMES BUT REMAIN ORIENTED TO HIS NAME ONLY. REPORT GIVEN TO 7AM NURSE.
--- NOTE | 2018-12-07 07:18 | NUR ---
PATIENT IN BED PLAYING WITH HIS PHONE, LEFT STUMP ELEVATED ON PILLOW. DENIED PAIN AT THIS TIME. BED IN LOWER POSITION, CALL LIGHT AT REACH, BED ALARM ACTIVATED.
[2018-12-07] MEDS: PANTOPRAZOLE SOD 40 MG TABEC PO SCH (07:30)
[2018-12-07] MEDS: SEVELAMER CARBONATE 800 MG TAB PO SCH ×3 (08:00→17:00)
[2018-12-07] MEDS: PRASTERONE 25 MG PO SCH (09:00)
[2018-12-07] MEDS: TAMSULOSIN HCL 0.4 MG CAP PO SCH (10:11)
[2018-12-07] MEDS: ENTRESTO PO SCH ×2 (10:11→17:25)
[2018-12-07] MEDS: ASPIRIN 325 MG TAB EC PO SCH (10:11)
[2018-12-07] MEDS: CLONIDINE HCL 0.1 MG TAB PO SCH ×3 (10:11→21:00)
[2018-12-07] MEDS: ALLOPURINOL 100 MG TAB PO SCH (10:12)
[2018-12-07] MEDS: FOLIC ACID/CYANOCOB/PYRIDOXINE TAB PO SCH (10:12)
[2018-12-07] MEDS: DOXYCYCLINE HYCLATE TABLET 100 MG TAB PO SCH ×2 (10:12→17:26)
[2018-12-07] MEDS: METOPROLOL TARTRATE 25 MG TAB PO SCH ×2 (10:12→17:26)
[2018-12-07] MEDS: CLOPIDOGREL BISULFATE 75 MG TAB PO SCH (10:12)
--- NOTE | 2018-12-07 11:30 | NUR ---
PATIENT ASSISTED WITH DIAPER CHANGE, HAD A LARGE BM. REPOSITIONED IN BED, CALL LIGHT AT REACH.
[2018-12-07] MEDS: ACETAMINOPHEN 325 MG TAB PO PRN (12:17)
--- NOTE | 2018-12-07 13:39 | NUR ---
PATIENT NOTED WITH TEMPERATURE OF 100.3. TYLENOL GIVEN AND TEMP RECHECKED WITH THE READI NG OF 97.5. WILL CONTINUE TO MONITOR.
--- NOTE | 2018-12-07 16:08 | NUR ---
Nutrition Intervention Note RD Recommendation(s) for Physician: - Continue renal diet as ordered - Continue Nepro with each meal to promote protein-calorie intake - Rec renal MVi with minerals, vitamin C and zinc sulfate ([id number]) for wound healing Plan of Care: RD following, monitoring for tolerance and adequacy Nutrition reason for involvement: Follow up RD Assessment 12/07 Chart reviewed. Visited pt twice this morning but pt was so sleepy that he fell asleep during my assessment. Pt was discussed during rounds. S/p L BKA on 12/01. POD 6. Per RN, pt refused HD after 1hr of dialyzing yesterday. His appetite has been fair with >50% meal intake today. Per RN Bob, pt likes Nepro and has been drinking it with every meal. Constipation resolved after lactulose was given yesterday. Will continue to monitor and follow. 11/30 Chart reviewed. 78yo M, who is admitted for worsening pain and gangrene on left foot. Planned L BKA for tomorrow. Visited pt in the room. 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 RN recorded 100% meal intake since admission. No GI complains noted. LBM 11/29. No chewing or swallowing difficulty noted. Weight has been stable, per pt. Will continue to monitor and follow. Principal Problems/Diagnoses: gangrene in the left foot s/p L BKA on 12/01, severe peripheral vascular disease. PMH: Peripheral vascular disease, hypertension, hypothyroidism, cardiovascular disease, COPD, hyperlipidemia, ESRD on HD. GI: LBM 12/07 Skin: L BKA Labs: No lab on 12/07 Meds: abx, renvela, Nephro-manny, plavix Ht: 66in Wt: 142lb BMI: 22.9kg/m2 IBW: 142lb Malnutrition Evaluation (11/30/2018) The patient does not meet criteria for a specified degree of malnutrition at this time. Will re-evaluate at follow-up as appropriate. Nutrition Prescription (Diet Order): renal diet w Nepro TID Estimated Nutritional Needs: Calories: 1950-2275kcal (30-35kcal/kg/d) Weight used : Actual BW 65kg Protein : 78 98g (1.2-1.5g/kg/d) Weight used: Actual BW 65kg Diet Adequacy: meeting calorie needs, meeting protein needs Diet Education Needs Assessment: Diet education not indicated Pt has been on HD x3 years, seeing RD at dialysis facility. Nutrition Care Level: low Nutrition Diagnosis: Increased nutrient needs of MVi, vit C, and zinc related to altered skin integrity as evidenced by Pardeep CHAMBERLAIN. Goal: Patient will meet 75-100% of estimated needs by follow up Progress: Progressing Interventions: Mineral-modified diet, Commercial beverage, Commercial food, Multivitamin/mineral supplement therapy Monitoring/Evaluation: Total energy intake, Total protein intake, Modified diet, Liquid supplement, Weight change Signed: Shreya Pelayo MS, RD, LD
[2018-12-07] MEDS ORDERED: QUETIAPINE FUMARATE 25 MG TAB PO PRN (16:15)
[2018-12-07] MEDS ORDERED: HALOPERIDOL LACTATE 5 MG/ML VIAL IM PRN (16:15)
--- NOTE | 2018-12-07 16:52 | NUR ---
SPOKE WITH TELLO TODAY FROM [facility] AWAIT INS DECISION
--- NOTE | 2018-12-07 17:15 | Consultation ---
DATE OF CONSULTATION: December 07, 2018 PSYCHIATRIC CONSULTATION REASON FOR CONSULTATION: To evaluate the patient's psychosis. HISTORY OF PRESENT ILLNESS: The patient is a 78-year-old male admitted to the hospital for cellulitis and necrotic toes. Psychiatric consultation is called to evaluate the patient's psychosis. As per medical record, the patient has a history of peripheral vascular disease, hypertension, hypothyroid, cardiovascular disease, COPD and hyperlipidemia. The patient is found in the room. He is lying in the bed. He is calm and cooperative. He initially appeared to be able to answer questions appropriately. He knows where he is. However, upon further questioning, he appears to be tangential and . He is suspicious. At times, he makes bizarre statements. He seems to be forgetful. He denies depression. Denies anxiety. Denies any hallucinations. He denies any suicidal ideation. He claims that he is sleeping and eating okay. He denies any side effects from his medications. As per nursing staff, the patient has been forgetful. He has been agitated and combative. He is getting p.r.n. medication. As per nursing staff, the patient has been doing fairly okay. After the procedure, the patient became more agitated and confused. PAST PSYCHIATRIC HISTORY: The patient denies past psychiatric history. He denies prior suicide attempt. He denies alcohol or drug use. FAMILY HISTORY: Denied. SOCIAL HISTORY: Patient says he lives alone. MENTAL STATUS EXAMINATION: The patient is an elderly male. He is alert, awake and oriented to self and place and situation. His mood is fair. He denies any suicidal or homicidal ideation. Affect is congruent with mood. Psychomotor state is passive. Thought process is concrete. There is some suspiciousness with the patient. Insight and judgment are fairly limited. Memory appears to be grossly impaired. He denies hallucinations. He denies suicidal or homicidal ideation. CURRENT MEDICATIONS 1. Clonidine. 2. Clindamycin. 3. Sevelamer. 4. Acetaminophen. 5. Doxycycline. 6. Plavix. 7. Lopressor. 8. Salicylic acid. 9. Allopurinol. 10. Aspirin. 11. Flomax. 12. Trevor. 13. Lipitor. 14. Lactulose. 15. Protonix. 16. Seroquel 12.5 mg p.o. q.4 h. p.r.n. 17. Zofran. 18. Clonidine. 19. Advair. CURRENT LABS: WBC 11.59, RBC 4.21, hemoglobin 10.1, hematocrit 33.3, platelets 396. Chemistries: Sodium 137, potassium 3.7, chloride 97, BUN 41, creatinine 9.66. ASSESSMENT 1. Unspecified psychosis. 2. Rule out dementia. PLAN 1. Increase Seroquel from 12.5 mg p.o. q.4 h. p.r.n. to 25 mg p.o. q.6 h. p.r.n. 2. Add Seroquel 25 mg p.o. nightly. 3. Discontinue Geodon. 4. Add Haldol 2 mg IM q.6 h. p.r.n. 5. Monitor for agitation. 6. Discussed with nursing staff. Thank you for this consultation. MARCELLO DANGELO MD Job#: [id number]
[2018-12-07] MEDS: SALMETEROL/FLUTICASONE 250/50 INH SCH (19:00)
[2018-12-07] MEDS: QUETIAPINE FUMARATE 25 MG TAB PO SCH (21:22)
[2018-12-07] MEDS: ATORVASTATIN 40 MG TAB PO SCH (21:22)
[2018-12-08] VITALS (8 sets, daily range): BP systolic 110–149; BP diastolic 55–72
[2018-12-08] MEDS: CLINDAMYCIN HCL 150 MG CAP PO SCH ×3 (05:51→22:37)
--- NOTE | 2018-12-08 07:08 | NUR ---
KATERINA CALLED TELLO WITH [facility] WHO STATES SHE STILL DOES NOT HAVE A DECISION FROM [facility] STATES SHE WILL CALL FOR AN EXPEDITED DECISION INSURANCE WAS CLOSED ON THURSDAY FOR THE HOLIDAY
[2018-12-08] MEDS: SALMETEROL/FLUTICASONE 250/50 INH SCH (07:55)
[2018-12-08] MEDS: HYDROCODONE/APAP 10MG-325MG TAB PO PRN ×3 (08:20→17:00)
[2018-12-08] MEDS: PANTOPRAZOLE SOD 40 MG TABEC PO SCH (08:24)
[2018-12-08] MEDS: PRASTERONE 25 MG PO SCH (08:24)
[2018-12-08] MEDS: SEVELAMER CARBONATE 800 MG TAB PO SCH ×3 (08:24→17:05)
[2018-12-08] MEDS: FOLIC ACID/CYANOCOB/PYRIDOXINE TAB PO SCH (08:25)
[2018-12-08] MEDS: ENTRESTO PO SCH ×2 (08:25→17:00)
[2018-12-08] MEDS: CLONIDINE HCL 0.1 MG TAB PO SCH ×3 (08:25→22:37)
[2018-12-08] MEDS: ASPIRIN 325 MG TAB EC PO SCH (08:25)
[2018-12-08] MEDS: CLOPIDOGREL BISULFATE 75 MG TAB PO SCH (08:25)
[2018-12-08] MEDS: TAMSULOSIN HCL 0.4 MG CAP PO SCH (08:25)
[2018-12-08] MEDS: METOPROLOL TARTRATE 25 MG TAB PO SCH ×2 (08:25→17:00)
[2018-12-08] MEDS: DOXYCYCLINE HYCLATE TABLET 100 MG TAB PO SCH ×2 (08:25→17:05)
[2018-12-08] MEDS: ALLOPURINOL 100 MG TAB PO SCH (08:25)
--- NOTE | 2018-12-08 09:20 | NUR ---
Pt received resting in bed. Alert and oriented x2-3. Pt with left BKA. Oriented to staff and surroundings. Encouraged to press call reyes if help needed. All meds given as ordered. Call reyes within reach. Will give pain meds q4hrs to control pain
--- NOTE | 2018-12-08 14:15 | Progress Note ---
DATE: December 08, 2018 PSYCHIATRIC PROGRESS NOTE Patient was evaluated and events noted. Patient is in the room. He is calm and cooperative. He is alert, awake and oriented to situation. Thought process is tangential. He is not agitated or combative. He stated that he slept well last night. He has not received any p.r.n. IM medications for 12-24 hours. He denies any depression. He denies anxiety. He denies any hallucinations. He denies any side effects to medications. ASSESSMENT: Unspecified psychosis and rule out dementia. PLAN: Continue Seroquel 25 mg p.o. at bedtime. Continue Seroquel 25 mg p.o. q.6 h. p.r.n. Continue Haldol 2 mg IM q.6 h. p.r.n. Monitor for agitation and mood. Supportive therapy. DICTATED BY MIKE MARTE Job#: [id number]
[2018-12-08] MEDS ORDERED: SODIUM CHLORIDE 0.9% 1000ML 1,000 ML ONE ×2 (16:43→16:54)
[2018-12-08 18:00] LABS: BASOPHILS % 0.4 % (0.0-1.0); EOSINOPHILS # (AUTO) 0.7 (0.0-0.4); HEMOGLOBIN 11.2 g/dL (14.0-18.0); LYMPHOCYTES # (AUTO) 1.4 (1.0-3.2); LYMPHOCYTES % 13.4 % (18.0-39.1); MEAN CORPUSCULAR HEMOGLOBIN 23.9 pg (28-32); MEAN CORPUSCULAR VOLUME 74.6 fL (81-99); MONOCYTES # (AUTO) 0.9 (0.2-0.8); MONOCYTES % 8.8 % (4.4-11.3); NEUTROPHILS # (AUTO) 7.2 (2.1-6.9); NEUTROPHILS % 70.1 % (38.7-80.0); PLATELET COUNT 470 x10e3/uL (140-360); RED BLOOD COUNT 4.69 x10e6/uL (4.3-5.7); RED CELL DISTRIBUTION WIDTH 24.5 % (11.7-14.4)
[2018-12-08 18:17] LABS: ANION GAP 18.8 mmol/L (8-16); CALCIUM 9.4 mg/dL (8.4-10.2); CREATININE, SERUM 11.33 mg/dL (0.72-1.25); POTASSIUM 3.8 mmol/L (3.5-5.1)
--- NOTE | 2018-12-08 19:20 | NUR ---
Bedside rounds completed with morning nurse. Pt alert to name. Lying supine in bed. Dialysis nurse at bedside, dialyzing. No distress noted. Call reyes within reach. Will continue to monitor.
--- NOTE | 2018-12-08 19:28 | NUR ---
repoert and transfer of care given to nurse ayala.
--- NOTE | 2018-12-08 22:25 | NUR ---
Pt dialyze completed. Removed 3L of fluid. Denies pain at this time. No distress noted. Call reyes within reach. Will continue to monitor.
[2018-12-08] MEDS: QUETIAPINE FUMARATE 25 MG TAB PO SCH (22:37)
[2018-12-08] MEDS: ATORVASTATIN 40 MG TAB PO SCH (22:37)
[2018-12-09] VITALS (8 sets, daily range): BP systolic 115–139; BP diastolic 56–62
[2018-12-09] MEDS: CLINDAMYCIN HCL 150 MG CAP PO SCH ×3 (06:47→21:34)
[2018-12-09] MEDS: SALMETEROL/FLUTICASONE 250/50 INH SCH ×2 (06:54→19:48)
[2018-12-09] MEDS: CLONIDINE HCL 0.1 MG TAB PO SCH ×3 (08:04→21:00)
[2018-12-09] MEDS: ASPIRIN 325 MG TAB EC PO SCH (08:04)
[2018-12-09] MEDS: SEVELAMER CARBONATE 800 MG TAB PO SCH ×3 (08:04→17:50)
[2018-12-09] MEDS: PANTOPRAZOLE SOD 40 MG TABEC PO SCH (08:04)
[2018-12-09] MEDS: HYDROCODONE/APAP 10MG-325MG TAB PO PRN (08:05)
[2018-12-09] MEDS: TAMSULOSIN HCL 0.4 MG CAP PO SCH (08:05)
[2018-12-09] MEDS: ALLOPURINOL 100 MG TAB PO SCH (08:05)
[2018-12-09] MEDS: DOXYCYCLINE HYCLATE TABLET 100 MG TAB PO SCH ×2 (08:05→17:50)
[2018-12-09] MEDS: METOPROLOL TARTRATE 25 MG TAB PO SCH ×2 (08:05→17:50)
[2018-12-09] MEDS: FOLIC ACID/CYANOCOB/PYRIDOXINE TAB PO SCH (08:05)
[2018-12-09] MEDS: CLOPIDOGREL BISULFATE 75 MG TAB PO SCH (08:05)
--- NOTE | 2018-12-09 08:05 | NUR ---
Pt received resting in bed. Alert and oriented x3. All meds given as ordered. Emotional support given. Will monitor
[2018-12-09] MEDS: PRASTERONE 25 MG PO SCH (08:07)
[2018-12-09] MEDS: ENTRESTO PO SCH ×2 (08:07→13:38)
--- NOTE | 2018-12-09 19:00 | NUR ---
Pt resting comfortably in bed. Attempted twice to change left foot BKA dressing but pt refused stating that someone did the dressing last night. Call reyes within reach. Will endorse to next shift
--- NOTE | 2018-12-09 19:15 | NUR ---
patient recieved awake, alert, lying quietly in bed. vss. no c/o pain noted. dressing to left bka with immobilizer remains c,d,i. pm assessment complete. patient instructed to call for assistance when needed.
[2018-12-09] MEDS: QUETIAPINE FUMARATE 25 MG TAB PO SCH (21:00)
[2018-12-09] MEDS: ATORVASTATIN 40 MG TAB PO SCH (21:00)
--- NOTE | 2018-12-09 23:30 | NUR ---
patient ambulatory to bathroom with walker with assistance. lrg bm noted at this time.
[2018-12-10] VITALS: BP 131/62
[2018-12-10 04:00] VITALS: BP 147/67
--- NOTE | 2018-12-10 05:00 | NUR ---
patient awake, lying quietly in bed. left bka dressing remains c,d,i. patient refuses dressing munguia at this time. left stump remains elevated on pillow. no c/o pain noted at this time.
[2018-12-10] MEDS: CLINDAMYCIN HCL 150 MG CAP PO SCH ×2 (05:14→13:51)
[2018-12-10] MEDS ORDERED: SODIUM CHLORIDE 0.9% 1000ML 2,000 ML ONE (06:07)
[2018-12-10] MEDS: SALMETEROL/FLUTICASONE 250/50 INH SCH (06:38)
[2018-12-10 06:48] LABS: BASOPHILS # (AUTO) 0.1 (0.0-0.1); BASOPHILS % 0.5 % (0.0-1.0); EOSINOPHILS # (AUTO) 0.7 (0.0-0.4); EOSINOPHILS % 6.3 % (0.0-6.0); HEMATOCRIT 28.7 % (38.2-49.6); LYMPHOCYTES # (AUTO) 1.6 (1.0-3.2); LYMPHOCYTES % 14.2 % (18.0-39.1); MEAN CORPUSCULAR HEMOGLOBIN 24.3 pg (28-32); MEAN CORPUSCULAR HGB CONC 33.8 g/dL (31-35); MEAN CORPUSCULAR VOLUME 71.8 fL (81-99); MONOCYTES # (AUTO) 0.8 (0.2-0.8); MONOCYTES % 7.6 % (4.4-11.3); NEUTROPHILS # (AUTO) 7.9 (2.1-6.9); PLATELET COUNT 404 x10e3/uL (140-360); RED CELL DISTRIBUTION WIDTH 24.2 % (11.7-14.4)
[2018-12-10 06:52] LABS: HEMOGLOBIN 9.7 g/dL (14.0-18.0)
[2018-12-10 07:25] VITALS: BP 149/67
--- NOTE | 2018-12-10 07:25 | NUR ---
BED SIDE HEMODIALYSIS TREATMENT IN PROGRESS. DRESSING INTACT TO LEFT STUMP WITH IMMOBILIZER IN PLACE. BED IN LOWER POSITION CALL LIGHT AT REACH.
[2018-12-10 07:30] LABS: ANION GAP 17.3 mmol/L (8-16); CALCIUM 9.6 mg/dL (8.4-10.2); POTASSIUM 4.3 mmol/L (3.5-5.1)
[2018-12-10] MEDS: PANTOPRAZOLE SOD 40 MG TABEC PO SCH (07:30)
[2018-12-10 07:41] VITALS: BP 149/67
[2018-12-10] MEDS: SEVELAMER CARBONATE 800 MG TAB PO SCH ×2 (08:00→12:28)
[2018-12-10] MEDS: PRASTERONE 25 MG PO SCH (09:00)
[2018-12-10] MEDS: ENTRESTO PO SCH (09:00)
[2018-12-10] MEDS: CLONIDINE HCL 0.1 MG TAB PO SCH ×2 (09:00→15:00)
[2018-12-10] MEDS: DOXYCYCLINE HYCLATE TABLET 100 MG TAB PO SCH (09:00)
[2018-12-10] MEDS: METOPROLOL TARTRATE 25 MG TAB PO SCH (09:00)
[2018-12-10] MEDS: ASPIRIN 325 MG TAB EC PO SCH (09:00)
--- NOTE | 2018-12-10 09:07 | Progress Note ---
DATE: December 09, 2018 PSYCHIATRIC PROGRESS NOTE Patient was evaluated and events noted. The patient is in the room. He is calm and cooperative. He said he is doing okay. He denies depression or anxiety. He denies any hallucinations. He denies any suicidal ideation. He has no side effects of his medications. He has not received any p.r.n. medications. The nursing staff reports that the patient has been cooperative. MENTAL STATUS EXAMINATION GENERAL: The patient is alert, awake and oriented to situation. Mood is fair. He is not depressed or anxious. Denies any hallucinations or suicidal ideation. He is calm and cooperative. Memory appears to be grossly intact. ASSESSMENT: Unspecified psychosis; rule out dementia. PLAN: Continue with Seroquel 25 mg p.o. at bedtime. Continue with Seroquel 25 mg p.o. q.6 h. p.r.n. Continue Haldol 2 mg IM q.6 h. p.r.n. Monitor for agitation. DICTATED BY MIKE MARTE Job#: [id number]
[2018-12-10] MEDS ORDERED: SODIUM CHLORIDE 0.9% 1000ML 2,000 ML IV PRN (09:45)
[2018-12-10] MEDS ORDERED: SODIUM CHLORIDE 0.9% 250ML 500 ML IV PRN (09:45)
[2018-12-10] MEDS ORDERED: MANNITOL 25% 12.5GM/50 ML VIAL IV PRN (09:45)
[2018-12-10] MEDS ORDERED: ALBUMIN 25% 12.5GM 0.25 GM/ML BTL IV PRN (09:45)
--- NOTE | 2018-12-10 10:25 | NUR ---
KATERINA CALLED TELLO GONSALEZ NO ANSWER LEFT VOICE MAIL AND TEXT CM CALLED GUILHERME RON AT [facility] TO FIND OUT STATUS OF AUTH GUILHERME STATES THAT SHE HAS NOT REC'D CLINICAL FROM [facility] AND KNOWS NOTHING ABOUT THIS REQUEST CM CALLED AND NOTIFIED DR SETHI AND DR OLSEN OF ABOVE COMMUNICATION DR SETHI ADVISED THAT I CALL BELL ATTENDANT RAHEL [phone] I CALLED RAHEL AND NOTIFIED HER OF MY CONVERSATION WITH GUILHERME AT [facility] SHE STATES SHE WILL GET WITH TELLO AND HAVE HER CALL ME BACK
--- NOTE | 2018-12-10 11:05 | NUR ---
BED SIDE HEMODIALYSIS COMPLETED. 2.5 LITERS REMOVED PER DIALYSIS NURSE. LAST B/P 133/69. PATIENT IN BED WITH CALL LIGHT AT REACH.
[2018-12-10 11:42] VITALS: BP 117/70
[2018-12-10] MEDS: TAMSULOSIN HCL 0.4 MG CAP PO SCH (12:28)
[2018-12-10] MEDS: ALLOPURINOL 100 MG TAB PO SCH (12:28)
[2018-12-10] MEDS: FOLIC ACID/CYANOCOB/PYRIDOXINE TAB PO SCH (12:28)
[2018-12-10] MEDS: CLOPIDOGREL BISULFATE 75 MG TAB PO SCH (12:28)
--- NOTE | 2018-12-10 13:19 | Progress Note ---
DATE: December 10, 2018 PSYCHIATRIC PROGRESS NOTE Patient evaluated and events noted. Patient is in the room. He is alert, awake and oriented to situation. He is calm and cooperative. His mood is fair. He denies any depression or anxiety. Denies any hallucinations. Denies any suicidal ideation. He reports sleeping well. He reports feeling well. Appetite is intermittent. MENTAL STATUS EXAMINATION GENERAL: The patient is an elderly male. His mood is fair. Denies any suicidal ideation or hallucinations. Thought process is concrete. No delusion is elicited. Denies any hallucinations. Insight and judgment are fair. Memory appears to be grossly intact. ASSESSMENT: Unspecified psychosis; rule out dementia. PLAN: Continue with Seroquel 25 mg p.o. at bedtime. Continue with Seroquel 25 mg p.o. q.6 h. p.r.n. Continue Haldol p.r.n. IM. Monitor for agitation and mood. DICTATED BY MIKE MARTE Job#: [id number] [place]
--- NOTE | 2018-12-10 13:43 | NUR ---
MOT REC'D FOR [facility] ROOM [address] NAVDEEP BARTHOLOMEW CALL REPORT TO [phone] MOT INITIATED AND PLACED IN PACKET AT DESK PT NOTIFIED OF ACCEPTANCE CM CALLED DTR MARIEL RUVALCABA [phone] NOTIFIED OF ACCEPTANCE
--- NOTE | 2018-12-10 14:21 | NUR ---
PATIENT WAS ADMITTED TO [facility]. RECEIVING NURSE STATED THAT REPORT WILL BE TAKEN AFTER THEY RECEIVE PRE ADMISSION ASSESSMENT FROM DR SETHI.
[2018-12-10 15:33] VITALS: BP 126/69
[2018-12-10] MEDS: ACETAMINOPHEN 325 MG TAB PO PRN (16:25)
--- NOTE | 2018-12-10 18:00 | NUR ---
PATIENT TRANSFERRED TO [facility]. REPORT CALLED AND GIVEN TO RECEIVING NURSE. IV TO RIGHT HAND REMOVED WITH TIP INTACT. ALL PERSONAL ITEMS TAKEN WITH PATIENT. PATIENT'S DAUGHTER NOTIFIED OF TRANSFER. LEFT UNIT ON STRETCHER PER AMBULANCE
== END 2018-12-10 17:50 | DRG 239 ==
LOC: ER 21:05 → ERHOLD 11-30 00:51 → MED/SURG3 11-30 02:06
PROVIDERS: ADMIT Internal Medicine; ATTEND Internal Medicine
PROC: 5A1D70Z Performance of Urinary Filtration, Intermittent, Less than 6 Hours Per Day (ICD-10-PCS; 2018-12-01)
PROC: 0Y6J0Z1 Detachment at Left Lower Leg, High, Open Approach (ICD-10-PCS; principal; 2018-12-01 08:23)
PROC: 5A1D70Z Performance of Urinary Filtration, Intermittent, Less than 6 Hours Per Day (ICD-10-PCS; 2018-12-03)
PROC: 30233N1 Transfusion of Nonautologous Red Blood Cells into Peripheral Vein, Percutaneous Approach (ICD-10-PCS; 2018-12-03)
PROC: 5A1D70Z Performance of Urinary Filtration, Intermittent, Less than 6 Hours Per Day (ICD-10-PCS; 2018-12-06)
PROC: 5A1D70Z Performance of Urinary Filtration, Intermittent, Less than 6 Hours Per Day (ICD-10-PCS; 2018-12-08)
PROC: 5A1D70Z Performance of Urinary Filtration, Intermittent, Less than 6 Hours Per Day (ICD-10-PCS; 2018-12-10)
DX: I70.262 Atherosclerosis of native arteries of extremities with gangrene, left leg (principal); N18.6 End stage renal disease; L03.116 Cellulitis of left lower limb; I12.0 Hypertensive chronic kidney disease with stage 5 chronic kidney disease or end stage renal disease; Z99.2 Dependence on renal dialysis; D64.9 Anemia, unspecified; R41.0 Disorientation, unspecified; T41.45XA Adverse effect of unspecified anesthetic, initial encounter; Y92.239 Unspecified place in hospital as the place of occurrence of the external cause
CPT/HCPCS: 36415; 80048; 80053; 82550; 82553; 82728; 82948; 83540; 83605; 83880; 83970; 84100; 84132; 84466; 84484; 85014; 85018; 85025; 86704; 86706; 86850; 86900; 86920; 87040; 87340; 88307; 88311; 90962; 94664; 97139; 99284; J2001; J2270; J2405; J2543; J3370; J3486; J7030; J7040; J7050; J7070; P9016; Q4081

== ENCOUNTER 2019-12-15 09:32 | Inpatient (IN) | payer MEDICARE ==
[~2019-12-15] VITALS: Ht 170.2 cm; Wt 54.0 kg
[~2019-12-15 09:32] MED LIST changes: +ACETAMINOPHEN325 M1 PO; +ADVAIR 250-501 EACH IH; +ALBUTEROL0.63 MG/3 INH; +ALLOPURINOL100 MG PO; +ATORVASTATIN CA20 MG PO; +B COMPLEX1 EACH PO; +BROVANA15 MCG/2 M INH; +CALCIUM ACETAT667 M1 PO; +CATAPRES-TTS 11 EACH TD; +CEPHALEXIN500 MG PO; +CLONAZEPAM0.5 MG PO; +COMBIVENT RESPIM4 GM IH; +CRESTOR10 MG PO; +DIALYVITE 8000.8 M1 PO; +DILTIAZEM 24HR120 M1 PO; +ELIQUIS2.5 MG PO; +ENTRESTO PO; +FLOMAX0.4 MG PO; +LYRICA50 MG PO; +METOPROLOL TART50 MG PO; +MIDODRINE HCL2.5 MG PO; +NEPHRO PO; +NITROGLYCERIN OINT TOP; +NITROGLYCERIN1 EAC1 TD; +NORCO 5-325 TA1 EACH PO; +ONDANSETRON ODT8 MG PO; +PANTOPRAZOLE SO20 MG PO; +PERI COLACE PO; +POLYETHYLENE GL17 GM PO; +PULMICORT2 M1 INH; +RENAGEL800 MG PO; +RENVELA0.8 GM PO; +RENVELA800 MG PO; +SENNOSIDES-DOC1 EACH PO; +SYMBICORT 16010.2 GM INH
[2019-12-15] MEDS ORDERED: SODIUM CHLORIDE FLUSH 10 ML SYR INJ PRN (10:45)
[2019-12-15 11:17] LABS: BASOPHILS % 0.2 % (0.0-1.0); EOSINOPHILS # (AUTO) 0.2 (0.0-0.4); EOSINOPHILS % 1.5 % (0.0-6.0); HEMOGLOBIN 10.5 g/dL (14.0-18.0); LYMPHOCYTES # (AUTO) 1.2 (1.0-3.2); LYMPHOCYTES % 9.3 % (18.0-39.1); MEAN CORPUSCULAR HEMOGLOBIN 23.9 pg (28-32); MEAN CORPUSCULAR VOLUME 79.5 fL (81-99); MONOCYTES # (AUTO) 1.2 (0.2-0.8); MONOCYTES % 9.4 % (4.4-11.3); NEUTROPHILS # (AUTO) 9.9 (2.1-6.9); NEUTROPHILS % 79.2 % (38.7-80.0); PLATELET COUNT 381 x10e3/uL (140-360); RED CELL DISTRIBUTION WIDTH 21.3 % (11.7-14.4)
[2019-12-15 11:30] LABS: BILIRUBIN,URINE NEGATIVE (NEGATIVE); CLARITY,URINE CLEAR (CLEAR); COLOR,URINE YELLOW (YELLOW); KETONES,URINE NEGATIVE (NEGATIVE); LEUKOCYTE ESTERASE ,URINE NEGATIVE (NEGATIVE); NITRITE,URINE NEGATIVE (NEGATIVE); PROTEIN,URINE DIPSTICK 3+ (NEGATIVE); URINE UROBILINOGEN 0.2 mg/dL (0.2 - 1)
[2019-12-15 11:31] LABS: BACTERIA,URINE MODERATE /HPF; EPITHELIAL CELLS,URINE MODERATE /LPF; RBC,URINE 0-5 /HPF (0-5)
[2019-12-15 11:41] LABS: ALBUMIN 2.8 g/dL (3.5-5.0); ALBUMIN/GLOBULIN RATIO 0.6 (0.8-2.0); ALKALINE PHOSPHATASE 64 IU/L (40-150); ANION GAP 20.9 mmol/L (8-16); BLOOD UREA NITROGEN 52 mg/dL (7-26); BUN/CREATININE RATIO 7 (6-25); CALCIUM 10.1 mg/dL (8.4-10.2); CARBON DIOXIDE 24 mmol/L (22-29); CHLORIDE 97 mmol/L (98-107); CREATININE, SERUM 7.06 mg/dL (0.72-1.25); EST GLOMERULAR FILTRATION RATE 9 ML/MIN (60-); GLUCOSE 80 mg/dL (74-118); POTASSIUM 4.9 mmol/L (3.5-5.1); SODIUM 137 mmol/L (136-145)
[2019-12-15 11:42] LABS: ALANINE AMINOTRANSFERASE < 6 IU/L (0-55)
[2019-12-15] MEDS: ONDANSETRON HCL INJ 2MG/ML 2ML 2 MG/ML VIAL IV PRN (12:00)
[2019-12-15] MEDS: MORPHINE SULFATE 2 MG/ML SYR 1ML IV PRN ×2 (12:00→21:11)
--- NOTE | 2019-12-15 16:24 | NUR ---
family contact - Swapna Mukherjee
--- NOTE | 2019-12-15 19:19 | NUR ---
SPOKE WITH DR. OLSEN AT THIS TIME REGARDING PT'S HR. DR. OLSEN VERBALIZED TO CONTINUE HOME MEDICATIONS AND ADMINISTER 650MG TYLENOL Q6HR PRN FOR FEVER.
[2019-12-15] MEDS ORDERED: METOPROLOL TARTRATE 50 MG TAB PO SCH ×2 (19:30→21:00)
[2019-12-15] MEDS ORDERED: METOPROLOL TARTRATE 25 MG TAB PO SCH (19:30)
[2019-12-15] MEDS: ACETAMINOPHEN 325 MG TAB PO PRN (20:20)
[2019-12-15] MEDS ORDERED: DILTIAZEM HCL 5 MG/ML 5 ML VIAL IV ONE (22:15)
[2019-12-15 23:00] VITALS: BP_SYST 134; BP_SYST 136; BP_DIAS 72; BP_DIAS 79
--- NOTE | 2019-12-15 23:00 | NUR ---
Patient received to room 297 via stretcher from the emergency room. vss. patient continues to c/o right foot pain 04/25. patient previously medicated for pain in the emergency room. telemetry #[address] at this time.dressing to right foot c,d,i. patient refuses to let me remove the dressing at this time. will attempt later with next pain medication. admit assessment, history complete. call reyes placed within reach. patient instructed to call for assistance when needed.
[2019-12-15 23:10] VITALS: BP 134/79
[2019-12-16] VITALS (7 sets, daily range): BP systolic 136–174; BP diastolic 71–91
[2019-12-16] MEDS: MORPHINE SULFATE 2 MG/ML SYR 1ML IV PRN ×2 (01:25→09:29)
[2019-12-16] MEDS: ONDANSETRON HCL INJ 2MG/ML 2ML 2 MG/ML VIAL IV PRN ×2 (01:25→09:29)
--- NOTE | 2019-12-16 01:25 | NUR ---
patient medicated with morphine 2mg and zofran 4mg ivp for c/o right foot pain 05/25. dressing to right foot changed changed at this time. incision with sutures noted with xeroform dressing. wound care consult ordered.
[2019-12-16] MEDS: BUDESONIDE 0.5MG/2 ML NEB INH SCH ×2 (06:50→19:47)
[2019-12-16] MEDS ORDERED: SODIUM CHLORIDE 0.9% 1000ML 2,000 ML ONE (09:53)
[2019-12-16] MEDS ORDERED: IPRATROPIUM/ALBUTEROL SULFATE 4 GM INH INH PRN (10:00)
[2019-12-16] MEDS ORDERED: SALMETEROL/FLUTICASONE 250/50 INH SCH (10:00)
[2019-12-16] MEDS: VITAMIN B COMPLEX PO SCH ×2 (10:00→22:00)
[2019-12-16] MEDS ORDERED: NON-FORMULARY MEDICATION (Clonidine (Catapres-Tts 1) 1 EACH) TD SCH (10:00)
[2019-12-16] MEDS ORDERED: NITROGLYCERIN TD SCH (10:00)
[2019-12-16] MEDS ORDERED: ONDANSETRON 4 MG PO PRN (10:00)
[2019-12-16] MEDS ORDERED: ONDANSETRON HCL 4 MG ORAL DISINTEGRATING TAB PO PRN (10:30)
[2019-12-16] MEDS ORDERED: SODIUM CHLORIDE 0.9% 1000ML 1,000 ML ONE (11:19)
[2019-12-16] MEDS ORDERED: CALCIUM ACETATE 667 MG GELCAP PO SCH (12:00)
[2019-12-16] MEDS ORDERED: SEVELAMER CARBONATE 800 MG TAB PO SCH (12:00)
[2019-12-16] MEDS: HYDROCODONE/APAP 10MG-325MG TAB PO SCH ×2 (12:30→18:10)
[2019-12-16] MEDS: SENNA-S TABLET PO SCH ×2 (12:31→18:10)
[2019-12-16] MEDS: SEVELAMER CARBONATE 800 MG TAB PO SCH ×2 (12:31→18:10)
[2019-12-16] MEDS: APIXAB 2.5 MG TABLET PO SCH ×2 (12:31→18:10)
[2019-12-16] MEDS: PREGABALIN 50 MG CAP PO SCH ×2 (12:31→18:10)
[2019-12-16] MEDS ORDERED: ARFORMOTEROL TARTRATE INH SCH (17:00)
[2019-12-16] MEDS: CLONIDINE HCL 0.1 MG/24 HR 1 EA PATCH TOP SCH (18:11)
[2019-12-16] MEDS: METOPROLOL TARTRATE 50 MG TAB PO SCH (18:12)
[2019-12-16] MEDS ORDERED: VANCOMYCIN 1GM/NS 250 ML 250 ML IV ONE (18:30)
--- NOTE | 2019-12-16 19:15 | NUR ---
patient received sleeping, lying quietly in bed. patient easily awakened. no c/o pain noted. dressing to right foot c,d,i. pm assessment complete. call reyes placed within reach. bed alarm on for patient safety.
[2019-12-16] MEDS: FORMOTEROL FUMARATE 20 MCG/2 ML VIAL IH SCH (19:42)
[2019-12-16] MEDS: CEFEPIME 1GM/NS 0.9% 50 ML 50 ML IV SCH (20:54)
[2019-12-16] MEDS: ALLOPURINOL 100 MG TAB PO SCH (20:55)
[2019-12-16] MEDS: ATORVASTATIN 40 MG TAB PO SCH (20:55)
[2019-12-16] MEDS: TAMSULOSIN HCL 0.4 MG CAP PO SCH (20:55)
[2019-12-16] MEDS ORDERED: SODIUM CHLORIDE 0.9% 250ML 250 ML ONE (20:58)
--- NOTE | 2019-12-16 21:56 | Consultation ---
DATE OF CONSULTATION: 12/16/2019 HISTORY OF PRESENT ILLNESS: A 79-year-old gentleman, who apparently was just discharged after TMA right foot, presented with pain, apparently went to two ERs, was subsequently transferred here. Please see primary care and ED notes for detail. Renal consult for management of kidney failure. The patient is quite drowsy, arousable, recognized me, but denies shortness of breath or nausea. Scheduled for dialysis today. He quickly falls back to sleep. Has no apparent respiratory distress. LABORATORY DATA: Labs show white count 12.5, hemoglobin 10.5, potassium 4.9, and creatinine 7. They also send urine culture, results are pending. ALLERGIES: THERE ARE NO REPORTED DRUG ALLERGIES. PAST MEDICAL HISTORY: For significant peripheral vascular disease, status post angiogram, angioplasty and bypass to right lower extremity done at [facility] by Dr. Bocanegra. He has a history of hypertension, end-stage renal disease, history of severe peripheral neuropathy, peripheral vascular disease, history of secondary hyperparathyroidism, history of BPH, history of coronary artery disease, and history of congestive heart failure. CURRENT MEDICATIONS: Include allopurinol 100 mg at bedtime, albuterol/Atrovent nebulizer, Eliquis 2.5 p.o. b.i.d., PhosLo with meals. He is on atorvastatin 40 mg at bedtime. He is on clonidine topical patch, Plavix 75 mg daily, apparently on furosemide as well, which I am going to stop. I am also going to stop calcium acetate as he is on Renvela. He is on Lyrica 50 mg p.o. b.i.d. He is on ondansetron p.r.n., pantoprazole, and Flomax 0.4 mg at bedtime. SOCIAL HISTORY: Does not smoke or drink. shelter patient has a very supportive daughter. PHYSICAL EXAMINATION: GENERAL: The patient quite drowsy, arousable, no apparent distress. VITAL SIGNS: With a blood pressure of 136/76, pulse rate 90, afebrile, oxygen saturation 97%. HEAD AND NECK EXAM: Cornea clear. Oral mucosa moist. LUNGS: Decreased air entry, but relatively clear. No rales or rhonchi. HEART: S1 and S2 audible. ABDOMEN: Otherwise soft, nontender. No apparent visceromegaly. LOWER EXTREMITY EXAMINATION: Shows dressing noted right foot. No edema. IMPRESSION: End-stage renal disease, hypertension, severe peripheral vascular disease, on dialysis. PLAN: To arrange for dialysis. Renal diet fluid restriction. Blood pressure control. Please see discussion above. Kelsi Gann MD SAK/MODL /[id number]
[2019-12-17] VITALS (9 sets, daily range): BP systolic 117–163; BP diastolic 58–90
[2019-12-17] MEDS: HYDROCODONE/APAP 10MG-325MG TAB PO SCH ×2 (03:09→06:00)
--- NOTE | 2019-12-17 03:09 | NUR ---
patient medicated with norco 10/325mg po for c/o right foot pain 05/25 at this time.
[2019-12-17 06:50] LABS: BASOPHILS % 0.2 % (0.0-1.0); EOSINOPHILS # (AUTO) 0.5 (0.0-0.4); EOSINOPHILS % 5.7 % (0.0-6.0); HEMATOCRIT 29.4 % (38.2-49.6); HEMOGLOBIN 8.7 g/dL (14.0-18.0); LYMPHOCYTES # (AUTO) 1.1 (1.0-3.2); LYMPHOCYTES % 12.5 % (18.0-39.1); MEAN CORPUSCULAR HGB CONC 29.6 g/dL (31-35); MEAN CORPUSCULAR VOLUME 77.8 fL (81-99); MONOCYTES # (AUTO) 0.9 (0.2-0.8); MONOCYTES % 10.2 % (4.4-11.3); NEUTROPHILS % 70.9 % (38.7-80.0); PLATELET COUNT 329 x10e3/uL (140-360); RED BLOOD COUNT 3.78 x10e6/uL (4.3-5.7); RED CELL DISTRIBUTION WIDTH 21.2 % (11.7-14.4)
[2019-12-17] MEDS: BUDESONIDE 0.5MG/2 ML NEB INH SCH ×2 (06:50→20:01)
[2019-12-17 07:06] LABS: ANION GAP 18.7 mmol/L (8-16); CALCIUM 9.3 mg/dL (8.4-10.2); CREATININE, SERUM 5.18 mg/dL (0.72-1.25); POTASSIUM 4.7 mmol/L (3.5-5.1)
[2019-12-17] MEDS: FORMOTEROL FUMARATE 20 MCG/2 ML VIAL IH SCH ×2 (07:20→20:01)
--- NOTE | 2019-12-17 07:30 | NUR ---
O2 2L NC IN PLACE,RT FOOT ELEVATED ON PILLOW,DR WYNNE HERE CHANGED SNEHA.
--- NOTE | 2019-12-17 07:30 | NUR ---
PT UP IN BED C/O OF PAIN TO RT FOOT EXPLAINED TO PT MUCH TO EARLY ,WILL GIVE LATER WHEN TIME.ACKNOWLEDGE UNDERSTANDING..
--- NOTE | 2019-12-17 08:30 | NUR ---
PAIN LEVEL 6 MEDICATED
[2019-12-17] MEDS ORDERED: PANTOPRAZOLE SODIUM 20 MG PO SCH (09:00)
[2019-12-17] MEDS ORDERED: FUROSEMIDE 40 MG TAB PO SCH (09:00)
[2019-12-17] MEDS ORDERED: METOPROLOL TARTRATE 50 MG TAB PO SCH (09:00)
[2019-12-17] MEDS: PREGABALIN 50 MG CAP PO SCH ×2 (09:31→17:00)
[2019-12-17] MEDS: POLYETHYLENE GLYCOL 3350 17 GM PACK PO SCH (09:31)
[2019-12-17] MEDS: SENNA-S TABLET PO SCH ×2 (09:32→17:00)
[2019-12-17] MEDS: SEVELAMER CARBONATE 800 MG TAB PO SCH ×3 (09:32→17:00)
[2019-12-17] MEDS: CLOPIDOGREL BISULFATE 75 MG TAB PO SCH (09:32)
[2019-12-17] MEDS: METOPROLOL TARTRATE 50 MG TAB PO SCH ×2 (09:32→17:00)
[2019-12-17] MEDS: APIXAB 2.5 MG TABLET PO SCH ×2 (09:32→17:00)
[2019-12-17] MEDS: PANTOPRAZOLE SOD 40 MG TABEC PO SCH (09:32)
[2019-12-17] MEDS: VITAMIN B COMPLEX PO SCH ×2 (10:00→21:12)
--- NOTE | 2019-12-17 13:30 | NUR ---
DR AUSTIN HERE,DR RUDD HERE
[2019-12-17] MEDS: HYDROCODONE/APAP 10MG-325MG TAB PO PRN (14:34)
[2019-12-17] MEDS: CEFEPIME 1GM/NS 0.9% 50 ML 50 ML IV SCH (17:50)
--- NOTE | 2019-12-17 17:50 | NUR ---
PT UP IN BED ,PAIN LEVEL 3 TO RT FOOT ,FOOT ELEVATED ON PILLOW,O2 2L NC IN PLACE
--- NOTE | 2019-12-17 19:15 | NUR ---
patient received awake, lying quietly in bed. no c/o pain noted at this time. dressing to right foot c,d,i. pm assessment complete. patient instructed to call for assistance when needed.
[2019-12-17] MEDS: ATORVASTATIN 40 MG TAB PO SCH (21:00)
[2019-12-17] MEDS: TAMSULOSIN HCL 0.4 MG CAP PO SCH (21:00)
[2019-12-17] MEDS: ALLOPURINOL 100 MG TAB PO SCH (21:00)
--- NOTE | 2019-12-17 21:55 | Consultation ---
DATE OF CONSULTATION: 12/17/2019 REASON FOR CONSULTATION: right foot infection and osteomyelitis. HISTORY OF PRESENT ILLNESS: This is a 79-year-old male, who has history of peripheral vascular disease, underwent right TMA. The patient was seen by his primary care physician. He was in the emergency room with pain and redness at the amputation site. The patient was admitted and started on IV antibiotic. I was asked to see him. He underwent debridement. PAST MEDICAL HISTORY: Hypertension; end-stage renal disease, on hemodialysis; severe peripheral vascular disease. PAST SURGICAL HISTORY: As above. ALLERGIES: NKA. SOCIAL HISTORY: There is no smoking, drug abuse, or alcohol abuse. FAMILY HISTORY: Otherwise noncontributory. REVIEW OF SYSTEMS: HEENT: Negative. PULMONARY: Negative. CARDIAC: Negative. : Negative. SKIN: There is no rash. LABORATORY DATA: When he first came, white count was 12.45, came down to 8.4. His sodium was 140, potassium 4.7, creatinine of 5.18, down from 7.06. MEDICATIONS: He is currently on hydrocodone, Renvela, Senokot, Plavix, Lyrica, Flomax, cefepime 1 g a day, and vancomycin Thursday, Thursday, and Thursday. PHYSICAL EXAMINATION: GENERAL: He is currently alert, oriented, does not seem in acute distress. VITAL SIGNS: Stable. Afebrile. HEENT: Normocephalic. Not icteric. NECK: Supple. CHEST: Clear. HEART: S1, S2. No S3, S4, or murmur. ABDOMEN: Soft. Bowel sounds present. No tenderness. EXTREMITIES: No edema. SKIN: There is no rash. IMPRESSION: Osteomyelitis of the foot, status post debridement. The patient has severe peripheral vascular disease. Continue with vancomycin and cefepime. Continue with wound care. We will discuss with Podiatry. He just had debridement yesterday. I do not have the official report yet. We will follow with you. Thank you for asking me to see this patient. Continue local care. We reviewed the vascular workup. MD AVERY Evans/MODPardeep /[id number]
[2019-12-18] VITALS (8 sets, daily range): BP systolic 125–150; BP diastolic 61–81
[2019-12-18] MEDS: FORMOTEROL FUMARATE 20 MCG/2 ML VIAL IH SCH ×2 (06:59→19:58)
[2019-12-18] MEDS: HYDROCODONE/APAP 10MG-325MG TAB PO PRN ×3 (07:30→20:15)
--- NOTE | 2019-12-18 07:30 | NUR ---
PT UP IN BED NO DISTRESS NOTED .PAIN LEVEL 3.
--- NOTE | 2019-12-18 07:45 | NUR ---
PT C/O PAIN LEVEL 6 MEDICATED
[2019-12-18] MEDS: PANTOPRAZOLE SOD 40 MG TABEC PO SCH (08:00)
[2019-12-18] MEDS: SEVELAMER CARBONATE 800 MG TAB PO SCH ×3 (08:00→17:00)
[2019-12-18] MEDS: POLYETHYLENE GLYCOL 3350 17 GM PACK PO SCH (09:00)
[2019-12-18] MEDS: SENNA-S TABLET PO SCH ×2 (09:00→17:00)
[2019-12-18] MEDS: APIXAB 2.5 MG TABLET PO SCH ×2 (09:00→17:00)
[2019-12-18] MEDS: CLOPIDOGREL BISULFATE 75 MG TAB PO SCH (09:00)
[2019-12-18] MEDS: PREGABALIN 50 MG CAP PO SCH ×2 (09:00→17:00)
[2019-12-18] MEDS: METOPROLOL TARTRATE 50 MG TAB PO SCH ×2 (09:00→17:00)
[2019-12-18] MEDS: VITAMIN B COMPLEX PO SCH ×2 (10:00→20:07)
--- NOTE | 2019-12-18 12:00 | NUR ---
PT C/O SEVERE PAIN ,SPOKE WITH DR AUSTIN ORDERS WRITTEN
--- NOTE | 2019-12-18 12:30 | NUR ---
PT C/O PAIN LEVEL 8 MEDICATED.
--- NOTE | 2019-12-18 18:12 | NUR ---
PT RESTING PAIN LEVEL 3,RT FOOT ELEVATED ON PILLOWS
[2019-12-18] MEDS: CEFEPIME 1GM/NS 0.9% 50 ML 50 ML IV SCH (18:30)
[2019-12-18] MEDS: BUDESONIDE 0.5MG/2 ML NEB INH SCH (19:58)
[2019-12-18] MEDS: ATORVASTATIN 40 MG TAB PO SCH (20:15)
[2019-12-18] MEDS: ALLOPURINOL 100 MG TAB PO SCH (20:15)
[2019-12-18] MEDS: TAMSULOSIN HCL 0.4 MG CAP PO SCH (20:15)
[2019-12-19] VITALS (8 sets, daily range): BP systolic 130–156; BP diastolic 67–84
[2019-12-19] MEDS: HYDROCODONE/APAP 10MG-325MG TAB PO PRN ×4 (02:26→21:40)
--- NOTE | 2019-12-19 03:30 | NUR ---
Patient moaning out in pain, informed patient that pain medication given 1 hour prior and not available. Offer ice pack or reposition foot. Patient refused and verbalized understanding that medication been given, Will attempt to close eyes and rest per patient. Will continue to monitor.
--- NOTE | 2019-12-19 04:10 | NUR ---
Patient c/o several pain to right foot, offered ice pack to help with pain. Patient refused ice pack. Attempted to call Dr Bishop ( net application architect for Dr Davis) unable to leave message. Will continue to try to reach MD net application architect. Patient updated.
--- NOTE | 2019-12-19 04:34 | NUR ---
Spoke with Dr Bishop via phone regarding patient pain, new order for Morphine 2 mg IVP Q 4 hrs PRN pain. Patient updated on POC and new medication.
[2019-12-19] MEDS ORDERED: MORPHINE SULFATE 2 MG/ML SYR 1ML IV PRN (04:45)
[2019-12-19] MEDS: FORMOTEROL FUMARATE 20 MCG/2 ML VIAL IH SCH ×2 (07:19→20:15)
[2019-12-19] MEDS: BUDESONIDE 0.5MG/2 ML NEB INH SCH ×2 (07:19→20:15)
--- NOTE | 2019-12-19 07:35 | NUR ---
PATIENT IN BED RESTING WITH EYES CLOSED, NO DISTRESS NOTED. RIGHT FOOT ELEVATED ON PILLOW. BED IN LOWER POSITION, CALL LIGHT AT REACH.
[2019-12-19] MEDS: PANTOPRAZOLE SOD 40 MG TABEC PO SCH (08:00)
[2019-12-19] MEDS: SEVELAMER CARBONATE 800 MG TAB PO SCH ×3 (08:53→17:38)
[2019-12-19] MEDS: METOPROLOL TARTRATE 50 MG TAB PO SCH ×2 (09:00→17:38)
[2019-12-19] MEDS: CLOPIDOGREL BISULFATE 75 MG TAB PO SCH (09:14)
[2019-12-19] MEDS: PREGABALIN 50 MG CAP PO SCH ×2 (09:14→17:38)
[2019-12-19] MEDS: POLYETHYLENE GLYCOL 3350 17 GM PACK PO SCH (09:14)
[2019-12-19] MEDS: APIXAB 2.5 MG TABLET PO SCH ×2 (09:14→17:38)
[2019-12-19] MEDS: SENNA-S TABLET PO SCH ×2 (09:14→17:38)
[2019-12-19] MEDS: VITAMIN B COMPLEX PO SCH ×2 (10:00→20:06)
[2019-12-19] MEDS ORDERED: SODIUM CHLORIDE 0.9% 1000ML 2,000 ML ONE (11:05)
--- NOTE | 2019-12-19 11:31 | NUR ---
PATIENT C/O PAIN AND WAS MEDICATED. WILL CONTINUE TO MONITOR.
[2019-12-19 12:02] LABS: BASOPHILS % 0.3 % (0.0-1.0); EOSINOPHILS # (AUTO) 0.5 (0.0-0.4); EOSINOPHILS % 6.9 % (0.0-6.0); HEMATOCRIT 25.9 % (38.2-49.6); LYMPHOCYTES # (AUTO) 0.6 (1.0-3.2); LYMPHOCYTES % 9.3 % (18.0-39.1); MEAN CORPUSCULAR HEMOGLOBIN 23.4 pg (28-32); MEAN CORPUSCULAR HGB CONC 30.9 g/dL (31-35); MEAN CORPUSCULAR VOLUME 75.7 fL (81-99); MONOCYTES # (AUTO) 0.6 (0.2-0.8); MONOCYTES % 8.7 % (4.4-11.3); NEUTROPHILS # (AUTO) 5.1 (2.1-6.9); NEUTROPHILS % 74.4 % (38.7-80.0); PLATELET COUNT 331 x10e3/uL (140-360); RED BLOOD COUNT 3.42 x10e6/uL (4.3-5.7)
[2019-12-19 12:22] LABS: CALCIUM 8.9 mg/dL (8.4-10.2); CREATININE, SERUM 8.44 mg/dL (0.72-1.25)
[2019-12-19 12:26] LABS: POTASSIUM 6.4 mmol/L (3.5-5.1)
[2019-12-19 12:35] LABS: ANION GAP 24.4 mmol/L (8-16)
--- NOTE | 2019-12-19 13:00 | NUR ---
SPOKE WITH MD REGARDING ABNORMAL LAB RESULT. PATIENT RECEIVING DIALYSIS, NO NEW ORDER RECEIVED.
--- NOTE | 2019-12-19 16:17 | NUR ---
HEMODIALYSIS TREATMENT COMPLETED. 2L REMOVED, B/P 180/89 AND HR 103 PER DIALYSIS NURSE. PATIENT IN BED WITH CALL LIGHT AT REACH.
[2019-12-19] MEDS: VANCOMYCIN 1GM/NS 250 ML 250 ML IV SCH (17:00)
[2019-12-19] MEDS: TAMSULOSIN HCL 0.4 MG CAP PO SCH (20:04)
[2019-12-19] MEDS: CEFEPIME 1GM/NS 0.9% 50 ML 50 ML IV SCH (20:04)
[2019-12-19] MEDS: ATORVASTATIN 40 MG TAB PO SCH (20:04)
[2019-12-19] MEDS: ALLOPURINOL 100 MG TAB PO SCH (20:05)
--- NOTE | 2019-12-19 20:20 | NUR ---
Paged Dr Shearer regarding new consult for uncontrolled pain to right foot. Awaiting call back.
--- NOTE | 2019-12-19 21:15 | NUR ---
Left message for Dr Shearer regarding new consult and patient in pain and pain medication not due until 2139. Awaiting call back.
[2019-12-19] MEDS ORDERED: PREGABALIN 75 MG CAP PO SCH (22:00)
--- NOTE | 2019-12-19 22:10 | NUR ---
[address] Davis regarding patient pain to Rt foot. Patient is reporting burning and norco not helping. New order for Lyrica 75 mg po BID, first dose now. 2210 Administered Lyrica 75 mg po x1. ( Unable to document on EMAR, documented on paper JAN)
[2019-12-20] MEDS: HYDROCODONE/APAP 10MG-325MG TAB PO PRN ×2 (02:35→20:00)
--- NOTE | 2019-12-20 04:36 | NUR ---
Patient c/o pain 08/25 and pain medication not available until 634. Left message for Dr. Davis regarding pain. Awaiting call back.
[2019-12-20 05:07] VITALS: BP 145/77
--- NOTE | 2019-12-20 05:08 | NUR ---
Patient c/o pain 08/25. Patient yelling for pain medication. Educated patient that pain medication not due until 634 and that will reattempt to call MD for new orders. Left message for Dr Davis, awaiting call back.
--- NOTE | 2019-12-20 05:28 | NUR ---
Call returned from Dr Davis. Lyrica 75 mg po Q 12 hrs, dose to start now, Sipsey 10/325mg po x1 now. Will see today. Make sure Dr Clement to see foot today.
[2019-12-20] MEDS ORDERED: HYDROCODONE/APAP 10MG-325MG TAB PO ONE (05:30)
[2019-12-20] MEDS: PREGABALIN 75 MG CAP PO SCH ×2 (06:00→17:15)
[2019-12-20] MEDS: FORMOTEROL FUMARATE 20 MCG/2 ML VIAL IH SCH ×2 (07:20→18:45)
[2019-12-20] MEDS: BUDESONIDE 0.5MG/2 ML NEB INH SCH ×2 (07:20→18:45)
[2019-12-20 07:30] VITALS: BP 140/72
--- NOTE | 2019-12-20 07:30 | NUR ---
PATIENT SITTING UP IN BED TALKING ON THE PHONE, NO DISTRESS NOTED. DRESSING DRY AND INTACT TO RIGHT FOOT, ELEVATED ON PILLOW. BED IN LOWER POSITION, CALL LIGHT AT REACH.
[2019-12-20 07:58] VITALS: BP 140/72
[2019-12-20] MEDS: PANTOPRAZOLE SOD 40 MG TABEC PO SCH (08:00)
[2019-12-20] MEDS: SEVELAMER CARBONATE 800 MG TAB PO SCH ×3 (08:00→17:14)
[2019-12-20] MEDS ORDERED: BISACODYL 10 MG SUPP PR PRN (08:15)
[2019-12-20] MEDS ORDERED: HYDROMORPHONE HCL 2 MG TAB PO PRN (08:15)
[2019-12-20] MEDS ORDERED: BISACODYL 5 MG TAB EC PO PRN (08:15)
[2019-12-20 08:36] LABS: ANION GAP 18.5 mmol/L (8-16); POTASSIUM 4.5 mmol/L (3.5-5.1)
[2019-12-20 08:37] LABS: CALCIUM 9.2 mg/dL (8.4-10.2); CREATININE, SERUM 4.91 mg/dL (0.72-1.25)
[2019-12-20 09:02] LABS: HEMATOCRIT 25.8 % (38.2-49.6); HEMOGLOBIN 7.9 g/dL (14.0-18.0); MEAN CORPUSCULAR HEMOGLOBIN 23.1 pg (28-32); MEAN CORPUSCULAR HGB CONC 30.6 g/dL (31-35); MEAN CORPUSCULAR VOLUME 75.8 fL (81-99); RED BLOOD COUNT 3.42 x10e6/uL (4.3-5.7); RED CELL DISTRIBUTION WIDTH 21.2 % (11.7-14.4)
[2019-12-20 09:03] LABS: BASOPHILS % 0.3 % (0.0-1.0); EOSINOPHILS # (AUTO) 0.5 (0.0-0.4); EOSINOPHILS % 7.6 % (0.0-6.0); LYMPHOCYTES # (AUTO) 0.9 (1.0-3.2); MONOCYTES # (AUTO) 0.8 (0.2-0.8); MONOCYTES % 11.5 % (4.4-11.3); NEUTROPHILS # (AUTO) 4.6 (2.1-6.9); NEUTROPHILS % 67.3 % (38.7-80.0); PLATELET COUNT 272 x10e3/uL (140-360)
[2019-12-20] MEDS: SENNA-S TABLET PO SCH ×2 (09:24→17:14)
[2019-12-20] MEDS: CLOPIDOGREL BISULFATE 75 MG TAB PO SCH (09:24)
[2019-12-20] MEDS: POLYETHYLENE GLYCOL 3350 17 GM PACK PO SCH (09:24)
[2019-12-20] MEDS: METOPROLOL TARTRATE 50 MG TAB PO SCH ×2 (09:24→17:15)
[2019-12-20] MEDS: APIXAB 2.5 MG TABLET PO SCH ×2 (09:24→17:14)
[2019-12-20] MEDS ORDERED: LACTULOSE SYRUP 20 GM/30 ML UDC PO PRN (09:30)
[2019-12-20] MEDS: VITAMIN B COMPLEX PO SCH ×2 (10:00→22:00)
--- NOTE | 2019-12-20 10:38 | NUR ---
DRESSING CHANGED AT BED SIDE BY DR JUAN. PATIENT REPOSITIONED IN BED, CALL LIGHT AT REACH.
--- NOTE | 2019-12-20 11:05 | NUR ---
SPOKE WITH PT AND DAUGHTER VIA PHONE, LET KNOW NEED TO START PROCESS TO RETURN TO [facility], SIGNED CHOICE FORM FILED IN CHART AND EDUCATED ABOUT IMM, FILED IN CHART AND LEFT COPY AT BEDSIDE FOR ANY QUESTIONS. COMPLETED RTF AND PUT WITH PACKET AT NURSES STATION, NO PASRR NEEDED. FAXED CLINICALS TO FACILITY
[2019-12-20 11:18] VITALS: BP 137/84
[2019-12-20] MEDS ORDERED: HYDROMORPHONE 1MG/1ML INJ IV PRN (11:30)
[2019-12-20] MEDS ORDERED: FENTANYL 12MCG/HR PATCH TD SCH (12:00)
[2019-12-20 15:16] VITALS: BP 130/76
--- NOTE | 2019-12-20 15:18 | NUR ---
PATIENT IN ROOM EXERCISING WITH PHYSICAL THERAPY, NO DISTRESS NOTED. WILL CONTINUE TO MONITOR.
--- NOTE | 2019-12-20 15:54 | NUR ---
SPOKE WITH STEFANI HOUSTON AT [facility] WHO IS REQUESTING MORE P.T. NOTES ON PT LAST NOTE 12/17 PT DID NOT PARTICIPATE WITH P.T. TODAY CM EXPLAINED TO PT HE HAS TO PARTICIPATE WITH P.T. IF HE WANTS TO RETURN TO SNF HE AGREES TO PARTICIPATE TOMORROW WILL FAX UPDATED P.T. NOTE TO STEFANI HOUSTON WHEN AVAILABLE
[2019-12-20] MEDS ORDERED: BACLOFEN 10 MG TAB PO SCH (17:00)
--- NOTE | 2019-12-20 17:22 | NUR ---
SPOKE WITH PT AND DAUGHTER, PT MOTHER AND NEEDS TO SIGN DOCUMENTS THAT WILL ENABLE HER AND BURIAL HE IS THE NEXT OF KIN, ASSISTED IN GETTING MOBILE NOTARY TO COME TO BUILDING AND GET FORM PROVIDED BY HOME SIGNED AND SENT BACK TO HOME. DAUGHTER WILL DIRECTOR OF GLOBAL MARKETING ORIGINAL COPY.
[2019-12-20] MEDS: CEFEPIME 1GM/NS 0.9% 50 ML 50 ML IV SCH (19:59)
[2019-12-20] MEDS: TAMSULOSIN HCL 0.4 MG CAP PO SCH (19:59)
[2019-12-20] MEDS: ALLOPURINOL 100 MG TAB PO SCH (19:59)
[2019-12-20] MEDS: ATORVASTATIN 40 MG TAB PO SCH (19:59)
[2019-12-20 20:00] VITALS: BP 136/77
[2019-12-21] VITALS (8 sets, daily range): BP systolic 136–188; BP diastolic 75–85
[2019-12-21] MEDS: PREGABALIN 75 MG CAP PO SCH (05:26)
--- NOTE | 2019-12-21 05:30 | NUR ---
Patient resting eyes closed, resp even and unlabored. Patient arousable but drowsy. No c/o pain. V/S stable. 97.9, 136/75, 79, 18, 100% on 02 2L NC. No issues or concerns noted, Call light within reacg, bed alarm on and will continue to monitor closely.
[2019-12-21] MEDS: FORMOTEROL FUMARATE 20 MCG/2 ML VIAL IH SCH ×2 (07:32→19:00)
[2019-12-21] MEDS: BUDESONIDE 0.5MG/2 ML NEB INH SCH ×2 (07:32→19:00)
[2019-12-21] MEDS: PANTOPRAZOLE SOD 40 MG TABEC PO SCH (08:55)
[2019-12-21] MEDS: CLOPIDOGREL BISULFATE 75 MG TAB PO SCH (08:56)
[2019-12-21] MEDS: METOPROLOL TARTRATE 50 MG TAB PO SCH ×2 (08:56→16:40)
[2019-12-21] MEDS: APIXAB 2.5 MG TABLET PO SCH ×2 (08:56→16:39)
[2019-12-21] MEDS: SENNA-S TABLET PO SCH ×2 (08:56→16:40)
[2019-12-21] MEDS: POLYETHYLENE GLYCOL 3350 17 GM PACK PO SCH (08:56)
[2019-12-21] MEDS: SEVELAMER CARBONATE 800 MG TAB PO SCH ×3 (08:59→16:40)
[2019-12-21] MEDS ORDERED: PREGABALIN 75 MG CAP PO SCH (09:00)
[2019-12-21] MEDS ORDERED: BACLOFEN 10 MG TAB PO PRN (09:00)
[2019-12-21] MEDS ORDERED: GABAPENTIN 100 MG CAP PO SCH (09:00)
[2019-12-21] MEDS ORDERED: SODIUM CHLORIDE 0.9% 250ML 250 ML IV ONE (09:30)
[2019-12-21] MEDS: VITAMIN B COMPLEX PO SCH ×2 (10:00→20:40)
[2019-12-21] MEDS ORDERED: SODIUM CHLORIDE 0.9% 1000ML 2,000 ML ONE (10:56)
[2019-12-21] MEDS ORDERED: SODIUM CHLORIDE 0.9% 250ML 250 ML ONE (12:33)
[2019-12-21] MEDS: VANCOMYCIN 1GM/NS 250 ML 250 ML IV SCH (16:39)
--- NOTE | 2019-12-21 19:11 | NUR ---
Pt is continuously removing telemetry box. Paged Dr. Davis for orders to discontinue telemetry and waiting for call back
--- NOTE | 2019-12-21 19:35 | NUR ---
Received bedside report from day nurse. Patient refusing telemetry, seen trying to get out of bed. Bed rails up, bed locked and in low position, alarm on. Call light placed within reach. Family at bedside at this time. All safety measures in place.
[2019-12-21] MEDS: HYDRALAZINE HCL 25 MG TAB PO PRN (20:40)
[2019-12-21] MEDS: ALLOPURINOL 100 MG TAB PO SCH (20:40)
[2019-12-21] MEDS: TAMSULOSIN HCL 0.4 MG CAP PO SCH (20:40)
[2019-12-21] MEDS: CEFEPIME 1GM/NS 0.9% 50 ML 50 ML IV SCH (20:40)
[2019-12-21] MEDS: ATORVASTATIN 40 MG TAB PO SCH (20:40)
[2019-12-21] MEDS: HYDROMORPHONE HCL 2 MG TAB PO PRN (22:40)
--- NOTE | 2019-12-21 22:41 | NUR ---
Patient appears agitated and trying to get out of bed, c/o pain in right foot. Re-oriented patient to room and safety precautions. Administered PO Dilaudid for pain. Bed locked and in low position, side rails up, call light placed within reach. Instructed to call for assistance if needed and to not try to get out of bed without assistance. Verbalized understanding.
--- NOTE | 2019-12-21 23:52 | NUR ---
Patient appears very agitated and confused at this time, trying to climb out of bed and screaming at nursing staff. Called Dr. Davis and received orders to give 50 mg Lyrica PO once.
[2019-12-22] VITALS (7 sets, daily range): BP systolic 100–180; BP diastolic 76–102
[2019-12-22] MEDS ORDERED: PREGABALIN 50 MG CAP PO ONE
[2019-12-22] MEDS: HYDROCODONE/APAP 10MG-325MG TAB PO PRN ×3 (01:33→17:00)
--- NOTE | 2019-12-22 01:36 | NUR ---
Patient awake and yelling, c/o of pain to right foot. Administered PRN [place]. Bed locked and in low position, side rails up, alarm on, call light placed within reach. Instructed to call for assistance if needed. All safety measures in place.
--- NOTE | 2019-12-22 03:33 | NUR ---
Patient sleeping in bed after bed bath. Telemetry on. Bed locked and in low position, side rails up, alarm on. Call light placed within reach. All safety measures in place.
--- NOTE | 2019-12-22 05:03 | NUR ---
Patient pulled out IV in right hand. Attempted to start new IV but was unsuccessful because patient is very combative at this time and keeps trying to grab needle, saying, "You're not going to stick me with no IV!" Will try again at a later time.
[2019-12-22] MEDS: BUDESONIDE 0.5MG/2 ML NEB INH SCH ×2 (07:05→19:00)
[2019-12-22] MEDS: FORMOTEROL FUMARATE 20 MCG/2 ML VIAL IH SCH ×2 (07:05→19:00)
--- NOTE | 2019-12-22 07:24 | NUR ---
Bedside report given to oncoming nurse. Patient resting in bed, no s/s of distress at this time. All safety measures in place.
[2019-12-22] MEDS: PANTOPRAZOLE SOD 40 MG TABEC PO SCH (08:06)
[2019-12-22] MEDS: SEVELAMER CARBONATE 800 MG TAB PO SCH ×3 (08:06→17:13)
[2019-12-22] MEDS: METOPROLOL TARTRATE 50 MG TAB PO SCH ×2 (08:11→17:12)
[2019-12-22] MEDS: POLYETHYLENE GLYCOL 3350 17 GM PACK PO SCH (08:12)
[2019-12-22] MEDS: CLOPIDOGREL BISULFATE 75 MG TAB PO SCH (08:13)
[2019-12-22 08:15] LABS: BASOPHILS % 0.3 % (0.0-1.0); EOSINOPHILS # (AUTO) 0.4 (0.0-0.4); EOSINOPHILS % 3.7 % (0.0-6.0); HEMATOCRIT 31.4 % (38.2-49.6); HEMOGLOBIN 9.4 g/dL (14.0-18.0); LYMPHOCYTES # (AUTO) 1.1 (1.0-3.2); LYMPHOCYTES % 10.7 % (18.0-39.1); MEAN CORPUSCULAR HEMOGLOBIN 23.4 pg (28-32); MEAN CORPUSCULAR HGB CONC 29.9 g/dL (31-35); MEAN CORPUSCULAR VOLUME 78.1 fL (81-99); MONOCYTES % 9.8 % (4.4-11.3); NEUTROPHILS # (AUTO) 7.4 (2.1-6.9); NEUTROPHILS % 75.1 % (38.7-80.0); PLATELET COUNT 312 x10e3/uL (140-360); RED BLOOD COUNT 4.02 x10e6/uL (4.3-5.7); RED CELL DISTRIBUTION WIDTH 20.9 % (11.7-14.4)
[2019-12-22] MEDS: HYDRALAZINE HCL 25 MG TAB PO PRN (08:19)
[2019-12-22 08:29] LABS: ANION GAP 21.1 mmol/L (8-16); CALCIUM 9.9 mg/dL (8.4-10.2); CREATININE, SERUM 4.54 mg/dL (0.72-1.25); POTASSIUM 4.1 mmol/L (3.5-5.1)
[2019-12-22] MEDS: APIXAB 2.5 MG TABLET PO SCH ×2 (09:00→17:13)
[2019-12-22] MEDS: SENNA-S TABLET PO SCH ×2 (09:00→17:13)
[2019-12-22] MEDS: VITAMIN B COMPLEX PO SCH ×2 (10:00→22:00)
[2019-12-22] MEDS: CEFEPIME 1GM/NS 0.9% 50 ML 50 ML IV SCH (20:00)
--- NOTE | 2019-12-22 20:00 | NUR ---
patient has no IV access. patient has been educated on the importance of having an IV in order to receive Antibiotics. Patient continues to refuse to want an IV. MD notified. No new orders from .
[2019-12-22] MEDS: TAMSULOSIN HCL 0.4 MG CAP PO SCH (21:00)
[2019-12-22] MEDS: ATORVASTATIN 40 MG TAB PO SCH (21:00)
[2019-12-22] MEDS: ALLOPURINOL 100 MG TAB PO SCH (21:00)
--- NOTE | 2019-12-22 23:40 | NUR ---
patient has refused to have vital signs obtained.
[2019-12-23] VITALS: BP_SYST 100
[2019-12-23 04:00] VITALS: BP_SYST 100
[2019-12-23] MEDS: BUDESONIDE 0.5MG/2 ML NEB INH SCH ×2 (07:00→20:05)
[2019-12-23] MEDS: FORMOTEROL FUMARATE 20 MCG/2 ML VIAL IH SCH ×2 (07:00→19:00)
--- NOTE | 2019-12-23 07:00 | NUR ---
received bedside report. pt is alert resting in bed, no s/s of distress. call light within reach and instructed pt to call RN for help
--- NOTE | 2019-12-23 07:10 | NUR ---
bedside shift report completed with oncoming nurse. patient is resting comfortably in the bed. Bed is in lowest position and call reyes is within reach.
[2019-12-23] MEDS: PANTOPRAZOLE SOD 40 MG TABEC PO SCH (07:30)
[2019-12-23] MEDS: SEVELAMER CARBONATE 800 MG TAB PO SCH ×3 (08:00→17:00)
[2019-12-23] MEDS: METOPROLOL TARTRATE 50 MG TAB PO SCH ×2 (08:21→17:00)
[2019-12-23] MEDS: APIXAB 2.5 MG TABLET PO SCH ×2 (08:25→17:00)
[2019-12-23] MEDS: VITAMIN B COMPLEX PO SCH ×2 (08:26→22:00)
[2019-12-23] MEDS: POLYETHYLENE GLYCOL 3350 17 GM PACK PO SCH (08:26)
[2019-12-23] MEDS: CLOPIDOGREL BISULFATE 75 MG TAB PO SCH (08:26)
[2019-12-23] MEDS: SENNA-S TABLET PO SCH ×2 (08:26→17:00)
--- NOTE | 2019-12-23 08:29 | NUR ---
pt is alert laying supine in bed, no s/s of distress. pt refused to have morning vitals checked. Pt refused to let RN perform morning assessment and also refused to take morning meds. The lower school spanish teacher was at the bedside and the pt refused for him to take the bandage off the foot and assess the wound. the physicians are aware that the pt is refusing care. notified charge nurse. will continue to monitor pt
[2019-12-23] MEDS ORDERED: SODIUM CHLORIDE 0.9% 1000ML 2,000 ML ONE (09:59)
[2019-12-23 12:00] VITALS: BP 161/91
[2019-12-23] MEDS: CLONIDINE HCL 0.1 MG/24 HR 1 EA PATCH TOP SCH (13:00)
[2019-12-23 16:00] VITALS: BP 141/78
[2019-12-23] MEDS: VANCOMYCIN 1GM/NS 250 ML 250 ML IV SCH (16:00)
--- NOTE | 2019-12-23 16:10 | NUR ---
pt is non-compliant, sitting on the edge of the bed. pt is confused and agitated. educated patient about safety and the need to stay in bed, he is refusing to cooperate with nursing staff. call daughter, Swapna Mukherjee [phone] and left message.
[2019-12-23] MEDS: HYDROCODONE/APAP 10MG-325MG TAB PO PRN (18:20)
--- NOTE | 2019-12-23 19:14 | NUR ---
bedside shift report is complete. patient is resting comfortably in the bed. bed is in the lowest position and call light is within reach.
[2019-12-23 20:00] VITALS: BP 116/75
[2019-12-23] MEDS: CEFEPIME 1GM/NS 0.9% 50 ML 50 ML IV SCH (21:10)
[2019-12-23] MEDS: TAMSULOSIN HCL 0.4 MG CAP PO SCH (21:10)
[2019-12-23] MEDS: ALLOPURINOL 100 MG TAB PO SCH (21:10)
[2019-12-23] MEDS: ATORVASTATIN 40 MG TAB PO SCH (21:10)
[2019-12-23] MEDS: HYDRALAZINE HCL 25 MG TAB PO PRN (23:36)
[2019-12-23] MEDS: HYDROMORPHONE HCL 2 MG TAB PO PRN (23:58)
[2019-12-24] VITALS (8 sets, daily range): BP systolic 137–167; BP diastolic 64–84
[2019-12-24] MEDS: HYDROMORPHONE HCL 2 MG TAB PO PRN ×2 (04:20→22:04)
--- NOTE | 2019-12-24 06:50 | NUR ---
patient is resting comfortably in bed. bed is in lowest position and call light is within reach.
[2019-12-24] MEDS: BUDESONIDE 0.5MG/2 ML NEB INH SCH ×2 (07:15→18:55)
--- NOTE | 2019-12-24 07:27 | NUR ---
PATIENT IN BED RESTING WITH NO S/S OF DISTRESS. DENIED PAIN AT THIS TIME. 1:1 SITTER AT BED SIDE. DRESSING DRY AND INTACT TO RIGHT FOOT. BED IN LOWER POSITION, CALL LIGHT AT REACH.
[2019-12-24] MEDS: PANTOPRAZOLE SOD 40 MG TABEC PO SCH (08:02)
[2019-12-24] MEDS: HYDROCODONE/APAP 10MG-325MG TAB PO PRN (08:30)
[2019-12-24] MEDS: SEVELAMER CARBONATE 800 MG TAB PO SCH ×3 (08:42→17:44)
[2019-12-24] MEDS: METOPROLOL TARTRATE 50 MG TAB PO SCH ×2 (09:12→17:45)
[2019-12-24] MEDS: APIXAB 2.5 MG TABLET PO SCH (09:12)
[2019-12-24] MEDS: POLYETHYLENE GLYCOL 3350 17 GM PACK PO SCH (09:12)
[2019-12-24] MEDS: SENNA-S TABLET PO SCH ×2 (09:12→17:44)
[2019-12-24] MEDS: CLOPIDOGREL BISULFATE 75 MG TAB PO SCH (09:12)
[2019-12-24] MEDS: VITAMIN B COMPLEX PO SCH ×2 (09:59→20:44)
--- NOTE | 2019-12-24 11:25 | NUR ---
PATIENT SITTING UP IN BED TALKING ON THE PHONE, NO DISTRESS NOTED. 1:1 SITTER AT BED SIDE.
--- NOTE | 2019-12-24 16:42 | NUR ---
DRESSING CHANGED AT BED SIDE BY DR WYNNE. PATIENT TOLERATED PROCEDURE WELL.
[2019-12-24] MEDS: HEPARIN SOD (PORCINE) 5,000 UNIT/ML VIAL SC SCH ×2 (17:47→22:00)
[2019-12-24] MEDS: ALBUTEROL/IPRATROPIUM 3 ML NEB INH PRN (18:40)
[2019-12-24] MEDS: FORMOTEROL FUMARATE 20 MCG/2 ML VIAL IH SCH (19:00)
--- NOTE | 2019-12-24 19:25 | NUR ---
report received from day nurse. bedside shift report is complete. patient is resting in bed. bed is in lowest position and call light is within reach. will continue to monitor patient.
[2019-12-24] MEDS: CEFEPIME 1GM/NS 0.9% 50 ML 50 ML IV SCH (20:43)
[2019-12-24] MEDS: TAMSULOSIN HCL 0.4 MG CAP PO SCH (20:43)
[2019-12-24] MEDS: ALLOPURINOL 100 MG TAB PO SCH (20:43)
[2019-12-24] MEDS: ATORVASTATIN 40 MG TAB PO SCH (20:43)
[2019-12-25] VITALS (9 sets, daily range): BP systolic 134–160; BP diastolic 63–88
[2019-12-25] MEDS: HEPARIN SOD (PORCINE) 5,000 UNIT/ML VIAL SC SCH ×3 (05:48→22:56)
--- NOTE | 2019-12-25 06:32 | NUR ---
patient is resting in bed. bed is in lowest position and call reyes is within reach.
[2019-12-25] MEDS: BUDESONIDE 0.5MG/2 ML NEB INH SCH ×2 (07:00→20:25)
[2019-12-25] MEDS: FORMOTEROL FUMARATE 20 MCG/2 ML VIAL IH SCH ×2 (07:00→19:00)
--- NOTE | 2019-12-25 07:18 | NUR ---
PATIENT SITTING UP IN BED READING HIS NEWS PAPER, NO COMPLAIN VOICED. DRESSING DRY AND INTACT TO RIGHT FOOT. BED IN LOWER POSITION, CALL LIGHT AT REACH.
[2019-12-25] MEDS: SEVELAMER CARBONATE 800 MG TAB PO SCH ×3 (08:30→17:30)
[2019-12-25] MEDS: PANTOPRAZOLE SOD 40 MG TABEC PO SCH (08:30)
[2019-12-25] MEDS: SENNA-S TABLET PO SCH ×2 (09:15→17:30)
[2019-12-25] MEDS: POLYETHYLENE GLYCOL 3350 17 GM PACK PO SCH (09:15)
[2019-12-25] MEDS: METOPROLOL TARTRATE 50 MG TAB PO SCH ×2 (09:15→17:30)
[2019-12-25] MEDS: VITAMIN B COMPLEX PO SCH ×2 (10:00→20:24)
--- NOTE | 2019-12-25 10:48 | NUR ---
SURGEON IN ROOM TO SEE PATIENT. DRESSING CHANGED TO RIGHT FOOT ORDERED. PATIENT IN BED WITH CALL LIGHT AT REACH.
--- NOTE | 2019-12-25 11:43 | Progress Note ---
DATE: 12/18/2019 Followup Pain Medicine Progress Note REASON FOR FOLLOWUP: Acute pain related to his phantom leg pain and surgery on both legs due to ischemic leg. SUBJECTIVE: He is still having some pain issue. Pain is still ongoing off and on. We have to hold few medications because they are causing some confusion, but on current medications, he is getting little better mentally, clearing up with able to focus, able to answer multiple question. He is still having diabetic foot infection, being managed by the Infectious Disease specialist. CHIEF COMPLAINT: Diabetic foot and diabetic foot pain with burning pain. OBJECTIVE: VITAL SIGNS: Blood pressure 150/89, heart rate 90, temperature 97.8, respiratory rate 16, and saturation 95. Height 5 feet 7 inches, weight 141 pounds. HEENT: Normocephalic. NECK: Supple. LUNGS: Air entry bilaterally. HEART: Regular rate and rhythm. ABDOMEN: Soft and nontender. EXTREMITIES: Having history of amputation below-knee and now has a left foot diabetic, being underwent surgery multiple times, causing severe pain due to ischemia and not able to even sit or stand or walk because of claudication and pain. CURRENT MEDICATIONS: He has been on allopurinol, hydrocodone one tablet every 4 hourly, hydromorphone 2 mg q.4 hourly p.r.n. severe pain, on bisacodyl for the constipation, and clonidine for the [id number] withdrawal. LABORATORY DATA: Noted. Hemoglobin 9.4. ASSESSMENT AND PLAN: The patient with multiple issues, ongoing pain, diabetic neuropathy, burning pain syndrome, foot pain syndrome, on hemodialysis with renal failure requiring very close monitoring. Discussed with Dr. Clement, who is a Podiatry, operating on his foot multiple times. We will continue supportive care while he is inpatient. We will follow him. MD SHANE Cabezas/ANTHONY /[id number]
--- NOTE | 2019-12-25 13:23 | Consultation ---
DATE OF CONSULTATION: 12/25/2019 HISTORY OF PRESENT ILLNESS: The patient is a 79-year-old male, known to me, has history of peripheral vascular disease as well as kidney disease on dialysis diet, diabetes, who has nonhealing of the right transmetatarsal amputation. He states this was done recently. He has some pain in the right foot. He has had a previous left below-knee amputation, which was done by me about a year ago and he has a left leg prosthesis. He has not been ambulatory ever since he developed issues with the right foot. He had attempted revascularization done recently and then transmetatarsal amputation, which has not healed. PAST MEDICAL HISTORY: As stated above, history of coronary artery disease with previous coronary artery bypass surgery, previous left below-knee amputation, multiple vascular interventions to the right leg, diabetes, hypertension, and end-stage renal disease. ALLERGIES: TO IODINE AND SHELLFISH. FAMILY HISTORY: Noncontributory. SOCIAL HISTORY: The patient does not smoke cigarettes or drink alcohol. REVIEW OF SYSTEMS: As stated above, he has had no fever, no weight loss. PHYSICAL EXAMINATION: GENERAL: The patient is awake and alert. VITAL SIGNS: Normal. HEENT: Sclerae are nonicteric. NECK: Has no masses. No bruits were heard. LUNGS: Equal breath sounds are clear bilaterally. CARDIAC: Regular rate and rhythm with no murmur. ABDOMEN: Soft. There is no tenderness, no mass, no organomegaly. EXTREMITIES: There is a healed left below-knee amputation in the right leg. Distal pulses are not palpable. There is cyanosis with demarcation of the foot, which is just distal to the heel with some dark bloody fluid draining from the transmetatarsal amputation wound. There is no purulence seen. NEUROLOGIC: Grossly intact. ASSESSMENT: A 79-year-old male with poor healing of the right transmetatarsal amputation, likely best be treated with right below-knee amputation. I think a good chance he could become ambulatory with a prosthesis for both legs. This was explained to the patient. He is scheduled for dialysis tomorrow, so tentatively we will plan for the right below-knee amputation to be done on 12/27/2019, which would be in 2 days. Thank you for asking me to see Mr. Kong. MD TAWANA Silveira/ANTHONY /[id number]
--- NOTE | 2019-12-25 15:35 | NUR ---
PATIENT ASSISTED WITH DIAPER CHANGE, REPOSITIONED IN BED. CALL LIGHT AT REACH.
[2019-12-25] MEDS: HYDROCODONE/APAP 10MG-325MG TAB PO PRN ×2 (17:20→21:46)
[2019-12-25] MEDS: ALBUTEROL/IPRATROPIUM 3 ML NEB INH PRN (20:10)
[2019-12-25] MEDS: TAMSULOSIN HCL 0.4 MG CAP PO SCH (20:23)
[2019-12-25] MEDS: ATORVASTATIN 40 MG TAB PO SCH (20:23)
[2019-12-25] MEDS: CEFEPIME 1GM/NS 0.9% 50 ML 50 ML IV SCH (20:23)
[2019-12-25] MEDS: ALLOPURINOL 100 MG TAB PO SCH (20:23)
[2019-12-26] VITALS (7 sets, daily range): BP systolic 112–139; BP diastolic 58–78
[2019-12-26] MEDS: HYDROCODONE/APAP 10MG-325MG TAB PO PRN ×4 (02:33→20:42)
[2019-12-26] MEDS: HEPARIN SOD (PORCINE) 5,000 UNIT/ML VIAL SC SCH (06:13)
[2019-12-26] MEDS: FORMOTEROL FUMARATE 20 MCG/2 ML VIAL IH SCH ×2 (07:00→19:36)
--- NOTE | 2019-12-26 07:05 | NUR ---
Bedside report and waling rounds completed with oncoming nurse. Patient in bed resting with call light within reach. No issues or distress noted.
[2019-12-26] MEDS: BUDESONIDE 0.5MG/2 ML NEB INH SCH ×2 (07:19→19:36)
--- NOTE | 2019-12-26 07:20 | NUR ---
PATIENT IN BED RESTING WITH NO DISTRESS. O2 IN PLACE VIA N/C. DRESSING INTACT TO RIGHT FOOT. BED IN LOWER POSITION, CALL LIGHT AT REACH.
[2019-12-26] MEDS: PANTOPRAZOLE SOD 40 MG TABEC PO SCH (08:00)
[2019-12-26] MEDS: SEVELAMER CARBONATE 800 MG TAB PO SCH ×3 (08:49→17:40)
[2019-12-26] MEDS: METOPROLOL TARTRATE 50 MG TAB PO SCH ×2 (09:00→17:40)
--- NOTE | 2019-12-26 09:01 | NUR ---
WILL BEGIN SNF AGAIN AFTER RIGHT BKA SCHEDULED FOR 12/27/2019
[2019-12-26] MEDS: POLYETHYLENE GLYCOL 3350 17 GM PACK PO SCH (09:34)
[2019-12-26] MEDS: SENNA-S TABLET PO SCH ×2 (09:34→17:40)
[2019-12-26] MEDS: VITAMIN B COMPLEX PO SCH ×2 (10:00→22:00)
[2019-12-26] MEDS ORDERED: SODIUM CHLORIDE 0.9% 1000ML 2,000 ML ONE (10:25)
--- NOTE | 2019-12-26 11:28 | NUR ---
PATIENT ASSISTED WITH DIAPER CHANGE, HAD A LARGE BM. REPOSITIONED IN BED. ABOUT TO START HEMODIALYSIS. BED IN LOWER POSITION, CALL LIGHT AT REACH.
--- NOTE | 2019-12-26 15:36 | NUR ---
BED SIDE HEMODIALYSIS COMPLETED. 2L REMOVED, B/P 139/78 AND HR 85 PER DIALYSIS NURSE. PATIENT ON BED WITH CALL LIGHT AT REACH.
[2019-12-26] MEDS: VANCOMYCIN 1GM/NS 250 ML 250 ML IV SCH (16:44)
--- NOTE | 2019-12-26 19:00 | NUR ---
Bedside report and rounds completed. Patient in bed watching TV with call light within reach. No issues or concerns. Will continue to monitor closely.
[2019-12-26] MEDS: TAMSULOSIN HCL 0.4 MG CAP PO SCH (20:15)
[2019-12-26] MEDS: ATORVASTATIN 40 MG TAB PO SCH (20:15)
[2019-12-26] MEDS: ALLOPURINOL 100 MG TAB PO SCH (20:15)
--- NOTE | 2019-12-26 20:30 | NUR ---
Education provided that patient to be NPO ( nothing by mouth after midnight for procedure 12/27/19) Patient stated that he cancelled surgery and appointment with graining operator. Education provided that MD has surgery schedule for around noon and that patient will need to be NPO incase he changes mind. He stated " I will do surgery at later date and not tomorrow and will tell Dr Martin in morning. I am entitled to make my own decisions" Verbalized understanding, Will continue to monitor.
[2019-12-27] VITALS (8 sets, daily range): BP systolic 118–142; BP diastolic 56–78
--- NOTE | 2019-12-27 04:00 | NUR ---
Educated patient to remain NPO until speaking with Dr Martin regarding surgery and if change mind then can still have surgery today. Verbalized understanding, stating " that makes sense" Educated patient that unable to have surgery on dialysis days and that is why Dr Martin wanted to wait until tu12/27/19 and if does not have today, would not be able to have procedure Thursday r/t hemodialysis. Verbalized understand and will remain NPO but will not sign consent or do CHG bath until he talks to MD. Stated his mother 12/17/19 and he was her only child and he is his daughter only parent ( her mother ) he is 79 year old and need to make sure all things are clear before rushing into a surgery.
[2019-12-27] MEDS: HYDROCODONE/APAP 10MG-325MG TAB PO PRN (06:25)
[2019-12-27] MEDS: FORMOTEROL FUMARATE 20 MCG/2 ML VIAL IH SCH ×2 (07:00→19:00)
--- NOTE | 2019-12-27 07:00 | NUR ---
Patient stated that will do surgery and will sign consent.
--- NOTE | 2019-12-27 07:00 | NUR ---
Bedside report and rounds completed with oncoming nurse. Patient in bed resting, no issues or concerns. Call light within reach.
[2019-12-27] MEDS: PANTOPRAZOLE SOD 40 MG TABEC PO SCH (07:30)
[2019-12-27] MEDS: BUDESONIDE 0.5MG/2 ML NEB INH SCH ×2 (07:55→20:00)
[2019-12-27] MEDS: SEVELAMER CARBONATE 800 MG TAB PO SCH ×3 (08:00→17:04)
[2019-12-27] MEDS: METOPROLOL TARTRATE 50 MG TAB PO SCH ×2 (08:59→17:04)
[2019-12-27] MEDS: POLYETHYLENE GLYCOL 3350 17 GM PACK PO SCH (09:00)
[2019-12-27] MEDS: SENNA-S TABLET PO SCH ×2 (09:00→17:04)
[2019-12-27] MEDS: VITAMIN B COMPLEX PO SCH ×2 (09:03→21:38)
[2019-12-27] MEDS ORDERED: MEROPENEM 500MG/ NS 50ML 50 ML IV SCH (11:45)
--- NOTE | 2019-12-27 11:51 | NUR ---
Pt taken to OR at this time for procedure with Dr. Martin. Pt is aox4 and able to verbalize needs. Denies any pain at this time. 0 s/s of acute distress noted at time of transfer. Daughter is at the bedside.
--- NOTE | 2019-12-27 13:27 | NUR ---
Patient had a right BKA today 12/27/19. Due to change in status, will need new PT Evaluate and Treat Orders to resume therapy. Thank you. Addendum: 12/27/19 at 1328 by ANDREWS ARELLANO PT Amended: Links added.
--- NOTE | 2019-12-27 14:00 | NUR ---
Pt returned to floor from OR at this time. Pt is a little confused but calm. Denies any pain at this time. Right BKA was done dressing is dry and intact with immobilizer to the affected extremity. RLE elevated on pillow. 0 s/s of acute distress noted.
--- NOTE | 2019-12-27 14:41 | Progress Note ---
DATE: 12/27/2019 SUBJECTIVE: Mr. Kong is currently lying in bed comfortably. There are no new complaints. REVIEW OF SYSTEMS: HEENT: Negative. PULMONARY: Negative. CARDIAC: Negative. PHYSICAL EXAMINATION: GENERAL: He is currently alert, oriented, does not seem in acute distress. VITALS SIGNS: Stable, currently afebrile. HEENT: He is not icteric. NECK: Supple. CHEST: Clear. HEART: S1 and S2. No S3, S4, or murmur. ABDOMEN: Soft. Bowel sounds present. No tenderness. No hepatosplenomegaly. EXTREMITIES: Right foot, there are ischemic changes of the foot and heel. There is black eschar. IMPRESSION AND PLAN: Severe peripheral vascular disease, right transmetatarsal amputation, not feeling well, anemia of chronic disease, and end-stage renal disease, on hemodialysis. He is currently on vancomycin. He was on cefepime, we will change to meropenem. I will recommend bpilp-kzh-enlq amputation. Continue with local care. Prognosis is guarded. Other medical problem as above. MD AVERY Evans/MODPardeep /[id number]
--- NOTE | 2019-12-27 16:00 | NUR ---
Daughter would like for pt to go to inpatient rehab if possible. Notified Case Management.
--- NOTE | 2019-12-27 17:01 | Operative Report ---
DATE OF PROCEDURE: 12/27/2019 SURGEON: Sam Martin MD PREOPERATIVE DIAGNOSIS: Gangrene of the right foot. POSTOPERATIVE DIAGNOSIS: Gangrene of the right foot. PROCEDURE: Right below-knee amputation. FORKLIFT TRUCK OPERATOR: None. ANESTHESIA: General. INDICATIONS AND FINDINGS: The patient is a 79-year-old male with history of peripheral vascular disease, previous left below-knee amputation, who developed gangrene of left foot, nonhealing of a right transmetatarsal amputation. At Surgery, tissues were all viable level amputation with atherosclerotic changes in all the arteries, but the peroneal artery was patent. TECHNIQUE: After adequate general anesthesia, the patient in supine position, and the right leg was prepped and draped in sterile fashion with Betadine solution, measuring 9 cm distal to the tibial tuberosity. Incision was made in the anterior aspect of the leg and carried out posteriorly to create a posterior myocutaneous flap. Anterior compartment muscles were divided with electrocautery. Anterior tibial neurovascular bundle was divided between clamps, medially the muscles also was divided with electrocautery. The tibia was extracted as periosteum and divided with a Gigli saw being beveled anteriorly, more laterally his fibula was exposed, stripped as periosteum was divided as proximally as possible with Gigli saw. The posterior muscles were divided. The posterior muscles be left on the flap. The peroneal and posterior tibial neurovascular bundles were divided between clamps. The remaining muscle was divided and the leg was removed. Each neurovascular bundle was suture ligated with 2-0 silk. Some smaller vessels were controlled with electrocautery and the saphenous vein was ligated with 2-0 silk. The wound was irrigated with saline, inspected for hemostasis, which was seen to be adequate. The wound was then closed, the flap being brought anteriorly, and superficial fascia closed with interrupted sutures of 2-0 Vicryl. Skin was closed with brittny. Sterile dressing was applied. Leg was placed into a knee immobilizer. The patient tolerated the procedure well. Estimated blood loss was 225 mL. There were no complications. All counts were correct. The patient was taken to the recovery room in satisfactory condition. MD SHERI SilveiraG/NOVAL /[id number] cc: MD Amber Cabezas DPM Zaher Shebib, MD Salman A Khan, MD James Tran, MD (Charley)
[2019-12-27] MEDS ORDERED: PHENYLEPHRINE HCL 1% 10 MG/ML VIAL ONE (18:43)
[2019-12-27] MEDS ORDERED: ONDANSETRON HCL INJ 2MG/ML 2ML 2 MG/ML VIAL ONE (18:43)
[2019-12-27] MEDS ORDERED: PROPOFOL IV EMULSION 10 MG/ML 20 ML VIAL ONE (18:43)
[2019-12-27] MEDS ORDERED: SEVOFLURANE INHAL SOLN 250 ML PEN BTL ONE (18:43)
[2019-12-27] MEDS ORDERED: LIDOCAINE HCL 2% LOCAL INJ 5 ML SDV VIAL INJ ONE (18:43)
[2019-12-27] MEDS ORDERED: FENTANYL CITRATE/PF 100MCG/2 ML INJ ONE (18:56)
[2019-12-27] MEDS ORDERED: MIDAZOLAM HCL 2 MG/2 ML VIAL ONE (18:56)
[2019-12-27] MEDS: TAMSULOSIN HCL 0.4 MG CAP PO SCH (21:38)
[2019-12-27] MEDS: ALLOPURINOL 100 MG TAB PO SCH (21:38)
[2019-12-27] MEDS: ATORVASTATIN 40 MG TAB PO SCH (21:38)
[2019-12-28] VITALS (9 sets, daily range): BP systolic 89–168; BP diastolic 50–69
[2019-12-28 06:23] LABS: HEMATOCRIT 27.1 % (38.2-49.6); MEAN CORPUSCULAR HEMOGLOBIN 23.3 pg (28-32); MEAN CORPUSCULAR HGB CONC 29.5 g/dL (31-35); MEAN CORPUSCULAR VOLUME 78.8 fL (81-99); PLATELET COUNT 332 x10e3/uL (140-360); RED BLOOD COUNT 3.44 x10e6/uL (4.3-5.7); RED CELL DISTRIBUTION WIDTH 22.8 % (11.7-14.4)
[2019-12-28 06:48] LABS: ANION GAP 20.5 mmol/L (8-16); CALCIUM 9.2 mg/dL (8.4-10.2); CREATININE, SERUM 6.67 mg/dL (0.72-1.25); POTASSIUM 5.5 mmol/L (3.5-5.1)
[2019-12-28] MEDS: BUDESONIDE 0.5MG/2 ML NEB INH SCH ×2 (06:48→19:20)
--- NOTE | 2019-12-28 06:56 | NUR ---
RECEIVED BEDSIDE SHIFT REPORT FROM OFF GOING NURSE. PATIENT IS IN STABLE CONDITION. NO ACUTE DISTRESS NOTED. CALL LIGHT WITHIN REACH. BED IN THE LOWEST POSITION.
[2019-12-28] MEDS: FORMOTEROL FUMARATE 20 MCG/2 ML VIAL IH SCH ×2 (07:00→19:00)
--- NOTE | 2019-12-28 07:05 | NUR ---
Bedside report and rounds completed with oncoming nurse. Patient in bed with call light within reach. No issues or concerns noted.
[2019-12-28 08:16] LABS: ANISOCYTOSIS SLIGHT; MICROCYTOSIS SLIG; POIKILOCYTOSIS SLIGHT; TARGET CELLS FEW
[2019-12-28] MEDS: SEVELAMER CARBONATE 800 MG TAB PO SCH ×3 (08:16→17:06)
[2019-12-28] MEDS: SENNA-S TABLET PO SCH ×2 (08:16→17:06)
[2019-12-28] MEDS: POLYETHYLENE GLYCOL 3350 17 GM PACK PO SCH (08:16)
[2019-12-28] MEDS: PANTOPRAZOLE SOD 40 MG TABEC PO SCH (08:16)
[2019-12-28 08:17] LABS: PLATELET ESTIMATE ADEQUATE; PLATELET MORPHOLOGY COMMENT NORMAL; SCHISTOCYTES FEW
[2019-12-28] MEDS: METOPROLOL TARTRATE 50 MG TAB PO SCH ×2 (08:18→17:06)
[2019-12-28] MEDS ORDERED: SODIUM CHLORIDE 0.9% 1000ML 2,000 ML ONE (09:10)
[2019-12-28] MEDS: VITAMIN B COMPLEX PO SCH ×2 (09:13→22:00)
--- NOTE | 2019-12-28 09:30 | NUR ---
Dialysis started at this time.
[2019-12-28] MEDS: MIDODRINE 2.5 MG TAB PO PRN ×2 (09:41→15:12)
--- NOTE | 2019-12-28 13:15 | Progress Note ---
DATE: 12/28/2019 SUBJECTIVE: Mr. Kong underwent a BKA yesterday, currently doing well. No new complaint. Getting his hemodialysis. REVIEW OF SYSTEMS: HEENT: Negative. PULMONARY: Negative. CARDIAC: Negative. PHYSICAL EXAMINATION: GENERAL: He is currently alert and oriented. Does not seem to be in acute distress. VITAL SIGNS: Stable, currently afebrile. HEENT: He is not icteric. NECK: Supple. CHEST: Clear. HEART: S1 and S2. No S3, S4, or murmur. ABDOMEN: Soft. IMPRESSION: 1. This patient, who underwent below-knee amputation for gangrene of the foot. We will discontinue antibiotic. Continue with local care. 2. Peripheral vascular disease. 3. Neuropathy. 4. End-stage renal disease, on hemodialysis. We will follow. MD AVERY Evans/MODL /[id number]
--- NOTE | 2019-12-28 13:30 | NUR ---
Dialysis finished at this time. 2L removed.
--- NOTE | 2019-12-28 19:19 | NUR ---
BEDSIDE SHIFT REPORT GIVEN TO ONCOMING NURSE. PATIENT IS RESTING IN BED, NO ACUTE DISTRESS NOTED. CALL LIGHT WITHIN REACH. BED IN THE LOWEST POSITION.
--- NOTE | 2019-12-28 19:48 | NUR ---
RECEIVED PT IN BED AOX3 S/P RT BKA RT FA S/L PT HAS DIALYZED TODAY AND HAS TAKEN 2L FLUID .DENIES PAIN CALL LIGHT WITH IN REACH .CONTINUE TO MONITOR
[2019-12-28] MEDS: TAMSULOSIN HCL 0.4 MG CAP PO SCH (21:00)
[2019-12-28] MEDS: ALLOPURINOL 100 MG TAB PO SCH (21:00)
[2019-12-28] MEDS: ATORVASTATIN 40 MG TAB PO SCH (21:00)
[2019-12-28] MEDS: HYDROCODONE/APAP 10MG-325MG TAB PO PRN (23:44)
[2019-12-29] VITALS (8 sets, daily range): BP systolic 123–168; BP diastolic 59–77
--- NOTE | 2019-12-29 06:31 | NUR ---
PT RESTING .C/O PAIN AND GIVEN ORDERED PAIN MEDICATION .ELEVATED RT LEG .CONTINUE TO MONITOR
--- NOTE | 2019-12-29 06:52 | NUR ---
RECEIVED BEDSIDE SHIFT REPORT FROM OFF GOING NURSE. PATIENT IS RESTING IN BED. NO ACUTE DISTRESS NOTED. CALL LIGHT WITHIN REACH. BED IN THE LOWEST POSITION. BED ALARM ON.
[2019-12-29] MEDS: FORMOTEROL FUMARATE 20 MCG/2 ML VIAL IH SCH ×2 (07:00→19:00)
--- NOTE | 2019-12-29 07:17 | NUR ---
BEDSIDE REPORT GIVEN TO THE ONCOMING NURSE
--- NOTE | 2019-12-29 07:17 | NUR ---
BEDSIDE REPORT GIVEN TO THE ONCOMING NURSE
[2019-12-29] MEDS: BUDESONIDE 0.5MG/2 ML NEB INH SCH ×2 (07:20→19:25)
[2019-12-29] MEDS: SEVELAMER CARBONATE 800 MG TAB PO SCH ×3 (08:02→16:26)
[2019-12-29] MEDS: PANTOPRAZOLE SOD 40 MG TABEC PO SCH (08:02)
[2019-12-29] MEDS: POLYETHYLENE GLYCOL 3350 17 GM PACK PO SCH (08:03)
[2019-12-29] MEDS: SENNA-S TABLET PO SCH ×2 (08:03→16:19)
[2019-12-29] MEDS: METOPROLOL TARTRATE 50 MG TAB PO SCH ×2 (08:03→16:26)
[2019-12-29] MEDS: VITAMIN B COMPLEX PO SCH ×2 (10:00→22:00)
--- NOTE | 2019-12-29 11:19 | NUR ---
GOT PERMISSION TO RESTART SNF REFERRAL, UPDATED CLINICALS AND [facility] FROM FACILITY PICKED UP CLINICALS.
--- NOTE | 2019-12-29 16:20 | NUR ---
Nutrition Screen Note RD Recommendation for Physician: -Continue current diet as ordered Plan of Care: RD following, monitoring for tolerance and adequacy Nutrition reason for involvement: Follow up Primary Diagnose(s): diabetic foot infection PMH: coronary artery disease with previous coronary artery bypass surgery, previous left below-knee amputation, multiple vascular interventions to the right leg, diabetes, hypertension, and end-stage renal disease. Ht: 67 in Wt:141 lb BMI: 22.1 kg/m2 IBW:[address] Assessment: (12/29/2019) Follow up. Chart reviewed. Labs and meds reviewed. Pt reports eating >50% of meals. It is noted that pt consumed 75% of meals yesterday. No N/V or chewing/swallowing issues reported. Will continue to monitor (12/22/2019) Written RD nutrition assessment note was placed in the patients paper chart on 12/22 due to [employer] being down. Pt was seen per protocol due to LOS. RD had noted that pt was resting in bed, was confused, and could not answer questions appropriately at time of visit. RD mentioned that RN stated that pt was eating well. Current Diet: Renal diet Malnutrition Evaluation (12/29/2019) The patient does not meet criteria for a specified degree of malnutrition at this time. Will re-evaluate at follow-up as appropriate. Diet Education Needs Assessment: Pt was not interested in diet education materials at time of visit Nutrition Care Level: low Signed: Lisseth Mahoney, RD, LD
--- NOTE | 2019-12-29 16:20 | NUR ---
DAUGHTER ASKED IF [facility] IS IN NETWORK, CONTACTED FACILITY THEY WILL RUN NUMBER AND LET ME KNOW.
[2019-12-29] MEDS: APIXAB 2.5 MG TABLET PO SCH (16:26)
--- NOTE | 2019-12-29 19:20 | NUR ---
BEDSIDE SHIFT REPORT GIVEN TO ONCOMING NURSE. PATIENT IS RESTING IN BED. NO ACUTE DISTRESS NOTED. CALL LIGHT WITHIN REACH. BED IN THE LOWEST POSITION. BED ALARM ON.
--- NOTE | 2019-12-29 19:36 | NUR ---
RECEIVED PT IN BED AOX3 S/P RT BKA .DENIES PAIN CALL LIGHT WITH IN REACH .CONTINUE TO MONITOR
[2019-12-29] MEDS: TAMSULOSIN HCL 0.4 MG CAP PO SCH (21:32)
[2019-12-29] MEDS: ATORVASTATIN 40 MG TAB PO SCH (21:32)
[2019-12-29] MEDS: ALLOPURINOL 100 MG TAB PO SCH (21:32)
[2019-12-29] MEDS: HYDROCODONE/APAP 10MG-325MG TAB PO PRN (21:38)
[2019-12-30 04:00] VITALS: BP 162/73
[2019-12-30 06:08] LABS: BASOPHILS % 0.3 % (0.0-1.0); EOSINOPHILS # (AUTO) 0.2 (0.0-0.4); EOSINOPHILS % 2.3 % (0.0-6.0); HEMATOCRIT 25.7 % (38.2-49.6); HEMOGLOBIN 7.8 g/dL (14.0-18.0); LYMPHOCYTES # (AUTO) 1.9 (1.0-3.2); LYMPHOCYTES % 17.8 % (18.0-39.1); MEAN CORPUSCULAR HEMOGLOBIN 23.4 pg (28-32); MEAN CORPUSCULAR HGB CONC 30.4 g/dL (31-35); MEAN CORPUSCULAR VOLUME 77.2 fL (81-99); MONOCYTES # (AUTO) 1.7 (0.2-0.8); MONOCYTES % 16.2 % (4.4-11.3); NEUTROPHILS # (AUTO) 6.7 (2.1-6.9); PLATELET COUNT 310 x10e3/uL (140-360); RED BLOOD COUNT 3.33 x10e6/uL (4.3-5.7); RED CELL DISTRIBUTION WIDTH 22.7 % (11.7-14.4)
--- NOTE | 2019-12-30 06:33 | NUR ---
PT RESTED DURING HE NIGHT GIVEN PAIN MEDICATIONX1 .CALL LIGHT WITH IN REACH CONTINUE TO MONITOR
[2019-12-30] MEDS: FORMOTEROL FUMARATE 20 MCG/2 ML VIAL IH SCH ×2 (07:00→19:00)
--- NOTE | 2019-12-30 07:17 | NUR ---
RECEIVED BEDSIDE SHIFT REPORT FROM OFF GOING NURSE. PATIENT IS IN STABLE CONDITION. NO ACUTE DISTRESS NOTED. CALL LIGHT WITHIN REACH. BED IN THE LOWEST POSITION. BED ALARM ON.
[2019-12-30] MEDS: BUDESONIDE 0.5MG/2 ML NEB INH SCH ×2 (07:42→20:14)
[2019-12-30 07:48] VITALS: BP 152/70
[2019-12-30 07:52] LABS: LYMPHOCYTES % (MANUAL) 20 % (19-48); MONOCYTES % (MANUAL) 18 % (3.4-9.0); NEUTROPHILS % (MANUAL) 62 % (40-74); PLATELET ESTIMATE ADEQUATE; PLATELET MORPHOLOGY COMMENT NORMAL; RBC MORPHOLOGY COMMENT NORMAL
[2019-12-30] MEDS: SEVELAMER CARBONATE 800 MG TAB PO SCH ×5 (08:14→18:00)
[2019-12-30] MEDS: PANTOPRAZOLE SOD 40 MG TABEC PO SCH (08:14)
[2019-12-30] MEDS: APIXAB 2.5 MG TABLET PO SCH ×2 (08:14→16:43)
[2019-12-30] MEDS: CLOPIDOGREL BISULFATE 75 MG TAB PO SCH (08:15)
[2019-12-30] MEDS: SENNA-S TABLET PO SCH ×2 (08:15→16:22)
[2019-12-30] MEDS: METOPROLOL TARTRATE 50 MG TAB PO SCH ×2 (08:15→16:44)
[2019-12-30] MEDS: POLYETHYLENE GLYCOL 3350 17 GM PACK PO SCH (08:15)
[2019-12-30 08:18] VITALS: BP 152/70
--- NOTE | 2019-12-30 09:25 | NUR ---
SPOKE WITH BUILDING, THEY ARE IN NETWORK, SPOKE WITH DAUGHTER AND LET KNOW IN NETWORK, SHE STATES TO PROCEED WITH REFERRAL. REP WILL COME ROUSTABOUT [employer]. [facility] [id number] [facility] [id number] .
[2019-12-30] MEDS: VITAMIN B COMPLEX PO SCH ×3 (09:49→22:00)
[2019-12-30] MEDS ORDERED: ACETAMINOPHEN 325 MG TAB PO PRN (10:30)
[2019-12-30] MEDS ORDERED: DIPHENHYDRAMINE HCL INJ 50 MG/ML VIAL IV PRN (10:30)
[2019-12-30] MEDS ORDERED: DEXAMETHASONE SOD PHOS 10 MG/1 ML VIAL IV PRN (10:30)
[2019-12-30] MEDS ORDERED: SODIUM CHLORIDE 0.9% 250ML 250 ML IV ONE (10:45)
[2019-12-30 11:06] VITALS: BP 135/62
--- NOTE | 2019-12-30 15:00 | NUR ---
Dialysis finished at this time 2.5L removed.
--- NOTE | 2019-12-30 15:20 | NUR ---
PATIENT IS GOING TO EAT LUNCH AT THIS TIME, RENVELA FOR 1200 ADMINISTERED AT THIS TIME.
[2019-12-30] MEDS: CLONIDINE HCL 0.1 MG/24 HR 1 EA PATCH TOP SCH (16:43)
[2019-12-30] MEDS: HYDROCODONE/APAP 10MG-325MG TAB PO PRN (16:43)
--- NOTE | 2019-12-30 18:57 | NUR ---
RECEIVED REPORT FROM PREVIOUS NURSE. CALL LIGHT WITHIN REACH. PATIENT IN BED. PATIENT IS A&OX3
--- NOTE | 2019-12-30 19:26 | NUR ---
BEDSIDE SHIFT REPORT GIVEN TO ONCOMING NURSE. PATIENT IS RESTING IN BED. NO ACUTE DISTRESS NOTED. CALL LIGHT WITHIN REACH. BED IN THE LOWEST POSITION.
[2019-12-30 20:05] VITALS: BP 137/76
[2019-12-30] MEDS: ALBUTEROL/IPRATROPIUM 3 ML NEB INH PRN (20:14)
[2019-12-30 21:06] VITALS: BP 137/76
[2019-12-30] MEDS: ATORVASTATIN 40 MG TAB PO SCH (21:57)
[2019-12-30] MEDS: ALLOPURINOL 100 MG TAB PO SCH (21:57)
[2019-12-30] MEDS: TAMSULOSIN HCL 0.4 MG CAP PO SCH (21:57)
[2019-12-31] VITALS (10 sets, daily range): BP systolic 134–186; BP diastolic 68–94
[2019-12-31] MEDS: FORMOTEROL FUMARATE 20 MCG/2 ML VIAL IH SCH ×2 (07:00→19:00)
--- NOTE | 2019-12-31 07:00 | NUR ---
BEDSIDE REPORT DONE. PT IS ALERT SITTING UP IN BED, NO S/S OF DISTRESS. CALL LIGHT WITHIN REACH AND INSTRUCTED PT TO CALL RN FOR HELP. BED SAFETY IMPLEMENTED
--- NOTE | 2019-12-31 07:22 | NUR ---
GAVE BEDSIDE SHIFT REPORT TO ONCOMING NURSE. PATIENT IN BED ASLEEP. CALL LIGHT WITHIN REACH.
[2019-12-31] MEDS: BUDESONIDE 0.5MG/2 ML NEB INH SCH ×2 (07:50→20:00)
[2019-12-31] MEDS: SENNA-S TABLET PO SCH ×2 (09:00→17:00)
[2019-12-31] MEDS: POLYETHYLENE GLYCOL 3350 17 GM PACK PO SCH (09:00)
[2019-12-31] MEDS: VITAMIN B COMPLEX PO SCH ×2 (09:57→22:00)
[2019-12-31] MEDS: APIXAB 2.5 MG TABLET PO SCH ×2 (10:04→18:00)
[2019-12-31] MEDS: PANTOPRAZOLE SOD 40 MG TABEC PO SCH (10:04)
[2019-12-31] MEDS: CLOPIDOGREL BISULFATE 75 MG TAB PO SCH (10:04)
[2019-12-31] MEDS: METOPROLOL TARTRATE 50 MG TAB PO SCH ×2 (10:04→18:00)
[2019-12-31] MEDS: SEVELAMER CARBONATE 800 MG TAB PO SCH ×3 (10:04→18:00)
[2019-12-31] MEDS: HYDRALAZINE HCL 25 MG TAB PO PRN (11:42)
--- NOTE | 2019-12-31 17:28 | NUR ---
TRANSFERRED PT FROM BED TO WHEELCHAIR. DAUGHTER IS AT THE BEDSIDE AND WILL WALK WITH THE PT IN THE [place]
--- NOTE | 2019-12-31 19:05 | NUR ---
RECEIVED REPORT FROM PREVIOUS NURSE. CALL LIGHT WITHIN REACH. PATIENT IN BED. DAUGHTER AT THE BEDSIDE
[2019-12-31] MEDS: HYDROCODONE/APAP 10MG-325MG TAB PO PRN (19:48)
[2019-12-31] MEDS: ALLOPURINOL 100 MG TAB PO SCH (22:48)
[2019-12-31] MEDS: ATORVASTATIN 40 MG TAB PO SCH (22:48)
[2019-12-31] MEDS: TAMSULOSIN HCL 0.4 MG CAP PO SCH (22:48)
[2020-01-01] VITALS (8 sets, daily range): BP systolic 123–146; BP diastolic 60–70
[2020-01-01] MEDS: FORMOTEROL FUMARATE 20 MCG/2 ML VIAL IH SCH ×2 (07:00→20:18)
--- NOTE | 2020-01-01 07:00 | NUR ---
bedside report done. pt is sleeping, no s/s of distress. call light within reach and bed safety in place
[2020-01-01] MEDS: BUDESONIDE 0.5MG/2 ML NEB INH SCH ×2 (07:05→20:18)
--- NOTE | 2020-01-01 07:12 | NUR ---
GAVE REPORT TO ONCOMING NURSE. CALL LIGHT WITHIN REACH. PATIENT ASLEEP IN BED.
[2020-01-01] MEDS: SENNA-S TABLET PO SCH ×2 (09:00→17:00)
[2020-01-01] MEDS: POLYETHYLENE GLYCOL 3350 17 GM PACK PO SCH (09:00)
[2020-01-01] MEDS: VITAMIN B COMPLEX PO SCH ×2 (09:52→19:46)
[2020-01-01] MEDS: APIXAB 2.5 MG TABLET PO SCH ×2 (09:56→17:47)
[2020-01-01] MEDS: PANTOPRAZOLE SOD 40 MG TABEC PO SCH (09:56)
[2020-01-01] MEDS: SEVELAMER CARBONATE 800 MG TAB PO SCH ×3 (09:56→17:47)
[2020-01-01] MEDS: CLOPIDOGREL BISULFATE 75 MG TAB PO SCH (09:57)
[2020-01-01] MEDS: METOPROLOL TARTRATE 50 MG TAB PO SCH ×2 (09:57→17:47)
--- NOTE | 2020-01-01 16:06 | Diagnostic Imaging Report ---
SHOULDER RIGHT COMPLETE - 3 views HISTORY: Pain COMPARISON: None. Correlation with chest x-ray dated 12/06/2019. FINDINGS: Bones: Remote, healed fracture deformity of the right humeral neck. Joints: Moderate degenerative changes of the glenohumeral joint. Soft tissues: Vascular calcifications. IMPRESSION: Remote, healed fracture deformity of the right humeral neck. Signed by: Dr. Jannette Boo M.D. on 01/01/2020 4:04 PM
--- NOTE | 2020-01-01 18:15 | NUR ---
dry sterile dressing change done
[2020-01-01] MEDS: TAMSULOSIN HCL 0.4 MG CAP PO SCH (20:41)
[2020-01-01] MEDS: ALLOPURINOL 100 MG TAB PO SCH (20:41)
[2020-01-01] MEDS: ATORVASTATIN 40 MG TAB PO SCH (20:41)
[2020-01-01] MEDS: ACETAMINOPHEN 325 MG TAB PO PRN (20:41)
--- NOTE | 2020-01-01 21:59 | NUR ---
RECEIVED REPORT FROM PREVIOUS NURSE. CALL LIGHT WITHIN REACH. PATIENT IN BED. PATIENT IS A&O X3 Addendum: 01/01/20 at 2200 by Darlene Dupree RN CHANGE TIME TO 1909
[2020-01-02] VITALS (7 sets, daily range): BP systolic 106–147; BP diastolic 57–66
[2020-01-02] MEDS: ACETAMINOPHEN 325 MG TAB PO PRN ×2 (04:03→10:31)
[2020-01-02 06:39] LABS: BASOPHILS % 0.4 % (0.0-1.0); EOSINOPHILS # (AUTO) 0.2 (0.0-0.4); EOSINOPHILS % 1.6 % (0.0-6.0); HEMATOCRIT 28.3 % (38.2-49.6); HEMOGLOBIN 8.8 g/dL (14.0-18.0); LYMPHOCYTES # (AUTO) 0.5 (1.0-3.2); LYMPHOCYTES % 4.6 % (18.0-39.1); MEAN CORPUSCULAR HEMOGLOBIN 24.6 pg (28-32); MEAN CORPUSCULAR HGB CONC 31.1 g/dL (31-35); MEAN CORPUSCULAR VOLUME 79.3 fL (81-99); MONOCYTES # (AUTO) 1.5 (0.2-0.8); MONOCYTES % 15.1 % (4.4-11.3); NEUTROPHILS # (AUTO) 7.7 (2.1-6.9); NEUTROPHILS % 77.9 % (38.7-80.0); PLATELET COUNT 310 x10e3/uL (140-360); RED BLOOD COUNT 3.57 x10e6/uL (4.3-5.7); RED CELL DISTRIBUTION WIDTH 22.5 % (11.7-14.4)
[2020-01-02 06:57] LABS: ANION GAP 17.6 mmol/L (8-16); CALCIUM 9.4 mg/dL (8.4-10.2); CREATININE, SERUM 8.1 mg/dL (0.72-1.25); POTASSIUM 4.6 mmol/L (3.5-5.1)
[2020-01-02] MEDS: FORMOTEROL FUMARATE 20 MCG/2 ML VIAL IH SCH ×2 (07:00→19:00)
--- NOTE | 2020-01-02 07:03 | NUR ---
GAVE BEDSIDE SHIFT REPORT TO ONCOMING NURSE. CALL LIGHT WITHIN REACH. PATIENT IN BED. PATIENT IS A&OX3
--- NOTE | 2020-01-02 07:20 | NUR ---
PT IN BED ,DENIES PAIN ,NO DISTRESS NTOED,
[2020-01-02] MEDS: BUDESONIDE 0.5MG/2 ML NEB INH SCH ×2 (07:43→20:55)
[2020-01-02 07:56] LABS: EOSINOPHILS % (MANUAL) 2 % (0-7); LYMPHOCYTES % (MANUAL) 6 % (19-48); MONOCYTES % (MANUAL) 13 % (3.4-9.0); NEUTROPHILS % (MANUAL) 79 % (40-74)
[2020-01-02 07:57] LABS: PLATELET ESTIMATE ADEQUATE; PLATELET MORPHOLOGY COMMENT NORMAL
[2020-01-02 07:58] LABS: RBC MORPHOLOGY COMMENT NORMAL
[2020-01-02] MEDS: SENNA-S TABLET PO SCH ×2 (08:50→17:00)
[2020-01-02] MEDS: APIXAB 2.5 MG TABLET PO SCH ×2 (08:51→17:00)
[2020-01-02] MEDS: SEVELAMER CARBONATE 800 MG TAB PO SCH ×3 (08:51→17:00)
[2020-01-02] MEDS: PANTOPRAZOLE SOD 40 MG TABEC PO SCH (08:51)
[2020-01-02] MEDS: METOPROLOL TARTRATE 50 MG TAB PO SCH ×2 (08:52→17:00)
[2020-01-02] MEDS: CLOPIDOGREL BISULFATE 75 MG TAB PO SCH (09:00)
[2020-01-02] MEDS: POLYETHYLENE GLYCOL 3350 17 GM PACK PO SCH (09:00)
--- NOTE | 2020-01-02 09:00 | NUR ---
DIALYSIS STARTED,.DRSG TO RT LEG CHANGED
--- NOTE | 2020-01-02 09:16 | NUR ---
CALL TO [facility] FOR UPDATE @ [phone]. SPOKE Shoshana AMADO AND STATES THE CALKER IS IN A MEETING. LEFT VM W CONTACT INFO.
[2020-01-02] MEDS: VITAMIN B COMPLEX PO SCH ×2 (10:00→22:00)
--- NOTE | 2020-01-02 14:50 | NUR ---
CALL TO [facility] AGAIN. CM WAS TRANSFERRED TO FOR ADMISSIONS [facility]. LEFT. CALL TO [facility] @ [phone]. STATES SHE WILL F/U W THE FACILITY. STATES THE RN [facility] WAS OUT W AN INJURY TODAY.
[2020-01-02] MEDS: HYDROCODONE/APAP 10MG-325MG TAB PO PRN ×2 (15:05→21:25)
--- NOTE | 2020-01-02 15:31 | NUR ---
RECEIVED CALL BACK FROM [facility] STATING THEY WERE NOT IN NETWORK W [facility], BUT WERE TRYING TO GET THE CONTRACT FOR THIS CASE. SPOKE W JAVIER Marques CM AND [facility]. JOHN ASKED WHY THE PT WAS NOT RETURNING TO [facility]. WILL F/U W FAMILY.
--- NOTE | 2020-01-02 18:31 | NUR ---
PT UP IN BED NO FUTHER C/O PAIN,RT LEG ELEVATED ON PILLOW
--- NOTE | 2020-01-02 19:44 | NUR ---
ROUNDS DONE, RECEIVED REPORT FROM 7AM NURSE, PATIENT RESTING IN BED LOOKING AT A MAGAZINE, NO DISTRESS NOTED. CALL LIGHT IN REACH. WILL CONTINUE TO MONITOR.
[2020-01-02] MEDS: ATORVASTATIN 40 MG TAB PO SCH (21:23)
[2020-01-02] MEDS: ALLOPURINOL 100 MG TAB PO SCH (21:23)
[2020-01-02] MEDS: TAMSULOSIN HCL 0.4 MG CAP PO SCH (21:23)
[2020-01-03] VITALS (9 sets, daily range): BP systolic 101–160; BP diastolic 51–97
[2020-01-03] MEDS: ACETAMINOPHEN 325 MG TAB PO PRN (00:56)
[2020-01-03] MEDS: FORMOTEROL FUMARATE 20 MCG/2 ML VIAL IH SCH ×2 (07:00→19:00)
--- NOTE | 2020-01-03 07:00 | NUR ---
PATIENT RESTING IN BED, NO COMPLAINTS VOICED. REPORT GIVEN TO AM NURSE, LEFT UPPER ARM GRAFT REMAIN INTACT WITH GOOD THRILL AND BRUIT. CALL LIGHT REMAIN IN REACH. WILL CONTINUE TO MONITOR.
[2020-01-03] MEDS: BUDESONIDE 0.5MG/2 ML NEB INH SCH ×2 (07:05→18:16)
--- NOTE | 2020-01-03 07:30 | NUR ---
PATIENT REQUESTED AND RECEIVED A CUP OF COFFEE. DRESSING DRY AND INTACT TO RIGHT STUMP. BED IN LOWER POSITION, CALL LIGHT AT REACH.
--- NOTE | 2020-01-03 08:25 | NUR ---
FAMILY NOT HAPPY WITH [facility], EMAILED DAUGHTER DENIAL AND LET HER KNOW THE LIST THAT IS IN NETWORK FROM ORIGINAL LIST IS ONE SHE WILL NEED TO LOOK AT AGAIN.
[2020-01-03] MEDS: SEVELAMER CARBONATE 800 MG TAB PO SCH ×3 (08:30→17:16)
[2020-01-03] MEDS: PANTOPRAZOLE SOD 40 MG TABEC PO SCH (08:50)
[2020-01-03] MEDS: APIXAB 2.5 MG TABLET PO SCH ×2 (09:42→17:16)
[2020-01-03] MEDS: SENNA-S TABLET PO SCH ×2 (09:43→17:00)
[2020-01-03] MEDS: METOPROLOL TARTRATE 50 MG TAB PO SCH ×2 (09:43→17:16)
[2020-01-03] MEDS: POLYETHYLENE GLYCOL 3350 17 GM PACK PO SCH (09:43)
[2020-01-03] MEDS: CLOPIDOGREL BISULFATE 75 MG TAB PO SCH (09:43)
[2020-01-03] MEDS: VITAMIN B COMPLEX PO SCH ×2 (10:00→22:00)
--- NOTE | 2020-01-03 11:23 | NUR ---
ID MD IN TO SEE PATIENT/S WOUND. NEW DRESSING REAPPLIED. PATIENT TOLERATED PROCEDURE WELL. IN BED WITH CALL LIGHT AT REACH.
--- NOTE | 2020-01-03 15:47 | NUR ---
PATIENT ASSISTED WITH DIAPER CHANGE, HAD A LARGE BM. REPOSITIONED IN BED. CALL LIGHT AT REACH.
[2020-01-03] MEDS: TAMSULOSIN HCL 0.4 MG CAP PO SCH (22:20)
[2020-01-03] MEDS: ATORVASTATIN 40 MG TAB PO SCH (22:20)
[2020-01-03] MEDS: ALLOPURINOL 100 MG TAB PO SCH (22:20)
[2020-01-04] VITALS (7 sets, daily range): BP systolic 110–149; BP diastolic 53–67
--- NOTE | 2020-01-04 03:19 | NUR ---
NOTED SMALL AMOUNT OF BLOOD TO RIGHT STUMP, DRESSING CHANGED, PATIENT TOLERATED WELL, AVIS REMAIN INTACT TO HIS RIGHT STUMP. CALL LIGHT IN REACH. WILL CONTINUE TO MONITOR.
--- NOTE | 2020-01-04 03:20 | NUR ---
LEFT UPPER ARM FISTULA REMAIN INTACT, THRILL AND BRUIT NOTED, DRESSING REMAIN INTACT.
[2020-01-04] MEDS: ALBUTEROL/IPRATROPIUM 3 ML NEB INH PRN (05:43)
[2020-01-04] MEDS: ACETAMINOPHEN 325 MG TAB PO PRN (05:52)
[2020-01-04] MEDS: FORMOTEROL FUMARATE 20 MCG/2 ML VIAL IH SCH ×2 (07:00→19:00)
--- NOTE | 2020-01-04 07:07 | NUR ---
REPORT GIVEN TO AM NURSE, PATIENT CONTINUE RESTING, NO COMPLAINTS, CALL LIGHT REMAIN IN REACH.
[2020-01-04] MEDS: BUDESONIDE 0.5MG/2 ML NEB INH SCH (07:25)
[2020-01-04] MEDS: PANTOPRAZOLE SOD 40 MG TABEC PO SCH (07:30)
[2020-01-04] MEDS: SEVELAMER CARBONATE 800 MG TAB PO SCH ×3 (08:00→17:00)
[2020-01-04] MEDS: SENNA-S TABLET PO SCH ×2 (09:00→17:00)
[2020-01-04] MEDS: METOPROLOL TARTRATE 50 MG TAB PO SCH ×2 (09:00→17:00)
[2020-01-04] MEDS: POLYETHYLENE GLYCOL 3350 17 GM PACK PO SCH (09:00)
[2020-01-04] MEDS: APIXAB 2.5 MG TABLET PO SCH ×2 (09:00→17:00)
[2020-01-04] MEDS: CLOPIDOGREL BISULFATE 75 MG TAB PO SCH (09:00)
--- NOTE | 2020-01-04 09:49 | NUR ---
Dr. Davis or Dr. Martin, can we have a new order for Mr. Kong for PT? We didn't get a new order after his last amputation. He could use therapy for bed mobility and start working on sliding board transfers. Thank you, Mariann Burns, PT Addendum: 01/04/20 at 0951 by Mariann Burns PT Amended: Links added.
[2020-01-04] MEDS: VITAMIN B COMPLEX PO SCH ×2 (10:00→21:56)
--- NOTE | 2020-01-04 10:17 | NUR ---
SPOKE WITH DAUGHTER SHE HAS CHECKED WITH NUMEROUS OTHER FACILITIES AND HAS DECIDED TO RETURN TO [facility], WILL FAX CLINICALS TO [phone]
[2020-01-04 15:59] LABS: BASOPHILS % 0.4 % (0.0-1.0); EOSINOPHILS # (AUTO) 0.1 (0.0-0.4); EOSINOPHILS % 0.7 % (0.0-6.0); HEMATOCRIT 29.6 % (38.2-49.6); HEMOGLOBIN 9.1 g/dL (14.0-18.0); LYMPHOCYTES # (AUTO) 1.1 (1.0-3.2); LYMPHOCYTES % 14.7 % (18.0-39.1); MEAN CORPUSCULAR HEMOGLOBIN 24.3 pg (28-32); MEAN CORPUSCULAR HGB CONC 30.7 g/dL (31-35); MEAN CORPUSCULAR VOLUME 79.1 fL (81-99); MONOCYTES # (AUTO) 0.8 (0.2-0.8); MONOCYTES % 10.3 % (4.4-11.3); NEUTROPHILS # (AUTO) 5.5 (2.1-6.9); NEUTROPHILS % 73.4 % (38.7-80.0); PLATELET COUNT 312 x10e3/uL (140-360); RED BLOOD COUNT 3.74 x10e6/uL (4.3-5.7); RED CELL DISTRIBUTION WIDTH 22.6 % (11.7-14.4)
[2020-01-04 16:16] LABS: CALCIUM 8.6 mg/dL (8.4-10.2); CREATININE, SERUM 7.59 mg/dL (0.72-1.25)
--- NOTE | 2020-01-04 16:26 | NUR ---
SPOKE WITH SNF THEY NEED PT NOTES IN ORDER TO PROCESS THE REFERRAL
--- NOTE | 2020-01-04 16:26 | NUR ---
Nutrition Screen Note RD Recommendation for Physician: -Continue current diet as ordered Plan of Care: RD following, monitoring for tolerance and adequacy Nutrition reason for involvement: Follow up Primary Diagnose(s): diabetic foot infection PMH: coronary artery disease with previous coronary artery bypass surgery, previous left below-knee amputation, multiple vascular interventions to the right leg, diabetes, hypertension, and end-stage renal disease. Ht: 67 in Wt:141 lb BMI: 22.1 kg/m2 IBW:[address] Assessment: 01/04: Follow up. Medical provider at bedside at time of visits. Pt with 75% po intake per chart and no GI distress, LBM today. Pt discussed during am MDR, no nutritional issues reported, and plan for return to SNF per CM. Chart reviewed. Labs and meds reviewed. Will continue to monitor. (12/29/2019) Follow up. Chart reviewed. Labs and meds reviewed. Pt reports eating >50% of meals. It is noted that pt consumed 75% of meals yesterday. No N/V or chewing/swallowing issues reported. Will continue to monitor (12/22/2019) Written RD nutrition assessment note was placed in the patients paper chart on 12/22 due to [employer] being down. Pt was seen per protocol due to LOS. RD had noted that pt was resting in bed, was confused, and could not answer questions appropriately at time of visit. RD mentioned that RN stated that pt was eating well. Current Diet: Renal diet Malnutrition Evaluation (12/29/2019) The patient does not meet criteria for a specified degree of malnutrition at this time. Will re-evaluate at follow-up as appropriate. Diet Education Needs Assessment: Pt was not interested in diet education materials at time of visit Nutrition Care Level: low Signed: Sun De La Fuente RD, LD, [facility]
--- NOTE | 2020-01-04 19:45 | NUR ---
Report given to oncoming nurse, walking rounds complete.
--- NOTE | 2020-01-04 20:00 | NUR ---
Received change of shift report from AM nurse. Walking rounds completed.
--- NOTE | 2020-01-04 20:30 | NUR ---
Patient receiving dialysis at this time. No noted distress or discomfort. Patient given a warm blanket.
[2020-01-04] MEDS: ALLOPURINOL 100 MG TAB PO SCH (21:00)
[2020-01-04] MEDS: ATORVASTATIN 40 MG TAB PO SCH (21:00)
[2020-01-04] MEDS: TAMSULOSIN HCL 0.4 MG CAP PO SCH (21:00)
[2020-01-05] VITALS (8 sets, daily range): BP systolic 103–121; BP diastolic 55–63
[2020-01-05] MEDS: HYDROCODONE/APAP 10MG-325MG TAB PO PRN (00:47)
--- NOTE | 2020-01-05 01:18 | NUR ---
Patient c/o pain to leg. Given pain meds as ordered by MD. Repositioned patient in bed. Continue monitor.
[2020-01-05] MEDS: FORMOTEROL FUMARATE 20 MCG/2 ML VIAL IH SCH ×2 (07:00→19:00)
[2020-01-05] MEDS: BUDESONIDE 0.5MG/2 ML NEB INH SCH ×2 (07:15→21:00)
[2020-01-05] MEDS: POLYETHYLENE GLYCOL 3350 17 GM PACK PO SCH (09:00)
[2020-01-05] MEDS: SENNA-S TABLET PO SCH ×2 (09:00→17:00)
[2020-01-05] MEDS: SEVELAMER CARBONATE 800 MG TAB PO SCH ×3 (09:29→18:03)
[2020-01-05] MEDS: APIXAB 2.5 MG TABLET PO SCH (09:29)
[2020-01-05] MEDS: PANTOPRAZOLE SOD 40 MG TABEC PO SCH (09:29)
--- NOTE | 2020-01-05 09:29 | NUR ---
CALLED [facility] AND LET KNOW DISCHARGE IS PENDING NOTE FROM THEM. TOLD WILL GET TO IT TODAY.
[2020-01-05] MEDS: METOPROLOL TARTRATE 50 MG TAB PO SCH ×2 (09:30→18:05)
[2020-01-05] MEDS: CLOPIDOGREL BISULFATE 75 MG TAB PO SCH (09:33)
[2020-01-05] MEDS: VITAMIN B COMPLEX PO SCH ×2 (10:00→21:49)
--- NOTE | 2020-01-05 11:39 | Progress Note ---
DATE: 01/04/2020 Followup Pain Medicine Progress Note SUBJECTIVE: This patient has ongoing pain, history of diabetic foot infection, pain, and amputation of the leg in the past. Some phantom leg present also. Pain is 2 to 10/10 on a scale of 0-10, 0 being none, and 10 being worst. Pain is constant, aching, dull, sharp, shooting, burning pain sometimes. Currently, he is doing much better with current pain medication consist of Dauphin 10 q.4h p.r.n. with supportive care. OBJECTIVE: GENERAL: The patient in pain, but in not acute distress. VITAL SIGNS: Within normal. HEENT: Normocephalic. NECK: Supple. LUNGS: Air entry bilaterally. HEART: Regular rate and rhythm. ABDOMEN: Obese, soft, and nontender. EXTREMITIES: Old amputation history. function nonfocal. LABORATORY DATA: Lab data was reviewed. Hemoglobin 9.1, hematocrit . ASSESSMENT: The patient with chronic pain syndrome, chronic back pain syndrome, diabetic foot, ongoing pain. We will continue supportive care while he is inpatient. Thank you Dr. Davis for this patient. I will follow him with you. MD SHAEN Cabezas/ANTHONY /[id number]
--- NOTE | 2020-01-05 19:44 | NUR ---
Received change of shift report from AM nurse. Walking rounds completed.
--- NOTE | 2020-01-05 19:46 | NUR ---
walking rounds complete, pt stable at this time.
[2020-01-05] MEDS: TAMSULOSIN HCL 0.4 MG CAP PO SCH (21:00)
[2020-01-05] MEDS: ATORVASTATIN 40 MG TAB PO SCH (21:00)
[2020-01-05] MEDS: ALLOPURINOL 100 MG TAB PO SCH (21:00)
--- NOTE | 2020-01-05 23:18 | NUR ---
Patient in bed. Asst to a comfortable position. Patient denies pain at this time. Patient resting in bed with no c/o at this time. Continue monitor.
[2020-01-06] VITALS (8 sets, daily range): BP systolic 104–131; BP diastolic 53–64
[2020-01-06] MEDS: BUDESONIDE 0.5MG/2 ML NEB INH SCH ×2 (07:00→20:00)
[2020-01-06] MEDS: PANTOPRAZOLE SOD 40 MG TABEC PO SCH (07:30)
--- NOTE | 2020-01-06 07:38 | NUR ---
PATIENT IN BED WITH HEAD OF BED ELEVATED RECEIVING NEB TREATMENT, NO DISTRESS NOTED. DRESSING INTACT TO RIGHT STUMP. BED IN LOWER POSITION, CALL LIGHT AT REACH.
[2020-01-06] MEDS: FORMOTEROL FUMARATE 20 MCG/2 ML VIAL IH SCH ×2 (07:44→19:00)
[2020-01-06] MEDS: SEVELAMER CARBONATE 800 MG TAB PO SCH ×3 (08:51→17:55)
[2020-01-06] MEDS: METOPROLOL TARTRATE 50 MG TAB PO SCH ×2 (09:00→17:55)
[2020-01-06] MEDS: SENNA-S TABLET PO SCH ×2 (09:00→17:00)
[2020-01-06] MEDS: POLYETHYLENE GLYCOL 3350 17 GM PACK PO SCH (09:00)
[2020-01-06] MEDS: CLOPIDOGREL BISULFATE 75 MG TAB PO SCH (09:00)
[2020-01-06] MEDS ORDERED: SODIUM CHLORIDE 0.9% 1000ML 2,000 ML ONE (09:44)
[2020-01-06] MEDS: VITAMIN B COMPLEX PO SCH ×2 (10:00→22:00)
[2020-01-06] MEDS ORDERED: SODIUM CHLORIDE 0.9% 1000ML 2,000 ML IV PRN (10:15)
--- NOTE | 2020-01-06 11:06 | NUR ---
BED SIDE HEMODIALYSIS IN PROGRESS. IN BED WITH CALL LIGHT AT REACH.
--- NOTE | 2020-01-06 15:14 | NUR ---
CALLED NABOR WITH [facility], SHE STATES CANNOT FIND IN SYSTEM CALLED MARIA ESTHER AND SHE STATES NEW IPA SO JUST IN [employer] SYSTEM AND THE PACKAGER HEAD IS LEO BOSS [phone], MARIA ESTHER STATES AUTH IS STILL PENDING.
--- NOTE | 2020-01-06 15:14 | NUR ---
BED SIDE HEMODIALYSIS COMPLETED, 500ML REMOVED PER DIALYSIS NURSE. PATIENT IN BED WITH CALL LIGHT AT REACH.
[2020-01-06] MEDS: CLONIDINE HCL 0.1 MG/24 HR 1 EA PATCH TOP SCH (17:00)
--- NOTE | 2020-01-06 17:54 | NUR ---
PATIENT REFUSED DRESSING TO RIGHT STUMP TO BE CHANGED.
--- NOTE | 2020-01-06 19:28 | NUR ---
RECEIVED REPORT FROM DAY NURSE. PATIENT IS RESTING COMFORTABLY IN BED. BED IS IN LOWEST POSITION AND CALL LIGHT IS WITHIN REACH. WILL CONTINUE TO MONITOR PATIENT.
[2020-01-06] MEDS: TAMSULOSIN HCL 0.4 MG CAP PO SCH (21:47)
[2020-01-06] MEDS: ALLOPURINOL 100 MG TAB PO SCH (21:47)
[2020-01-06] MEDS: ATORVASTATIN 40 MG TAB PO SCH (21:47)
[2020-01-07] VITALS (8 sets, daily range): BP systolic 95–122; BP diastolic 53–62
[2020-01-07] MEDS: FORMOTEROL FUMARATE 20 MCG/2 ML VIAL IH SCH ×2 (07:00→19:00)
--- NOTE | 2020-01-07 07:28 | NUR ---
report given to day nurse. patient is resting comfortably in bed. bed is in lowest position and call light is within reach.
[2020-01-07] MEDS: PANTOPRAZOLE SOD 40 MG TABEC PO SCH (07:30)
[2020-01-07] MEDS: POLYETHYLENE GLYCOL 3350 17 GM PACK PO SCH (09:00)
[2020-01-07] MEDS: SEVELAMER CARBONATE 800 MG TAB PO SCH ×3 (09:34→17:02)
[2020-01-07] MEDS: CLOPIDOGREL BISULFATE 75 MG TAB PO SCH (09:35)
[2020-01-07] MEDS: SENNA-S TABLET PO SCH ×2 (09:35→17:00)
[2020-01-07] MEDS: METOPROLOL TARTRATE 50 MG TAB PO SCH ×2 (09:35→17:02)
[2020-01-07] MEDS: VITAMIN B COMPLEX PO SCH ×2 (09:36→21:01)
[2020-01-07] MEDS: BUDESONIDE 0.5MG/2 ML NEB INH SCH ×2 (09:45→19:35)
[2020-01-07] MEDS: ALBUTEROL/IPRATROPIUM 3 ML NEB INH PRN (19:20)
[2020-01-07] MEDS: ATORVASTATIN 40 MG TAB PO SCH (20:59)
[2020-01-07] MEDS: ALLOPURINOL 100 MG TAB PO SCH (20:59)
[2020-01-07] MEDS: TAMSULOSIN HCL 0.4 MG CAP PO SCH (20:59)
[2020-01-08] VITALS (8 sets, daily range): BP systolic 109–136; BP diastolic 59–71
[2020-01-08] MEDS: FORMOTEROL FUMARATE 20 MCG/2 ML VIAL IH SCH ×2 (07:00→19:00)
--- NOTE | 2020-01-08 07:01 | NUR ---
bedside rounding complete. patient is resting comfortably in the bed. bed is in the lowest position and call light is within reach.
[2020-01-08] MEDS: BUDESONIDE 0.5MG/2 ML NEB INH SCH ×2 (07:55→23:30)
[2020-01-08] MEDS: SENNA-S TABLET PO SCH ×2 (08:30→17:00)
[2020-01-08] MEDS: METOPROLOL TARTRATE 50 MG TAB PO SCH ×2 (08:30→16:30)
[2020-01-08] MEDS: CLOPIDOGREL BISULFATE 75 MG TAB PO SCH (08:30)
[2020-01-08] MEDS: POLYETHYLENE GLYCOL 3350 17 GM PACK PO SCH (08:30)
[2020-01-08] MEDS: SEVELAMER CARBONATE 800 MG TAB PO SCH ×3 (08:30→16:30)
[2020-01-08] MEDS: PANTOPRAZOLE SOD 40 MG TABEC PO SCH (08:30)
[2020-01-08] MEDS: VITAMIN B COMPLEX PO SCH ×2 (08:33→20:52)
--- NOTE | 2020-01-08 12:34 | Progress Note ---
DATE: 01/07/2020 Followup Pain Medicine Progress Note SUBJECTIVE: This patient has ongoing pain issues, especially the postoperative pain in the right foot for diabetic foot, underwent surgery multiple times. He also has history of amputation in the past, having phantom leg pain. He is still having some pain issues, now he is better with current medication regimen. OBJECTIVE: GENERAL: The patient is in pain, but not acute distress. VITAL SIGNS: Within normal. Blood pressure 130/60, heart rate 70, respiratory rate 17, and saturation 97%. HEENT: Normocephalic. NECK: Supple. LUNGS: Air entry bilaterally. HEART: Regular rate and rhythm. ABDOMEN: Soft, nontender. EXTREMITIES: Having history of amputation. LABORATORY DATA: Noted. Hemoglobin 9 and hematocrit 29. 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 We will continue supportive care while he is inpatient. Thank you Dr. Davis for this patient. I will follow him with you. MD SHANE Cabezas/MODL /[id number]
--- NOTE | 2020-01-08 14:05 | NUR ---
Visit made by the Spiritual Care Department Pastoral Visitor, Chong Ward. PV provided pastoral presence, hospitality, and supportive listening. Pastoral Visitor informed pt/family of the scope of [employer] Services and availability. AURELIA NEWTON Natural Resources Professor Spiritual Care Department O: [phone] Pager: [phone] ([phone] number calling from)
--- NOTE | 2020-01-08 17:07 | Progress Note ---
DATE: 01/08/2020 SUBJECTIVE: Mr. Kong is doing well. There are no new complaints. REVIEW OF SYSTEMS: There is nothing new. PHYSICAL EXAMINATION: GENERAL: Currently alert, oriented, does not seem in acute distress. VITAL SIGNS: Stable. Afebrile. HEENT: Not icteric. NECK: Supple. CHEST: Clear. IMPRESSION: Status post [id number] amputation, status post gangrene of the foot, peripheral vascular disease, neuropathy, end-stage renal disease, on dialysis. Pain remains an issue. Stable from Infectious Disease point of view. Continue with local care. Continue with the discharge planning as ordered. MD AVERY Evans/MODL /[id number]
--- NOTE | 2020-01-08 19:00 | NUR ---
Report given to oncoming nurse of patient's status. Resting in bed, side rails upx2, call light within reach, bed alarm on. AAOX3 to time, person, place. Respirations even and unlabored. Denies pain.
--- NOTE | 2020-01-08 19:14 | NUR ---
received report from day nurse.patient is resting comfortably in the bed. bed is in the lowest position and call reyes is within reach. will continue to monitor patient.
[2020-01-08] MEDS: TAMSULOSIN HCL 0.4 MG CAP PO SCH (20:52)
[2020-01-08] MEDS: ATORVASTATIN 40 MG TAB PO SCH (20:52)
[2020-01-08] MEDS: ALLOPURINOL 100 MG TAB PO SCH (20:52)
[2020-01-08] MEDS: ALBUTEROL/IPRATROPIUM 3 ML NEB INH PRN (23:15)
[2020-01-09] VITALS (7 sets, daily range): BP systolic 105–147; BP diastolic 58–85
[2020-01-09] MEDS: FORMOTEROL FUMARATE 20 MCG/2 ML VIAL IH SCH (07:00)
--- NOTE | 2020-01-09 07:08 | NUR ---
report given to day nurse. patient is resting comfortably in bed. bed is in lowest position and call light is within reach.
--- NOTE | 2020-01-09 07:10 | NUR ---
PT UP IN BED ,DENIES PAIN,DRSG CHANGED REQUESTED.
[2020-01-09] MEDS: ALBUTEROL/IPRATROPIUM 3 ML NEB INH PRN (07:45)
[2020-01-09] MEDS: BUDESONIDE 0.5MG/2 ML NEB INH SCH (07:45)
[2020-01-09] MEDS: PANTOPRAZOLE SOD 40 MG TABEC PO SCH (08:57)
[2020-01-09] MEDS: SEVELAMER CARBONATE 800 MG TAB PO SCH ×3 (08:57→17:00)
[2020-01-09] MEDS: CLOPIDOGREL BISULFATE 75 MG TAB PO SCH (08:58)
[2020-01-09] MEDS: METOPROLOL TARTRATE 50 MG TAB PO SCH ×2 (08:58→17:55)
[2020-01-09] MEDS: SENNA-S TABLET PO SCH ×2 (08:58→17:00)
[2020-01-09] MEDS: POLYETHYLENE GLYCOL 3350 17 GM PACK PO SCH (09:00)
[2020-01-09] MEDS: VITAMIN B COMPLEX PO SCH (10:00)
[2020-01-09 11:41] LABS: BASOPHILS % 0.3 % (0.0-1.0); EOSINOPHILS # (AUTO) 0.1 (0.0-0.4); EOSINOPHILS % 1.1 % (0.0-6.0); HEMATOCRIT 25.8 % (38.2-49.6); HEMOGLOBIN 8.2 g/dL (14.0-18.0); LYMPHOCYTES # (AUTO) 1.3 (1.0-3.2); LYMPHOCYTES % 17.1 % (18.0-39.1); MEAN CORPUSCULAR HEMOGLOBIN 24.4 pg (28-32); MEAN CORPUSCULAR HGB CONC 31.8 g/dL (31-35); MEAN CORPUSCULAR VOLUME 76.8 fL (81-99); MONOCYTES # (AUTO) 0.6 (0.2-0.8); MONOCYTES % 8.2 % (4.4-11.3); NEUTROPHILS # (AUTO) 5.3 (2.1-6.9); PLATELET COUNT 205 x10e3/uL (140-360); RED BLOOD COUNT 3.36 x10e6/uL (4.3-5.7); RED CELL DISTRIBUTION WIDTH 22.4 % (11.7-14.4)
--- NOTE | 2020-01-09 12:43 | NUR ---
SPOKE WITH FACILITY FAXED UPDATES FROM WEEKEND, STILL PENDING AUTH.
[2020-01-09 13:20] LABS: ANISOCYTOSIS MODERATE; RBC MORPHOLOGY COMMENT ABNORMAL
--- NOTE | 2020-01-09 13:35 | Progress Note ---
DATE: 01/09/2020 SUBJECTIVE: Seen on dialysis, tolerating procedure. PHYSICAL EXAMINATION: GENERAL: Lying in bed, no distress. VITAL SIGNS: Temperature is 97.5, pulse 90, blood pressure 113/85. CHEST: Clear. EXTREMITIES: No sacral edema. Amputations are noted. CARDIAC: Normal heart tones. S4 is present. LABORATORY DATA: Hemoglobin is 9.1, K is 5.0, creatinine 7.6, BUN 15. ASSESSMENT: 1. End-stage renal disease. 2. History of hyperkalemia. 3. Hypertension. 4. Peripheral vascular disease. 5. Status post right below knee amputation. PLAN: Hemodialysis today, 4 hour run, 2 potassium bath, blood flow rate 350 mL/minute, dialysate flow rate 700 mL/minute, 2 L fluid removal, and F160 filter. We will follow along. MD STEPHENIE Faria/MODL /[id number]
--- NOTE | 2020-01-09 15:15 | NUR ---
CALLED ANGELITO WITH INSURANCE TO FIND OUT WHAT IS HOLD UP ON THIS REFERRAL. SHE STATES IT IS [facility]O [facility] BUT SHE WILL GET WITH HER TO DETERMINE IF THERE IS ANYTHING SHE CAN DO TO HELP. WILL CALL BACK WHEN GET ANY INFORMATION. LET HER KNOW THAT PT IS READY FOR TRANSFER.
--- NOTE | 2020-01-09 17:55 | NUR ---
PT UP IN BED NO DISTRESS NOTED,DENIES PAIN
--- NOTE | 2020-01-09 20:00 | NUR ---
Pt D/C'd on stretcher via EMS to SNF. EMS received transfer paperwork. Pt VSS. No acute distress noted.
--- NOTE | 2020-01-26 16:36 | NUR ---
DAUGHTER CALLED ME UPSET, STATES HER FATHER IS LISTED WITH THE INSURANCE, INSTEAD OF DISCHARGED ON 01/09/20. PT IS HAVING AN ISSUE WITH HIS FISTULA AND ATTEMPTING TO GET IT FIXED OUTPATIENT BUT GETTING DENIED. i WENT TO [facility]te AND STAS ED DIRECTOR TO GET FIXED, UNABLE, [facility]H AND MYSELF CALLED INSURANCE LEFT MESSAGE. VICENTE Ramirez COMMERCIAL DRAFTER CALLED ME BACK AND CHANGED DISPOSITION IN HER SYSTEM TO GET UPDATED [phone], SHE STATES IF ANY QUESTIONS TO CALL [phone] OPTION 2 OPTION 2 AGAIN. CALLED DAUGHTER AND UPDATED HER.
== END 2020-01-09 20:18 | DRG 239 ==
LOC: ER 09:32 → ERHOLD 11:14 → MED/SURG3 21:37 → OBSVTOIN 12-16 10:02 → UNDODISIN 01-09 20:18
PROVIDERS: ADMIT Internal Medicine; ATTEND Internal Medicine
PROC: 5A1D70Z Performance of Urinary Filtration, Intermittent, Less than 6 Hours Per Day (ICD-10-PCS; 2019-12-16)
PROC: 30233N1 Transfusion of Nonautologous Red Blood Cells into Peripheral Vein, Percutaneous Approach (ICD-10-PCS; 2019-12-21)
PROC: 0Y6F0ZZ Detachment at Right Knee Region, Open Approach (ICD-10-PCS; principal; 2019-12-27 12:30)
DX: E11.52 Type 2 diabetes mellitus with diabetic peripheral angiopathy with gangrene (principal); N18.6 End stage renal disease; I96 Gangrene, not elsewhere classified; I12.0 Hypertensive chronic kidney disease with stage 5 chronic kidney disease or end stage renal disease; M86.8X7 Other osteomyelitis, ankle and foot; N25.81 Secondary hyperparathyroidism of renal origin; Z68.1 Body mass index [BMI] 19.9 or less, adult; T87.81 Dehiscence of amputation stump; E11.65 Type 2 diabetes mellitus with hyperglycemia; E11.22 Type 2 diabetes mellitus with diabetic chronic kidney disease; E11.42 Type 2 diabetes mellitus with diabetic polyneuropathy; Z89.431 Acquired absence of right foot; Y83.5 Amputation of limb(s) as the cause of abnormal reaction of the patient, or of later complication, without mention of misadventure at the time of the procedure; Z89.512 Acquired absence of left leg below knee; I25.10 Atherosclerotic heart disease of native coronary artery without angina pectoris; Z95.1 Presence of aortocoronary bypass graft; E11.69 Type 2 diabetes mellitus with other specified complication; G54.6 Phantom limb syndrome with pain; N40.0 Benign prostatic hyperplasia without lower urinary tract symptoms; Z79.4 Long term (current) use of insulin; G89.4 Chronic pain syndrome; M10.9 Gout, unspecified; E78.5 Hyperlipidemia, unspecified; R63.0 Anorexia; R19.7 Diarrhea, unspecified; G89.18 Other acute postprocedural pain; J44.9 Chronic obstructive pulmonary disease, unspecified
CPT/HCPCS: 36415; 80048; 80053; 81001; 82948; 84132; 85007; 85025; 85027; 86704; 86706; 86850; 86900; 86920; 87086; 87340; 88307; 90962; 93005; 94640; 94664; 97139; 99284; G0378; J0692; J1644; J2001; J2250; J2270; J2370; J2405; J3010; J3370; J7030; J7050; P9016; Q0162

== ENCOUNTER → 2021-05-14 | Outpatient (CLI) | payer MEDICARE ==
[2021-05-14 10:10] LABS: BASOPHILS % 0.7 % (0.0-1.0); EOSINOPHILS # (AUTO) 0.2 (0.0-0.4); EOSINOPHILS % 2.8 % (0.0-6.0); HEMATOCRIT 29.7 % (38.2-49.6); HEMOGLOBIN 8.7 g/dL (14.0-18.0); LYMPHOCYTES # (AUTO) 0.8 (1.0-3.2); LYMPHOCYTES % 13.5 % (18.0-39.1); MEAN CORPUSCULAR HEMOGLOBIN 22.2 pg (28-32); MEAN CORPUSCULAR HGB CONC 29.3 g/dL (31-35); MEAN CORPUSCULAR VOLUME 75.8 fL (81-99); MONOCYTES # (AUTO) 0.8 (0.2-0.8); MONOCYTES % 13.3 % (4.4-11.3); NEUTROPHILS # (AUTO) 3.9 (2.1-6.9); NEUTROPHILS % 69.3 % (38.7-80.0); PLATELET COUNT 258 x10e3/uL (140-360); RED BLOOD COUNT 3.92 x10e6/uL (4.3-5.7); RED CELL DISTRIBUTION WIDTH 22.2 % (11.7-14.4)
[2021-05-14 10:31] LABS: INR 1.22; PROTHROMBIN TIME 16.1 seconds (11.9-14.5)
[2021-05-14 10:32] LABS: ALBUMIN/GLOBULIN RATIO 0.7 (0.8-2.0); ANION GAP 17.3 mmol/L (8-16); CALCIUM 8.9 mg/dL (8.4-10.2); CREATININE, SERUM 5.44 mg/dL (0.72-1.25); PARTIAL THROMBOPLASTIN TIME 41.7 seconds (23.8-35.5); POTASSIUM 4.3 mmol/L (3.5-5.1)
[2021-05-14 10:56] LABS: FERRITIN 155.88 ng/mL (21.81-274.66); THYROID STIMULATING HORMONE 1.075 uIU/mL (0.350-4.940)
== END ==
LOC: US 09:25
PROVIDERS: ATTEND Internal Medicine Gastroenterology
DX: K74.69 Other cirrhosis of liver (principal); K72.90 Hepatic failure, unspecified without coma; I10 Essential (primary) hypertension; E66.9 Obesity, unspecified; Z71.3 Dietary counseling and surveillance
CPT/HCPCS: 36415; 76700; 80053; 82105; 82728; 83540; 84443; 84466; 85025; 85610; 85730; 86039; 86255; 86704; 86705; 86706; 86707; 87340; 87350; 87522